=== PATIENT | female | born 1950 | race Caucasian/White ===

== ENCOUNTER 2024-09-07 20:14 | Observation (INO) | payer MEDICARE, SELFPAY ==
[2024-09-07 20:16] VITALS: BP 163/103; PULSE 72; RESP 19; TEMP 36.4; O2SAT 97; BMI 29.9
--- NOTE | 2024-09-07 20:24 | CT_ITS ---
PROCEDURE: BRAIN/HEAD WITHOUT CONTRAST 09/07/2024 REASON FOR EXAM: DIZZINESS TECHNIQUE: Head CT without intravenous contrast. Coronal and Sagittal reconstruction series were provided. One or more dose reduction techniques were used (e.g., Automated exposure control, adjustment of the mA and/or kV according to patient size, use of iterative reconstruction technique. COMPARISON: None FINDINGS: Negative for acute intracranial hemorrhage, midline shift or mass effect. No definite CT evidence of acute territorial cortical infarction. No hydrocephalus. Chronic lacunar infarcts in the right basal ganglia. Mild chronic small-vessel ischemic changes. Calvarium is intact. Paranasal sinuses and mastoid air cells are clear. CT/Brain/Head without Contrast IMPRESSION: 1. No acute intracranial abnormality. 2. Chronic ischemic changes as above. Reading Location: [facility]
--- NOTE | 2024-09-07 20:25 | EX.ED.DYSGE1 ---
HPI History of Present Illness Chief Complaint: Dizziness Narrative Narrative: 74-year-old female past medical history of COPD presents with lightheadedness and dizziness that she has had all day today. She states yesterday everything was fine. Her boyfriend states that her symptoms may have started this morning around 3 AM. They were not as severe, but she has been working in the yard all day. States she feels lightheaded, and it is worse with standing. She feels like she is off balance when she stands and that everything is far away. She denies any vertiginous type symptoms with the room spinning at rest. No recent diarrhea. Earlier she was nauseated and vomited once, but feels improved. No other exacerbating or alleviating factors. No dysuria or hematuria. No recent fevers or chills. No cough or shortness of breath even with her history of COPD. [facility] Medical History COPD (chronic obstructive pulmonary disease) Allergy/AdvReac Type Severity Reaction Status Date / Time No Known Allergies Allergy Verified 09/07/24 20:15 Social History Smoking Status: Current every day smoker tobacco type: cigarettes ROS ROS ED ROS Narrative Review of systems positive for lightheadedness and dizziness worse with standing. No fevers or chills. She was nauseated earlier and vomited once without any blood in her emesis. No recent diarrhea. No chest pain, no shortness of breath. EXAM Physical Exam Narrative Exam Narrative: Afebrile. Vital signs noted. Nontoxic-appearing. Cardiovascular examination reveals a regular rate and rhythm. Lungs are clear to auscultation bilaterally with diminished sounds at the bilateral bases. Moving a good amount of air. Abdomen is soft and nontender without guarding or rebound. No epigastric tenderness. Neurological examination is nonfocal, nonlateralizing. PERRL, EOMI. Normal [id number]. No pedal edema noted. Const Vital Signs: 09/07/24 20:16 09/07/24 20:27 09/07/24 21:15 Temperature 97.6 F L Temperature Source Oral Pulse Rate 72 84 Pulse Rate [Lying] 75 Respiratory Rate 19 H 21 H Blood Pressure 163/103 H 179/89 H Blood Pressure [Lying] 181/91 H Blood Pressure [Sitting (for 1 minute prior to obtaining)] 173/85 H Blood Pressure Mean 123 119 Blood Pressure Mean [Lying] 121 Blood Pressure Mean [Sitting (for 1 minute prior to obtaining)] 114 Pulse Ox 97 98 Oxygen Delivery Method Room Air Room Air 09/07/24 22:00 Temperature Temperature Source Pulse Rate 75 Pulse Rate [Lying] Respiratory Rate 17 Blood Pressure 179/84 H Blood Pressure [Lying] Blood Pressure [Sitting (for 1 minute prior to obtaining)] Blood Pressure Mean 115 Blood Pressure Mean [Lying] Blood Pressure Mean [Sitting (for 1 minute prior to obtaining)] Pulse Ox 96 Oxygen Delivery Method Room Air MDM MDM MDM Narrative Medical decision making narrative: The differential diagnosis includes but not limited to benign positional vertigo versus orthostatic near syncope versus posterior circulation problem/cerebellar stroke. Her exam is not consistent with cerebellar stroke. She may have intravascular volume depletion or other electrolyte imbalance/dehydration as she states she has been doing yard work and in the heat all day today. As her symptoms began earlier this morning, at 3 AM, approximately 17 hours ago, I do not feel stroke team is indicated as she has no focal deficit. Additionally, she is not a TNK candidate because she is outside the window. I reviewed her laboratory work and she has normal white count of 9.5 with hemoglobin normal at 12.9, hematocrit 40.4, platelet count 354. Her electrolyte panel is grossly unremarkable except for CO2 low at 18.8 with normal BUN of 10 and creatinine 0.70. Sodium normal at 141 and potassium 3.9. LFTs are grossly unremarkable. Chest x-ray shows atelectasis in the right base on my independent interpretation. I reviewed the radiology report which confirms my independent interpretation. CT of the brain radiology report reviewed and there are chronic changes but no acute intracranial abnormality. Upon repeat examination, she states she feels the same. She was unable to stand for orthostatics. While she was given the meclizine orally, with concern for posterior circulation problem/cerebellar stroke, CTA will be obtained of the head and neck. I reviewed the radiology report of the CTA of the head and neck and there is no evidence of a large vessel occlusion. She does have 40% stenosis of the left carotid. As she is unable to stand she will be unable to perform her ADLs at home I feel that she will require observation. Patient will be discussed with the hospitalist. Discussed with Dr. Flores. Patient assigned observation in the PCU. History & Record Review Discussion w/independent historian: Patient and Significant other Lab Data Attestation: I reviewed the patient's lab results. Labs: Laboratory Results - last 24 hr 09/07/24 20:20 WBC 9.5 RBC 6.18 H Hgb 12.9 Hct 40.4 MCV 65.4 L MCH 20.9 L MCHC 31.9 L RDW Std Deviation 38.6 RDW Coeff of Luis 18.4 H Plt Count 354 MPV 10.0 Immature Gran % (Auto) 0.300 Neut % (Auto) 60.5 Lymph % (Auto) 32.7 [place]irt % (Auto) 5.4 Eos % (Auto) 0.5 Baso % (Auto) 0.6 Absolute Neuts (auto) 5.7 Absolute Lymphs (auto) 3.10 Nucleated RBC % 0.3 Sodium 141 Potassium 3.9 Chloride 107 Carbon Dioxide 18.8 L Anion Gap 15 BUN 10 Creatinine 0.70 Estim Creat Clear Calc 53.61 Est GFR (MDRD) Non-Af 91 BUN/Creatinine Ratio 14.6 Glucose 116 H Calcium 9.9 Total Bilirubin 0.45 AST 18 ALT 12 Alkaline Phosphatase 89 Total Protein 8.0 Albumin 4.4 Globulin 3.7 Albumin/Globulin Ratio 1.2 Radiography Chest X-Ray - ED: 1 View, Read by ED Physician, Read by Radiologist and No Acute Disease Diagnostic Testing: Clinical Impression(s) from Imaging Studies Brain CT 09/07/24 20:24 IMPRESSION: 1. No acute intracranial abnormality. 2. Chronic ischemic changes as above. Reading Location: [facility] Chest X-Ray 09/07/24 20:39 IMPRESSION: 1. Minimal right basilar opacities which may relate to atelectasis or infiltrate. 2. Left humeral neck enchondroma. Reading Location: [facility] Head/Neck CTA 09/07/24 21:27 IMPRESSION: No large vessel occlusion. No right carotid stenosis. Mild (40%) left carotid stenosis. Patent vertebral arteries bilaterally. 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 Reading Location: [id number] Management Discussion w/another healthcare provider: Hospitalist Discharge Plan Dx/Rx/DC Orders Clinical Impression: Dizziness, Lightheadedness, Inability to walk, COPD (chronic obstructive pulmonary disease) Disposition Disposition: Acute Care Hospital [facility]
[2024-09-07 20:27] VITALS: BP 173/85; BP 181/91; PULSE 75
[2024-09-07] MEDS: 0.9% Normal Saline (1000mL) 1,000 ML 1000 ML IV (20:37)
--- NOTE | 2024-09-07 20:39 | RAD_ITS ---
PROCEDURE: CHEST 1 VIEW (PORTABLE) 09/07/2024 REASON FOR EXAM: COPD TECHNIQUE: Frontal view of the chest. COMPARISON: None FINDINGS: Cardiomediastinal silhouette is within normal limits. Minimal right basilar airspace opacities. Left lung is clear. No sizable pleural effusion or pneumothorax. Enchondroma in the left femoral neck. RAD/Chest 1 View (Portable) IMPRESSION: 1. Minimal right basilar opacities which may relate to atelectasis or infiltrat e. 2. Left humeral neck enchondroma. Reading Location: [facility]
[2024-09-07 20:40] LABS: Absolute Neutrophil Count 5.7 X10^3/uL (2.0-7.7); Basophil# 0.06 X10^3/uL; Basophil% 0.6 % (0-1); Eosinophil# 0.05 X10^3/uL; Eosinophils% 0.5 % (0-5); Hematocrit 40.4 % (37-47); Hemoglobin 12.9 g/dL (12.0-15.0); Lymphocyte % 32.7 % (19-41); Mean Corp Hgb Conc 31.9 g/dL (32-36); Mean Corpuscular Hgb 20.9 pg (27.0-32.0); Mean Corpuscular Volume 65.4 fL (81-99); Monocyte# 0.51 X10^3/uL; Monocyte% 5.4 % (0-10); NRBC Flagged by Analyzer 0.3 % (0-5); Neutrophil # 5.73 X10^3/uL (2.7-7.7); Neutrophil % 60.5 % (47-70); Platelet Count 354 K/mm3 (150-450); RBC Distribution Width CV 18.4 % (11.6-14.6); RBC Distribution Width SD 38.6 fl (35.1-43.9); Red Blood Count 6.18 M/mm3 (4.2-5.4); White Blood Count 9.5 K/mm3 (4.4-11.0)
[2024-09-07 21:15] VITALS: BP 179/89; PULSE 84; RESP 21; O2SAT 98
[2024-09-07 21:16] LABS: ALB/GLOB Ratio 1.2 RATIO (0.9-2.4); AST(SGOT) 18 U/L (<=31); Alanine Aminotransfer ALT/SGPT 12 U/L (<=34); Albumin, Serum 4.4 g/dL (3.4-4.8); Alkaline Phosphatase 89 U/L (35-104); Anion Gap 15 (5-15); BUN 10 mg/dL (4-19); BUN/Creat Ratio 14.6 RATIO (10-20); Calcium,Total 9.9 mg/dL (7.6-11.0); Carbon Dioxide 18.8 mmol/L (21.0-32.0); Chloride 107 mmol/L (98-108); EST Glomerular Filtration Rate 91 (>60); Estimated Creatinine Clearance 53.61 ml/min (50-250); Globulin 3.7 g/dL (2.2-4.2); Glucose 116 mg/dL (70-99); Potassium 3.9 mmol/L (3.3-5.1); Sodium Level 141 mmol/L (133-145); Total Bilirubin 0.45 mg/dL (0.00-1.30)
--- NOTE | 2024-09-07 21:27 | CT_ITS ---
PROCEDURE: CTA HEAD AND NECK W/ CONTRAST 09/07/2024 REASON FOR EXAM: DIZZINESS TECHNIQUE: CTA imaging of the head and neck from the aortic arch to the skull vertex with out constrast and with intravenous contrast. Coronal and Sagittal reconstruction series were provided. 3D post processing with reformations, Maximum intensity projection (MIPs) Volume rendering and Shaded surface rendering was provided. One or more dose reduction techniques were used (e.g., Automated exposure control, adjustment of the mA and/or kV according to patient size, use of iterative reconstruction technique). FINDINGS: Aortic Arch: Normal size and branching pattern. No significant atherosclerotic plaque. Direct origin of the left vertebral artery from the aortic arch between the origin left common carotid artery and left subclavian artery. Brachiocephalic and Subclavians: Unremarkable RIGHT Carotid: Right CCA: Unremarkable. Right ICA: Mild calcified and soft plaque. Maximum stenosis (NASCET): 0 % Right ECA: Unremarkable. LEFT Carotid: Left CCA: Mild calcified and soft plaque. Left ICA: Mild calcified and soft plaque. Maximum stenosis (NASCET): 40 % Left ECA: Unremarkable. Vertebrals: RIGHT Vertebral: Unremarkable. LEFT Vertebral: Hypoplastic Anatomy: [place] anatomy is normal. Aneurysm or avm: No intracranial aneurysms or large vascular malformations are identified. Anterior cerebral arteries: Unremarkable: Middle cerebral arteries: Unremarkable. Basilar artery: Unremarkable. Posterior cerebral arteries: Unremarkable. Persistent origin bilaterally. Other major branches of the posterior circulation: Unremarkable. Major venous structures: Unremarkable. Other findings: Neck: No lymphadenopathy. Lungs: Lung apices are clear. Bones: Bones are unremarkable. CT/CTA Head AND Neck W/ Contrast IMPRESSION: No large vessel occlusion. No right carotid stenosis. Mild (40%) left carotid stenosis. Patent vertebral arteries bilaterally. 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 Reading Location: [id number]
[2024-09-07] MEDS: Meclizine HCl 25 MG Tablet PO (21:38)
[2024-09-07 22:00] VITALS: BP 179/84; PULSE 75; RESP 17; O2SAT 96
--- NOTE | 2024-09-07 22:21 | PCM.HP.STD ---
[facility] - General General Date of Admission: 09/07/24 Date of Service: 09/07/24 Chief Complaint: Lightheadedness, Dizziness and Nausea with Vomiting. HPI Narrative MARU MARIANO, is a 74 F with a past medical history of obesity; BMI of 30 sensation and chronic tobacco abuse; with subsequent COPD on Trelegy Ellipta daily and as needed albuterol who presents to [facility] complaining of lightheadedness, dizziness and nausea with vomiting. Ms. Mariano reports her symptoms began abruptly earlier today at ~3 AM. She states her dizziness was initially mild but then she spent all day working in the yard which seem to make her symptoms worse. Now she feels severely lightheaded which is made worse by standing. She also admits to feeling like she is off-balance and that everything seems far away. She denies any vertiginous type symptoms with room spinning at rest, known history of BPPV or similar previous episodes. She then developed nausea with 1 episode of bilious emesis. She denies other exacerbating or alleviating factors. She denies associated fever, chills, abdominal pain, diarrhea, constipation, dysuria, hematuria, chest pain, headache or rash. 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 Her CXR revealed minimal Right basilar opacities which may relate to atelectasis or infiltrate with incidentally noted Left humeral neck enchondroma. Clinically she was noted to have an elevated blood pressure of 181/91 mmHg noted shortly after admission consistent with suspected Hypertensive Urgency complicated by incidentally noted laboratory evidence of microcytosis with MCV of 65.4 fL present on admission but with a stable hemoglobin of 12.9 g/dL present on admission with no other significant findings. She was then admitted to the PCU under observation status for ongoing care for stay that is expected to be less than 2 midnights. [facility] Medical History COPD (chronic obstructive pulmonary disease) Home Medications ?Medication ?Instructions ?Recorded ?Last Taken ?Type albuterol sulfate inhalation Q6H PRN PRN shortness 09/07/24 Unknown History of breath or wheezing fluticasone fur. 100 mcg-umeclid 1 inh inhalation DAILY 09/07/24 Unknown History 62.5 mcg-vilant 25 mcg inhalat.powder (Trelegy Ellipta) Allergy/AdvReac Type Severity Reaction Status Date / Time No Known Allergies Allergy Verified 09/07/24 20:15 Social History Smoking Status: Current every day smoker tobacco type: cigarettes ROS ROS Narrative Review of Systems: Constitutional: Patient admits to lightheadedness and dizziness made worse with standing. She denies fever or chills. Eyes: Patient states things seem far away but she denies other changes in vision or discharge from eyes. ENT: Patient denies runny nose, sore throat or ear pain. Resp: Patient denies shortness of breath or cough. CV: Patient denies chest pain, palpitations, heart racing or lower extremity edema. GI: Patient admits to nausea and vomiting with bilious emesis but she denies abdominal pain, diarrhea or constipation. : Patient denies dysuria, hematuria or urinary frequency. MSK: Patient denies arthralgias or myalgias. Skin: Patient denies rash, abscess, wounds or jaundice. Psych: Patient denies symptoms of uncontrolled depression or anxiety. Neuro: Patient admits to dizziness and lightheadedness but she denies vertiginous symptoms, headache, paresthesias or focal neurologic deficits. Allergy: Patient denies lip swelling, tongue swelling or urticaria. Hematology: Patient denies easy bleeding or easy bruisability. Endocrinology: Patient denies polyuria, polydipsia, polyphagia or heat/cold intolerance. 14 point ROS otherwise negative except for positives noted above in HPI. Vital Signs Vital Signs Vital Signs: 09/07/24 20:16 09/07/24 20:27 09/07/24 21:15 Temperature 97.6 F L Temperature Source Oral Pulse Rate 72 84 Pulse Rate [Lying] 75 Respiratory Rate 19 H 21 H Blood Pressure 163/103 H 179/89 H Blood Pressure [Lying] 181/91 H Blood Pressure [Sitting (for 1 minute prior to obtaining)] 173/85 H Blood Pressure Mean 123 119 Blood Pressure Mean [Lying] 121 Blood Pressure Mean [Sitting (for 1 minute prior to obtaining)] 114 Pulse Ox 97 98 Oxygen Delivery Method Room Air Room Air 09/07/24 22:00 Temperature Temperature Source Pulse Rate 75 Pulse Rate [Lying] Respiratory Rate 17 Blood Pressure 179/84 H Blood Pressure [Lying] Blood Pressure [Sitting (for 1 minute prior to obtaining)] Blood Pressure Mean 115 Blood Pressure Mean [Lying] Blood Pressure Mean [Sitting (for 1 minute prior to obtaining)] Pulse Ox 96 Oxygen Delivery Method Room Air Weight Weight: 148 lb 5.938 oz Body Mass Index (BMI) 29.9 Physical Exam Const alert and oriented x3 Constitutional Narrative: Mild distress noted. General Appearance: cooperative HEENT normocephalic, head/scalp atraumatic, hearing grossly normal bilaterally and moist oral mucous membranes Eyes PERRL, EOMs intact bilaterally and conjunctivae normal Neck no lymphadenopathy, supple and no JVD Resp normal respiratory effort, no retractions, no use of accessory muscles and clear to auscultation bilaterally Cardio regular rate and regular rhythm GI normal to inspection, nondistended, normoactive bowel sounds, soft to palpation, non-tender and non-distended GI Narrative: Obese. Extremity normal to inspection, full ROM and no clubbing, cyanosis or edema Skin Skin Narrative: Patient has no evidence of rash, abscess, wounds or jaundice. Neuro oriented x3, CN's II-XII intact bilaterally, moves all extremities and no focal motor deficits Sensorium / Orientation: awake, alert, oriented to person, oriented to place and oriented to time Coordination / Balance: [id number] test normal and [id number] test normal Speech: speech normal Motor Exam: strength 5/5 throughout Psych affect normal Results Medical Records Data Attestation: I reviewed the patient's medical records Lab / Micro Data Attestation: I reviewed the patient's lab results. 09/07/24 20:20 09/07/24 20:20 Labs: Laboratory Results - last 24 hr 09/07/24 20:20: WBC 9.5, RBC 6.18 H, Hgb 12.9, Hct 40.4, MCV 65.4 L, MCH 20.9 L, MCHC 31.9 L, RDW Std Deviation 38.6, RDW Coeff of Luis 18.4 H, Plt Count 354, MPV 10.0, Immature Gran % (Auto) 0.300, Neut % (Auto) 60.5, Lymph % (Auto) 32.7, [place] % (Auto) 5.4, Eos % (Auto) 0.5, Baso % (Auto) 0.6, Absolute Neuts (auto) 5.7, Absolute Lymphs (auto) 3.10, Nucleated RBC % 0.3, Sodium 141, Potassium 3.9, Chloride 107, Carbon Dioxide 18.8 L, Anion Gap 15, BUN 10, Creatinine 0.70, Estim Creat Clear Calc 53.61, Est GFR (MDRD) Non-Af 91, BUN/Creatinine Ratio 14.6, Glucose 116 H, Calcium 9.9, Total Bilirubin 0.45, AST 18, ALT 12, Alkaline Phosphatase 89, Total Protein 8.0, Albumin 4.4, Globulin 3.7, Albumin/Globulin Ratio 1.2 Imaging Radiology Impression Brain CT 09/07/24 20:24 IMPRESSION: 1. No acute intracranial abnormality. 2. Chronic ischemic changes as above. Reading Location: [facility] Chest X-Ray 09/07/24 20:39 IMPRESSION: 1. Minimal right basilar opacities which may relate to atelectasis or infiltrate. 2. Left humeral neck enchondroma. Reading Location: [facility] Head/Neck CTA 09/07/24 21:27 IMPRESSION: No large vessel occlusion. No right carotid stenosis. Mild (40%) left carotid stenosis. Patent vertebral arteries bilaterally. 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 Reading Location: [id number] Assessment & Plan Assessment/Plan (1) Lightheadedness: (2) Dizziness: (3) Inability to walk: (4) Nausea and vomiting: QUALIFIERS: Vomiting type: unspecified Qualified Code(s): R11.2 - Nausea with vomiting, unspecified (5) Hypertensive urgency: (6) Continuous tobacco abuse: (7) COPD (chronic obstructive pulmonary disease): QUALIFIERS: COPD type: unspecified COPD Qualified Code(s): J44.9 - Chronic obstructive pulmonary disease, unspecified (8) Obesity (BMI 30.0-34.9): (9) RBC microcytosis: PLAN: Plan 1. 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 Check MRI of brain to evaluate for CVA. Check echocardiogram to evaluate LVEF. Give baby aspirin plus statin. Place scopolamine patch to extinguish dizziness and GI upset. Give meclizine as needed for dizziness. Give ondansetron IV as needed nausea and vomiting. Give promethazine IM as needed for breakthrough nausea and vomiting. Check TSH, B12, folate, hemoglobin A1c, lipid profile, ADITI and UDS to evaluate for other potential contributing factors to her presentation. Finally, we will consult [facility] to see this patient for further recommendations with appreciated in advance. 2. Hypertensive Urgency; evidenced by elevated blood pressure of 181/91 mmHg noted shortly after admission complicating #1 - We we will allow for 'permissive hypertension' until CVA definitively ruled out on MRI. 3. Chronic tobacco abuse; with subsequent COPD compounding #1 & #2 - Tobacco Cessation will be strongly encouraged with nicotine patch offered to control cravings. Patient has no evidence of flare of COPD at this time. Give albuterol nebulizers as needed. 4. Obesity; BMI of 30 this admission adding to the burden of disease outlined from #1 - #3 - Weight loss will be recommended. Check TSH. This complicates her case and may hamper recovery. 5. Laboratory evidence of microcytosis with MCV of 65.4 fL present on admission but with a stable hemoglobin of 12.9 g/dL present on admission - Check iron studies and ferritin. Hemoccult stools. 6. DVT/GI prophylaxis - Enoxaparin 40 mg subcu daily. Pantoprazole 40 mg IV daily until patient can tolerate p.o. intake. Total time: Approximately (but not less than) 70 minutes. Charges/Coding Visit Charges OBSV E&M: 78228 Observ/hosp same date L2
[2024-09-07 22:36] VITALS: BP 179/84; PULSE 80; RESP 17; TEMP 36.6; O2SAT 97
[2024-09-07 22:39] LABS: Color, Urine Yellow (Yellow); Glucose, Dipstick Normal (Normal); Ketone-Dipstick Negative (Negative); Leukocyte Esterase-Dipstick 500 /ul (Negative); Mucous, Urine 0 SEEN /hpf (<or=2+); Nitrite-Dipstick Negative (Negative); Occult Blood-Urine 10 /ul (Negative); Protein-Dipstick 15 mg/dl (Negative); Red Blood Cells-Urine 0 SEEN /hpf (0-5); Specific Gravity, Urine 1.005 (1.002-1.030); Urine Bilirubin Dipstick Negative (Negative); Urine Clarity Sl. Cloudy (Clear); Urine Urobilinogen Normal (Normal)
[2024-09-07 22:52] LABS: Bacteria 1+ /hpf (None Seen); Squamous Epithelial Cells - UA 0-5 SEEN /hpf (5-10); White Blood Cells 10-25 SEEN /hpf (0-5)
--- NOTE | 2024-09-07 22:53 | MRI_ITS ---
EXAM: BRAIN WITHOUT CONTRAST CLINICAL HISTORY: PLEASE EVALUATE FOR CVA. ? VERTEBROBASILAR SYNDRO COMPARISON: Head CTA September 07, 2024. TECHNIQUE: Multiplanar, multisequence MR images of the brain were obtained without gadolinium contrast material. FINDINGS: No intracranial hemorrhage, mass, mass effect, midline shift or pathologic extra- axial fluid collection. No hydrocephalus. There is moderate generalized atrophy. There is focal restricted diffusion in the left mid periventricular region measuring 1.1 by 0.6 cm image 16/26, and in the left posterior insular deep white matter measuring 0.5 cm and 0.4 cm, image 14/26, with corresponding increased T2 and FLAIR signal, and subtle low T1 signal changes, consistent with recent infarct, early subacute. There is a 0.8 x 0.3 cm old lacunar infarct posterior to the head of the caudate on the right. No gradient signal blooming artifacts are identified. No cerebellar tonsillar ectopia. No sellar/suprasellar signal abnormalities. The ocular globes and intraorbital soft tissues are symmetrically unremarkable. Mucosal thickening is visible in the right maxillary sinus and a portion of the right and left ethmoid air cells. The mastoid air cells appear clear. MRI/Brain without Contrast IMPRESSION: There is moderate generalized atrophy. There is focal restricted diffusion in the left mid periventricular region marshall uring 1.1 by 0.6 cm image 16/26, and in the left posterior insular deep white matter measuring 0.5 cm and 0.4 cm, image 14/26, w ith corresponding increased T2 and FLAIR signal, and subtle low T1 signal changes, consistent with recent infarct, early subacut e. There is a 0.8 x 0.3 cm old lacunar infarct posterior to the head of the caudat e on the right. Mucosal thickening is visible in the right maxillary sinus and a portion of the right and left ethmoid air cells. Reading Location: [facility]
--- NOTE | 2024-09-07 22:53 | ECHOD_ITS ---
Reason For Study Reason For Study: TIA/STROKE Procedure This was a 2D Doppler, Color Flow transthoracic echocardiogram. Exam performed portable in patient room. Left Ventricle Normal LV size. Mild concentric left ventricular hypertrophy. The LV systolic function is normal. EF is 65 %. Stage 1 diastolic dysfunction. Right Ventricle Normal size and thickness. Atria The left and right atria are normal. Mitral Valve Trivial mitral valve insufficiency. Tricuspid Valve Trivial tricuspid valve insufficiency. Normal pulmonary artery pressure. Aortic Valve Trisinus/trileaflet aortic valve. 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 Consider further evaluation with STEVENSON if clinically indicated. There is no aortic stenosis. No aortic valve insufficiency. Pulmonic Valve The pulmonic valve is not well visualized. Trivial pulmonic valve insufficiency. Great Vessels Normal sized aortic root. Pericardium/Pleural No pericardial effusion. MMode/2D Measurements & Calculations LVIDd: 4.2 cm IVSd: 1.2 cm Ao root diam: 2.6 cm LVIDs: 2.7 cm LVPWd: 1.2 cm RVDd: 3.1 cm FS: 34.8 % LAV(MOD-bp): 29.3 ml LVAd ap4: 22.8 cm2 SV(MOD-sp4): 39.0 ml LAV(MOD-bp) Indexed: 18.1 ml/m2 LVLd ap4: 6.9 cm SI(MOD-sp4): 24.1 ml/m2 LAV(MOD-sp2): 32.6 ml EDV(MOD-sp4): 61.9 ml LAV(MOD-sp4): 26.7 ml EDV(sp4-el): 63.7 ml LVAs ap4: 12.4 cm2 LVLs ap4: 5.9 cm ESV(MOD-sp4): 22.8 ml ESV(sp4-el): 22.2 ml EF(MOD-sp4): 63.1 % EF(sp4-el): 65.1 % SV(sp4-el): 41.4 ml LA A4 area: 12.7 cm2 LA dimension(2D): 3.4 cm RA A4 area: 10.4 cm2 TAPSE: 2.5 cm Time Measurements MV dec time: 0.21 sec Doppler Measurements & Calculations MV E max mehdi: 89.1 cm/sec Lat Peak E' Mehdi: 10.0 cm/sec Med Peak E' Mehdi: 9.1 cm/sec MV A max mehdi: 101.5 cm/sec E/E' lat: 8.9 E/E' med: 9.8 MV E/A: 0.88 Ao V2 max: 165.7 cm/sec LV V1 max: 110.5 cm/sec PA V2 max: 104.0 cm/sec Ao max P.0 mmHg LV V1 max P.9 mmHg TR max mehdi: 269.4 cm/sec TR max P.0 mmHg ECHO/Echo Complete Interpretation Summary Mild concentric left ventricular hypertrophy. The LV systolic function is normal. EF is 65 %. Stage 1 diastolic dysfunction. Possible aortic valve Lambl's excrescence versus atherosclerotic frond of the a ortic root. Consider further evaluation with STEVENSON if clinically indicated. Ordering Physician: Valentín Sutton Performed By: Chelsey Delarosa RDCS
--- NOTE | 2024-09-07 22:56 | CDU_ITS ---
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 Velocities/BP Lt. Velocities/BP Prox CCA 73/16.3 cm/sec. Prox CCA 94.9/16.3 cm/sec. Mid CCA 88.1/16.3 cm/sec. Mid CCA 82.6/15.1 cm/sec. Dist CCA 73/17.3 cm/sec. Dist CCA 87.6/18.8 cm/sec. Prox ICA 61.8/10.2 cm/sec. Prox ICA 90/17 cm/sec. Mid ICA 75.3/16.3 cm/sec. Mid ICA 76.8/18.9 cm/sec. Dist ICA 93.7/20 cm/sec. Dist ICA 89.8/15.9 cm/sec. Rt. ICA/CCA = 1.06. Lt. ICA/CCA = 1.09. Prox ECA 196/22.6 cm/sec. Prox ECA 126.6/17 cm/sec. Rt. Vert. 102.3/15.1 cm/sec. Lt. Vert. 48.5/6 cm/sec. Right Extracranial There is intimal thickening but no significant atherosclerotic plaque noted in the right common carotid artery. There is intimal thickening but no significant atherosclerotic plaque noted in the right internal carotid artery. There is heterogeneous, irregular atherosclerotic plaque noted in the right external carotid artery. Antegrade flow is noted in the right vertebral artery. Left Extracranial There is homogeneous, smooth atherosclerotic plaque noted in the left common carotid artery. There is heterogeneous, irregular atherosclerotic plaque noted in the left internal carotid artery. There is heterogeneous, irregular atherosclerotic plaque noted in the left external carotid artery. Antegrade flow is noted in the left vertebral artery. Procedure Carotid Duplex 27631. This is a Carotid Duplex examination using B-mode, color flow and specral Doppler. Exam performed in department. VL/Carotid Duplex Ultrasound Interpretation Summary No significant atherosclerotic plaque or stenosis noted in the right internal c arotid artery. Mild (<50%) stenosis left extracranial internal carotid. Flow within the vertebral arteries is antegrade bilaterally. Ordering Physician: Valentín Sutton Performed By: Jane Shelton RVT
[2024-09-07 23:15] VITALS: BP 150/134; PULSE 80; RESP 18; TEMP 36.4; O2SAT 97; BMI 29.7
[2024-09-07] MEDS: Pantoprazole Sodium 40 MG in 0.9% Normal Saline (100mL MB+) 100 ML 330 MG IV (23:34)
[2024-09-07] MEDS: 0.9% Normal Saline (1000mL) 1,000 ML 50 ML IV (23:34)
[2024-09-07] MEDS: Aspirin 81 MG TAB.CHEW 162 MG PO (23:37)
[2024-09-07] MEDS: Scopolamine 1mg/72hr Patch 1 PATCH TD (23:38)
[2024-09-07] MEDS: Atorvastatin Calcium 20 MG Tablet PO (23:38)
[2024-09-08] VITALS (9 sets, daily range): BP systolic 146–177; BP diastolic 52–83; PULSE 63–85; RESP 16–20; TEMP 36.4–36.9; O2SAT 94–97; BMI 29.7
[2024-09-08 00:03] LABS: Alcohol, Blood (Medical)-Serum < 10.1 mg/dL (<=10.0)
[2024-09-08 00:08] LABS: Amphetamine Urine NEGATIVE (<1000 ng/mL); Barbiturate Urine NEGATIVE (< 200 ng/mL); Benzodiazepine Urine NEGATIVE (< 200 ng/mL); Buprenorphine Urine NEGATIVE (< 200 ng/mL); Cocaine Urine NEGATIVE (< 300 ng/mL); Fentanyl, Urine NEGATIVE; Methadone Urine NEGATIVE (< 300 ng/mL); Opiates Urine NEGATIVE (< 300 ng/mL); Oxycodone, Urine NEGATIVE (< 100 ng/mL); PCP Urine NEGATIVE (< 25 ng/mL); THC Urine PRESUMPTIVE POSITIVE (< 50 ng/mL)
[2024-09-08 00:37] LABS: Ferritin 373 ng/mL (22-378); Vitamin B12 271 pg/mL (180-914)
[2024-09-08 00:51] LABS: Iron 73 ug/dL (50-170); Iron Binding Capacity,Total 292 ug/dL (250-450); Iron Binding Capacity,Unsat 219 ug/dL (228-428)
[2024-09-08 01:11] LABS: Hemoglobin A1c 5.3 % (<=5.6)
[2024-09-08] MEDS: Enoxaparin 40 MG/0.4 ML Syringe SC (05:25)
[2024-09-08 06:18] LABS: Cholesterol 186 mg/dL (<=200); High Density Lipoprotein 30 mg/dL; Low Density Lipoprotein Calc. 128 mg/dL; Triglycerides 142 mg/dL; Very Low Density Lipoprotein 28 mg/dL (5-40); cholesterol:hdl ratio screen 6.22
[2024-09-08] MEDS: Ipratropium/Albuterol Sulfate 3 ML AMPUL.NEB INHALATION ×3 (06:50→19:10)
[2024-09-08] MEDS: Budesonide Respules 0.5 MG/2 ML AMPUL.NEB. INHALATION ×2 (06:50→19:11)
--- NOTE | 2024-09-08 08:54 | PCM.PN.HOSP ---
Reason for Visit Reason for Visit: Diagnoses Obesity, class 1 (09/07/24) Hypertensive urgency (09/07/24) Chronic obstructive pulmonary disease, unspecified (09/07/24) Nausea with vomiting, unspecified (09/07/24) Difficulty in walking, not elsewhere classified (09/07/24) Dizziness and giddiness (09/07/24) Other abnormality of red blood cells (09/07/24) Tobacco use (09/07/24) Objective Data Objective Data Vital Signs: Vital Signs Temp Pulse Resp BP Pulse Ox O2 Del Method 98.2 F 65 16 177/75 H 95 Room Air 09/08/24 05:25 09/08/24 06:50 09/08/24 06:50 09/08/24 05:25 09/08/24 06:50 09/08/24 07:50 Oxygen Delivery Method Room Air Weight: 147 lb 0.773 oz Body Mass Index (BMI) 29.7 Intake & Output: Intake and Output for Last 24 Hours 09/06/24 09/07/24 09/08/24 23:59 23:59 23:59 Intake Total 1110 / 1110 413.33 / 413.33 Balance 1110 / 1110 413.33 / 413.33 Lab / Micro Data 09/07/24 20:20 09/07/24 20:20 Labs: Laboratory Results - last 24 hr 09/07/24 20:20: WBC 9.5, RBC 6.18 H, Hgb 12.9, Hct 40.4, MCV 65.4 L, MCH 20.9 L, MCHC 31.9 L, RDW Std Deviation 38.6, RDW Coeff of Luis 18.4 H, Plt Count 354, MPV 10.0, Immature Gran % (Auto) 0.300, Neut % (Auto) 60.5, Lymph % (Auto) 32.7, [place] % (Auto) 5.4, Eos % (Auto) 0.5, Baso % (Auto) 0.6, Absolute Neuts (auto) 5.7, Absolute Lymphs (auto) 3.10, Nucleated RBC % 0.3, Sodium 141, Potassium 3.9, Chloride 107, Carbon Dioxide 18.8 L, Anion Gap 15, BUN 10, Creatinine 0.70, Estim Creat Clear Calc 53.61, Est GFR (MDRD) Non-Af 91, BUN/Creatinine Ratio 14.6, Glucose 116 H, Hemoglobin A1c 5.3, Calcium 9.9, Iron 73, TIBC 292, Iron Saturation 25.0, Unsaturated IBC 219 L, Ferritin 373, Total Bilirubin 0.45, AST 18, ALT 12, Alkaline Phosphatase 89, Total Protein 8.0, Albumin 4.4, Globulin 3.7, Albumin/Globulin Ratio 1.2, Vitamin B12 271, TSH 1.260, Ethyl Alcohol < 10.1 09/07/24 22:29: Urine Color Yellow, Urine Clarity Sl. Cloudy, Urine pH 7.0, Ur Specific Alba 1.005, Urine Protein 15 H, Urine Glucose (UA) Normal, Urine Ketones Negative, Urine Occult Blood 10 H, Urine Nitrite Negative, Urine Bilirubin Negative, Urine Urobilinogen Normal, Ur Leukocyte Esterase 500 H, Urine RBC 0 SEEN, Urine WBC 10-25 SEEN, Ur Squamous Epith Cells 0-5 SEEN, Urine Bacteria 1+, Urine Mucus 0 SEEN, Urine Opiates Screen NEGATIVE, U Buprenorphine Qual NEGATIVE, Ur Oxycodone Screen NEGATIVE, Urine Methadone Screen NEGATIVE, Urine Fentanyl Screen NEGATIVE, Ur Barbiturates Screen NEGATIVE, Ur Phencyclidine Scrn NEGATIVE, Ur Amphetamines Screen NEGATIVE, U Benzodiazepines Scrn NEGATIVE, Urine Cocaine Screen NEGATIVE, U Cannabinoids Screen PRESUMPTIVE POSITIVE 09/08/24 05:11: Triglycerides 142, Cholesterol 186, LDL Cholesterol, Calc 128, VLDL Cholesterol 28, HDL Cholesterol 30 L, Cholesterol/HDL Ratio 6.22 Radiography Diagnostic Testing: Radiology Impression Brain CT 09/07/24 20:24 IMPRESSION: 1. No acute intracranial abnormality. 2. Chronic ischemic changes as above. Reading Location: [facility] Chest X-Ray 09/07/24 20:39 IMPRESSION: 1. Minimal right basilar opacities which may relate to atelectasis or infiltrate. 2. Left humeral neck enchondroma. Reading Location: [facility] Head/Neck CTA 09/07/24 21:27 IMPRESSION: No large vessel occlusion. No right carotid stenosis. Mild (40%) left carotid stenosis. Patent vertebral arteries bilaterally. 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 Reading Location: [facility] Physical Exam Narrative Seen and examined Patient is feeling dizzy and lightheaded. She was feeling vertigo in the morning. No gait ataxia Physical exam General: Alert, Oriented x3, Cooperative HEENT: Atraumatic, PERRLA, EOMI, Normocephalic Oral: No Gingival or Mucosal Lesions/ Ulcerations Neck: Supple, No JVD, Negative Carotid Bruits Chest wall/Lungs: Air entry diminished in bilateral lung bases. No crepitation/rhonchi Cardiovascular: Regular rate, Regular Rhythm, Normal S1, Normal S2, No M/G/R Abdomen: Bowel Sounds Present, Soft, Non Tender, Non-Distended : No dysuria. No renal angle tenderness. No suprapubic tenderness. Extremities: No edema, Capillary Refill Less than 3 Seconds Skin: No rashes, No breakdown Musculoskeletal: No Tenderness to Palpation of Joints or Extremities Neurological: Cranial nerves II-XII grossly intact, DTR 2+/4. NIH stroke scale 0. Psych/Mental Status: Flat affect Assessment & Plan Assessment/Plan (1) Lightheadedness: (2) Dizziness: (3) Inability to walk: (4) Nausea and vomiting: QUALIFIERS: Vomiting type: unspecified Qualified Code(s): R11.2 - Nausea with vomiting, unspecified (5) Hypertensive urgency: (6) Continuous tobacco abuse: (7) COPD (chronic obstructive pulmonary disease): QUALIFIERS: COPD type: unspecified COPD Qualified Code(s): J44.9 - Chronic obstructive pulmonary disease, unspecified (8) Obesity (BMI 30.0-34.9): (9) RBC microcytosis: PLAN: Plan 74-year-old female was admitted with lightheadedness and dizziness, inability to walk, nausea vomiting and hypertensive urgency. No recent fever or chill, no cough or shortness of breath or URI symptoms. 1. Acute dizziness/vertigo probably due to recent/early subacute infarct of left mid periventricular region and left posterior insular deep white matter: Patient is being admitted in PCU. MRI shows 1.1 x 0.6 cm left mid periventricular region infarct and 0.5 x 0.4 cm left posterior insular deep white matter infarct. There is also old infarct 0.8 x 0.3 cm in posterior of head of caudate on right side. CTA head and neck shows mild 40% left Roto-Rest TTE reported possible aortic valve Lambl's excrescence versus atherosclerotic frond of the aortic root. This was discussed with the neurologist and center customer service associate. Gore Stitcher stated less likely Lambl's excrescence which is filiform strand and he recommended outpatient STEVENSON. LDL 128, TG 142, TSH 1.26. A1c 5.3% Plan: Plavix 300 mg x 1 and 75 mg to continue for 21 days. Aspirin 81 mg to continue. High intensity statin. Permissive hypertension to goal of SBP less than 220 mmHg for 24 hours then we can resume normotension. LDL goal less than 70. Follow-up neurology in 4 to 6 weeks 2. Hypertensive Urgency: Neurologist recommended gradual normotension. Most recent 146/60. 3. Chronic tobacco abuse; with subsequent COPD - Tobacco Cessation recommended. No evidence of acute COPD exacerbation. Nicotine patch offered. 4. Obesity; BMI of 30 KG per square meter 5. LDVT/GI prophylaxis - Enoxaparin 40 mg subcu daily. Pantoprazole 40 mg IV daily until patient can tolerate p.o. intake. Clinical Impression(s) from Imaging Studies Brain CT 09/07/24 20:24 IMPRESSION: 1. No acute intracranial abnormality. 2. Chronic ischemic changes as above. Chest X-Ray 09/07/24 20:39 IMPRESSION: 1. Minimal right basilar opacities which may relate to atelectasis or infiltrate. 2. Left humeral neck enchondroma. Head/Neck CTA 09/07/24 21:27 IMPRESSION: No large vessel occlusion. No right carotid stenosis. Mild (40%) left carotid stenosis. Brain MRI 09/07/24 22:53 IMPRESSION: There is moderate generalized atrophy. There is focal restricted diffusion in the left mid periventricular region measuring 1.1 by 0.6 cm image /, and in the left posterior insular deep white matter measuring 0.5 cm and 0.4 cm, image /, with corresponding increased T2 and FLAIR signal, and subtle low T1 signal changes, consistent with recent infarct, early subacute. There is a 0.8 x 0.3 cm old lacunar infarct posterior to the head of the caudate on the right. Mucosal thickening is visible in the right maxillary sinus and a portion of the right and left ethmoid air cells. Echocardiogram 09/07/24 22:53 Interpretation Summary Mild concentric left ventricular hypertrophy. The LV systolic function is normal. EF is 65 %. Stage 1 diastolic dysfunction. 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 Consider further evaluation with STEVENSON if clinically indicated. Laboratory Results 09/07/24 20:20: WBC 9.5, RBC 6.18 H, Hgb 12.9, Hct 40.4, MCV 65.4 L, MCH 20.9 L, MCHC 31.9 L, RDW Std Deviation 38.6, RDW Coeff of Luis 18.4 H, Plt Count 354, MPV 10.0, Immature Gran % (Auto) 0.300, Neut % (Auto) 60.5, Lymph % (Auto) 32.7, [place] % (Auto) 5.4, Eos % (Auto) 0.5, Baso % (Auto) 0.6, Absolute Neuts (auto) 5.7, Absolute Lymphs (auto) 3.10, Nucleated RBC % 0.3, Sodium 141, Potassium 3.9, Chloride 107, Carbon Dioxide 18.8 L, Anion Gap 15, BUN 10, Creatinine 0.70, Estim Creat Clear Calc 53.61, Est GFR (MDRD) Non-Af 91, BUN/Creatinine Ratio 14.6, Glucose 116 H, Hemoglobin A1c 5.3, Calcium 9.9, Iron 73, TIBC 292, Iron Saturation 25.0, Unsaturated IBC 219 L, Ferritin 373, Total Bilirubin 0.45, AST 18, ALT 12, Alkaline Phosphatase 89, Total Protein 8.0, Albumin 4.4, Globulin 3.7, Albumin/Globulin Ratio 1.2, Vitamin B12 271, TSH 1.260, Ethyl Alcohol < 10.1 09/07/24 22:29: Urine Color Yellow, Urine Clarity Sl. Cloudy, Urine pH 7.0, Ur Specific Alba 1.005, Urine Protein 15 H, Urine Glucose (UA) Normal, Urine Ketones Negative, Urine Occult Blood 10 H, Urine Nitrite Negative, Urine Bilirubin Negative, Urine Urobilinogen Normal, Ur Leukocyte Esterase 500 H, Urine RBC 0 SEEN, Urine WBC 10-25 SEEN, Ur Squamous Epith Cells 0-5 SEEN, Urine Bacteria 1+, Urine Mucus 0 SEEN, Urine Opiates Screen NEGATIVE, U Buprenorphine Qual NEGATIVE, Ur Oxycodone Screen NEGATIVE, Urine Methadone Screen NEGATIVE, Urine Fentanyl Screen NEGATIVE, Ur Barbiturates Screen NEGATIVE, Ur Phencyclidine Scrn NEGATIVE, Ur Amphetamines Screen NEGATIVE, U Benzodiazepines Scrn NEGATIVE, Urine Cocaine Screen NEGATIVE, U Cannabinoids Screen PRESUMPTIVE POSITIVE 09/08/24 05:11: Triglycerides 142, Cholesterol 186, LDL Cholesterol, Calc 128, VLDL Cholesterol 28, HDL Cholesterol 30 L, Cholesterol/HDL Ratio 6.22 Charges/Coding Addendum Addendum: Total time of the visit including total time spent in counseling or coordination of care, (more than 50% of the total time, spent in obtaining medical information from nurses and other ancillary care providers ,explaining to the patient about labs, imaging, diagnosis and management of active complex medical conditions), discussion with center customer service associate and neurology, review of labs and imaging and explanation to the patient is 35 minutes. Visit Charges Inpatient E&M: 41309 Subs Hosp L3 NIHSS NIHSS Nursing Documentation NIHSS Nursing Documentation: NIHSS: Ischemic Stroke/TIA Start: 09/07/24 23:15 Text: For PCU Patients: NIH and Neuro Check every 4 Status: Active hours, PRN and with change in RN caregiver. Freq: [id number] Protocol: Activity Type Activity Date Activity User E-sign Co-sign Detail Recorded Client Recorded Date Recorded By Document 09/08/24 05:25 MB [id number] 09/08/24 05:25 MB 09/08/24 05:25 NIH Stroke Scale [NIHSS] A score of 0 is normal or asymptomatic . Total possible score is 42. Inpatient: RN or Physician to activate a stroke alert for onset of new stroke symptoms or with NIHSS increase >/= 3 points. Following change in neurological status, NIHSS will be performed per physician order or more frequently PRN. -1a. Level of Consciousness 0 - Alert; keenly responsive -1b. LOC Questions 0 - Answers BOTH questions correctly -1c. LOC Commands 0 - Performs BOTH tasks correctly -2. Best Gaze 0 - Normal -3. Visual 0 - No visual loss -4. Facial Palsy 0 - Normal symmetrical movements -5a. Left Arm 0 - No drift; arm holds 90 ( or 45) degrees for full 10 seconds -5b. Right Arm 0 - No drift; arm holds 90 ( or 45) degrees for full 10 seconds -6a. Left Leg 0 - No drift; leg holds 30- degree position for full 5 seconds -6b. Right Leg 0 - No drift; leg holds 30- degree position for full 5 seconds -7. Limb Ataxia 0 - Absent -8. Sensory 0 - Normal; no sensory loss -9. Best Language 0 - No aphasia; normal -10. Dysarthria 0 - Normal -11. Extinction and Inattention 0 - No abnormality -Total 0 Query Text:A score of 0 is normal or asymptomatic. Total possible score is 42 . ED: Notify Physician for NIHSS increase by > / = 3 points. Inpatient: RN or Physician to activate a stroke alert for NIHSS increase of > / = 3 points. Coma Scale [Assess] -Eye Opening Spontaneous -Motor Obeys Commands -Verbal Oriented [Total] -Coma Scale Total 15
[2024-09-08] MEDS: Aspirin 81 MG TAB.CHEW PO (09:49)
--- NOTE | 2024-09-08 10:10 | CASEMGMT ---
RN?CM?MOBILE SERVICE RV TECHNICIAN?CM?to room to meet with patient for initial transition planning/care coordination?assessment.?RN?CM?introduced self and role at [facility].? Pt voices understanding and consents to?assessment?at this time.? Pt resting in bed in no distress at this time, but does c/o dizziness and room spinning even w/slight turn of her head. Pt is A/O at this time and answers all questions appropriately.?? Care providers, pharmacy, and demographics verified/updated at this time. PCP: No PCP. Pt had a PCP in [place], but just moved to [place] around May, 2024. Pt provided w/local PCP directory. Offered to assist w/finding PCP. She states her BF's niece sees a local PCP and she wants to check into that provider 1st. She does not know name of PCP, but states will f/u w/this on her own. Specialists: Dr Trevino-pulmonlogist in [place]. Preferred [facility]acy: [facility] Insurance: [employer] Prescription Benefit:?Yes Living Will/HPOA:?Pt does not currently have LW/HCPOA and declines info at this time.? Pt made aware that she can contact SW as an out-pt and make appt in the future if she decides she would like to talk with someone about this or would like to utilize [facility] social work for advanced directive completion.? LNOK: Pt has 2 adult daughters and 2 adult sons. Sig other, Ethan, is only contact listed. Pt states does not want her children listed as contacts at this time. She states Ethan would know how to contact them, if needed. Living Arrangements: Lives w/sig other, Ethan, in 2-story home w/basement, no steps to enter. FFSU. Indep w/ADL's and IADL's. Transportation:?Pt states she can drive, but does not usually. Ethan usually does the driving. DME: has the following DME: Pt states she has oxygen that she wears PRN @ 3 L/M. She states this was set-up after discharge from another hospital in [place] awhile ago. She does not remember the name of DME co that supplies the O2 and states does not recall ever getting a bill for the O2. She states they provided her w/a concentrator and portable O2 tanks, however she left all of it up in [place] where she was living except for one portable o2 tank. She states she still has access to get it in [place], as they are still in the process of having all of their items moved to [place]. GUS ULLOA inquired if Ethan would know name of DME co or if he could get the info and offered to call him at this time. Pt states he is not currently home, stating he is on the way up to [place] for an appt. GUS ULLOA asked pt if she could try to get this info from him when she talks to him later today and if able to do so, to ask for CM or provide info to her nurse. She voices understanding. Pt denies having any other DME @ home & denies needs at this time. She states she has not been OOB yet and does not know how she will do, but she does not anticipate will need any DME @ dc. HHC/SNF: No hx of either. Pt wishes to return home and states has no concerns with going home at this time, but states d/t not being OOB yet & still having dizziness, she is not sure how she will do. She feels once her dizziness/spinning resolves, she does not anticipate will have any dc needs, but she is not sure. CM?to follow for any further discharge planning/needs.? Pt voices no further concerns/needs at this time.? Advised pt to ask for?CM?if any further questions/concerns/needs arise.? Voices understanding. PLAN:??TBD, pending any needs once symptoms resolve. Erich CERVANTESN?RN?CM
--- NOTE | 2024-09-08 10:10 | CASEMGMT ---
RN?CM?TEXTILE MACHINE OPERATOR?CM?to room to meet with patient for initial transition planning/care coordination?assessment.?RN?CM?introduced self and role at [facility].? Pt voices understanding and consents to?assessment?at this time.? Pt resting in bed in no distress at this time, but does c/o dizziness and room spinning even w/slight turn of her head. Pt is A/O at this time and answers all questions appropriately.?? Care providers, pharmacy, and demographics verified/updated at this time. PCP: No PCP. Pt had a PCP in [place], but just moved to [place] around May, 2024. Pt provided w/local PCP directory. Offered to assist w/finding PCP. She states her BF's niece sees a local PCP and she wants to check into that provider 1st. She does not know name of PCP, but states will f/u w/this on her own. Specialists: Dr Trevino-pulmonlogist in [place]. Preferred Pharmacy: [facility] Insurance: [employer] Prescription Benefit:?Yes Living Will/HPOA:?Pt does not currently have LW/HCPOA and declines info at this time.? Pt made aware that she can contact SW as an out-pt and make appt in the future if she decides she would like to talk with someone about this or would like to utilize [facility] social work for advanced directive completion.? LNOK: Pt has 2 adult daughters and 2 adult sons. Sig other, Ethan, is only contact listed. Pt states does not want her children listed as contacts at this time. She states Ethan would know how to contact them, if needed. Living Arrangements: Lives w/sig other, Ethan, in 2-story home w/basement, no steps to enter. FFSU. Indep w/ADL's and IADL's. Transportation:?Pt states she can drive, but does not usually. Ethan usually does the driving. DME: has the following DME: Pt states she has oxygen that she wears PRN @ 3 L/M. She states this was set-up after discharge from another hospital in [place] awhile ago. She does not remember the name of DME co that supplies the O2 and states does not recall ever getting a bill for the O2. She states they provided her w/a concentrator and portable O2 tanks, however she left all of it up in [place] where she was living except for one portable o2 tank. She states she still has access to get it in [place], as they are still in the process of having all of their items moved to [place]. GUS ULLOA inquired if Ethan would know name of DME co or if he could get the info and offered to call him at this time. Pt states he is not currently home, stating he is on the way up to [place] for an appt. GUS ULLOA asked pt if she could try to get this info from him when she talks to him later today and if able to do so, to ask for CM or provide info to her nurse. She voices understanding. Pt denies having any other DME @ home. ? HHC/SNF: Pt wishes to return home and states has no concerns with going home at time of discharge.? Pt states does not smoke or drink ETOH. ?CM?to follow for home oxygen needs and any further discharge planning/needs.? Pt voices no further concerns/needs at this time.? Advised pt to ask for?CM?if any further questions/concerns/needs arise.? Voices understanding. PLAN:?? Erich BSN?RN?CM
--- NOTE | 2024-09-08 12:29 | CON.PCM.NE_ITS ---
Assessment and Plan: Stroke Assessment/Plan MARU MARIANO is a 74 F with PMH of Obesity, COPD, tobacco use, not on any AC/AP who presents for acute onset light headedness, dizziness, and nausea/vomiting, and slurred speech. Neurological examination shows NIHSS of 2 for mild R nasolabial splaying which improves with activation and mild dysarthria (patient reports she is not at her baseline speech and does feel it is more slurred than usual). Neuroimaging shows acute to subacute L periverntricular infarct. CTA with mild L ICA atherosclerosis. LDL 128. A1C 5.3. TTE with EF 65%, but concern for Lambl Excrescences vs atherosclerotic plaque on aortic root. Recommendations: ? Recommend the following tests for stroke evaluation: MRI brain, vessel imaging, LDL, A1C, TTE complete ? Recommend discussion with cardiology regarding TTE findings and need for STEVENSON. Lambl Excrescences has been known to be risk factor in embolic stroke and thus should be evaluated. We can optimize the patient medically, but confirmation and potential discussion about monitory for surgical intervention should be discussed with cardiology ? Anti-platelet medication: Given she has a low NIHSS stroke and presents within 72 hours of symptoms, would recommend DAPT for 21 days followed by ASA monotherapy. Recommend continuation of Aspirin 81mg daily + load of Plavix 300 mg today, followed by ASA 81 mg + Plavix 75 mg daily x 21 days, followed by ASA monotherapy. ? Occupational/Physical therapy consult ? DVT prophylaxis with SCDs and heparin SQ. ? Permissive hypertension to goal SBP < 220 mm Hg x 24 hours, followed by gradual normotension. She is out of this 24 hour window and thus would recommend gradual normotension at this time. ? Stroke education ? Vascular risk factor modification: ? Hyperlipidemia: LDL Goal < 70 mg/dL - start high intensity statin equivalent to Atorvastatin 80 mg qhs ? Smoking Cessation: counseling provided Follow up in Neurology clinic in 4-6 weeks. HPI Consult Data Date of Consult: 09/08/24 HPI Narrative HPI Narrative: This is a 74 yo F with PMH of Obesity, COPD, tobacco use, not on any AC/AP who presents for acute onset light headedness, dizziness, and nausea/vomiting. The patient reports working on the yard Wednesday and feeling fine when she went to bed at around 9:30-10:00 pm on Wednesday 09/06. She woke up on 09/07 at around 0300 to go the bathroom and noted instability, feeling like her depth perception was off, light headedness, dizziness, nausea/vomiting, and slurring of her speech. CTH without acuity. 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 MRI with acute stroke in deep acute to subacute periverntricular infarct. LDL 128. A1C 5.3 The patient is a current every day smoker of one pack/per day. TTE with EF 65%, but concern for Lambl Excrescences vs atherosclerotic plaque on aortic root. Today she states she still feels symptomatic dizziness when she moves around too much, but at this time feels okay. She noted slurring of her speech since yesterday as well but no one told her it was. She feel she feels her speech is not at baseline. She has mild nasolabial splaying of R face which improves with activation. NIHSS 2 (mild dysarthria and mild R facial). She denies headache, vision changes, numbness, tingling, or weakness. She reports increased work of breathing since coming into the hospital. [facility] Medical History COPD (chronic obstructive pulmonary disease) Home Medications ?Medication ?Instructions ?Recorded ?Last Taken ?Type albuterol sulfate inhalation Q6H PRN PRN short ness 09/07/24 Unknown History of breath or wheezing fluticasone fur. 100 mcg-umeclid 1 inh inhalation HILARY Y 09/07/24 Unknown History 62.5 mcg-vilant 25 mcg inhalat.powder (Trelegy Ellipta) Allergy/AdvReac Type Severity Reaction Status Date / Time No Known Allergies Allergy Verified 09/07/24 20:15 Social History Smoking Status: Current every day smoker tobacco type: cigarettes Vital Signs Vital Signs Vital Signs: 09/07/24 20:16 09/07/24 20:27 09/07/24 21:15 Temperature 97.6 F L Temperature Source Oral Pulse Rate 72 84 Pulse Rate [Lying] 75 Pulse Strength Respiratory Rate 19 H 21 H Respiratory Effort Respiratory Depth Respiratory Pattern Blood Pressure 163/103 H 179/89 H Blood Pressure [Lying] 181/91 H Blood Pressure [Sitting (for 1 minute prior to obtaining)] 173/85 H Blood Pressure Mean 123 119 Blood Pressure Mean [Lying] 121 Blood Pressure Mean [Sitting (for 1 minute prior to obtaining)] 114 Blood Pressure Source Blood Pressure Position Blood Pressure Location Pulse Ox 97 98 Oxygen Delivery Method Room Air Room Air 09/07/24 22:00 09/07/24 22:36 09/07/24 23:15 Temperature 97.8 F 97.5 F L Temperature Source Temporal Pulse Rate 75 80 80 Pulse Rate [Lying] Pulse Strength Respiratory Rate 17 17 18 Respiratory Effort Respiratory Depth Respiratory Pattern Blood Pressure 179/84 H 179/84 H 150/134 H Blood Pressure [Lying] Blood Pressure [Sitting (for 1 minute prior to obtaining)] Blood Pressure Mean 115 115 139 Blood Pressure Mean [Lying] Blood Pressure Mean [Sitting (for 1 minute prior to obtaining)] Blood Pressure Source Monitor Blood Pressure Position Semi-Fowlers Blood Pressure Location Left Arm Pulse Ox 96 97 97 Oxygen Delivery Method Room Air Room Air 09/07/24 23:45 09/08/24 01:28 09/08/24 05:18 Temperature 97.5 F L Temperature Source Temporal Pulse Rate 85 Pulse Rate [Lying] Pulse Strength Respiratory Rate 18 Respiratory Effort Normal Non-Labored Normal Non-Labored Respiratory Depth Normal Normal Respiratory Pattern Normal Normal Blood Pressure 175/83 H Blood Pressure [Lying] Blood Pressure [Sitting (for 1 minute prior to obtaining)] Blood Pressure Mean 113 Blood Pressure Mean [Lying] Blood Pressure Mean [Sitting (for 1 minute prior to obtaining)] Blood Pressure Source Monitor Blood Pressure Position Semi-Fowlers Blood Pressure Location Left Arm Pulse Ox 97 Oxygen Delivery Method Room Air Room Air 09/08/24 05:25 09/08/24 06:50 09/08/24 06:50 Temperature 98.2 F Temperature Source Temporal Pulse Rate 68 65 Pulse Rate [Lying] Pulse Strength Respiratory Rate 18 16 Respiratory Effort Respiratory Depth Respiratory Pattern Normal Blood Pressure 177/75 H Blood Pressure [Lying] Blood Pressure [Sitting (for 1 minute prior to obtaining)] Blood Pressure Mean 109 Blood Pressure Mean [Lying] Blood Pressure Mean [Sitting (for 1 minute prior to obtaining)] Blood Pressure Source Monitor Blood Pressure Position Semi-Fowlers Blood Pressure Location Left Arm Pulse Ox 95 95 Oxygen Delivery Method Room Air Room Air 09/08/24 07:50 09/08/24 08:41 09/08/24 09:25 Temperature 97.8 F Temperature Source Oral Pulse Rate 67 Pulse Rate [Lying] Pulse Strength Normal (2+) Respiratory Rate 20 H Respiratory Effort Normal Non-Labored Respiratory Depth Normal Respiratory Pattern Normal Blood Pressure 166/62 H Blood Pressure [Lying] Blood Pressure [Sitting (for 1 minute prior to obtaining)] Blood Pressure Mean 96 Blood Pressure Mean [Lying] Blood Pressure Mean [Sitting (for 1 minute prior to obtaining)] Blood Pressure Source Monitor Blood Pressure Position Semi-Fowlers Blood Pressure Location Right Arm Pulse Ox 97 Oxygen Delivery Method Room Air Room Air Weight Weight: 66.7 kg Body Mass Index (BMI) 29.7 EEG Results Procedure Details EEG Procedure Details: MARU MARIANO is a 74 year old F with a past medical history of , who presents for evaluation of Electroencephalogram on DATE at TIME Lab / Micro Data 09/07/24 20:20 09/07/24 20:20 Labs: Laboratory Results - last 24 hr 09/07/24 20:20: WBC 9.5, RBC 6.18 H, Hgb 12.9, Hct 40.4, MCV 65.4 L, MCH 20.9 L, MCHC 31.9 L, RDW Std Deviation 38.6, RDW Coeff of Luis 18.4 H, Plt Count 354, MPV 10.0, Immature Gran % (Auto) 0.300, Neut % (Auto) 60.5, Lymph % (Auto) 32.7, Dupage % (Auto) 5.4, Eos % (Auto) 0.5, Baso % (Auto) 0.6, Absolute Neuts (auto) 5.7, Absolute Lymphs (auto) 3.10, Nucleated RBC % 0.3, Sodium 141, Potassium 3.9, Chloride 107, Carbon Dioxide 18.8 L, Anion Gap 15, BUN 10, Creatinine 0.70, Estim Creat Clear Calc 53.61, Est GFR (MDRD) Non-Af 91, BUN/Creatinine Ratio 14.6, Glucose 116 H, Hemoglobin A1c 5.3, Calcium 9.9, Iron 73, TIBC 292, Iron Saturation 25.0, Unsaturated IBC 219 L, Ferritin 373, Total Bilirubin 0.45, AST 18, ALT 12, Alkaline Phosphatase 89, Total Protein 8.0, Albumin 4.4, Globulin 3.7, Albumin/Globulin Ratio 1.2, Vitamin B12 271, TSH 1.260, Ethyl Alcohol < 10.1 09/07/24 22:29: Urine Color Yellow, Urine Clarity Sl. Cloudy, Urine pH 7.0, Ur Specific [place] 1.005, Urine Protein 15 H, Urine Glucose (UA) Normal, Urine Ketones Negative, Urine Occult Blood 10 H, Urine Nitrite Negative, Urine Bilirubin Negative, Urine Urobilinogen Normal, Ur Leukocyte Esterase 500 H, Urine RBC 0 SEEN, Urine WBC 10-25 SEEN, Ur Squamous Epith Cells 0-5 SEEN, Urine Bacteria 1+, Urine Mucus 0 SEEN, Urine Opiates Screen NEGATIVE, U Buprenorphine Qual NEGATIVE, Ur Oxycodone Screen NEGATIVE, Urine Methadone Screen NEGATIVE, Urine Fentanyl Screen NEGATIVE, Ur Barbiturates Screen NEGATIVE, Ur Phencyclidine Scrn NEGATIVE, Ur Amphetamines Screen NEGATIVE, U Benzodiazepines Scrn NEGATIVE, Urine Cocaine Screen NEGATIVE, U Cannabinoids Screen PRESUMPTIVE POSITIVE 09/08/24 05:11: Triglycerides 142, Cholesterol 186, LDL Cholesterol, Calc 128, VLDL Cholesterol 28, HDL Cholesterol 30 L, Cholesterol/HDL Ratio 6.22 Imaging Radiology Impression Brain CT 09/07/24 20:24 IMPRESSION: 1. No acute intracranial abnormality. 2. Chronic ischemic changes as above. Reading Location: [facility] Chest X-Ray 09/07/24 20:39 IMPRESSION: 1. Minimal right basilar opacities which may relate to atelectasis or infiltrate. 2. Left humeral neck enchondroma. Reading Location: [facility] Head/Neck CTA 09/07/24 21:27 IMPRESSION: No large vessel occlusion. No right carotid stenosis. Mild (40%) left carotid stenosis. Patent vertebral arteries bilaterally. 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 Reading Location: [id number] Brain MRI 09/07/24 22:53 IMPRESSION: There is moderate generalized atrophy. There is focal restricted diffusion in the left mid periventricular region measuring 1.1 by 0.6 cm image , and in the left posterior insular deep white matter measuring 0.5 cm and 0.4 cm, image 14/26, with corresponding increased T2 and FLAIR signal, and subtle low T1 signal changes, consistent with recent infarct, early subacute. There is a 0.8 x 0.3 cm old lacunar infarct posterior to the head of the caudate on the right. Mucosal thickening is visible in the right maxillary sinus and a portion of the right and left ethmoid air cells. Reading Location: [facility] Echocardiogram 09/07/24 22:53 Interpretation Summary Mild concentric left ventricular hypertrophy. The LV systolic function is normal. EF is 65 %. Stage 1 diastolic dysfunction. 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 Consider further evaluation with STEVENSON if clinically indicated. Ordering Physician: Valentín Sutton Performed By: Chelsey Delarosa RDCS Active Medications Active Medications Active Medications: Current Medications Generic Name Dose Route Start Last Admin Trade Name Freq PRN Reason Stop Dose Admin Acetaminophen 650 mg 09/07/24 23:15 Acetaminophen 325 Mg Tablet PO Q6H PRN PRN Pain 1-10 Or Fever>99.6 Albuterol/Ipratropium 3 ml 09/08/24 00:00 09/08/24 06:50 Ipratropium/Albuterol Sulfate 3 Ml Ampul.Neb INHALATION 3 ml Q6HWA.RT RADHA Administration Aspirin 81 mg 09/08/24 08:00 09/08/24 09:49 Aspirin 81 Mg Tab.Chew PO 81 mg BREAKFAST RADHA Administration Atorvastatin Calcium 20 mg 09/07/24 22:54 09/07/24 23:38 Atorvastatin Calcium 20 Mg Tablet PO 20 mg QHS RADHA Administration Budesonide 0.5 mg 09/08/24 06:00 09/08/24 06:50 Budesonide Respules 0.5 Mg/2 Ml Ampul.Neb. INHALATION 0.5 mg Q12H.RT RADHA Administration Enoxaparin Sodium 40 mg 09/08/24 06:00 09/08/24 05:25 Enoxaparin 40 Mg/0.4 Ml Syringe SC 40 mg DAILY@0600 RADHA Administration Pantoprazole Sodium 40 mg/ 110 mls @ 330 mls/hr 09/07/24 22:54 09/07/24 23:54 Sodium Chloride IV Infused 2200 RADHA Infusion Sodium Chloride 1,000 mls @ 50 mls/hr 09/07/24 22:55 09/08/24 08:15 IV 09/08/24 18:54 50 mls/hr .Q20H RADHA Infusion Sodium Chloride 100 mls @ 15 mls/hr 09/07/24 23:49 IV .Q6H40M PRN Saline Flush Sodium Chloride 100 mls @ 15 mls/hr 09/07/24 23:49 IV .Q6H40M PRN Additional IVPB Infusion Meclizine HCl 12.5 mg 09/07/24 22:54 Meclizine 12.5 Mg Tablet PO TID PRN PRN DIZZINESS Nicotine 14 mg 09/07/24 22:54 09/08/24 09:49 Nicotine 14 Mg Patch TD Not Given DAILY RADHA Ondansetron HCl 4 mg 09/07/24 23:15 Ondansetron 4 Mg/2 Ml Vial IV Q6H PRN PRN NAUSEA/VOMITING Scopolamine HBr 1 patch 09/07/24 23:00 09/07/24 23:38 Scopolamine 1mg/72hr Patch TD 1 patch Q3D@2200 RADHA Administration Sodium Chloride 10 - 40 ml 09/07/24 23:49 0.9% Saline Lock 10 Ml Syringe IV UD PRN SALINE FLUSH NIHSS NIHSS Nursing Documentation NIHSS Nursing Documentation: NIHSS: Ischemic Stroke/TIA Start: 09/07/24 23:15 Text: For PCU Patients: NIH and Neuro Check every 4 Status: Active hours, PRN and with change in RN caregiver. Freq: [id number] Protocol: Activity Type Activity Date Activity User E-sign Co-sign Detail Recorded Client Recorded Date Recorded By Document 09/08/24 09:25 ARTHUR [id number] 09/08/24 09:48 ARTHUR 09/08/24 09:25 NIH Stroke Scale [NIHSS] A score of 0 is normal or asymptomatic . Total possible score is 42. Inpatient: RN or Physician to activate a stroke alert for onset of new stroke symptoms or with NIHSS increase >/= 3 points. Following change in neurological status, NIHSS will be performed per physician order or more frequently PRN. -1a. Level of Consciousness 0 - Alert; keenly responsive -1b. LOC Questions 0 - Answers BOTH questions correctly -1c. LOC Commands 0 - Performs BOTH tasks correctly -2. Best Gaze 0 - Normal -3. Visual 0 - No visual loss -4. Facial Palsy 0 - Normal symmetrical movements -5a. Left Arm 0 - No drift; arm holds 90 ( or 45) degrees for full 10 seconds -5b. Right Arm 0 - No drift; arm holds 90 ( or 45) degrees for full 10 seconds -6a. Left Leg 0 - No drift; leg holds 30- degree position for full 5 seconds -6b. Right Leg 0 - No drift; leg holds 30- degree position for full 5 seconds -7. Limb Ataxia 0 - Absent -8. Sensory 0 - Normal; no sensory loss -9. Best Language 0 - No aphasia; normal -10. Dysarthria 0 - Normal -11. Extinction and Inattention 0 - No abnormality -Total 0 Query Text:A score of 0 is normal or asymptomatic. Total possible score is 42 . ED: Notify Physician for NIHSS increase by > / = 3 points. Inpatient: RN or Physician to activate a stroke alert for NIHSS increase of > / = 3 points. Coma Scale [Assess] -Eye Opening Spontaneous -Motor Obeys Commands -Verbal Oriented [Total] -Coma Scale Total 15 NIHSS 1a. Level of Consciousness: 0 - Alert; keenly responsive 1b. LOC Questions: 0 - Answers BOTH questions correctly 1c. LOC Commands: 0 - Performs BOTH tasks correctly 2. Best Gaze: 0 - Normal 3. Visual: 0 - No visual loss 4. Facial Palsy: 1 - Minor paralysis (flattened nasolabial fold, asymmetry on smiling) 5a. Left Arm: 0 - No drift; arm holds 90 (or 45) degrees for full 10 seconds 5b. Right Arm: 0 - No drift; arm holds 90 (or 45) degrees for full 10 seconds 6a. Left Le - No drift; leg holds 30-degree position for full 5 seconds 6b. Right Le - No drift; leg holds 30-degree position for full 5 seconds 7. Limb Ataxia: 0 - Absent 8. Sensory: 0 - Normal; no sensory loss 9. Best Language: 0 - No aphasia; normal 10. Dysarthria: 1 = [id number] dysarthria; 11. Extinction and Inattention: 0 - No abnormality Total: 2
--- NOTE | 2024-09-08 14:23 | CASEMGMT ---
SW completed a PHQ 9 as patient had a Stroke. Patient scored a 1 which indicates minimal depression. Patient denied counseling resources. Tessa MARQUEZ
[2024-09-08] MEDS: Clopidogrel Bisulfate 300 MG Tablet PO (15:03)
--- NOTE | 2024-09-08 15:58 | CASEMGMT ---
Met with patient to complete BAILEY form. BAILEY form explained to patient who voiced understanding and signed form. Original form placed in pt?s chart and copy provided to patient. Marlene Ceja, Discharge Planning Asst
[2024-09-08] MEDS: 0.9% Saline Lock 10 ML Syringe IV (19:03)
[2024-09-08] MEDS: Pantoprazole Sodium 40 MG in 0.9% Normal Saline (100mL MB+) 100 ML 330 MG IV (21:04)
[2024-09-08] MEDS: Atorvastatin Calcium 40 MG Tablet PO (21:05)
[2024-09-09 03:20] VITALS: BP 120/62; PULSE 83; RESP 18; TEMP 36.5; O2SAT 96
[2024-09-09] MEDS: Enoxaparin 40 MG/0.4 ML Syringe SC (06:12)
[2024-09-09 06:55] VITALS: PULSE 63; RESP 17; O2SAT 94
[2024-09-09] MEDS: Ipratropium/Albuterol Sulfate 3 ML AMPUL.NEB INHALATION ×2 (06:55→13:09)
[2024-09-09 09:20] VITALS: BP 147/77; PULSE 88; RESP 18; TEMP 36.6; O2SAT 96
[2024-09-09] MEDS: Aspirin 81 MG TAB.CHEW PO (09:24)
[2024-09-09] MEDS: Clopidogrel Bisulfate 75 MG Tablet PO (09:24)
[2024-09-09 09:55] VITALS: BMI 29.7
--- NOTE | 2024-09-09 10:54 | DCINST_ITS ---
Discharge Instructions Diet Discharge Diet: Low fat / Low cholesterol and 2000 mg Sodium Diet DC O2, CPAP, BIPAP needs Home O2 Discharge instructions: No Dressing / Incision Discharge Activity: Return to Normal Activity Weight Bearing Status: Weight bearing as tolerated Dressing / Incision Call your doctor if you observe: Fever of 101 or Higher, Coldness, Increased Pain, Numbness or Tingling, Change in Color, Inability to urinate, Inability to have a bowel movement, Shortness of breath, Dizziness, Fainting spells, Swelling in the ankles, Chest pain, Prolonged hiccupping, Increased palpitations (irregular heartbeat) and Calf discomfort Follow Up Care When: IN 2 WEEKS Test Results: Test results from this visit will be discussed in further detail at your follow- up appointment, if applicable. Discharge Plan Admission Admit Date/Time: 09/07/24 22:45 Primary Reason for Your Visit: Subacute left periventricular infarct. Attending Provider: Jeremy Spivey Primary Care Provider: Care Physician,No Primary Consulting Providers: Aaron Wang; Keenan Szymanski; Concha Jenkins; Isatu Justice; Yue Dover; Desean De La Cruz; Parisa Patterson; Roby Boggs; Anatoly Mix; Reed Guerra; Modesta Ramos; Chava Chase; Olivia Hair; Vaibhav Martinez; Angela Castillo; Topher Munoz; Penny Chavarria; Fadi Rose; Anju Michel; Tristen Bello; Valentín Sutton Instructions Additional Instructions / Restrictions: Follow-up with management retail intern Dr. Valero for outpatient STEVENSON Discharge Orders/Prescriptions Prescriptions: New clopidogrel 75 mg Tablet 75 mg PO DAILY 21 Days Qty: 21 0RF meclizine 12.5 mg Tablet 12.5 mg PO TID PRN PRN (Reason: Dizziness) 30 Days Qty: 30 0RF nicotine 21 mg/24 hr patch 24 hour 1 patch transdermal DAILY 28 Days Qty: 28 0RF atorvastatin 40 mg Tablet 40 mg PO QHS 30 Days Qty: 30 3RF aspirin 81 mg Tablet,Chewable 81 mg PO BREAKFAST 30 Days Qty: 30 3RF Continued Trelegy Ellipta 100-62.5-25 mcg blister with device 1 inh inhalation DAILY albuterol sulfate inhalation Q6H PRN PRN (Reason: shortness of breath or wheezing) Referrals / Follow Up: Care Physician,No Primary [Primary Care Provider] - Alireza Valero MD [Med Staff - Active Staff] - Within 1 Month (For outpatient STEVENSON for 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) Jasper Pimentel MD [Non-Staff -Ordering Privileges] - Within 1 Month (For ischemic stroke) Disposition Disposition (needs filled in before D/C Order can be placed): Home, Self Care
[2024-09-09 11:01] VITALS: BP 141/66; PULSE 73; RESP 18; TEMP 36.3; O2SAT 95
--- NOTE | 2024-09-09 11:03 | DS.PCM_ITS ---
Providers Date of Admission: 09/07/24 Date of Discharge: 09/09/24 Primary Care Physician: [facility] Consultations 09/07/24 23:15 Consult: Tele-Neurology Routine Consulting Provider: [facility] Reason for Consult: Acute Ischemic Stroke/TIA EMERGENT Consult: No MD Notified: Yes Date Notified: 09/07/24 Time Notified: 23:45 Method of Notification: Verbal Method of Consult:: Telemedicine Reason For Visit: LIGHTHEADEDNESS AND DIZZINESS INABILITY TO WALK Diagnosis Discharge Diagnosis (1) Lightheadedness: Status: Acute Code(s): R42 - Dizziness and giddiness (2) Dizziness: Status: Acute Code(s): R42 - Dizziness and giddiness (3) Inability to walk: Status: Acute Code(s): R26.2 - Difficulty in walking, not elsewhere classified (4) Nausea and vomiting: Status: Acute Code(s): R11.2 - Nausea with vomiting, unspecified Qualifiers: Vomiting type: unspecified Qualified Code(s): R11.2 - Nausea with vomiting, unspecified (5) Hypertensive urgency: Status: Acute Code(s): I16.0 - Hypertensive urgency (6) Continuous tobacco abuse: Status: Acute Code(s): Z72.0 - Tobacco use (7) COPD (chronic obstructive pulmonary disease): Status: Chronic Code(s): J44.9 - Chronic obstructive pulmonary disease, unspecified Qualifiers: COPD type: unspecified COPD Qualified Code(s): J44.9 - Chronic obstructive pulmonary disease, unspecified (8) Obesity (BMI 30.0-34.9): Status: Acute Code(s): E66.811 - Obesity, class 1 (9) RBC microcytosis: Status: Acute Code(s): R71.8 - Other abnormality of red blood cells Plan 74-year-old female was admitted with lightheadedness and dizziness, inability to walk, nausea vomiting and hypertensive urgency. No recent fever or chill, no cough or shortness of breath or URI symptoms. 1. Acute dizziness/vertigo probably due to recent/early subacute infarct of left mid periventricular region and left posterior insular deep white matter: Patient is being admitted in PCU. MRI shows 1.1 x 0.6 cm left mid periventricular region infarct and 0.5 x 0.4 cm left posterior insular deep white matter infarct. There is also old infarct 0.8 x 0.3 cm in posterior of head of caudate on right side. CTA head and neck shows mild 40% left Roto-Rest TTE reported possible aortic valve Lambl's excrescence versus atherosclerotic frond of the aortic root. This was discussed with the neurologist and body press operator. [employer] Operator stated less likely Lambl's excrescence which is filiform strand and he recommended outpatient ST[facility]SON. LDL 128, TG 142, TSH 1.26. A1c 5.3% Plan: Plavix 300 mg x 1 and 75 mg to continue for 21 days. Aspirin 81 mg to continue. High intensity statin. Permissive hypertension to goal of SBP less than 220 mmHg for 24 hours then we can resume normotension. LDL goal less than 70. Follow-up neurology in 4 to 6 weeks 09/08: Dizziness has resolved. Discussed with nursing staff to walk around the nursing staff whether she gets dizzy when walking. Prescription given for baby aspirin, Plavix, meclizine as needed for dizziness, nicotine and atorvastatin. Follow-up with the neurologist as an discharge instruction. Follow-up with body press operator Dr. Valero for outpatient ST[facility]SON 2. Hypertensive Urgency: Neurologist recommended gradual normotension. Most recent 146/60. 09/08: Blood pressure is controlled. 09/09: Prescription given for lisinopril. 3. Chronic tobacco abuse; with subsequent COPD - Tobacco Cessation recommended. No evidence of acute COPD exacerbation. Nicotine patch offered. 4. Obesity; BMI of 30 KG per square meter 5. DVT/GI prophylaxis - Enoxaparin 40 mg subcu daily. Pantoprazole 40 mg IV daily until patient can tolerate p.o. intake. Discharge medication reconciliation done. Discharge follow-up instructions completed. Discharge process discussed with the patient and all questions were answered to patient's satisfaction. Follow with PCP in 1 to 2 weeks Total time spent, exact 35 minutes on discharge meds reconciliation, examination, coordination of care with nurses and ancillary staff, review of imaging and blood test and discussion with the patient on follow-up instructions. Clinical Impression(s) from Imaging Studies Brain CT 09/07/24 20:24 IMPRESSION: 1. No acute intracranial abnormality. 2. Chronic ischemic changes as above. Chest X-Ray 09/07/24 20:39 IMPRESSION: 1. Minimal right basilar opacities which may relate to atelectasis or infiltrate. 2. Left humeral neck enchondroma. Head/Neck CTA 09/07/24 21:27 IMPRESSION: No large vessel occlusion. No right carotid stenosis. Mild (40%) left carotid stenosis. Brain MRI 09/07/24 22:53 IMPRESSION: There is moderate generalized atrophy. There is focal restricted diffusion in the left mid periventricular region measuring 1.1 by 0.6 cm image 16/26, and in the left posterior insular deep white matter measuring 0.5 cm and 0.4 cm, image 14/26, with corresponding increased T2 and FLAIR signal, and subtle low T1 signal changes, consistent with recent infarct, early subacute. There is a 0.8 x 0.3 cm old lacunar infarct posterior to the head of the caudate on the right. Mucosal thickening is visible in the right maxillary sinus and a portion of the right and left ethmoid air cells. Echocardiogram 09/07/24 22:53 Interpretation Summary Mild concentric left ventricular hypertrophy. The LV systolic function is normal. EF is 65 %. Stage 1 diastolic dysfunction. 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 Consider further evaluation with [facility] if clinically indicated. Laboratory Results 09/07/24 20:20: WBC 9.5, RBC 6.18 H, Hgb 12.9, Hct 40.4, MCV 65.4 L, MCH 20.9 L, MCHC 31.9 L, RDW Std Deviation 38.6, RDW Coeff of Luis 18.4 H, Plt Count 354, MPV 10.0, Immature Gran % (Auto) 0.300, Neut % (Auto) 60.5, Lymph % (Auto) 32.7, [place] % (Auto) 5.4, Eos % (Auto) 0.5, Baso % (Auto) 0.6, Absolute Neuts (auto) 5.7, Absolute Lymphs (auto) 3.10, Nucleated RBC % 0.3, Sodium 141, Potassium 3.9, Chloride 107, Carbon Dioxide 18.8 L, Anion Gap 15, BUN 10, Creatinine 0.70, Estim Creat Clear Calc 53.61, Est GFR (MDRD) Non-Af 91, BUN/Creatinine Ratio 14.6, Glucose 116 H, Hemoglobin A1c 5.3, Calcium 9.9, Iron 73, TIBC 292, Iron Saturation 25.0, Unsaturated IBC 219 L, Ferritin 373, Total Bilirubin 0.45, AST 18, ALT 12, Alkaline Phosphatase 89, Total Protein 8.0, Albumin 4.4, Globulin 3.7, Albumin/Globulin Ratio 1.2, Vitamin B12 271, TSH 1.260, Ethyl Alcohol < 10.1 09/07/24 22:29: Urine Color Yellow, Urine Clarity Sl. Cloudy, Urine pH 7.0, Ur Specific [place] 1.005, Urine Protein 15 H, Urine Glucose (UA) Normal, Urine Ketones Negative, Urine Occult Blood 10 H, Urine Nitrite Negative, Urine Bilirubin Negative, Urine Urobilinogen Normal, Ur Leukocyte Esterase 500 H, Urine RBC 0 SEEN, Urine WBC 10-25 SEEN, Ur Squamous Epith Cells 0-5 SEEN, Urine Bacteria 1+, Urine Mucus 0 SEEN, Urine Opiates Screen NEGATIVE, U Buprenorphine Qual NEGATIVE, Ur Oxycodone Screen NEGATIVE, Urine Methadone Screen NEGATIVE, Urine Fentanyl Screen NEGATIVE, Ur Barbiturates Screen NEGATIVE, Ur Phencyclidine Scrn NEGATIVE, Ur Amphetamines Screen NEGATIVE, U Benzodiazepines Scrn NEGATIVE, Urine Cocaine Screen NEGATIVE, U Cannabinoids Screen PRESUMPTIVE POSITIVE 09/08/24 05:11: Triglycerides 142, Cholesterol 186, LDL Cholesterol, Calc 128, VLDL Cholesterol 28, HDL Cholesterol 30 L, Cholesterol/HDL Ratio 6.22 Medications at Discharge Home Medications albuterol sulfate inhalation Q6H PRN PRN shortness of breath or wheezing 09/07/24 fluticasone fur. 100 mcg-umeclid 62.5 mcg-vilant 25 mcg inhalat.powder (Trelegy Ellipta) 1 inh inhalation DAILY 09/07/24 aspirin 81 mg chewable tablet 81 mg PO BREAKFAST 30 days #30 tabs 09/09/24 atorvastatin 40 mg tablet 40 mg PO QHS 30 days #30 tabs 09/09/24 clopidogrel 75 mg tablet 75 mg PO DAILY 3 weeks #21 tabs 09/09/24 lisinopril 10 mg tablet 10 mg PO DAILY 1 month #30 tabs 09/09/24 meclizine 12.5 mg tablet 12.5 mg PO TID PRN PRN Dizziness 1 month #30 tabs 09/09/24 nicotine 21 mg/24 hr daily transdermal patch 1 patch transdermal DAILY 4 weeks #28 ea 09/09/24 Physical Exam Narrative Seen and examined Dizziness has resolved. No vertigo. No gait ataxia Physical exam General: Alert, Oriented x3, Cooperative HEENT: Atraumatic, PERRLA, EOMI, Normocephalic Oral: No Gingival or Mucosal Lesions/ Ulcerations Neck: Supple, No JVD, Negative Carotid Bruits Chest wall/Lungs: Air entry diminished in bilateral lung bases. No crepitation/rhonchi Cardiovascular: Regular rate, Regular Rhythm, Normal S1, Normal S2, No M/G/R Abdomen: Bowel Sounds Present, Soft, Non Tender, Non-Distended : No dysuria. No renal angle tenderness. No suprapubic tenderness. Extremities: No edema, Capillary Refill Less than 3 Seconds Skin: No rashes, No breakdown Musculoskeletal: No Tenderness to Palpation of Joints or Extremities Neurological: Cranial nerves II-XII grossly intact, DTR 2+/4. NIH stroke scale 0. Psych/Mental Status: Flat affect Weight / BMI Weight Weight: 147 lb 0.773 oz Body Mass Index (BMI) 29.7 ABG / Lab / Microbiology Data 09/07/24 20:20 09/07/24 20:20 Radiography Diagnostic Testing: Radiology Impression Echocardiogram 09/07/24 22:53 Interpretation Summary Mild concentric left ventricular hypertrophy. The LV systolic function is normal. EF is 65 %. Stage 1 diastolic dysfunction. 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 Consider further evaluation with [facility] if clinically indicated. Ordering Physician: Valentín Sutton Performed By: Chelsey Delarosa RDCS D/C Instructions Discharge Diet: Low fat / Low cholesterol and 2000 mg Sodium Diet Weight Bearing Status: Weight bearing as tolerated Call your doctor if you observe: Fever of 101 or Higher, Coldness, Increased Pain, Numbness or Tingling, Change in Color, Inability to urinate, Inability to have a bowel movement, Shortness of breath, Dizziness, Fainting spells, Swelling in the ankles, Chest pain, Prolonged hiccupping, Increased palpitations (irregular heartbeat) and Calf discomfort DC O2, CPAP, BIPAP Needs Home O2 Discharge instructions: No When: IN 2 WEEKS Meaningful Use Info Meaningful Use Meaningful Use Diagnoses (Choose all that apply): Ischemic CVA CVA Therapy Assessed for PT,OT and/or ST?: Yes Ischemic Stroke Antithrombotic order at d/c?: Yes Dx of Atrial fib/flutter?: No Statin Dosing Therapy Reference: STATIN DOSE THERAPY REFERENCE: * Patients > 75 years receive moderate or high dose statin therapy. * Patients 75 years or YOUNGER should receive HIGH intensity statin dose unless contraindicated. You will be required to document reason for non-treatment if statin daily dose does not meet guidelines. HIGH DOSE STATIN THERAPY DAILY Atorvastatin > than or = to 40 mg Rosuvastatin > than or = to 20 mg Amlodipine + Atorvastatin > than or = to 2.5/40 mg Ezetimibe + Simvastatin 10/80 mg Simvastatin 80mg Statins at discharge?: Yes If patient is 75 or younger, pt will be discharged on HIGH intensity statin.: Y es Primary Dx Acute Ischemic CVA?: Yes Discharge Plan Admission Admit Date/Time: 09/07/24 22:45 Primary Reason for Your Visit: Subacute left periventricular infarct. Attending Provider: Jeremy Spivey Primary Care Provider: Care Physician,No Primary Consulting Providers: Aaron Wang; Keenan Szymanski; Concha Jenkins; Isatu Justice; Yue Dover; Desean De La Cruz; Parisa Patterson; Roby Boggs; Anatoly Mix; Reed Guerra; Modesta Ramos; Chava Chase; Olivia Hair; Vaibhav Martinez; Angela Castillo; Topher Munoz; Penny Chavarria; Fadi Rose; Anju Michel; Tristen Bello; Valentín Sutton Instructions Additional Instructions / Restrictions: Follow-up with body press operator Dr. Valero for outpatient [facility] Advised to follow-up with neurologist within a month, options are Dr. Pimentel, Dr. Antonio Mac Discharge Orders/Prescriptions Prescriptions: New clopidogrel 75 mg Tablet 75 mg PO DAILY 21 Days Qty: 21 0RF meclizine 12.5 mg Tablet 12.5 mg PO TID PRN PRN (Reason: Dizziness) 30 Days Qty: 30 0RF nicotine 21 mg/24 hr patch 24 hour 1 patch transdermal DAILY 28 Days Qty: 28 0RF atorvastatin 40 mg Tablet 40 mg PO QHS 30 Days Qty: 30 3RF aspirin 81 mg Tablet,Chewable 81 mg PO BREAKFAST 30 Days Qty: 30 3RF lisinopril 10 mg tablet 10 mg PO DAILY 30 Days Qty: 30 2RF Continued Trelegy Ellipta 100-62.5-25 mcg blister with device 1 inh inhalation DAILY albuterol sulfate inhalation Q6H PRN PRN (Reason: shortness of breath or wheezing) Referrals / Follow Up: Alireza Valero MD [Med Staff - Active Staff] - Within 1 Month (For outpatient [facility] for 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) Jasper Pimentel MD [Non-Staff -Ordering Privileges] - Within 1 Month (For ischemic stroke) Care Physician,No Primary [Primary Care Provider] - Disposition Disposition (needs filled in before D/C Order can be placed): Home, Self Care Charges/Coding Visit Charges Inpatient E&M: 87523 Disch Hosp >30min
[2024-09-09 13:09] VITALS: PULSE 85; RESP 17
[2024-09-09 13:16] VITALS: BP 141/66; PULSE 73; RESP 18; TEMP 36.3; O2SAT 95
== END 2024-09-09 11:01 | disposition home or self-care (01) ==
LOC: ED 21:42 → PCU 22:41
PROVIDERS: Admitting Provider Internal Medicine; Emergency Provider Emergency Medicine; Visit Provider Internal Medicine
DX: I16.0 Hypertensive urgency (principal); J44.9 Chronic obstructive pulmonary disease, unspecified; R42 Dizziness and giddiness; R11.2 Nausea with vomiting, unspecified; J98.11 Atelectasis; Z68.30 Body mass index [BMI] 30.0-30.9, adult; E66.811 Obesity, class 1; R47.81 Slurred speech; Z79.51 Long term (current) use of inhaled steroids; R26.2 Difficulty in walking, not elsewhere classified; I49.8 Other specified cardiac arrhythmias; F17.210 Nicotine dependence, cigarettes, uncomplicated; I65.22 Occlusion and stenosis of left carotid artery; R47.1 Dysarthria and anarthria; R71.8 Other abnormality of red blood cells
CPT/HCPCS: 36415; 70450; 70496; 70498; 70551; 71045; 80053; 80061; 80307; 81001; 82077; 82607; 82728; 83036; 83540; 83550; 84443; 85025; 92526; 92610; 93005; 93306; 93880; 94640; 94762; 96361; 96365; 96366; 96372; 97162; 97166; 97802; 99221; 99285; 99406; Q9967; A4216; G0378

== ENCOUNTER → 2025-05-09 | Outpatient (CLI) | payer MEDICARE, SELFPAY ==
--- OUTSIDE RECORDS SUMMARY | 2025-05-09 10:27 | XMS RPT_ITS | CCD ---
Author Organization [facility] Care Team Providers Care Juice Weigher Name Role Phone Unavailable Primary Care Provider Unavailabl e D'ShakiraGwen chester DO Primary Care Provider [phone] Pilar Acuna MD Primary Care Provider VINCENT RYDER Referring Unavailable PILAR ACUNA Primary Care Unavailable Pilar Acuna MD Primary Care Provider Jayesh Breen MD Emergency Provider [phone] Care Physician, No Primary Primary Care Provider Unavailable Dr. Valentín Sutton DO Admit Provider Unavail able Dr. Valentín Sutton DO Other Provider Unavail able Aaron Wang MD Other Provider Unavailable Dr. Keenan Szymanski MD Other Provider Concha Jenkins MD Other Provider Unavailable Dr. Isatu Justice DO Other Provider [phone] Dr. Yue Dover MD Other Provider [phone] Desean De La Cruz MD Other Provider Dr. Parisa Patterson MD Other Provider Dr. Roby Boggs MD Other Provider Dr. Anatoly Mix MD Other Provider Charlie SMITH, Dr. Mcbride Other Provider Modesta Ramos MD Other Provider Dr. Chava Chase MD Other Provider Reginaldo SMITH, Dr. Baker Other Provider Juan SMITH, Dr. Esposito Other Provider Dr. Angela Castillo MD Other Provider Alexander SMITH, Dr. Obando Other Provider Deon SMITH, Dr. Francis Other Provider Milton SMITH, Dr. Aponte Other Provider Anand SMITH, Dr. Rene Other Provider Unavailable Ace SMITH, Tristen Other Provider Unavailable Patric SMITH, Dr. Luna Attending Provider Patric SMITH, Dr. Luna Other Provider Anjum SMITH, Dr. Lay Attending Provider Bertin SMITH, Dr. Jesse Cordoba Attending Provider Sutton DO, Dr. Laura Referring Provider Unav ailable Care Physician, No Primary Referring Provider Un available Leigha Schneider Attending Provider Rk Woods MD Primary Care Provider Owen CLIENT BUSINESS MANAGER.RETAIL SERVICES PROFESSIONAL, Radha M Unavailable Aaron Wagn Consulting Unavailable Care Physician, No Primary Primary Care Unava ilable Jeremy Spivey Attending Unavailable Valentín Sutton Admitting Unavailable Adeli, Amir Consulting Unavailable Hinduja, Concha Consulting Unavailable Vinh, Isatu Consulting Unavailable Zha, Yue Consulting Unavailable Dorothy, Desean Consulting Unavailable Leonardo, Parisa Consulting Unavailable Bittar, Roby Consulting Unavailable Anatoly Mix Consulting Unavailable Reed Guerra Consulting Unavailable Modesta Ramos Consulting Unavailable Chava Chase Consulting Unavailable Olivia Hair Consulting Unavailable Vaibhav Martinez Consulting Unavailable Angela Castillo Consulting UnavailTopher Osei Consulting Unavailable Penny Chavarria Consulting Unavailable Fadi Rose Consulting Unavailable Anju Michel Consulting Unavailable Tristen Bello Consulting Unavailable Valentín Sutton Consulting Unavailable Jeremy Spivey Consulting Unavailable Care Physician, No Primary Primary Care Unava ilable Alireza Valero Attending Unavailable Leigha Candelario Referring Unavailable Care Physician, No Primary Referring Unava ilable Care Physician, No Primary Primary Care Unava ilable Anjum, Alireza Attending Unavailable Care Physician, No Primary Referring Unava ilable Care Physician, No Primary Primary Care Unava ilable Leigha Candelario Attending Unavailable Care Physician, No Primary Primary Care Unava ilable Anjum, Alireza Attending Unavailable Valentín Sutton Attending Unavailable Care Physician, No Primary Primary Care Unava ilable Anjum, Alireza Referring Unavailable Anjum, Alireza Attending Unavailable Leigha Candelario Attending Unavailable Care Physician, No Primary Primary Care Unava ilable Leigha Candelario Referring Unavailable Care Physician, No Primary Primary Care Unava ilable Anjum, Alireza Referring Unavailable Anjum, Alireza Attending Unavailable Care Physician, No Primary Primary Care Unava ilable Valentín Sutton Admitting Unavailable Jeremy Spivey Attending Unavailable Aaron Wang Consulting Unavailable Keenan Szymanski Consulting Unavailable Concha Jenkins Consulting Unavailable Isatu Justice Consulting Unavailable Yue Dover Consulting Unavailable Desean De La Cruz Consulting Unavailable Parisa Patterson Consulting Unavailable Roby Boggs Consulting Unavailable Anatoly Mix Consulting Unavailable Reed Guerra Consulting Unavailable Modesta Ramos Consulting Unavailable Chava Chase Consulting Unavailable Olivia Hair Consulting Unavailable Vaibhav Martinez Consulting Unavailable Angela Castillo Consulting UnavailTopher Osei Consulting Unavailable Penny Chavarria Consulting Unavailable Fadi Rose Consulting Unavailable Anju Michel Consulting Unavailable Tristen Bello Consulting Unavailable Valentní Sutton Consulting Unavailable RK WOODS Primary Care Unavailable JAYLA MCKENNA Referring Unavailable JAYLA MCKENNA Attending Unavailable RK WOODS Primary Care Unavailable JAYLA MCKENNA Referring Unavailable RK WOODS Primary Care Unavailable RADHA ROSENBAUM Attending Unavailable SELF Referring Unavailable RK WOODS Primary Care Unavailable RADHA ROSENBAUM Referring Unavailable RK WODOS Primary Care Unavailable JAYLA MCKENNA Referring Unavailable Medications Current Medications Medication Drug Class(es) Dates Sig (Normalized) Sig (Original) Albuterol (20 sources) beta2-Adrenergic Agonist Start: 09-07-2024 albuterol sulfate Active INHALATION EVERY 6 HOURS NEEDED as needed for shortness of breath or wheezing September 07, 2024 12:00am Start: 11-12-2022 End: 11-12-2022 albuterol (PROVENTIL HFA) 10 8 (90 Base) MCG/ACT HFA inhaler Start: 11-12-2022 End: 11-12-2022 albuterol (PROVENTIL HFA) 10 8 (90 Base) MCG/ACT HFA inhaler Start: 11-03-2022 take 2 puff(s) by mo uth every four hours as needed for wheezing albuterol (PROVENTIL HFA) INHALATION HFA inhaler (VENTOLIN,PROAIR,PROVENTIL) 90mcg Indications: Chronic obstructive pulmonary disease, unspecified COPD type (HCC) Inhale 2 Puffs by mouth every 4 hours as needed for Wheezing or Shortness of Breath. 1 Each 2 11/03/2022 Active Start: 07-12-2019 End: 11-13-2022 take 2 puff(s) by inhalation every four hours as needed albuterol HFA (VENTOLIN HFA) 90 mcg/actuation inhaler Inhale 2 Puffs as instructed every 4 hours as needed. 1 Each 4 11/13/2022 Active Comment on above: Inhale 2 Puffs as in structed every 4 hours as needed. aspirin 81 mg chewable tablet (5 sources) Platelet Aggregation Inhibitor, Nonsteroidal Anti-inflammatory Drug Start: take 1 tablet by mouth at breakfast Aspirin 81 mg Tablet,Chewable Active 81 mg PO WITH BREAKFAST September 09, 2024 12:00am Aspirin 81 mg ta b Take 81 mg by mouth. Active atorvastatin 40 mg oral tablet (8 sources) HMG-CoA Reductase Inhibitor Start: 12-13-2024 End: 01-03-2025 take 1 tablet by mouth once daily at bedtime atorvastatin (LIPITOR) 40 mg tablet Take 1 tablet by mouth daily at bedtime. Per [facility] 90 tablet 01/03/2025 Active Start: 09-09-2024 End: 10-16-2024 take 1 tablet by mouth at bedtime Atorvastatin 40 mg tablet Active 40 mg PO AT BEDTIME October 16, 2024 9:41am clopidogrel 75 mg oral tablet (7 sources) P2Y12 Platelet Inhibitor Start: 10-19-2024 End: 01-03-2025 take 1 tablet by mouth once clopidogrel (PLAVIX) 75 mg tablet Take 1 tablet by mouth once daily. Per [facility] 90 tablet 01/03/2025 Active Start: 09-09-2024 End: 10-16-2024 take 1 tablet by mouth once daily Clopidogrel 75 mg tablet Active 75 mg PO daily October 17, 2024 12:00am Lynwsxjhrww-Kldysqmdo-Fipzcg er (4 sources) Anticholinergic, Corticosteroid, beta2-Adrenergic Agonist Start: 09-07-2024 Mwepcsriznn-Wzhyyobqo-Wfrvqq er (Trelegy Ellipta) 100-62.5-25 mcg blister with device Active 1 NMA INHALATION DAILY September 07, 2024 12:00am Start: 11-22-2018 End: 11-13-2022 sutuinblpyl-xqlhvqlzr-hewmjm er (TRELEGY ELLIPTA) 100-62.5-25 mcg dsdv Inhale 1 Inhalation as instructed once daily. 1 Inhaler 3 11/22/2018 11/13/2022 Discontinued Comment on above: Inhale 1 Inhalation as instructed once daily. fluticasone-umeclidi n-vilanter (TRELEGY ELLIPTA) 200-62.5-25 mcg inhalation powder (7 sources) Start: 11-14-19 take 1 puff(s) by inhalation once daily fluticasone-umeclid in-vilanter (TRELEGY ELLIPTA) 200-62.5-25 mcg inhalation powder Inhale 1 Puff as instructed once daily. 1 Each 4 11/13/2022 Active Comment on above: Inhale 1 Puff as ins tructed once daily. 12 hr guaiFENesin 600 mg extended release oral tablet (2 sources) Start: 11-14-19 End: 12-14-19 take 1 tablet by mouth twice daily guaiFENesin (MUCINEX) 600 mg 12 hr tablet Take 1 tablet by mouth twice daily. 60 tablet 4 11/13/2022 12/13/2022 Active Comment on above: Take 1 tablet by tiff th twice daily. levoFLOXacin 750 mg oral tablet (2 sources) Quinolone Antimicrobial Start: 11-14-19 End: 11-21-19 take 1 tablet by mouth once daily levoFLOXacin (LEVAQUIN) 750 mg tablet Take 1 tablet by mouth once daily for 7 days. 7 tablet 0 11/13/2022 11/20/2022 Active Comment on above: Take 1 tablet by tiff th once daily for 7 days. lisinopril 20 mg oral tablet (6 sources) Angiotensin Converting Enzyme Inhibitor Start: 10-18-19 End: 01-04-20 take 1 tablet by mouth once lisinopril (ZESTRIL) 20 mg tablet Take 1 tablet by mouth once daily. Per [facility] 90 tablet 01/03/2025 Active Start: 09-09-2024 take 1 tablet by tiff th once daily Lisinopril 10 mg tablet Active 10 mg PO DAILY September 09, 2024 12:00am meclizine hydrochloride 12.5 mg oral tablet (7 sources) Antiemetic Start: 12-20-2024 take 1 tablet by mouth three times daily for dizziness meclizine (ANTIVERT) 12.5 mg tab TAKE 1 TABLET BY MOUTH THREE TIMES A DAY IF NEEDED FOR DIZZINESS FOR 1 MONTH 12/20/2024 Active Start: 09-09-2024 End: 10-16-2024 take 1 tablet by mouth three times daily as needed for dizziness Meclizine 12.5 mg tablet Active 12.5 mg PO 3 TIMES DAILY NEEDED as needed for Dizziness October 16, 2024 9:42am methylPREDNISolone (1 source) Corticosteroid Start: 01-11-2023 End: 01-16-2023 methylPREDNISolone (MEDROL, NOBLE,) 4 mg Dose-Pack TAKE DIRECTED 21 tablet 0 01/11/2023 01/16/2023 Active Comment on above: TAKE DIRECTED Completed/Discontinued Medications Medication Drug Class(es) Dates Sig (Normalized) Sig (Original) albuterol 0.833 mg/ml / ipratropium bromide 0.167 mg/ml inhalation solution (12 sources) Anticholinergic, beta2-Adrenergic Agonist Start: 02-10-2018 End: 01-03-2025 take 3 mL by inhalation every four hours as needed ipratropium-albute rol (DUONEB) 0.5 mg-3 mg(2.5 mg base)/3 mL nebu Indications: COPD with exacerbation (HCC) Inhale 3 mL as instructed every 4 hours as needed. 360 Each 4 11/13/2022 01/03/2025 Discontinued (Course of therapy completed) Comment on above: Inhale 3 mL as instr ucted every 4 hours while awake. Inhale 3 mL as instr ucted every 4 hours as needed. benzonatate 100 mg oral capsule (6 sources) Non-narcotic Antitussive Start: 11-13-2022 End: 01-03-2025 take 2 capsules by mouth every eight hours as needed benzonatate (TESSALON PERLES) 100 mg capsule Take 2 capsules by mouth three times daily as needed. 90 capsule 11/13/2022 01/03/2025 Discontinued (Course of therapy completed) Comment on above: Take 2 capsules by m outh three times daily as needed. diclofenac sodium 0.01 mg/mg topical gel (6 sources) Nonsteroidal Anti-inflammatory Drug Start: 04-05-2020 End: 01-03-2025 apply 2 g topically three times daily diclofenac sodium (VOLTAREN) 1 % topical gel Apply 2 g to affected area three times daily. 100 g 5 04/05/2020 01/03/2025 Discontinued (Course of therapy completed) Comment on above: Apply 2 g to affecte d area three times daily. emollient fluocinonide 0.5 mg/ml topical cream (6 sources) Corticosteroid Start: 08-24-2016 End: 01-03-2025 FLUOCINONIDE-E 0.05 % cream Apply 1 application to affected area as needed. 08/24/2016 01/03/2025 Discontinued (Course of therapy completed) Comment on above: Apply 1 application to affected area as needed. 24 hr nicotine 0.875 mg/hr transdermal system (3 sources) Cholinergic Nicotinic Agonist Start: 09-09-2024 End: 10-16-2024 apply 1 dose transdermal route every twenty-four hours Nicotine 21 mg/24 hr patch 24 hour Discontinued 1 NMA TD DAILY September 09, 2024 12:00am October 16, 2024 8:55am OXYGEN, HOME THERAPY, (6 sources) End: 01-03-2025 OXYGEN, HOME THERAPY, Inhale as instructed daily at bedtime. 01/03/2025 Discontinued (Course of therapy completed) OXYGEN, HOME THE RAPY, Inhale as instructed daily at bedtime. Active OXYGEN, HOME THE RAPY, Inhale as instructed daily at bedtime. 0 Active Comment on above: Inhale as instructed daily at bedtime. predniSONE 20 mg oral tablet (6 sources) Start: 11-13-2022 End: 01-03-2025 predniSONE (DELTASONE) 20 mg tablet Take 3 tabs times 4 days, 2 tabs times 4 days, 1 tab times 4 days, 1/2 tab times 4 days 26 tablet 11/13/2022 01/03/2025 Discontinued (Course of therapy completed) Comment on above: Take 3 tabs times 4 days, 2 tabs times 4 days, 1 tab times 4 days, 1/2 tab times 4 days Problems Active Problems Problem Classification Problem Date Documented Date Episodic/Chronic Acute bronchitis (1 source) Acute bronchitis; Translations: [Acute bronchitis, unspecified] Episodic Acute cerebrovascular disease (9 sources) Ischemic stroke; Translations: [Cerebral infarction, unspecified] Onset: 10-17-2024 10-16-2024 Chronic Acute cerebrovascular disease (3 sources) Acute cerebrovascular disease Chronic obstructive pulmonary disease and bronchiectasis (20 sources) Chronic obstructive lung disease; Translations: [Chronic obstructive pulmonary disease, unspecified] Onset: 09-09-2024 Chronic Chronic obstructive pulmonary disease and bronchiectasis (2 sources) Chronic obstructive pulmonary disease and bronchiectasis Conditions associated with dizziness or vertigo (16 sources) Dizziness; Translations: [Dizziness and giddiness] Onset: 09-09-2024 09-07-2024 Episodic Disorders of lipid metabolism (3 sources) Dyslipidemia; Translations: [Hyperlipidemia, unspecified] Onset: 11-22-2024 10-17-2024 Chronic Essential hypertension (8 sources) Hypertensive disorder; Translations: [Essential (primary) hypertension] Onset: 11-22-2024 10-16-2024 Chronic Heart valve disorders (4 sources) Aortic valve vegetations; 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] Onset: 11-22-2024 10-17-2024 Chronic Hypertension with complications and secondary hypertension (7 sources) Hypertensive urgency ; Translations: [Hypertensive urgency] Onset: 09-09-2024 09-07-2024 Chronic Immunizations and screening for infectious disease (4 sources) Viral screening status; Translations: [Encounter for screening for other viral diseases] 10-17-2022 Episodic Late effects of cerebrovascular disease (4 sources) Vertigo as late effect of stroke; Translations: [Other sequelae of cerebral infarction] Onset: 01-03-2025 01-03-2025 Chronic Other circulatory disease (2 sources) History of cerebrovascular accident; Translations: [Personal history of transient ischemic attack (TIA), and cerebral infarction without residual deficits] 10-17-2024 Episodic Other circulatory disease (1 source) Personal history of transient ischemic attack (TIA), and cerebral infarction without residual deficits; Translations: [Personal history of transient ischemic attack (TIA), and cerebral infarction without residual deficits] Onset: 11-22-2024 Episodic Other hematologic conditions (7 sources) Microcytosis; Translations: [Other abnormality of red blood cells] 09-07-2024 Episodic Other lower respiratory disease (2 sources) Dyspnea; Translations: [Shortness of breath] Episodic Other lower respiratory disease (1 source) Shortness of breath; Translations: [SOB (shortness of breath)] Onset: 11-13-2022 Episodic Other lower respiratory disease (2 sources) Dyspnea on exertion; Translations: [Other forms of dyspnea] 10-17-2024 Episodic Other lower respiratory disease (2 sources) Other forms of dyspnea; Translations: [Other forms of dyspnea] Onset: 11-21-2024 Episodic Other nervous system disorders (6 sources) Unable to walk; Translations: [Difficulty in walking, not elsewhere classified] 09-07-2024 Chronic Other nervous system disorders (1 source) Difficulty in walking, not elsewhere classified; Translations: [Difficulty in walking, not elsewhere classified] Onset: 09-09-2024 Chronic Other nervous system disorders (1 source) Other chronic pain; Translations: [Chronic left shoulder pain] Onset: 01-03-2025 Chronic Other non-traumatic joint disorders (4 sources) Chronic pain of left upper limb; Translations: [Pain in left shoulder] Onset: 01-03-2025 01-03-2025 Episodic Other non-traumatic joint disorders (1 source) Pain in left shoulder; Translations: [Chronic left shoulder pain] Onset: 01-03-2025 Episodic Other nutritional; endocrine; and metabolic disorders (6 sources) Obese class I; Translations: [Class 1 obesity] 09-07-2024 Chronic Other nutritional; endocrine; and metabolic disorders (2 sources) Obesity caused by energy imbalance; Translations: [Class 1 obesity due to excess calories without serious comorbidity with body mass index (BMI) of 30.0 to 30.9 in adult] Onset: 01-03-2025 01-03-2025 Chronic Other nutritional; endocrine; and metabolic disorders (1 source) Overweight in adulthood with body mass index of 25 or more but less than 30; Translations: [Body mass index (BMI) 29.0-29.9, adult] 10-19-2022 Episodic Other screening for suspected conditions (not mental disorders or infectious disease) (16 sources) Patient encounter status; Translations: [Encounter for screening mammogram for malignant neoplasm of breast] Onset: 01-03-2025 10-17-2022 Episodic Residual codes; unclassified (6 sources) Tobacco user; Translations: [Tobacco use] 09-07-2024 Episodic Residual codes; unclassified (2 sources) Menopause present; Translations: [Asymptomatic menopausal state] 01-03-2025 Episodic Residual codes; unclassified (1 source) Asymptomatic menopausal state; Translations: [Asymptomatic menopause] Onset: 01-03-2025 Episodic Screening and history of mental health and substance abuse codes (6 sources) Personal history of nicotine dependence; Translations: [History of nicotine dependence] Onset: 11-22-2024 10-17-2024 Episodic Substance-related disorders (4 sources) Tobacco dependence in remission; Translations: [Nicotine dependence, unspecified, in remission] Onset: 01-03-2025 01-03-2025 Chronic Unclassified (3 sources) For outpatient [facility] for 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 Unclassified (2 sources) Chronic pain of left upper limb 01-03-2025 Unclassified (1 source) Patient encounter status 01-03-2025 Unclassified (1 source) Obesity, class 1; Translations: [Obesity, class 1] Onset: 09-09-2024 Past or Other Problems Problem Classification Problem Date Documented Da te Episodic/Chronic Fracture of upper limb (7 sources) Fracture of radial head; Translations: [Displaced fracture of head of unspecified radius, initial encounter for closed fracture] Onset: 06-14-2012 Resolved: 01-03-2025 06-14-2012 Episodic Nausea and vomiting (7 sources) Nausea and vomiting; Translations: [Nausea with vomiting, unspecified] Onset: 09-09-2024 09-07-2024 Episodic Other hematologic conditions (2 sources) Other abnormality of red blood cells; Translations: [Other abnormality of red blood cells] Onset: 09-09-2024 Episodic Other nervous system disorders (7 sources) Lesion of ulnar nerve, left upper limb; Translations: [Lesion of ulnar nerve] Onset: 08-29-2012 Resolved: 01-03-2025 08-29-2012 Chronic Residual codes; unclassified (1 source) Tobacco use; Translations: [Tobacco use] Onset: 09-09-2024 Episodic Sprains and strains (7 sources) Injury of wrist; Translations: [Unspecified sprain of unspecified wrist, initial encounter] Onset: 06-14-2012 Resolved: 01-03-2025 06-14-2012 Episodic Results Test Name Value Interpretation Reference Range Facility [facility] MARU [facility]EL ([id number]) 1950 F Date Time Provider Department 03/22/25 JAYLA MCKENNA During your visit today, we recorded the following information about you: Jayla Mckenna MD 03/22/2025 4:59 PM Signed Left voicemail message with results. She has desaturations at night. Spent 23 minutes with saturation less than 88%, lowest 77% (03/19/25) Asked her to notify me if prescribing oxygen at night is okay. Allergies As of Date: 03/22/2025 (No Known Allergies) Date Reviewed: 03/15/2025 Reviewed by: Jayla Mckenna MD - Fully Assessed Reason for Visit: Results [95] Cmt: Overnight oximetry Primary Visit Diagnosis:Emphysema of lung (HCC) [J43.9] Order(s):OXYGEN FOR HOME USE [[id number]] Order #: [id number] Prescriptions as of 03/22/2025 - Aspirin 81 mg tab Take 81 mg by mouth. - atorvastatin (LIPITOR) 40 mg tablet Take 1 tablet by mouth daily at bedtime. Per [facility] - lisinopril (ZESTRIL) 20 mg tablet Take 1 tablet by mouth once daily. Per [facility] - clopidogrel (PLAVIX) 75 mg tablet Take 1 tablet by mouth once daily. Per [facility] - albuterol HFA (VENTOLIN HFA) 90 mcg/actuation inhaler Inhale 2 Puffs as instructed every 4 hours as needed. - fluticasone-umeclidi n-vilanter (TRELEGY ELLIPTA) 200-62.5-25 mcg inhalation powder Inhale 1 Puff as instructed once daily. 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 Respiratory Vader Note Patient name: Maru Noel PCP: Rk Woods MD Referring Physician: Radha Rosenbaum CNP Recording using ambient AI software for draft documentation of the visit was discussed with the patient/authorized wholesale representative; all questions welcomed and answered. Patient/authorized wholesale representative agreed to proceed Consultation requested by Radha Rosenbaum for an opinion regarding COPD. My final recommendations will be communicated back to the requesting physician by way of shared Medical record or letter to requesting physician via US mail. CC: COPD HPI: Maru Noel 74 year old female recent former 90 + pack year smoker with PMH significant for moderate COPD, obesity, HTN, stroke previously followed by Dr. Ryder in [place]. Maru reports exertional dyspnea with activities such as climbing stairs or walking uphill. She experiences occasional wheezing and nocturnal cough with sputum production, which sometimes occurs at bedtime and other times awakens her from sleep. She does not report weather-related dyspnea or sensitivity to strong odors or perfumes. She has been on Trelegy for several years. She uses albuterol only as needed on bad days. She has a significant smoking history and quit abruptly on 09/07, the day she was hospitalized for a stroke. She reports a family history of lung disease in her mother and sister. 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 DATA: PFT: Spirometry shows mild obstruction mainly of small airways and decreased diffusing capacity PFT 10/2022: Adequacy of Test and Effort: Good patient effort and cooperation. The results of this test meet ATS standards. Spirometry: SPIROMETRY: FEV1/FVC ratio is normal and the FEV1 and FVC are both within normal limits. FLOW-VOLUME LOOPS: The flow volume loop appears normal. RESPONSE TO BRONCHODILATOR THERAPY: There is no significant improvement in FEV1 or FVC with bronchodilator therapy. Lung Volumes (Nitrogen Washout): Note: Nitrogen washout method was used and can underestimate LV in the setting of an obstructive impairment. All lung volumes are within normal limits except: SVC is decreased Diffusion Capacity (DLCO): DLCO (uncorrected for hemoglobin) is mildly (by z-score) reduced to 66% predicted. Changes in Pulmonary Function Tests: No prior studies available for comparison. Impression: Overall, pulmonary function tests are consistent with essentially normal findings. The diffusion capacity is mildly reduced. Consider anemia, pulmonary vascular disease, early ILD or emphysema. Yoav Ernandez MD Division of Pulmonary AND Critical Care Medicine [facility] I reviewed this study data with Dr. Ernandez and I agree with the interpretation note. Emmanuel Henderson MD Pulmonary, Critical Care, and Sleep Medicine PAST MEDICAL HISTORY Diagnosis Date Bronchitis Chronic obstructive pulmonary disease (COPD) ([facility]) Cubital tunnel syndrome on left 08/29/2012 Hypertension Radial head fracture 06/14/2012 Stroke ([facility]) ALLERGIES No Known Allergies Aspirin 81 mg tab Take 81 mg by mouth. atorvastatin (LIPITOR) 40 mg tablet Take 1 tablet by mouth daily at bedtime. Per [facility] lisinopril (ZESTRIL) 20 mg tablet Take 1 tablet by mouth once daily. Per [facility] clopidogrel (PLAVIX) 75 mg tablet Take 1 tablet by mouth once daily. Per [facility] albuterol HFA (VENTOLIN HFA) 90 mcg/actuation inhaler Inhale 2 Puffs as instructed every 4 hours as needed. fluticasone-umeclidi n-vilanter (TRELEGY ELLIPTA) 200-62.5-25 mcg inhalation powder Inhale 1 Puff as instructed once daily. 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 CARDIOVASCULAR: No chest pain, palpitations, orthopnea. Rare edema PULM: See HPI GI: No dysphagia/odynophagi a, problematic reflux NEURO: No balance problems, peripheral weakness/paresthesia (more content not included)... 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 No contraindications or sensitivities were noted. Meds taken: No inhaled respiratory medications taken before testing. 4 puffs Albuterol (360 mcg) delivered by MDI via holding chamber. HR pre = 73/min, HR post = 73/min. Current ATS/ERS acceptability and repeatability standards for DLCO met with 2 acceptable maneuvers. Current ATS/ERS acceptability and repeatability standards for spirometry met. Start of test and EOFE criteria met. IMPRESSION: Spirometry reveals a reduced FEV1/FVC with normal FEV1 and FVC values. This could reflect a normal presentation or could indicate mild obstruction. Clinical correlation recommended. The increase in FEF 25-75 post-bronchodilator reflects an improvement in the small airway obstruction. The diffusing capacity (uncorrected for hemoglobin) is reduced. Electronically Signed On 03-15-2025 14:04:23 EDT by Jayla Mckenna MD ID: [id number] Name: MARU NOEL Race: White Ht: 59.06 in Wt: 159.00 lbs Age: 75 Gender: Female : 1950 Dx: COPD_ Smoking Hx: Non-smoker Doctor: JAYLA MCKENNA Test Date: 03/15/2025 Site: Tech: Kellie Fernando PRE-BRONCH POST-BRONCH Keisha LLN Pred ULN %Pred ZScore Keisha %Pred %Chg ZScore SPIROMETRY FVC 2.09 1.51 2.16 2.83 96 -0.17 2.11 97 0 -0.13 FEV1 1.37 1.17 1.70 2.19 80 -1.05 1.48 87 6 -0.68 FEV1/FVC 0.65 0.66 0.80 0.90 82 -1.73 0.70 88 7 -1.17 FEFMax 5.04 3.13 4.59 6.05 109 0.51 5.42 118 7 0.94 FEF50 1.02 0.99 2.60 4.21 39 -1.62 1.37 52 34 -1.25 FIF50 2.31 2.82 21 FEF50/FIF50 0.44 90-100 0.49 10 FIVC 1.96 1.88 -4 TCU56-76 0.62 0.69 1.55 2.80 40 -1.80 0.90 58 44 -1.15 ExpiredTime 9.77 9.09 -6 TimeToFEFMax 0.06 0.06 -1 MARINA 0.04 0.04 10 VolExtrap% 2 2 9 LUNG DIFFUSION DLCOunc 9.25 12.26 16.41 21.55 56 -3.13 DLCOStdPB 9.01 12.26 16.41 21.55 54 -3.26 VA 2.93 3.01 3.79 4.64 77 -1.83 Kco 3.08 3.29 4.33 5.52 70 -2.02 Comments: Medications and Allergies were reviewed for possible drug interactions per policy. No contraindications or sensitivities were noted. Meds taken: No inhaled respiratory medications taken before testing. 4 puffs Albuterol (360 mcg) delivered by MDI via holding chamber. HR pre = 73/min, HR post = 73/min. Current ATS/ERS acceptability and repeatability standards for DLCO met with 2 acceptable maneuvers. Current ATS/ERS acceptability and repeatability standards for spirometry met. Start of test and EOFE criteria met. 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 No contraindications or sensitivities were noted. Meds taken: No inhaled respiratory medications taken before testing. 4 puffs Albuterol (360 mcg) delivered by MDI via holding chamber. HR pre = 73/min, HR post = 73/min. Current ATS/ERS acceptability and repeatability standards for DLCO met with 2 acceptable maneuvers. Current ATS/ERS acceptability and repeatability standards for spirometry met. Start of test and EOFE criteria met. IMPRESSION: Spirometry reveals a reduced FEV1/FVC with normal FEV1 and FVC values. This could reflect a normal presentation or could indicate mild obstruction. Clinical correlation recommended. The increase in FEF 25-75 post-bronchodilator reflects an improvement in the small airway obstruction. The diffusing capacity (uncorrected for hemoglobin) is reduced. Electronically Signed On 03-15-2025 14:04:23 EDT by Jayla Mckenna MD ID: [id number] Name: MARU NOEL Race: White Ht: 59.06 in Wt: 159.00 lbs Age: 75 Gender: Female : 1950 Dx: COPD_ Smoking Hx: Non-smoker Doctor: JAYLA MCKENNA Test Date: 03/15/2025 Site: Tech: Kellie Fernando PRE-BRONCH POST-BRONCH Keisha LLN Pred ULN %Pred ZScore Keisha %Pred %Chg ZScore SPIROMETRY FVC 2.09 1.51 2.16 2.83 96 -0.17 2.11 97 0 -0.13 FEV1 1.37 1.17 1.70 2.19 80 -1.05 1.48 87 6 -0.68 FEV1/FVC 0.65 0.66 0.80 0.90 82 -1.73 0.70 88 7 -1.17 FEFMax 5.04 3.13 4.59 6.05 109 0.51 5.42 118 7 0.94 FEF50 1.02 0.99 2.60 4.21 39 -1.62 1.37 52 34 -1.25 FIF50 2.31 2.82 21 FEF50/FIF50 0.44 90-100 0.49 10 FIVC 1.96 1.88 -4 BMY00-15 0.62 0.69 1.55 2.80 40 -1.80 0.90 58 44 -1.15 ExpiredTime 9.77 9.09 -6 TimeToFEFMax 0.06 0.06 -1 MARINA 0.04 0.04 10 VolExtrap% 2 2 9 LUNG DIFFUSION DLCOunc 9.25 12.26 16.41 21.55 56 -3.13 DLCOStdPB 9.01 12.26 16.41 21.55 54 -3.26 VA 2.93 3.01 3.79 4.64 77 -1.83 Kco 3.08 3.29 4.33 5.52 70 -2.02 Comments: Medications and Allergies were reviewed for possible drug interactions per policy. No contraindications or sensitivities were noted. Meds taken: No inhaled respiratory medications taken before testing. 4 puffs Albuterol (360 mcg) delivered by MDI via holding chamber. HR pre = 73/min, HR post = 73/min. Current ATS/ERS acceptability and repeatability standards for DLCO met with 2 acceptable maneuvers. Current ATS/ERS acceptability and repeatability standards for spirometry met. Start of test and EOFE criteria met. FVC_PRE (L) : 2.09 L FVC_POST (L) : 2.11 L FVC_PRED (L) : 2.16 L FVC_LLN (L) : 1.51 L FVC_ULN (L) : 2.83 L FEV1_PRE (L) : 1.37 L FEV1_POST (L) : 1.48 L FEV1_PRED (L) : 1.70 L FEV1_LLN (L) : 1.17 L FEV1_ULN (L) : 2.19 L FEV1/FVC_PRE (%) : 65 % FEV1/FVC_POST (%) : 70 % FEV1/FVC_PRED (%) : 80 % FEV1/FVC_LLN (%) : 66 % LTW74_ENS (L/S) : 3.00 L/S XEO72_GSNR (L/S) : 3.85 L/S GNN65_ZDC (L/S) : 0.21 L/S MBE04_TEHB (L/S) : 0.27 L/S ETG99_VBUU (L/S) : 0.34 L/S OEJ85_EIC (L/S) : 0.12 L/S MTH33_ZGH (L/S) : 0.95 L/S TXV29-00%_PRE (L/S) : 0.62 L/S TRL97-14%_POST (L/S) : 0.90 L/S DLV81-02%_PRED (L/S) : 1.55 L/S BHJ80-25%_LLN (L/S) : 0.69 L/S PEF_PRE (L/S) : 5.04 L/S PEF_POST (L/S) : 5.42 L/S PEFMAX_LLN (L/S) : 3.13 L/S PEFMAX_ULN (L/S) : 6.05 L/S SVC_PRED (L) : 2.16 L/S SVC_LLN (L) : 1.51 L/S SVC_ULN (L/S) : 2.83 L/S IC_PRED (L) : 1.44 L/S ERV_PREDICTED (L) : 0.72 L/S DLCO (ML/MIN/MMHG) : 9.25 ml/min/mmHg DLCO_PRED (ML/MIN/MMHG) : 16.41 ml/min/mmHg DLCO_LLN(ML/MIN/MMHG ) : 12.26 ml/min/mmHg DLCO_ULN (ML/MIN/MMHG) : 21.55 ml/min/mmHg FET_PRE (S) : 9.77 S FET_POST (S) : 9.09 S VA (L) : 2.93 L VA_PRD (L) : 3.79 L DLCO/VA (ML/MIN/MMHG/L) : 0.03 ml/min/mmHg/L DLCO_VA_PRED (L) : 0.04 ml/min/mmHg/L DLCOCOR (ML/MIN/MMHG) : 9.01 ml/min/mmHg DLCOCOR_PRED (ML/MIN/MMHG) : 16.41 ml/min/mmHg DLCO/VACOR (ML/MIN/MMHG/L) : 0.03 ml/min/mmHg/L [facility] CNOVon 01-03-2025 CNOV Office Visit (INTMWS) MARU NOEL ([id number]) 1950 F Date Time Provider Department 01/03/25 10:00 AM RADHA ROSENBAUM INTMWS During your visit today, we recorded the following information about you: Pulse Respiration Blood pressure Weight 62/minute 12/minute 122/80 69.8 kg Height 1.495 m Radha Rosenbaum, CLIENT BUSINESS MANAGER.RETAIL SERVICES PROFESSIONAL 01/03/2025 10:43 AM Addendum - Use your Trelegy inhaler one puff every day to help control your COPD symptoms. - Continue using your albuterol inhaler as needed for sudden breathing issues. - Schedule a mammogram and a bone density scan; call the front end java developer to pick appointment dates that work for you. - Complete and mail the stool test kit for colon cancer screening when it arrives. - Get an X-ray of your right shoulder to check for arthritis or other issues; you can schedule this through radiology. - For shoulder pain in the meantime, take Tylenol as needed, and use ice, heat, or topical relief (like Biofreeze) for discomfort. - Consider completing a healthcare living will to document your treatment wishes; no executive talent acquisition consultant is required. BONE MINERAL DENSITY PATIENT INSTRUCTIONS = Bone mineral density testing measures the amount of calcium in certain parts of your bones. This information determines how strong your bones are. The test is used to detect osteoporosis, a disease in which the bone's mineral content and density are low, increasing a person's risk of fractures. The lumbar spine (lower back) and the hip are the skeletal sites usually examined. For the test, remember that: 1. You cannot take this test if you are . 2. Eat a normal diet on the day of the test. 3. Take your medications as you normally would. 4. DO NOT take calcium supplements (such as Tums) for 24 hours before the test. 5. On the day of the test, leave valuables (jewelry or credit cards) at home. 6. The test should be performed prior to oral, rectal or IV contrast studies, or at least 7 days after any of these studies. For the test, you may be asked to wear a hospital gown. You will lie on your back, on a padded table, in a comfortable position. Generally, you can resume your usual activities immediately. Radha Rosenbaum, NONA.RETAIL SERVICES PROFESSIONAL 01/03/2025 11:09 AM Signed CC: Patient presents with: [facility] Care HPI Recording using [employer] software for draft documentation of the visit was discussed with the patient/authorized wholesale representative; all questions welcomed and answered. Patient/authorized wholesale representative agreed to proceed Maru Noel is a 74-year-old female with a history of COPD, CVA, and HTN, presenting for an initial visit to [facility], with additional complaints of dizziness and right shoulder pain. CVA: - Occurred in August, admitted to [facility] - Taking Plavix, atorvastatin and ASA 81 mg - Denies medication side effects - Denies unusual bleeding - Outpatient follow-ups with cardiology and neurology at [facility] Dizziness: - Onset following CVA in August. - Takes Meclizine daily before bed due to dizziness when lying down. COPD: - Managed with Trelegy inhaler, used PRN instead of daily. - Uses albuterol inhaler PRN. - Quit smoking in August. - No vaping or e-cigarette use. HTN: - Managed with Lisinopril, denies side effects. - Does not check BP at home Right Shoulder Pain: - Pain in the right shoulder/upper arm, ongoing for about a year. - Described as sharp pain, not constant; no associated numbness or tingling. - Pain sometimes locks the arm in place for a few minutes. - Aggravated by certain movements and lying on the arm during sleep. - No known trauma or injury preceding the pain. - Pain is not worsening - Denies use of OTC analgesics but does treat with BioFreeze which is temporarily effective Review of Systems Constitutional: Negative for chills, diaphoresis, fatigue, fever and unexpected weight change. Respiratory: Positive for cough and wheezing. Negative for shortness of breath. Cardiovascular: Negative for chest pain, palpitations and leg swelling. Neurological: Negative for syncope, weakness, numbness and headaches. PAST MEDICAL HISTORY Diagnosis Date Bronchitis Chronic obstructive pulmonary disease (COPD) (HCC) Cubital tunnel syndrome on left 08/29/2012 Hypertension Radial head fracture 06/14/2012 Stroke ([facility]) PAST SURGICAL HISTORY Procedure Laterality Date >=3 ALLERGIES Patient has no known allergies. MEDICATIONS meclizine (ANTIVERT) 12.5 mg tab TAKE 1 TABLET BY MOUTH THREE TIMES A DAY IF NEEDED FOR DIZZINESS FOR 1 MONTH Aspirin 81 mg tab Take 81 mg by mouth. atorvastatin (LIPITOR) 40 mg tablet Take 1 tablet by mouth daily at bedtime. Per [facility] lisinopril (ZESTRIL) 20 mg tablet Take 1 tablet by mouth once daily. Per [facility] c (more content not included)... Normal [facility] HEMOGLOBIN A1C (EXTERNAL)on 01-03-2025 HbA1c (Bld) [Mass fraction] 5.3 % 0 - 5.7 % [place] LIPID PANEL (EXTERNAL)on Cholesterol [Mass/Vol] 186 mg/dL [facility] HDC-L 30 mg/dL - 41 mg/dL [place] LDL Chol, calculated 128 [facility] Triglyceride [Mass/Vol] 142 mg/dL - 149 mg/dL [place] No Panel Informationon 01-03 [place] XR SHLDR >/=3V AP/YAHIR AP/OTH R LTon 01-03-2025 XR SHLDR >/=3V AP/YAHIR AP/OTHR LT * * *Final Report* * * DATE OF EXAM: Jan 03 2025 11:30AM WOX [id number] - XR SHLDR >/=3V AP/YAHIR AP/OTHR LT / PROCEDURE REASON: multiple diagnoses * * * * Physician Interpretation * * * * XR SHLDR >/=3V AP/YAHIR AP/OTHR LT Ordering Physician: RADHA OLDER LEFT SHOULDER RADIOGRAPHS Clinical Statement: Pain Comparison: None FINDINGS: There is no acute fracture or dislocation. Mild degenerative changes are present within the acromioclavicular joint with a tiny subacromial spur. The glenohumeral joint is normally approximated. There is an ill-defined lesion at the level of the surgical neck of the proximal humerus with chondroid matrix, most likely reflecting an enchondroma. Soft tissues are unremarkable. IMPRESSION: Mild acromioclavicular arthropathy. 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 Telecom Manager: PSCB Transcribe Date/Time: Jan 06 2025 6:27P Dictated by : JAYLA BERRY MD This examination was interpreted and the report reviewed and electronically signed by: JAYLA BERRY MD on Jan 06 2025 6:28PM EST [id number] Normal [facility] Cardiology Visit Reporton Cardiology Visit Report [facility] [address] [place] [address] OFFICE VISIT Date of Service: 10/17/24 MR#: [id number] Acct: [id number] Name: MARU NOEL Rep #: [id number] : 1950 Provider: Dr. Alireza Valero MD Age/Sex: 74/F [place] [facility] Status: Signed HPI HPI History of Present Illness Details: This lady was admitted to the hospital in August with acute onset of dizziness/vertigo. During workup, she was diagnosed with subacute CVA. An echocardiogram was done. 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 Patient was started on antiplatelet agents. She is here for follow-up visit. Per patient, her lightheadedness and dizziness has vastly improved. She still occasionally gets lightheaded for a few seconds particularly at night when going to bed. Denies any syncope or presyncope. Patient denies any chest pains either at rest or with exertion. She has COPD and does get short of breath with moderate exertion. No orthopnea or PND. No ankle edema. Denies any palpitations. Intake Vital Signs 09/08/24 12:17 10/16/24 08:46 10/17/24 07:37 Height 4 ft 11 in 4 ft 11 in 4 ft 11 in Weight: 149 lb BMI 30.1 BP 139/66 H Blood Pressure Location Lt brachial Position Sitting Respiration 18 Pulse 67 Pulse Source NIBP Intake Visit Reasons: S/P ([facility] 09/09) Green Chain Off Bearer Required: No Accompanied by: boyfriend Is patient in pain?: No Allergies No Known Allergies Allergy (Verified 10/17/24 13:14) Medications ???Medication ???Instructions ???Recorded ???Confirmed ???Type albuterol sulfate inhalation Q6H PRN PRN shortness 0 09/07/24 10/17/24 History of breath or wheezing fluticasone fur. 100 mcg-umeclid 1 inh inhalation DAILY 09/07/24 History 62.5 mcg-vilant 25 mcg inhalat.powder (Trelegy Ellipta) aspirin 81 mg chewable tablet 81 mg PO BREAKFAST 30 days #30 tab s 09/09/24 10/17/24 Rx lisinopril 10 mg tablet 10 mg PO DAILY 1 month #30 tabs 10/17/24 Rx atorvastatin 40 mg tablet 40 mg PO QHS 30 days #30 tabs 07/1110/17/24 Rx meclizine 12.5 mg tablet 12.5 mg PO TID PRN PRN Dizziness 1 10/16/24 10/17/24 Rx month #30 tabs clopidogrel 75 mg tablet 75 mg PO QDAY 10/17/24 10/17/24 Hi story Ejection fraction %: 65 Have you fallen in the past year?: No PFSH Medical History COPD (chronic obstructive pulmonary disease) Dizziness and giddiness Family History Mother , 77 COPD (chronic obstructive pulmonary disease) Father , 77 CAD (coronary artery disease) Social History household members: significant other and friend(s) current occupational status: retired pets and animals: Yes pets and animals: cat(s) and dog(s) Smoking Status: Former smoker alcohol intake: never caffeine: Yes Type: coffee do you feel safe at home: Yes ROS Const Const: Negative for fatigue, weakness, headache(s) or weight gain ENT ENT: Positive for dizziness; Negative for headache(s), Nosebleed/epistaxis or balance problems Cardio Chest Pain: No Palpitations: No Edema: None Muscle aches with walking: None Resp Respiratory: Positive for SOB with activity (COPD, unchanged); Negative for SOB at rest or SOB orthopnea SOB lying down GI GI: Negative nausea, vomiting or heartburn Musc Musc: Negative for muscle aches/ myalgia, muscle weakness, joint pain or balance problems Neuro Neuro: Positive for dizziness and near syncope; Negative for lightheadedness, syncope, headache(s) or weakness Endo Endo: Negative for fatigue Cardiology Exam Const Appearance: comfortable and no acute distress Nutritional Appearance: well nourished Neck Neck: no JVD Carotids: Negative bruit Chest Auscultation: Bilateral: Clear to Auscultation Cardio Rate: regular rate Rhythm: regular rhythm Heart sounds: S1 normal and S2 normal Neuro General: patient alert, patient awake and patient oriented x3 Extremities Lower Extremity Edema: None: Bilateral Supplemental Info Supplemental Information Echocardiogram 09/08/2024: Interpretation Summary Mild concentric left ventricular hypertrophy. The LV systolic function is normal. EF is 65 %. Stage 1 diastolic dysfunction. 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 Consider further evaluation with [facility] if clinically indicated. CTA Head AND Neck w/Contrast 09/07/2024: FINDINGS: Aortic Arch: Normal size and branching pattern. No significant atherosclerotic plaque. Direct origin of the left vertebral artery from the aortic arch between the origin l (more content not included)... Normal [facility] Neurology Visit Reporton Neurology Visit Report [facility] [address], [address] [place] [address] OFFICE VISIT Date of Service: 10/16/24 MR#: [id number] Acct: [id number] Name: MARU NOEL Rep #: [id number] : 1950 Provider: MARCELL cox Age/Sex: 74/F [place] [facility] [place] Status: Signed HPI HPI Chief Complaint: Establish care Details: Ms. Noel is a 74-year-old female presents by herself to neurology today 10/16/24 to establish care following hospitalization for an ischemic stroke, likely cardioembolic, on 09/07/2024. Pertinent past medical history includes COPD and nicotine dependence (cessation August 2024). She is newly diagnosed with hypertension. She is not diabetic. There is no known personal neurological history. She stated that her sister had from an intracranial aneurysm rupture. She has a grandson with epilepsy. She has a daughter with chronic migraines. Hospital course: On 09/07/2024, the patient presented to [facility] emergency department with disequilibrium and mild dysarthria. She had complaints of sudden onset of lightheadedness, dizziness, and nausea with vomiting. She was hypertensive; blood pressure was 181/91 on presentation. She was admitted and found to have an acute to subacute stroke on her MRI brain (09/07/2024). There was an early subacute infarct measuring 1.1 x 0.6 cm in the left mid periventricular region and 0.5 x 0.4 cm left posterior insular deep white matter infarct. There is also old infarct 0.8 x 0.3 cm in posterior of head of caudate on right side. These images were reviewed by myself and Dr. Michel and I agree with the radiologist interpretation. A CT brain (09/07/2024) was negative for acute findings. Chronic lacunar infarcts are seen in the right basal ganglia. There is mild chronic small vessel ischemic changes. A CTA of the head/neck (09/07/2024) was conducted with no evidence of LVO. There was mild stenosis (40%) of the left carotid, no stenosis on the right. The vertebral arteries were patent bilaterally; left noted to be hypoplastic. This was also verified on carotid ultrasound. Her EKG was normal sinus rhythm. 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 Laboratory studies were evaluated. Her was LDL 128, hemoglobin A1c 5.3%, TSH 1.26. Her urine tox screen was positive for cannabinoids. She had an incidental finding of microcytosis with a normal hemoglobin. Her MCV was 65.4. Her iron was normal at 73. 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 She was loaded with Plavix 300 mg inpatient followed by DAPT x 21 days and now remains on aspirin 81 mg monotherapy. She is to follow-up with cardiology regarding potential treatment of her aortic valve to reduce the risk of future strokes. She has an appointment with [facility] tomorrow 10/17/2024. Additionally, she was discharged on atorvastatin 40 mg nightly, meclizine as needed for dizziness, and lisinopril 10 mg. Since hospital admission, the patient has quit smoking cigarettes but occasionally smokes marijuana. She does have excessive caffeine intake. Her blood pressure today is elevated at 160/75, HR 81. On exam, no focal neurological deficits were appreciated. She describes positional vertigo when she lays down at night. She has occasional blurring of her vision and her B/L lens appears slightly cloudy on assessment. She will need to follow-up with her tire buster for assessment of possible cataracts. ROS: General: No fatigue. No recent weight loss/gain. No recent illness. No fevers. No recent falls. Neuro: No headaches. Positional dizziness. No numbness/tingling. No weakness. No tremors. Psych: She has difficulties with sleep and has some daytime fatigue, there is a concern for sleep apnea. No agitation. No depressive symptoms. No memory difficulties. Cardio: No palpitations. No chest pain or discomfort. No edema. Respiratory: Prior tobacco dependence with cessation approximately 1 month ago. Occasional marijuana smoker. No shortness of breath. No audible wheezing. She has a history of COPD. Musculoskeletal: No use of assistive devices. No neck pain. Mild back pain. HEENT: No hearing loss. Intermittent cloudy vision per HPI. No diplopia. No dysphagia. GI: No hematochezia. No NVD. No constipation. No abdominal pain or discomfort. : No hematuria. No frequency or urgency. No incontinence. No dysuria. Skin: No ecchymosis. No wounds, rashes, or lesions. PHY (more content not included)... Normal [facility] Discharge Instructionon 08-16 Discharge Instruction [facility] Medical Records Department [address] [place] [address] Instructions for Home/Discharge Instructions 09/09/24 1054 MR#: [id number] Acct: [id number] Name: MARU NOLE Rep #: [id number] : 1950 74 From: Jeremy Spivey MD PCP: Care Physician,No Primary Status:ADM RHETT Discharge Instructions Diet Discharge Diet: Low fat / Low cholesterol and 2000 mg Sodium Diet DC O2, CPAP, BIPAP needs Home O2 Discharge instructions: No Dressing / Incision Discharge Activity: Return to Normal Activity Weight Bearing Status: Weight bearing as tolerated Dressing / Incision Call your doctor if you observe: Fever of 101 or Higher, Coldness, Increased Pain, Numbness or Tingling, Change in Color, Inability to urinate, Inability to have a bowel movement, Shortness of breath, Dizziness, Fainting spells, Swelling in the ankles, Chest pain, Prolonged hiccupping, Increased palpitations (irregular heartbeat) and Calf discomfort Follow Up Care When: IN 2 WEEKS Test Results: Test results from this visit will be discussed in further detail at your follow-up appointment, if applicable. Discharge Plan Admission Admit Date/Time: 09/07/24 22:45 Primary Reason for Your Visit: Subacute left periventricular infarct. Attending Provider: Jeremy Spivey Primary Care Provider: Care Physician,No Primary Consulting Providers: Aaron Wang; Keenan Szymanski; Concha Jenkins; Isatu Justice; Yue Dover; Desean De La Cruz; Parisa Patterson; Roby Boggs; Anatoly Mix; Reed Guerra; Modesta Ramos; Chava Chase; Olivia Hair; Vaibhav Martinez; Angela Castillo; Topher Munoz; Penny Chavarria; Fadi Rose; Anju Michel; Tristen Bello; Valentín Sutton Instructions Additional Instructions / Restrictions: Follow-up with telegraph lineman Dr. Valero for outpatient STEVENSON Discharge Orders/Prescriptions Prescriptions: New clopidogrel 75 mg Tablet 75 mg PO DAILY 21 Days Qty: 21 0RF meclizine 12.5 mg Tablet 12.5 mg PO TID PRN PRN (Reason: Dizziness) 30 Days Qty: 30 0RF nicotine 21 mg/24 hr patch 24 hour 1 patch transdermal DAILY 28 Days Qty: 28 0RF atorvastatin 40 mg Tablet 40 mg PO QHS 30 Days Qty: 30 3RF aspirin 81 mg Tablet,Chewable 81 mg PO BREAKFAST 30 Days Qty: 30 3RF Continued Trelegy Ellipta 100-62.5-25 mcg blister with device 1 inh inhalation DAILY albuterol sulfate inhalation Q6H PRN PRN (Reason: shortness of breath or wheezing) Referrals / Follow Up: Care Physician,No Primary [Primary Care Provider] - Alrieza Valero MD [Med Staff - Active Staff] - Within 1 Month (For outpatient STEVENSON for 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) Jasper Pimentel MD [Non-Staff -Ordering Privileges] - Within 1 Month (For ischemic stroke) Disposition Disposition (needs filled in before D/C Order can be placed): Home, Self Care 09/09/24 1102 Jeremy Spivey MD CC: Isatu Justice; Olivia Hair; Topher Munoz; Yue Dover MD; Concha Jenkins MD; Aaron Wang MD; Dr. Keenan Szymanski MD; Dr. Valentín Sutton DO; Dr. Desean De La Cruz MD; Dr. Parisa Patterson MD; Dr. Anatoly Mix MD; Dr. Roby Boggs MD; Dr. Reed Guerra MD; Dr. Chava Chase DO; Dr. Angela Castillo MD; Dr. Vaibhav Martinez MD; Dr. Penny Chavarria MD; Dr. Fadi Rose MD; Dr. Anju Michel MD; Modesta Ramos DO; No Primary Care Physician; Tristen Bello MD Signed Normal [facility] Alcohol, Blood (Medical)-Ser umon 09-08-2024 SERUM ETOH < 10.1 Normal <=10.0 [facility] Comment on above: Result Comment: This test is for medical purposes only. The legal definition of intoxication varies according to local law. Performed By: #### L 501.9100, L503.6550, L503.0106, L503.6030, L501.9520, L505.5000 ####[facility] [id number] [place], [address] Calculated very low density lipoprotein (VLDL) cholesterol measurementOrdered By: Valentín Phelan on 09-08-2024 Calculated very low density lipoprotein (VLDL) cholesterol measurement 28 mg/dL 5-40 [facility] VLDL Cholesterol 28 mg/dL 5-40 [facility] Echocardiogram study reportO rdered By: Alireza Valero on 09-08-2024 Study report [facility] Cardiovascular Services [address] [place] [address] Echo Complete 09/08/24 1027 MR#: [id number] Acct: [id number] Name: MARU NOEL Rep #:[id number] : 1950 74 From: Alireza Valero MD Attending Dr: Dr. Jeremy Spivey MD Status: ADM RHETT Ordering Dr: Valentín Sutton DO Date: 09/07/24 Location: [facility] Sex: F C Admitted: 09/07/24 Reason For Study Reason For Study: TIA/STROKE Procedure This was a 2D Doppler, Color Flow transthoracic echocardiogram. Exam performed portable in patient room. Left Ventricle Normal LV size. Mild concentric left ventricular hypertrophy. The LV systolic function is normal. EF is 65 %. Stage 1 diastolic dysfunction. Right Ventricle Normal size and thickness. Atria The left and right atria are normal. Mitral Valve Trivial mitral valve insufficiency. Tricuspid Valve Trivial tricuspid valve insufficiency. Normal pulmonary artery pressure. Aortic Valve Trisinus/trileaflet aortic valve. 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 Consider further evaluation with STEVENSON if clinically indicated. There is no aortic stenosis. No aortic valve insufficiency. Pulmonic Valve The pulmonic valve is not well visualized. Trivial pulmonic valve insufficiency. Great Vessels Normal sized aortic root. Pericardium/Pleural No pericardial effusion. MMode/2D Measurements & Calculations LVIDd: 4.2 cm IVSd: 1.2 cm Ao root diam: 2.6 cm LVIDs: 2.7 cm LVPWd: 1.2 cm RVDd: 3.1 cm FS: 34.8 % LAV(MOD-bp): 29.3 ml LVAd ap4: 22.8 cm2 SV(MOD-sp4): 39.0 ml LAV(MOD-bp) Indexed: 18.1 ml/m2 LVLd ap4: 6.9 cm SI(MOD-sp4): 24.1 ml/m2 LAV(MOD-sp2): 32.6 ml EDV(MOD-sp4): 61.9 ml LAV(MOD-sp4): 26.7 ml EDV(sp4-el): 63.7 ml LVAs ap4: 12.4 cm2 LVLs ap4: 5.9 cm ESV(MOD-sp4): 22.8 ml ESV(sp4-el): 22.2 ml EF(MOD-sp4): 63.1 % EF(sp4-el): 65.1 % SV(sp4-el): 41.4 ml LA A4 area: 12.7 cm2 LA dimension(2D): 3.4 cm RA A4 area: 10.4 cm2 TAPSE: 2.5 cm Time Measurements MV dec time: 0.21 sec Doppler Measurements & Calculations MV E max milly: 89.1 cm/sec Lat Peak E' Milly: 10.0 cm/sec Med Peak E' Milly: 9.1 cm/sec MV A max milly: 101.5 cm/sec E/E' lat: 8.9 E/E' med: 9.8 MV E/A: 0.88 Ao V2 max: 165.7 cm/sec LV V1 max: 110.5 cm/sec PA V2 max: 104.0 cm/sec Ao max P.0 mmHg LV V1 max P.9 mmHg TR max milly: 269.4 cm/sec TR max P.0 mmHg ECHO/Echo Complete Interpretation Summary Mild concentric left ventricular hypertrophy. The LV systolic function is normal. EF is 65 %. Stage 1 diastolic dysfunction. 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 Consider further evaluation with STEVENSON if clinically indicated. Ordering Physician: Valentín Sutton Performed By: Chelsey Delarosa RDCS 09/08/24 1121 Date _ Alireza Valero MD CC: Dr. Valentín Sutton DO; Dr. Jeremy Spivey MD; No Primary Care Physician~ Date Dictated: 09/08/24 1027 Date Transcribed: 09/08/24 1121 Telecom Manager: Signed [facility] Work Phone: Ferritinon 09-08-2024 Ferritin [Mass/Vol] 373 ng/mL Normal 22-378 [facility] Comment on above: Performed By: #### L 501.9100, L503.6550, L503.0106, L503.6030, L501.9520, L505.5000 ####[facility] [id number] [place], [place], [id number] Hemoglobin A1con 09-08-2024 HbA1c (Bld) [Mass fraction] 5.3 % Normal <=5.6 [facility] Comment on above: Result Comment: Norm al < 5.7 % Prediabetic 5.7 - 6.4 % Diabetic >or= 6.5 % Please note range changes. Performed By: #### L 501.9985 ####[facility] [id number] [place], [place], [id number] Iron+Iron Binding Capacityon 09-08-2024 Iron [Mass/Vol] 73 ug/dL Normal 50-170 [facility] Comment on above: Performed By: #### L 501.9100, L503.6550, L503.0106, L503.6030, L501.9520, L505.5000 ####[facility] [id number] [place], [address] IRON SATURATION 25.0 Normal 13-59 [facility] Comment on above: Performed By: #### L 501.9100, L503.6550, L503.0106, L503.6030, L501.9520, L505.5000 ####[facility] [id number] [place], [address] TIBC 292 ug/dL Normal 250-450 [facility] Comment on above: Performed By: #### L 501.9100, L503.6550, L503.0106, L503.6030, L501.9520, L505.5000 ####[facility] [id number] [place], [address] UIBC 219 ug/dL Low 228-428 [facility] Comment on above: Performed By: #### L 501.9100, L503.6550, L503.0106, L503.6030, L501.9520, L505.5000 ####[facility] [id number] [place], [address] LDL calc ser/plasOrdered By: Valentín Phelan on 09-08-2024 Cholesterol in LDL [Mass/Vol] 128 mg/dL [facility] Comment on above: Gbrrjeuylu=269-537 m g/dL & Higher Qnsa=450 mg/dL or greater LDL Cholesterol, Calculated 128 mg/dL [facility] Comment on above: Hrjprdqipu=891-031 m g/dL & Higher Hjtb=519 mg/dL or greater Lipid Profileon 09-08-2024 CHOL:HDL 6.22 Normal [facility] Comment on above: Performed By: #### L 500.4100 #### [facility] Laboratory [address] [place], [address] Cholesterol [Mass/Vol] 186 mg/dL Normal <=200 [facility] Comment on above: Result Comment: Chol esterol level, Desirable <200 mg/dL Borderline high cholesterol 200-239 mg/dL High cholesterol >=240 mg/dL Recommendations of the NCEP Adult Treatment Panel for the following risk-cutoff thresholds for the [place] population. Performed By: #### L 500.4100 #### [facility] Laboratory [address] [facility] [address] Cholesterol in HDL [Mass/Vol] 30 mg/dL Low [facility] Comment on above: Result Comment: Silvina onal Cholesterol Education Program (NCEP) guidelines: <40 mg/dL: Low HDL-cholesterol (major risk factor for CHD) >= 60 mg/dL: High HDL-cholesterol (negative risk factor for CHD) HDL-cholesterol is affected by a number of factors, e.g. smoking, exercise, hormones, sex and age. Performed By: #### L 500.4100 #### [facility] Laboratory [address] [facility] [address] Cholesterol in LDL [Mass/Vol] 128 mg/dL Normal [facility] Comment on above: Result Comment: Bord faqnak=798-190 mg/dL Higher Prcz=167 mg/dL or greater Performed By: #### L 500.4100 #### [facility] Laboratory [address] [facility] [address] Cholesterol in VLDL [Mass/Vol] 28 mg/dL Normal 5-40 [facility] Comment on above: Performed By: #### L 500.4100 #### [facility] Laboratory [address] [facility] [address] Triglyceride [Mass/Vol] 142 mg/dL Normal [facility] Comment on above: Result Comment: The drugs N-Acetylcysteine and Metamizole may falsely depress this assay. Normal range: <150 mg/dL Borderline High: 150-199 mg/dL High: 200-499 mg/dL Very High: >500 mg/dL Performed By: #### L 500.4100 #### [facility] Laboratory [address] [place], [address] MR/CON.PCM.NEon 09-08-2024 MR/CON.PCM.NE [facility] Medical Records Department [address] [place] [address] Consultation - Neurology 09/08/24 1229 MR#: [id number] Acct: [id number] Name: MARU NOEL Rep #: [id number] : 1950 74 From: Parisa Patterson MD PCP: Care Physician,No Primary Status:ADM RHETT Location: [place] [address] Assessment and Plan: Stroke Assessment/Plan MARU NOEL is a 74 F with PMH of Obesity, COPD, tobacco use, not on any AC/AP who presents for acute onset light headedness, dizziness, and nausea/vomiting, and slurred speech. Neurological examination shows NIHSS of 2 for mild R nasolabial splaying which improves with activation and mild dysarthria (patient reports she is not at her baseline speech and does feel it is more slurred than usual). Neuroimaging shows acute to subacute L periverntricular infarct. CTA with mild L ICA atherosclerosis. LDL 128. A1C 5.3. TTE with EF 65%, but concern for Lambl Excrescences vs atherosclerotic plaque on aortic root. Recommendations: ??? Recommend the following tests for stroke evaluation: MRI brain, vessel imaging, LDL, A1C, TTE complete ??? Recommend discussion with cardiology regarding TTE findings and need for STEVENSON. Lambl Excrescences has been known to be risk factor in embolic stroke and thus should be evaluated. We can optimize the patient medically, but confirmation and potential discussion about monitory for surgical intervention should be discussed with cardiology ??? Anti-platelet medication: Given she has a low NIHSS stroke and presents within 72 hours of symptoms, would recommend DAPT for 21 days followed by ASA monotherapy. Recommend continuation of Aspirin 81mg daily + load of Plavix 300 mg today, followed by ASA 81 mg + Plavix 75 mg daily x 21 days, followed by ASA monotherapy. ??? Occupational/Physica l therapy consult ??? DVT prophylaxis with SCDs and heparin SQ. ??? Permissive hypertension to goal SBP < 220 mm Hg x 24 hours, followed by gradual normotension. She is out of this 24 hour window and thus would recommend gradual normotension at this time. ??? Stroke education ??? Vascular risk factor modification: ??? Hyperlipidemia: LDL Goal < 70 mg/dL - start high intensity statin equivalent to Atorvastatin 80 mg qhs ??? Smoking Cessation: counseling provided Follow up in Neurology clinic in 4-6 weeks. HPI Consult Data Date of Consult: 09/08/24 HPI Narrative HPI Narrative: This is a 74 yo F with PMH of Obesity, COPD, tobacco use, not on any AC/AP who presents for acute onset light headedness, dizziness, and nausea/vomiting. The patient reports working on the yard Wednesday and feeling fine when she went to bed at around 9:30-10:00 pm on Wednesday 09/06. She woke up on 09/07 at around 0300 to go the bathroom and noted instability, feeling like her depth perception was off, light headedness, dizziness, nausea/vomiting, and slurring of her speech. CTH without acuity. 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 MRI with acute stroke in deep acute to subacute periverntricular infarct. LDL 128. A1C 5.3 The patient is a current every day smoker of one pack/per day. TTE with EF 65%, but concern for Lambl Excrescences vs atherosclerotic plaque on aortic root. Today she states she still feels symptomatic dizziness when she moves around too much, but at this time feels okay. She noted slurring of her speech since yesterday as well but no one told her it was. She feel she feels her speech is not at baseline. She has mild nasolabial splaying of R face which improves with activation. NIHSS 2 (mild dysarthria and mild R facial). She denies headache, vision changes, numbness, tingling, or weakness. She reports increased work of breathing since coming into the hospital. [facility] Medical History COPD (chronic obstructive pulmonary disease) Home Medications ???Medication ???Instructions ???Recorded ???Last Taken ???Type albuterol sulfate inhalation Q6H PRN PRN shortness 0 09/07/24 Unknown History of breath or wheezing fluticasone fur. 100 mcg-umeclid 1 inh inhalation DAILY 09/07/24 Un known History 62.5 mcg-vilant 25 mcg inhalat.powder (Trelegy Ellipta) Allergy/AdvReac Type Severity Reaction Status Date / Time No Known Allergies Allergy Verified 09/07/24 20:15 Social History Smoking Status: Current every day smoker tobacco type: cigarettes Vital Signs Vital Signs Vital Signs: 09/07/24 20:16 09/07/24 20:27 09/07/24 21:15 Temperature 97.6 F L Temperature Source Oral Pulse Rate 72 84 Pulse Rate [Lying] 75 Pulse Strength Respiratory Rate 19 H 21 H Respiratory Effort Respiratory Depth Respiratory Pattern Blood Pressure 1 (more content not included)... Normal [facility] Magnetic resonance imaging r eportOrdered By: Jean Daly on 09-08-2024 Study report [facility] Imaging Services [address], [place] [address] Brain without Contrast MR#: [id number] Acct: [id number] Name: MARU NOEL Rep #: [id number] : 1950 F 74 From: Jose Alejandro Daly MD PCP: Care Physician,No Primary Status: ADM RHETT Study:Brain without Contrast Date of Exam: 09/07/24 Exam# [id number] Ordering Dr: Valentín Dean DO EXAM: BRAIN WITHOUT CONTRAST CLINICAL HISTORY: PLEASE EVALUATE FOR CVA. ? VERTEBROBASILAR SYNDRO COMPARISON: Head CTA September 07, 2024. TECHNIQUE: Multiplanar, multisequence MR images of the brain were obtained without gadolinium contrast material. FINDINGS: No intracranial hemorrhage, mass, mass effect, midline shift or pathologic extra- axial fluid collection. No hydrocephalus. There is moderate generalized atrophy. There is focal restricted diffusion in the left mid periventricular region measuring 1.1 by 0.6 cm image 16/, and in the left posterior insular deep white matter measuring 0.5 cm and 0.4 cm, image 14/, with corresponding increased T2 and FLAIR signal, and subtle low T1 signal changes, consistent with recent infarct, early subacute. There is a 0.8 x 0.3 cm old lacunar infarct posterior to the head of the caudateon the right. No gradient signal blooming artifacts are identified. No cerebellar tonsillar ectopia. No sellar/suprasellar signal abnormalities. The ocular globes and intraorbital soft tissues are symmetrically unremarkable. Mucosal thickening is visible in the right maxillary sinus and a portion of the right and left ethmoid air cells. The mastoid air cells appear clear. MRI/Brain without Contrast IMPRESSION: There is moderate generalized atrophy. There is focal restricted diffusion in the left mid periventricular region measuring 1.1 by 0.6 cm image 16/26, and in the left posterior insular deep white matter measuring 0.5 cm and 0.4 cm, image 14/26, with corresponding increased T2 and FLAIR signal, and subtle low T1 signal changes, consistent with recent infarct, early subacute. There is a 0.8 x 0.3 cm old lacunar infarct posterior to the head of the caudateon the right. Mucosal thickening is visible in the right maxillary sinus and a portion of the right and left ethmoid air cells. Reading Location: [facility] CC: Dr. Valentín Sutton, DO; No Primary Care Physician ~ Telecom Manager: Signed [facility] Screening total cholesterol/ high density lipoprotein (HDL) cholesterol ratioOrdered By: Valentín Phelan on 09-08-2024 Cholesterol.total/Choles terol in HDL [Mass ratio] 6.22 {ratio} [facility] Serum or plasma cholesterol in HDL measurement (mass/volume)Ordered By: Valentín Phelan on 09-08-2024 Cholesterol in HDL [Mass/Vol] 30 mg/dL Low >40 [facility] Comment on above: National Cholesterol Education Program (NCEP) guidelines:<40 mg/dL: Low HDL-cholesterol (major risk factor for CHD)>= 60 mg/dL: High HDL-cholesterol (negative risk factor for CHD)HDL-cholesterol is affected by a number of factors, e.g. smoking, exercise, hormones, sex and age. Serum or plasma cholesterol measurement (mass/volume)Ordered By: Valentín Phelan on 09-08-2024 Cholesterol [Mass/Vol] 186 mg/dL <201 [facility] Comment on above: Cholesterol level, D esirable <200 mg/dLBorderline high cholesterol 200-239 mg/dLHigh cholesterol >=240 mg/dLRecommendations of the NCEP Adult Treatment Panel for the following risk-cutoff thresholds for the [place] population. Thyroid Stim Hormone (TSH)on 09-08-2024 TSH 1.260 uIU/mL Normal 0.300-4.200 [facility] Comment on above: Performed By: #### L 501.9100, L503.6550, L503.0106, L503.6030, L501.9520, L505.5000 ####[facility] [id number] [facility] [id number] Triglycerides measurementOrd ered By: Valentín Phelan on 09-08-2024 Triglyceride [Mass/Vol] 142 mg/dL <199 [facility] Comment on above: The drugs N-Acetylcy steine and Metamizole may falsely depress this assay. Normal range: <150 mg/dLBorderline High: 150-199 mg/dLHigh: 200-499 mg/dLVery High: >500 mg/dL Urine Drug Screen (VISTA)on 09-08-2024 AMPHETAMINES Negative Normal <1000 ng/mL [facility] Comment on above: Performed By: #### L 501.9100, L503.6550, L503.0106, L503.6030, L501.9520, L505.5000 ####[facility] [id number] [facility] [id number] BARBITIURATES Negative Normal < 200 ng/mL [facility] Comment on above: Performed By: #### L 501.9100, L503.6550, L503.0106, L503.6030, L501.9520, L505.5000 ####[facility] [id number] [facility] [address] BENZODIAZIPINE Negative Normal < 200 ng/mL [facility] Comment on above: Performed By: #### L 501.9100, L503.6550, L503.0106, L503.6030, L501.9520, L505.5000 ####[facility] [address] [place], [address] BUP Ur Drug Scr Negative Normal < 200 ng/mL [facility] Comment on above: Performed By: #### L 501.9100, L503.6550, L503.0106, L503.6030, L501.9520, L505.5000 ####[facility] [address] [place], [address] COCAINE Negative Normal < 300 ng/mL [facility] Comment on above: Performed By: #### L 501.9100, L503.6550, L503.0106, L503.6030, L501.9520, L505.5000 ####[facility] [address] [place], [address] Fentanyl Negative Normal [facility] Comment on above: Performed By: #### L 501.9100, L503.6550, L503.0106, L503.6030, L501.9520, L505.5000 ####[facility] [address] [place], [address] METHADONE Negative Normal < 300 ng/mL [facility] Comment on above: Performed By: #### L 501.9100, L503.6550, L503.0106, L503.6030, L501.9520, L505.5000 ####[facility] [address] [place], [address] OPIATES Negative Normal < 300 ng/mL [facility] Comment on above: Performed By: #### L 501.9100, L503.6550, L503.0106, L503.6030, L501.9520, L505.5000 ####[facility] [address] [place], [address] OXYCODONE Negative Normal < 100 ng/mL [facility] Comment on above: Performed By: #### L 501.9100, L503.6550, L503.0106, L503.6030, L501.9520, L505.5000 ####[facility] [address] [place], [address] PCP Negative Normal < 25 ng/mL [facility] Comment on above: Performed By: #### L 501.9100, L503.6550, L503.0106, L503.6030, L501.9520, L505.5000 ####[facility] [address] [place], [address] THC Positive Normal < 50 ng/mL [facility] Comment on above: Result Comment: If c onfirmation testing is needed, a separate order will be required to send out testing to the reference laboratory. Performed By: #### L 501.9100, L503.6550, L503.0106, L503.6030, L501.9520, L505.5000 ####[facility] [address] [place], [address] Vitamin B12on 09-08-2024 Cobalamin (Vitamin B12) [Mass/Vol] 271 pg/mL Normal 180-914 [facility] Comment on above: Performed By: #### L 501.9100, L503.6550, L503.0106, L503.6030, L501.9520, L505.5000 ####[facility] [address] [place], [address] Absolute lymphocyte countOrd ered By: Jayesh Breen on 09-07-2024 Lymphocytes Auto (Unsp spec) [#/Vol] 3.10 10*3/uL 0.83-4.51 [facility] Absolute neutrophil countOrd ered By: Jayesh Breen on 09-07-2024 Neutrophils (Bld) [#/Vol] 5.7 10*3/uL 2.0-7.7 [facility] Amphetamine detection with 1 000 ng/mL as cutoffOrdered By: Valentín Phelan on 09-07-2024 Amphetamines Screen method >1000 ng/mL Ql (U) Negative < 200 ng/mL [facility] Amphetamines Screen method > 1000 ng/mL Ql (U)Ordered By: Valentín Phelan on 09-07-2024 Amphetamines Ql (U) Negative <1000 ng/mL [facility] Urine Barbiturates Screen Negative < 200 ng/mL [facility] Anion gap in Serum or Plasma Ordered By: Jayesh Breen on 09-07-2024 Anion gap [Moles/Vol] 15 mmol/L 5-15 [facility] Automated lymphocyte count a s percentage of total leukocytesOrdered By: Jayesh Breen on 09-07-2024 Lymphocytes/100 WBC Auto (Unsp spec) 32.7 % - [facility] BUN/creatinine ratioOrdered By: Jayesh Breen on 09-07-2024 Urea nitrogen/Creatinine [Mass ratio] 14.6 mg/mg 10- [facility] Basophil percentageOrdered B y: Jayesh Breen on 09-07-2024 Basophils/100 WBC (Bld) 0.6 % 0-1 [facility] Bilirubin Test strip Ql (U)O rdered By: Jayesh Breen on 09-07-2024 Bilirubin Ql (U) Negative Negative [facility] Bilirubin, totalOrdered By: Jayesh Breen on 09-07-2024 Bilirubin [Mass/Vol] 0.45 mg/dL 0.00-1.30 [facility] Brain without Contraston Brain without Contrast [facility] Imaging Services [address], [place] [address] Brain without Contrast MR#: [id number] Acct: [id number] Name: MARU NOEL Viraj Rep #: [id number] : 1950 F 74 From: Jean Daly MD PCP: Care Physician,No Primary Status: ADM RHETT Study: Brain without Contrast Date of Exam: 09/07/24 Exam# [id number] Ordering Dr: Valentín Sutton DO EXAM: BRAIN WITHOUT CONTRAST CLINICAL HISTORY: PLEASE EVALUATE FOR CVA. ? VERTEBROBASILAR SYNDRO COMPARISON: Head CTA September 07, 2024. TECHNIQUE: Multiplanar, multisequence MR images of the brain were obtained without gadolinium contrast material. FINDINGS: No intracranial hemorrhage, mass, mass effect, midline shift or pathologic extra- axial fluid collection. No hydrocephalus. There is moderate generalized atrophy. There is focal restricted diffusion in the left mid periventricular region measuring 1.1 by 0.6 cm image 16/26, and in the left posterior insular deep white matter measuring 0.5 cm and 0.4 cm, image 14/26, with corresponding increased T2 and FLAIR signal, and subtle low T1 signal changes, consistent with recent infarct, early subacute. There is a 0.8 x 0.3 cm old lacunar infarct posterior to the head of the caudate on the right. No gradient signal blooming artifacts are identified. No cerebellar tonsillar ectopia. No sellar/suprasellar signal abnormalities. The ocular globes and intraorbital soft tissues are symmetrically unremarkable. Mucosal thickening is visible in the right maxillary sinus and a portion of the right and left ethmoid air cells. The mastoid air cells appear clear. MRI/Brain without Contrast IMPRESSION: There is moderate generalized atrophy. There is focal restricted diffusion in the left mid periventricular region measuring 1.1 by 0.6 cm image 16/26, and in the left posterior insular deep white matter measuring 0.5 cm and 0.4 cm, image 14/26, with corresponding increased T2 and FLAIR signal, and subtle low T1 signal changes, consistent with recent infarct, early subacute. There is a 0.8 x 0.3 cm old lacunar infarct posterior to the head of the caudate on the right. Mucosal thickening is visible in the right maxillary sinus and a portion of the right and left ethmoid air cells. Reading Location: [facility] CC: Dr. Valentín Sutton DO; No Primary Care Physician Telecom Manager: Signed Normal [facility] Brain/Head without Contrasto n 09-07-2024 Brain/Head without Contrast [facility] Imaging Services [address] [place], [place] [address] Brain/Head without Contrast MR#: [id number] Acct: [id number] Name: GARCÍAMARU Rep #: [id number] : 1950 F 74 From: Ivan Del Valle PCP: Status: PRE ER Study: Brain/Head without Contrast Date of Exam: 08/16 09/08 Exam# [id number] Ordering Dr: Jayesh Breen MD PROCEDURE: BRAIN/HEAD WITHOUT CONTRAST 09/07/2024 REASON FOR EXAM: DIZZINESS TECHNIQUE: Head CT without intravenous contrast. Coronal and Sagittal reconstruction series were provided. One or more dose reduction techniques were used (e.g., Automated exposure control, adjustment of the mA and/or kV according to patient size, use of iterative reconstruction technique. COMPARISON: None FINDINGS: Negative for acute intracranial hemorrhage, midline shift or mass effect. No definite CT evidence of acute territorial cortical infarction. No hydrocephalus. Chronic lacunar infarcts in the right basal ganglia. Mild chronic small-vessel ischemic changes. Calvarium is intact. Paranasal sinuses and mastoid air cells are clear. CT/Brain/Head without Contrast IMPRESSION: 1. No acute intracranial abnormality. 2. Chronic ischemic changes as above. Reading [facility] CC: Dr. Jayesh Breen MD Telecom Manager: Signed Normal [facility] CBC W/Diff, Automatedon 08-16 Absolute Lymph 3.10 X10 3/uL Normal 0.83-4.51 [facility] Comment on above: Performed By: #### L 500.4050, L100.0100 #### [facility] Laboratory [address] [facility] [address] Absolute Neut 5.7 X10 3/uL Normal 2.0-7.7 [facility] Comment on above: Performed By: #### L 500.4050, L100.0100 #### [facility] Laboratory [address] [facility] [address] Basophils/100 WBC (Bld) 0.6 % Normal 0-1 [facility] Comment on above: Performed By: #### L 500.4050, L100.0100 #### [facility] Laboratory [address] [place], [address] Eosinophils/100 WBC (Bld) 0.5 % Normal 0-5 [facility] Comment on above: Performed By: #### L 500.4050, L100.0100 #### [facility] Laboratory [address] [place], [address] Erythrocyte distribution width (RBC) [Ratio] 18.4 % High 11.6-14.6 [facility] Comment on above: Performed By: #### L 500.4050, L100.0100 #### [facility] Laboratory [address] [place], [address] Hematocrit (Bld) [Volume fraction] 40.4 % Normal 37-47 [facility] Comment on above: Performed By: #### L 500.4050, L100.0100 #### [facility] Laboratory [address] [place], [address] Hemoglobin (Bld) [Mass/Vol] 12.9 g/dL Normal 12.0-15.0 [facility] Comment on above: Performed By: #### L 500.4050, L100.0100 #### [facility] Laboratory [address] [place], [address] IG% 0.300 Normal 0.0-0.9 [facility] Comment on above: Result Comment: IG% - Immature Granulocytes (promyelocytes, myelocytes and metamyelocytes) > 1% indicates that a LEFT SHIFT is Present. Performed By: #### L 500.4050, L100.0100 #### [facility] Laboratory [address] [place], [address] Lymphocytes/100 WBC (Bld) 32.7 % Normal 19-41 [facility] Comment on above: Performed By: #### L 500.4050, L100.0100 #### [facility] Laboratory [address] [place], [address] MCH (RBC) [Entitic mass] 20.9 pg Low 27.0-32.0 [facility] Comment on above: Performed By: #### L 500.4050, L100.0100 #### [facility] Laboratory [address] [place], [address] MCHC (RBC) [Mass/Vol] 31.9 g/dL Low 32-36 [facility] Comment on above: Performed By: #### L 500.4050, L100.0100 #### [facility] Laboratory [address] [place], [address] MCV (RBC) [Entitic vol] 65.4 fL Low 81-[address] [facility] Comment on above: Performed By: #### L 500.4050, L100.0100 #### [facility] Laboratory [address] [place], [address] Monocytes/100 WBC (Bld) 5.4 % Normal 0-[address] [facility] Comment on above: Performed By: #### L 500.4050, L100.0100 #### [facility] Laboratory [address] [place], [address] Neutrophils/100 WBC (Bld) 60.5 % Normal 47-70 [facility] Comment on above: Performed By: #### L 500.4050, L100.0100 #### [facility] Laboratory [address] [place], [address] Nucleated RBC (Bld) [#/Vol] 0.3 10*3/uL Normal 0-5 [facility] Comment on above: Performed By: #### L 500.4050, L100.0100 #### [facility] Laboratory [address] [place], [address] Platelet mean volume (Bld) [Entitic vol] 10.0 fL Normal 6.2-12.0 [facility] Comment on above: Performed By: #### L 500.4050, L100.0100 #### [facility] Laboratory [address] [place], [address] Platelets (Bld) [#/Vol] 354 10*3/uL Normal 150-450 [facility] Comment on above: Performed By: #### L 500.4050, L100.0100 #### [facility] Laboratory [address] [place], [address] RBC (Bld) [#/Vol] 6.18 10*6/uL High 4.2-5.4 [facility] Comment on above: Performed By: #### L 500.4050, L100.0100 #### [facility] Laboratory [address] [place], [address] RDW SD 38.6 fl Normal 35.1-43.9 [facility] Comment on above: Performed By: #### L 500.4050, L100.0100 #### [facility] Laboratory [address] [place], [address] WBC (Bld) [#/Vol] 9.5 10*3/uL Normal 4.4-11.0 [facility] Comment on above: Performed By: #### L 500.4050, L100.0100 #### [facility] Laboratory [address] [place], [address] CTA Head AND Neck W/ Contras ton 09-07-2024 CTA Head AND Neck W/ Contrast [facility] Imaging Services [address] [place] [address] CTA Head AND Neck W/ Contrast MR#: [id number] Acct: [id number] Name: MARU NOEL Rep #: [id number] : 1950 F 74 From: Ethan Cole MD PCP: Care Physician,No Primary Status: [facility] ER Study: CTA Head AND Neck W/ Contrast Date of Exam: Exam# [id number] Ordering Dr: Jayesh Breen MD PROCEDURE: CTA HEAD AND NECK W/ CONTRAST 09/07/2024 REASON FOR EXAM: DIZZINESS TECHNIQUE: CTA imaging of the head and neck from the aortic arch to the skull vertex with out constrast and with intravenous contrast. Coronal and Sagittal reconstruction series were provided. 3D post processing with reformations, Maximum intensity projection (MIPs) Volume rendering and Shaded surface rendering was provided. One or more dose reduction techniques were used (e.g., Automated exposure control, adjustment of the mA and/or kV according to patient size, use of iterative reconstruction technique). FINDINGS: Aortic Arch: Normal size and branching pattern. No significant atherosclerotic plaque. Direct origin of the left vertebral artery from the aortic arch between the origin left common carotid artery and left subclavian artery. Brachiocephalic and Subclavians: Unremarkable RIGHT Carotid: Right CCA: Unremarkable. Right ICA: Mild calcified and soft plaque. Maximum stenosis (NASCET): 0 % Right ECA: Unremarkable. LEFT Carotid: Left CCA: Mild calcified and soft plaque. Left ICA: Mild calcified and soft plaque. Maximum stenosis (NASCET): 40 % Left ECA: Unremarkable. Vertebrals: RIGHT Vertebral: Unremarkable. LEFT Vertebral: Hypoplastic Anatomy: Belden of Muse anatomy is normal. Aneurysm or avm: No intracranial aneurysms or large vascular malformations are identified. Anterior cerebral arteries: Unremarkable: Middle cerebral arteries: Unremarkable. Basilar artery: Unremarkable. Posterior cerebral arteries: Unremarkable. Persistent origin bilaterally. Other major branches of the posterior circulation: Unremarkable. Major venous structures: Unremarkable. Other findings: Neck: No lymphadenopathy. Lungs: Lung apices are clear. Bones: Bones are unremarkable. CT/CTA Head AND Neck W/ Contrast IMPRESSION: No large vessel occlusion. No right carotid stenosis. Mild (40%) left carotid stenosis. Patent vertebral arteries bilaterally. 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 Reading Location: [id number] CC: Dr. Jayesh Breen MD; No Primary Care Physician Telecom Manager: Signed Normal [facility] Calculated total iron bindin g capacityOrdered By: Valentín Phelan on 09-07-2024 Total Iron Binding Capacity 292 ug/dL 250-450 [facility] Carbon dioxide, total [Moles /volume] in Central venous bloodOrdered By: Jayesh Breen on 09-07-2024 CO2 [Moles/Vol] 18.8 mmol/L Low 21.0-32.0 [facility] Carotid Duplex Ultrasoundon 09-07-2024 Carotid Duplex Ultrasound [facility] Cardi[facility] [address] [place] [address] Carotid Duplex Ultrasound 09/08/24 1045 MR#: [id number] Acct: [id number] Name: MARU NOEL Rep #: [id number] : 1950 74 From: Jesse Denton MD Attending Dr: Dr. Jeremy Spivey MD Status: DIS RHETT Ordering Dr: Valentín Sutton DO Date: 09/07/24 Location: [facility] Sex: F C Admitted: 09/07/24 Reason For Study Reason For Study: Dizziness, hypoplastic left vertebral artery on CT Rt. Velocities/BP Lt. Velocities/BP Prox CCA 73/16.3 cm/sec. Prox CCA 94.9/16.3 cm/sec. Mid CCA 88.1/16.3 cm/sec. Mid CCA 82.6/15.1 cm/sec. Dist CCA 73/17.3 cm/sec. Dist CCA 87.6/18.8 cm/sec. Prox ICA 61.8/10.2 cm/sec. Prox ICA 90/17 cm/sec. Mid ICA 75.3/16.3 cm/sec. Mid ICA 76.8/18.9 cm/sec. Dist ICA 93.7/20 cm/sec. Dist ICA 89.8/15.9 cm/sec. Rt. ICA/CCA = 1.06. Lt. ICA/CCA = 1.09. Prox ECA 196/22.6 cm/sec. Prox ECA 126.6/17 cm/sec. Rt. Vert. 102.3/15.1 cm/sec. Lt. Vert. 48.5/6 cm/sec. Right Extracranial There is intimal thickening but no significant atherosclerotic plaque noted in the right common carotid artery. There is intimal thickening but no significant atherosclerotic plaque noted in the right internal carotid artery. There is heterogeneous, irregular atherosclerotic plaque noted in the right external carotid artery. Antegrade flow is noted in the right vertebral artery. Left Extracranial There is homogeneous, smooth atherosclerotic plaque noted in the left common carotid artery. There is heterogeneous, irregular atherosclerotic plaque noted in the left internal carotid artery. There is heterogeneous, irregular atherosclerotic plaque noted in the left external carotid artery. Antegrade flow is noted in the left vertebral artery. Procedure Carotid Duplex [id number]. This is a Carotid Duplex examination using B-mode, color flow and specral Doppler. Exam performed in department. VL/Carotid Duplex Ultrasound Interpretation Summary No significant atherosclerotic plaque or stenosis noted in the right internal carotid artery. Mild (<50%) stenosis left extracranial internal carotid. Flow within the vertebral arteries is antegrade bilaterally. Ordering Physician: Valentín Sutton Performed By: Jane Shelton RVT 09/10/242137 Date Jesse Denton MD CC: Dr. Valentín Sutton DO; Dr. Jeremy Spivey MD; No Primary Care Physician Date Dictated: 09/08/24 1045 Date Transcribed: 09/10/242137 Telecom Manager: Signed Normal [facility] Chest 1 View (Portable)on Chest 1 View (Portable) [facility] Imaging Services [address] [place] [address] Chest 1 View (Portable) MR#: [id number] Acct: [id number] Name: MARU NOEL Rep #: [id number] : 1950 F 74 From: Ivan Del Valle PCP: Status: PRE ER Study: Chest 1 View (Portable) Date of Exam: 09/07/24 Exam# [id number] Ordering Dr: Jayesh Breen MD PROCEDURE: CHEST 1 VIEW (PORTABLE) 09/07/2024 REASON FOR EXAM: COPD TECHNIQUE: Frontal view of the chest. COMPARISON: None FINDINGS: Cardiomediastinal silhouette is within normal limits. Minimal right basilar airspace opacities. Left lung is clear. No sizable pleural effusion or pneumothorax. Enchondroma in the left femoral neck. RAD/Chest 1 View (Portable) IMPRESSION: 1. Minimal right basilar opacities which may relate to atelectasis or infiltrate. 2. Left humeral neck enchondroma. Reading Location: [facility] CC: Dr. Jayesh Breen MD Telecom Manager: Signed Normal [facility] Chloride assayOrdered By: Kirk Breen on 09-07-2024 Chloride [Moles/Vol] 107 mmol/L 98-108 [facility] Comprehensive Metabolic Prof ilon 09-07-2024 Albumin [Mass/Vol] 4.4 g/dL Normal 3.4-4.8 [facility] Comment on above: Performed By: #### L 500.4050, L100.0100 #### [facility] Laboratory [address] [place], [address] Albumin/Globulin [Mass ratio] 1.2 {ratio} Normal 0.9-2.4 [facility] Comment on above: Performed By: #### L 500.4050, L100.0100 #### [facility] Laboratory [address] [place], [address] ALK PHOS 89 U/L Normal 35-104 [facility] Comment on above: Performed By: #### L 500.4050, L100.0100 #### [facility] Laboratory [address] [place], [address] ALT [Catalytic activity/Vol] 12 U/L Normal <=34 [facility] Comment on above: Performed By: #### L 500.4050, L100.0100 #### [facility] Laboratory [address] [place], [address] AST [Catalytic activity/Vol] 18 U/L Normal <=31 [facility] Comment on above: Result Comment: Hemo lysis present, Results??could be affected. ?? Performed By: #### L 500.4050, L100.0100 #### [facility] Laboratory [address] [place], [address] Bilirubin [Mass/Vol] 0.45 mg/dL Normal 0.00-1.30 [facility] Comment on above: Performed By: #### L 500.4050, L100.0100 #### [facility] Laboratory [address] [place], [address] BUN/CRE 14.6 RATIO Normal 10-20 [facility] Comment on above: Performed By: #### L 500.4050, L100.0100 #### [facility] Laboratory [address] [place], [address] Calcium [Mass/Vol] 9.9 mg/dL Normal 7.6-11.0 [facility] Comment on above: Performed By: #### L 500.4050, L100.0100 #### [facility] Laboratory [address] [place], [address] Chloride [Moles/Vol] 107 mmol/L Normal 98-108 [facility] Comment on above: Performed By: #### L 500.4050, L100.0100 #### [facility] Laboratory [address] [place], [address] CO2 [Moles/Vol] 18.8 mmol/L Low 21.0-32.0 [facility] Comment on above: Performed By: #### L 500.4050, L100.0100 #### [facility] Laboratory [address] [place], [address] Creatinine [Mass/Vol] 0.70 mg/dL Normal 0.70-1.20 [facility] Comment on above: Performed By: #### L 500.4050, L100.0100 #### [facility] Laboratory [address] [place], [address] ECRCL 53.61 ml/min Normal 50-250 [facility] Comment on above: Performed By: #### L 500.4050, L100.0100 #### [facility] Laboratory [address] [place], [address] GAP 15 Normal 5-15 [facility] Comment on above: Performed By: #### L 500.4050, L100.0100 #### [facility] Laboratory [address] [place], [address] GFR/1.73 sq M.predicted among non-blacks MDRD (S/P/Bld) [Vol rate/Area] 91 mL/min/{1.73_m2} Normal >60 [facility] Comment on above: Result Comment: mL/m in/1.73m2 CKD-EPI Creatinine Equation (2020) Performed By: #### L 500.4050, L100.0100 #### [facility] Laboratory [address] [place], [address] Globulin (S) [Mass/Vol] 3.7 g/dL Normal 2.2-4.[address] [facility] Comment on above: Performed By: #### L 500.4050, L100.0100 #### [facility] Laboratory [address] [place], [address] Glucose [Mass/Vol] 116 mg/dL High 70-99 [facility] Comment on above: Performed By: #### L 500.4050, L100.0100 #### [facility] Laboratory [address] [place], [address] Potassium [Moles/Vol] 3.9 mmol/L Normal 3.3-5.1 [facility] Comment on above: Result Comment: Hemo lysis present, Results??could be affected. ?? Performed By: #### L 500.4050, L100.0100 #### [facility] Laboratory [address] [place], [address] Sodium [Moles/Vol] 141 mmol/L Normal 133-145 [facility] Comment on above: Performed By: #### L 500.4050, L100.0100 #### [facility] Laboratory [address] [place], [address] T PROT 8.0 g/dL Normal 5.9-8.4 [facility] Comment on above: Performed By: #### L 500.4050, L100.0100 #### [facility] Laboratory [address] [place], [address] Urea nitrogen [Mass/Vol] 10 mg/dL Normal 4-19 [facility] Comment on above: Performed By: #### L 500.4050, L100.0100 #### [facility] Laboratory [address] [place], [address] Echo Completeon 09-07-2024 Echo Complete [facility] [address] [place] [address] Echo Complete 09/08/24 1027 MR#: [id number] Acct: [id number] Name: MARU NOEL Rep #: [id number] : 1950 74 From: Alireza Valero MD Attending Dr: Dr. Jeremy Spivey MD Status: ADM RHETT Ordering Dr: Valentín Sutton DO Date: 09/07/24 Location: U Sex: F C Admitted: 09/07/24 Reason For Study Reason For Study: TIA/STROKE Procedure This was a 2D Doppler, Color Flow transthoracic echocardiogram. Exam performed portable in patient room. Left Ventricle Normal LV size. Mild concentric left ventricular hypertrophy. The LV systolic function is normal. EF is 65 %. Stage 1 diastolic dysfunction. Right Ventricle Normal size and thickness. Atria The left and right atria are normal. Mitral Valve Trivial mitral valve insufficiency. Tricuspid Valve Trivial tricuspid valve insufficiency. Normal pulmonary artery pressure. Aortic Valve Trisinus/trileaflet aortic valve. 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 Consider further evaluation with STEVENSON if clinically indicated. There is no aortic stenosis. No aortic valve insufficiency. Pulmonic Valve The pulmonic valve is not well visualized. Trivial pulmonic valve insufficiency. Great Vessels Normal sized aortic root. Pericardium/Pleural No pericardial effusion. MMode/2D Measurements Calculations LVIDd: 4.2 cm IVSd: 1.2 cm Ao root diam: 2.6 cm LVIDs: 2.7 cm LVPWd: 1.2 cm RVDd: 3.1 cm FS: 34.8 % LAV(MOD-bp): 29.3 ml LVAd ap4: 22.8 cm2 SV(MOD-sp4): 39.0 ml LAV(MOD-bp) Indexed: 18.1 ml/m2 LVLd ap4: 6.9 cm SI(MOD-sp4): 24.1 ml/m2 LAV(MOD-sp2): 32.6 ml EDV(MOD-sp4): 61.9 ml LAV(MOD-sp4): 26.7 ml EDV(sp4-el): 63.7 ml LVAs ap4: 12.4 cm2 LVLs ap4: 5.9 cm ESV(MOD-sp4): 22.8 ml ESV(sp4-el): 22.2 ml EF(MOD-sp4): 63.1 % EF(sp4-el): 65.1 % SV(sp4-el): 41.4 ml LA A4 area: 12.7 cm2 LA dimension(2D): 3.4 cm RA A4 area: 10.4 cm2 TAPSE: 2.5 cm Time Measurements MV dec time: 0.21 sec Doppler Measurements Calculations MV E max milly: 89.1 cm/sec Lat Peak E' Milly: 10.0 cm/sec Med Peak E' Milly: 9.1 cm/sec MV A max milly: 101.5 cm/sec E/E' lat: 8.9 E/E' med: 9.8 MV E/A: 0.88 Ao V2 max: 165.7 cm/sec LV V1 max: 110.5 cm/sec PA V2 max: 104.0 cm/sec Ao max P.0 mmHg LV V1 max P.9 mmHg TR max milly: 269.4 cm/sec TR max P.0 mmHg ECHO/Echo Complete Interpretation Summary Mild concentric left ventricular hypertrophy. The LV systolic function is normal. EF is 65 %. Stage 1 diastolic dysfunction. 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 Consider further evaluation with STEVENSON if clinically indicated. Ordering Physician: Valentín Sutton Performed By: Chelsey Delarosa RDCS 09/08/24 1121 Date Alireza Valero MD CC: Dr. Valentín Sutton DO; Dr. Jeremy Spivey MD; No Primary Care Physician Date Dictated: 09/08/24 1027 Date Transcribed: 09/08/24 112 Telecom Manager: Signed Normal [facility] Emergency Department Summary on 09-07-2024 Emergency Department Summary [facility] Medical Records Department [address] [place] [id number] Emergency Department Summary 09/07/24 MR#: [id number] Acct: [id number] Name: MARU NOEL Rep #: [id number] : 1950 74 From: Jayesh Breen MD PCP: Care Physician,No Primary Status:[facility] ER Location: ED ADDENDUM by Dr. Jayesh Breen MD on 09/07/24 at 2228 EKG obtained interpreted by myself independently as normal sinus rhythm with sinus arrhythmia at 68 bpm without other ectopy or acute ST changes. No STEMI. 09/07/242227 Cosigner Signature (if applicable): cc: No Primary Care Physician * Signed HPI History of Present Illness Chief Complaint: Dizziness Narrative Narrative: 74-year-old female past medical history of COPD presents with lightheadedness and dizziness that she has had all day today. She states yesterday everything was fine. Her boyfriend states that her symptoms may have started this morning around 3 AM. They were not as severe, but she has been working in the yard all day. States she feels lightheaded, and it is worse with standing. She feels like she is off balance when she stands and that everything is far away. She denies any vertiginous type symptoms with the room spinning at rest. No recent diarrhea. Earlier she was nauseated and vomited once, but feels improved. No other exacerbating or alleviating factors. No dysuria or hematuria. No recent fevers or chills. No cough or shortness of breath even with her history of COPD. [facility] Medical History COPD (chronic obstructive pulmonary disease) Allergy/AdvReac Type Severity Reaction Status Date / Time No Known Allergies Allergy Verified 09/07/24 20:15 Social History Smoking Status: Current every day smoker tobacco type: cigarettes ROS ROS ED ROS Narrative Review of systems positive for lightheadedness and dizziness worse with standing. No fevers or chills. She was nauseated earlier and vomited once without any blood in her emesis. No recent diarrhea. No chest pain, no shortness of breath. EXAM Physical Exam Narrative Exam Narrative: Afebrile. Vital signs noted. Nontoxic-appearing. Cardiovascular examination reveals a regular rate and rhythm. Lungs are clear to auscultation bilaterally with diminished sounds at the bilateral bases. Moving a good amount of air. Abdomen is soft and nontender without guarding or rebound. No epigastric tenderness. Neurological examination is nonfocal, nonlateralizing. PERRL, EOMI. Normal [id number]. No pedal edema noted. Const Vital Signs: 09/07/24 20:16 09/07/24 20:27 09/07/24 21:15 Temperature 97.6 F L Temperature Source Oral Pulse Rate 72 84 Pulse Rate [Lying] 75 Respiratory Rate 19 H 21 H Blood Pressure 163/103 H 179/89 H Blood Pressure [Lying] 181/91 H Blood Pressure [Sitting (for 1 minute prior to obtaining)] 173/85 H Blood Pressure Mean 123 119 Blood Pressure Mean [Lying] 121 Blood Pressure Mean [Sitting (for 1 minute prior to obtaining)] 114 Pulse Ox 97 98 Oxygen Delivery Method Room Air Room Air 09/07/24 22:00 Temperature Temperature Source Pulse Rate 75 Pulse Rate [Lying] Respiratory Rate 17 Blood Pressure 179/84 H Blood Pressure [Lying] Blood Pressure [Sitting (for 1 minute prior to obtaining)] Blood Pressure Mean 115 Blood Pressure Mean [Lying] Blood Pressure Mean [Sitting (for 1 minute prior to obtaining)] Pulse Ox 96 Oxygen Delivery Method Room Air MDM MDM MDM Narrative Medical decision making narrative: The differential diagnosis includes but not limited to benign positional vertigo versus orthostatic near syncope versus posterior circulation problem/cerebellar stroke. Her exam is not consistent with cerebellar stroke. She may have intravascular volume depletion or other electrolyte imbalance/dehydratio n as she states she has been doing yard work and in the heat all day today. As her symptoms began earlier this morning, at 3 AM, approximately 17 hours ago, I do not feel stroke team is indicated as she has no focal deficit. Additionally, she is not a TNK candidate because she is outside the window. I reviewed her laboratory work and she has normal white count of 9.5 with hemoglobin normal at 12.9, hematocrit 40.4, platelet count 354. Her electrolyte panel is grossly unremarkable except for CO2 low at 18.8 with normal BUN of 10 and creatinine 0.70. Sodium normal at 141 and potassium 3.9. LFTs are grossly unremarkable. Chest x-ray shows atelectasis in the right base on my independent interpretation. I reviewed the radiology report which confirms my independent interpretation. CT of the brain radiology report reviewed and there are chronic c (more content not included)... Normal [facility] Eosinophil percentageOrdered By: Jayesh Breen on 09-07-2024 Eosinophils/100 WBC (Bld) 0.5 % 0-5 [facility] Epithelial cells.squamous LM Ql (Urine sed)Ordered By: Jayesh Breen on 09-07-2024 Epithelial cells.squamous LM.HPF (Urine sed) [#/Area] 0 /[HPF] 5-10 [facility] Erythrocyte distribution wid th (RBC) [Ratio]Ordered By: Jayesh Breen on 09-07-2024 Erythrocyte distribution width (RBC) [Entitic vol] 38.6 fL 35.1-43.9 [facility] Erythrocyte distribution wid th ratioOrdered By: Jayesh Breen on 09-07-2024 Erythrocyte distribution width (RBC) [Ratio] 18.4 % High 11.6-14.6 [facility] Erythrocyte distribution wid th standard deviationOrdered By: Jayesh Breen on 09-07-2024 Erythrocyte distribution width (RBC) [Ratio] 38.6 fl 35.1-43.9 [facility] Estimation of creatinine anitha aranceOrdered By: Jayesh Breen on 09-07-2024 Estimated Creatinine Clearance Calc 53.61 ml/min 50-250 [facility] Ethanol [Mass/Vol]Ordered By : Valentín Phelan on 09-07-2024 Ethyl Alcohol Level < 10.1 mg/dL <10.1 [facility] Comment on above: This test is for med ical purposes only. The legal definition of intoxication varies according to local law. GFR/1.73 sq M.predicted sathish g non-blacks MDRD (S/P/Bld) [Vol rate/Area]Ordered By: Jayesh Breen on 09-07-2024 Estimated GFR (MDRD) Non-Af Amer 91 >60 [facility] Comment on above: mL/min/1.73m2 CKD-EP I Creatinine Equation (2020) Glomerular filtration rate ( GFR) estimation/1.73 sq m using serum, plasma, or whole bOrdered By: Jayesh Breen on 09-07-2024 GFR/1.73 sq M.predicted among non-blacks MDRD (S/P/Bld) [Vol rate/Area] 91 mL/min/{1.73_m2} >60 [facility] Comment on above: mL/min/1.73m2 CKD-EP I Creatinine Equation (2020) Glucose Ql (U)Ordered By: Kirk Breen on 09-07-2024 Urine Glucose (UA) Normal mg/dl Normal [facility] H AND P Exam - Hospitaliston 09-07-2024 H&P Exam - Hospitalist [facility] Medical Records Department [address] [place] [address] H P Exam - Hospitalist 09/07/241 MR#: [id number] Acct: [id number] Name: MARU NOEL Rep #: [id number] : 1950 74 From: Valentín Sutton DO PCP: Care Physician,No Primary Status:ADM RHETT Location: [place] [address] HPI - General General Date of Admission: 09/07/24 Date of Service: 09/07/24 Chief Complaint: Lightheadedness, Dizziness and Nausea with Vomiting. HPI Narrative MARU NOEL, is a 74 F with a past medical history of obesity; BMI of 30 sensation and chronic tobacco abuse; with subsequent COPD on Trelegy Ellipta daily and as needed albuterol who presents to [facility] ER complaining of lightheadedness, dizziness and nausea with vomiting. Ms. Noel reports her symptoms began abruptly earlier today at 3 AM. She states her dizziness was initially mild but then she spent all day working in the yard which seem to make her symptoms worse. Now she feels severely lightheaded which is made worse by standing. She also admits to feeling like she is off-balance and that everything seems far away. She denies any vertiginous type symptoms with room spinning at rest, known history of BPPV or similar previous episodes. She then developed nausea with 1 episode of bilious emesis. She denies other exacerbating or alleviating factors. She denies associated fever, chills, abdominal pain, diarrhea, constipation, dysuria, hematuria, chest pain, headache or rash. 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 Her CXR revealed minimal Right basilar opacities which may relate to atelectasis or infiltrate with incidentally noted Left humeral neck enchondroma. Clinically she was noted to have an elevated blood pressure of 181/91 mmHg noted shortly after admission consistent with suspected Hypertensive Urgency complicated by incidentally noted laboratory evidence of microcytosis with MCV of 65.4 fL present on admission but with a stable hemoglobin of 12.9 g/dL present on admission with no other significant findings. She was then admitted to the PCU under observation status for ongoing care for stay that is expected to be less than 2 midnights. [facility] Medical History COPD (chronic obstructive pulmonary disease) Home Medications ???Medication ???Instructions ???Recorded ???Last Taken ???Type albuterol sulfate inhalation Q6H PRN PRN shortness 0 09/07/24 Unknown History of breath or wheezing fluticasone fur. 100 mcg-umeclid 1 inh inhalation DAILY 09/07/24 Un known History 62.5 mcg-vilant 25 mcg inhalat.powder (Trelegy Ellipta) Allergy/AdvReac Type Severity Reaction Status Date / Time No Known Allergies Allergy Verified 09/07/24 20:15 Social History Smoking Status: Current every day smoker tobacco type: cigarettes ROS ROS Narrative Review of Systems: Constitutional: Patient admits to lightheadedness and dizziness made worse with standing. She denies fever or chills. Eyes: Patient states things seem far away but she denies other changes in vision or discharge from eyes. ENT: Patient denies runny nose, sore throat or ear pain. Resp: Patient denies shortness of breath or cough. CV: Patient denies chest pain, palpitations, heart racing or lower extremity edema. GI: Patient admits to nausea and vomiting with bilious emesis but she denies abdominal pain, diarrhea or constipation. : Patient denies dysuria, hematuria or urinary frequency. MSK: Patient denies arthralgias or myalgias. Skin: Patient denies rash, abscess, wounds or jaundice. Psych: Patient denies symptoms of uncontrolled depression or anxiety. Neuro: Patient admits to dizziness and lightheadedness but she denies vertiginous symptoms, headache, paresthesias or focal neurologic deficits. Allergy: Patient denies lip swelling, tongue swelling or urticaria. Hematology: Patient denies easy bleeding or easy bruisability. Endocrinology: Patient denies polyuria, polydipsia, polyphagia or heat/cold intolerance. 14 point ROS otherwise negative except for positives noted above in HPI. Vital Signs Vital Signs Vital Signs: 09/07/24 20:16 04/24/25 20:27 09/07/24 21:15 Temperature 97.6 F L Temperature Source Oral Pulse Rate 72 84 Pulse Rate [Lying] 75 Respiratory Rate 19 H 21 H Blood Pressure 163/103 H 179/89 H Blood Pressure [Lying] 181/91 H Blood Pressure (more content not included)... Normal [facility] Hematocrit Auto (Bld) [Volum e fraction]Ordered By: Jayesh Breen on 09-07-2024 Hematocrit (Bld) [Volume fraction] 40.4 % 37-47 [facility] Hemoglobin A1c percentageOrd ered By: Valentín Phelan on 09-07-2024 HbA1c (Bld) [Mass fraction] 5.3 % <5.7 [facility] Comment on above: Normal < 5.7 % Predi abetic 5.7 - 6.4 % Diabetic >or= 6.5 % Please note range changes. Hemoglobin measurementOrdere d By: Jayesh Breen on 09-07-2024 Hemoglobin (Bld) [Mass/Vol] 12.9 g/dL 12.0-15.0 [facility] Immature granulocytes/100 WB C Auto (Bld)Ordered By: Jayesh Breen on 09-07-2024 Immature granulocytes/100 WBC (Bld) 0.300 % 0.0-0.9 [facility] Comment on above: IG% - Immature Granu locytes (promyelocytes, myelocytes and metamyelocytes) > 1% indicates that a LEFT SHIFT is Present. Iron (Unsp spec) [Mass/Mass] Ordered By: Valentín Phelan on 09-07-2024 Iron [Mass/Vol] 73 ug/dL 50-170 [facility] Iron measurement (mass/mass) Ordered By: Valentín Phelan on 09-07-2024 Iron (Unsp spec) [Mass/Mass] 73 ug/dL 50-170 [facility] Iron saturation [Mass fracti on]Ordered By: Valentín Phelan on 09-07-2024 Iron Saturation 25.0 % 13-59 [facility] Ketones Test strip Ql (U)Ord ered By: Jayesh Breen on 09-07-2024 Ketones Ql (U) Negative Negative [facility] Laboratory - Chemistry and C hemistry - challengeOrdered By: Jayesh Breen on 09-07-2024 AST [Catalytic activity/Vol] 18 U/L <32 [facility] Comment on above: Hemolysis present, R esults could be affected. Lymphocytes Auto (Unsp spec) [#/Vol]Ordered By: Jayesh Breen on 09-07-2024 Lymphocytes (Bld) [#/Vol] 3.10 10*3/uL 0.83-4.51 [facility] Lymphocytes/100 WBC Auto (Un sp spec)Ordered By: Jayesh Breen on 09-07-2024 Lymphocytes/100 WBC (Bld) 32.7 % 19-41 [facility] MCV (mean corpuscular volume ) determinationOrdered By: Jayesh Breen on 09-07-2024 MCV (RBC) [Entitic vol] 65.4 fL Low 81-99 [facility] Mean corpuscular hemoglobin (MCH) determinationOrdered By: Jayesh Breen on 09-07-2024 MCH (RBC) [Entitic mass] 20.9 pg Low 27.0-32.0 [facility] Mean corpuscular hemoglobin concentration (MCHC) determinationOrdered By: Jayesh Breen on 09-07-2024 MCHC (RBC) [Mass/Vol] 31.9 g/dL Low 32-36 [facility] Mean platelet volume determi nationOrdered By: Jayesh Breen on 09-07-2024 Platelet mean volume (Bld) [Entitic vol] 10.0 fL 6.2-12.0 [facility] Methadone, urineOrdered By: Valentín Phelan on 09-07-2024 Urine Methadone Screen Negative < 300 ng/mL [facility] Microscopic analysis of urin e for red blood cells (RBC)Ordered By: Jayesh Breen on 09-07-2024 Microscopic analysis of urine for red blood cells (RBC) 0 SEEN /hpf 0-5 [facility] Urine RBC 0 SEEN /hpf 0-5 [facility] Monocyte percentageOrdered B y: Jayesh Breen on 09-07-2024 Monocytes/100 WBC (Bld) 5.4 % 0-10 [facility] Mucus LM Ql (Urine sed)Order ed By: Jayesh Breen on 09-07-2024 Mucus Ql (Urine sed) 0 SEEN /hpf [facility] Neutrophil percentageOrdered By: Jayesh Breen on 09-07-2024 Neutrophils/100 WBC (Bld) 60.5 % 47-70 [facility] Nitrite Test strip Ql (U)Ord ered By: Jayesh Breen on 09-07-2024 Nitrite Ql (U) Negative Negative [facility] No Panel InformationOrdered By: Valentín Phelan on 09-07-2024 Urine Buprenorphine Qualitative Negative < 200 ng/mL [facility] Urine Oxycodone Screen Negative < 100 ng/mL [facility] Unsaturated Iron Binding Capacity 219 ug/dL Low 228-428 [facility] Nucleated red blood cell per centageOrdered By: Jayesh Breen on 09-07-2024 Nucleated RBC/100 WBC (Bld) [Ratio] 0.3 % 0-5 [facility] Platelet countOrdered By: Kirk Breen on 09-07-2024 Platelets (Bld) [#/Vol] 354 10*3/uL 150-450 [facility] Potassium (Unsp spec) [Mass/ Vol]Ordered By: Jayesh Breen on 09-07-2024 Potassium [Moles/Vol] 3.9 mmol/L 3.3-5.1 [facility] Comment on above: Hemolysis present, R esults could be affected. Potassium measurement (mass/ volume)Ordered By: Jayesh Breen on 09-07-2024 Potassium (Unsp spec) [Mass/Vol] 3.9 mmol/L 3.3-5.1 [facility] Comment on above: Hemolysis present, R esults could be affected. Protein Test strip Ql (U)Ord ered By: Jayesh Breen on 09-07-2024 Protein Ql (U) 15 mg/dl High Negative [facility] Quantitative urine opiates m easurementOrdered By: Valentín Phelan on 09-07-2024 Opiates Ql (U) Negative < 300 ng/mL [facility] RBC Auto (Bld) [#/Vol]Ordere d By: Jayesh Breen on 09-07-2024 RBC (Bld) [#/Vol] 6.18 10*6/uL High 4.2-5.4 [facility] Screening urine fentanyl kadeem surementOrdered By: Valentín Phelan on 09-07-2024 fentaNYL Screen Ql (U) Negative [facility] Serum creatinine measurement (mass/volume)Ordered By: Jayesh Breen on 09-07-2024 Creatinine [Mass/Vol] 0.70 mg/dL 0.70-1.20 [facility] Serum globulin measurementOr dered By: Jayesh Breen on 09-07-2024 Globulin (S) [Mass/Vol] 3.7 g/dL 2.2-4.2 [facility] Serum glucose measurement (m ass/volume)Ordered By: Jayesh Breen on 09-07-2024 Glucose [Mass/Vol] 116 mg/dL High 70-99 [facility] Serum or plasma alanine huggins otransferase (ALT) measurementOrdered By: Jayesh Breen on 09-07-2024 ALT [Catalytic activity/Vol] 12 U/L <35 [facility] Serum or plasma albumin keisha urement (mass/volume)Ordered By: Jayesh Breen on 09-07-2024 Albumin [Mass/Vol] 4.4 g/dL 3.4-4.8 [facility] Serum or plasma albumin/glob ulin mass ratioOrdered By: Jayesh Breen on 09-07-2024 Albumin/Globulin [Mass ratio] 1.2 {ratio} 0.9-2.4 [facility] Serum or plasma alkaline sheldon sphatase measurementOrdered By: Jayesh Breen on 09-07-2024 ALP [Catalytic activity/Vol] 89 U/L 35-104 [facility] Serum or plasma calcium keisha urement (mass/volume)Ordered By: Jayesh Breen on 09-07-2024 Calcium [Mass/Vol] 9.9 mg/dL 7.6-11.0 [facility] Serum or plasma ethanol keisha urement (mass/volume)Ordered By: Valentín Phelan on 09-07-2024 Ethanol [Mass/Vol] mg/dL <10.1 [facility] Comment on above: This test is for med ical purposes only. The legal definition of intoxication varies according to local law. Serum or plasma ferritin kadeem surement (mass/volume)Ordered By: Valentín Phelan on 09-07-2024 Ferritin [Mass/Vol] 373 ng/mL 22-378 [facility] Serum or plasma iron saturat ion measurement (mass fraction)Ordered By: Valentín Phelan on 09-07-2024 Iron saturation [Mass fraction] 25.0 % 13-59 [facility] Serum or plasma urea nitroge n measurement (mass/volume)Ordered By: Jayesh Breen on 09-07-2024 Urea nitrogen [Mass/Vol] 10 mg/dL 4-19 [facility] Sodium levelOrdered By: Jayesh Breen on 09-07-2024 Sodium [Moles/Vol] 141 mmol/L 133-145 [facility] Squamous epithelial cells de tection in urine sediment by light microscopyOrdered By: Jayesh Breen on 09-07-2024 Epithelial cells.squamous LM Ql (Urine sed) 0-5 SEEN /hpf 5- [facility] TSH DL <= 0.005 mIU/L QnOrde red By: Valentín Phelan on 09-07-2024 Thyroid Stimulating Hormone (TSH) 1.260 uIU/mL 0.300-4.200 [facility] TSH Qn 1.260 uIU/mL 0.300-4.200 [facility] Total proteinOrdered By: Eli Breen on 09-07-2024 Protein [Mass/Vol] 8.0 g/dL 5.9-8.4 [facility] Urinalysis, Completeon 09-07 BACTERIA 1+ /hpf Normal None Seen [facility] Comment on above: Order Comment: NICK CTOR TO SPECIFY Performed By: #### L 400.0001 ####[facility] [id number] [place], [place], [id number] EPI,SQUAMOUS 0-5 SEEN Normal 5- [facility] [employer] Comment on above: Order Comment: NICK CTOR TO SPECIFY Performed By: #### L 400.0001 ####[facility] [id number] Pepee[address] [place], [place], [id number] WBC 10-25 SEEN Normal 0-5 [facility] Comment on above: Order Comment: NICK CTOR TO SPECIFY Performed By: #### L 400.0001 ####[facility] [id number] [place], [place], [id number] Mucus Ql (Urine sed) 0 SEEN Normal [facility] Comment on above: Order Comment: NICK CTOR TO SPECIFY Performed By: #### L 400.0001 ####[facility] [id number] [place], [place], [id number] RBC 0 SEEN Normal 0-5 [facility] Comment on above: Order Comment: NICK CTOR TO SPECIFY Performed By: #### L 400.0001 ####[facility] [id number] [place], [place], [id number] Urine benzodiazepine levelOr dered By: Valentín Phelan on 09-07-2024 Benzodiazepines Ql (U) Negative < 200 ng/mL [facility] Urine blood detectionOrdered By: Jayesh Breen on 09-07-2024 Urine Occult Blood 10 /ul High Negative [facility] Urine clarityOrdered By: Eli Breen on 09-07-2024 Clarity (U) Sl. Cloudy Clear [facility] Urine cocaine levelOrdered B y: Valentín Phelan on 09-07-2024 Cocaine Ql (U) Negative < 300 ng/mL [facility] Urine color determinationOrd ered By: Jayesh Breen on 09-07-2024 Color (U) Yellow Yellow [facility] Urine tewlm-8-[id number] abinol (THC) measurementOrdered By: Valentín Phelan on 09-07-2024 Cannabinoids Screen Ql (U) Positive < 50 ng/mL [facility] Comment on above: If confirmation test ing is needed, a separate order will be required to send out testing to the reference laboratory. Urine glucose detectionOrder ed By: Jayesh Breen on 09-07-2024 Glucose Ql (U) Normal mg/dl Normal [facility] Urine leukocyte esterase det ection by dipstickOrdered By: Jayesh Breen on 09-07-2024 Leukocyte esterase Test strip Ql (U) 500 /ul High Negative [facility] Urine pHOrdered By: Jayesh sheth on 09-07-2024 pH (U) 7.0 [pH] 5.0 - 8.0 [facility] Urine phencyclidine (PCP) de tectionOrdered By: Valentín Phelan on 09-07-2024 Phencyclidine Ql (U) Negative < 25 ng/mL [facility] Urine sediment bacteria coun t by microscopy (number/high power field)Ordered By: Jayesh Breen on 09-07-2024 Bacteria LM.HPF (Urine sed) [#/Area] 1 /[HPF] None Seen [facility] Urine specific gravity measu rementOrdered By: Jayesh Breen on 09-07-2024 Specific gravity (U) [Rel density] 1.005 1.002-1.030 [facility] Urine urobilinogen measureme ntOrdered By: Jayesh Breen on 09-07-2024 Urobilinogen Ql (U) Normal mg/dl Normal [facility] Urobilinogen Ql (U)Ordered B y: Jayesh Breen on 09-07-2024 Urine Urobilinogen Normal mg/dl Normal [facility] Vitamin B12 ser/plasOrdered By: Valentín Phelan on 09-07-2024 Cobalamin (Vitamin B12) [Mass/Vol] 271 pg/mL 180-914 [facility] White blood cell (WBC) count Ordered By: Jayesh Breen on 09-07-2024 WBC (Bld) [#/Vol] 9.5 10*3/uL 4.4-11.0 [facility] White blood cell countOrdere d By: Jayesh Breen on 09-07-2024 Urine WBC 10-25 SEEN /hpf 0-5 [facility] White blood cell count 10-25 SEEN /hpf 0-5 [facility] fentaNYL Screen Ql (U)Ordere d By: Valentín Phelan on 09-07-2024 Urine Fentanyl Screen Negative [facility] Progress Noteson 08-01-2024 Sheet Cutting Operator Authentication Interface Message Text Encounter Opened in error. Please disregard. Marilee Lemon MD Normal [facility] [employer] [facility] MG Breast - left DiagnosticO rdered By: Nadya Egan on 12-01-2022 BI-RADS Category 3: Probably Benign Finding(s) [employer] Work Phone: Breast Density The breast is almost entirely fat. [employer] Work Phone: Estimated lifetime Breast Cancer risk Average (less than 15%, as per the Tyrer-Cuzick/ASHOK model) [facility] Work Phone: [facility] Work Phone: MG Breast - left Diagnostico n 12-01-2022 EXAM: LEFT DIAGNOSTIC MAMMOGRAM CLINICAL HISTORY: Patient is 72 years old and is seen for diagnostic evaluation of follow up from a previous breast imaging study and calcifications in the left breast. The patient has no personal history of cancer. The patient has no family history of breast cancer. COMPARISON: The present examination has been compared to a prior imaging study performed at [facility] on 11/05/2022. TECHNIQUE: The following mammographic views were obtained: left CC spot magnification, 90 degree lateral and 90 degree lateral spot magnification. MAMMOGRAM FINDINGS: The breast is almost entirely fat. Additional evaluation was performed for the calcifications in the left breast, upper outer quadrant seen on 11/05/2022. On the present examination, there are grouped coarse calcifications in the upper outer quadrant of the left breast at posterior depth. IMPRESSION: Calcifications in the left breast are probably benign. Diagnostic mammogram (MGOTZD2) of the left breast including spot magnification views are recommended in 6 months. BI-RADS Category 3: Probably Benign Finding(s) The [facility] Coordinator and Navigator will place a reflexive Epic order, contact and schedule the appropriate appointments. RISK ASSESSMENT: Estimated lifetime breast cancer risk: Average (less than 15%, as per the Tyrer-Cuzick/ASHOK model) NCI Lifetime Risk Score: 4.0% RADIOLOGY Nadya Egan MD - 12/01/2022 EXAM: LEFT DIAGNOSTIC MAMMOGRAM CLINICAL HISTORY: Patient is 72 years old and is seen for diagnostic evaluation of follow up from a previous breast imaging study and calcifications in the left breast. The patient has no personal history of cancer. The patient has no family history of breast cancer. COMPARISON: The present examination has been compared to a prior imaging study performed at [facility] on 11/05/2022. TECHNIQUE: The following mammographic views were obtained: left CC spot magnification, 90 degree lateral and 90 degree lateral spot magnification. MAMMOGRAM FINDINGS: The breast is almost entirely fat. Additional evaluation was performed for the calcifications in the left breast, upper outer quadrant seen on 11/05/2022. On the present examination, there are grouped coarse calcifications in the upper outer quadrant of the left breast at posterior depth. IMPRESSION: Calcifications in the left breast are probably benign. Diagnostic mammogram (MGOTZD2) of the left breast including spot magnification views are recommended in 6 months. BI-RADS Category 3: Probably Benign Finding(s) The Breast Center Coordinator and Navigator will place a reflexive Epic order, contact and schedule the appropriate appointments. RISK ASSESSMENT: Estimated lifetime breast cancer risk: Average (less than 15%, as per the Tyrer-Cuzick/ASHOK model) NCI Lifetime Risk Score: 4.0% [facility] Radiology Study observation (narrative) [facility] No Panel Informationon 11-13 [place] XR CHEST 2V FRONTAL/LATon XR CHEST 2V FRONTAL/LAT * * *Final Repor t* * * DATE OF EXAM: Nov 13 2022 1:15PM [id number] [id number] - XR CHEST 2V FRONTAL/LAT / PROCEDURE REASON: SOB (shortness of breath) * * * * Physician Interpretation * * * * EXAMINATION: CHEST RADIOGRAPH (2 VIEW FRONTAL and LATERAL) CLINICAL HISTORY: SOB (shortness of breath) MQ: [id number]_6 EXAM DATE/TIME: 11/13/2022 1:15 PM COMPARISON: Chest radiograph dated 12/16/2013 RESULT: Lines, tubes, and devices: None. Lungs and pleura: Mild increased interstitial markings bilaterally. No focal lung consolidation. No significant pleural effusion or pneumothorax. Cardiomediastinal silhouette: Stable cardiomediastinal silhouette. Mild atherosclerotic calcifications of the aortic arch. Bones and soft tissues: Mild endplate degenerative changes of the visualized spine. IMPRESSION: No acute radiographic abnormality. Telecom Manager: PSCB Transcribe Date/Time: Nov 13 2022 1:32P Dictated by : MARYLIN ERAZO MD This examination was interpreted and the report reviewed and electronically signed by: MARYLIN ERAZO MD on Nov 13 2022 1:33PM EST [id number] [facility] HIV 1 and 2 Ab and HIV 1 p24 Ag panel IAon 11-03-2022 HIV 1+2 Ab+HIV1 p24 Ag IA Ql Non-Reactive Non-Reactive [facility] Comment on above: No laboratory eviden ce for HIV Infection. Negative result does not rule out acute HIV infection. If acute HIV infection is suspected, recommend ordering an HIV-1 RNA quanitification test. Interpretation and review of laboratory results Normal [facility] HIV Information: [place] Rev. code 3701.243(E): This information has been disclosed to you from confidential records protected from disclosure by state law. You shall make no further disclosure of this information without the specific, written, and informed release of the individual to whom it pertains, or as otherwise permitted by state law. A general authorization for the release of medical or other information is not sufficient for the purpose of the release of HIV test results or diagnoses. [facility] BIOPSY SOFT TISSUE NECK / TH ORAXon 07-28-2019 BIOPSY SOFT TISSUE NECK / THORAX Patient Name: MARU ONEL STUDY: BIOPSY SOFT TISSUE NECK / THORAX; 07/28/2019 1:42 pm INDICATION: Reason Eval: FNA of anterior neck mass seen on ultrasound and CT. To send for usual testing and to include cystology and PCR for EBV and HPV, Neck mass. COMPARISON: CT neck 07/07/2019 ACCESSION NUMBER(S): [id number] ORDERING CLINICIAN: EUGENIO DESOUZA TECHNIQUE: INTERVENTIONALIST(S) : Curtis Montoya MD The history and physical exam pertinent to the procedure were reviewed and no updates were made. CONSENT: The patient/patient's POA/next of kin was informed of the nature of the proposed procedure. The purposes, alternatives, risks, and benefits were explained and discussed. All questions were answered and consent was obtained. SEDATION: Lidocaine was administered for local anesthesia. No IV sedation was given TIME OUT: A time out was performed immediately prior to procedure start with the interventional team, correctly identifying the patient name, date of , MRN, procedure, anatomy (including marking of site and side), patient position, procedure consent form, relevant laboratory and imaging test results, antibiotic administration, safety precautions, and procedure-specific equipment needs. COMPLICATIONS: No immediate adverse events identified. FINDINGS: Preliminary sonographic evaluation demonstrated hypoechoic nodular density intimately associated with the dermis corresponding to CT findings. This was targeted for sampling. The skin was anesthetized using 1% lidocaine. Then, a 6 cm 17 gauge coaxial cannula was advanced into the lesion under live sonographic guidance. The stylet was removed and a 18 gauge coaxial core needle was advanced through the cannula. Approximately 5 samples were obtained. These were noted to be fragmented, white tissue. Then, via the 17 gauge cannula, fine-needle aspiration was performed. Samples were sent in CytoLyt, formalin, and fracture sample in saline for requested testing. Patient tolerated procedure well. Post procedural ultrasound images demonstrated no complication. Site was covered with sterile bandage. IMPRESSION: Uneventful ultrasound-guided core needle biopsy and aspiration of right neck superficial nodule. I was present for and/or performed the critical portions of the procedure and immediately available throughout the entire procedure. I personally reviewed the image(s)/study and resident interpretation. I agree with the findings as stated. Performed and dictated at [facility]. Electronically signed by: ROXANA MONTOYA MD [facility] Cytologyon 07-28-2019 [facility] Patient Name MARU NOEL Date of Procedure: 07/28/2019 Date Reported: 07/31/2019 Date Received: 07/28/2019 Date of / Sex 1950 (Age: 69) / F Race: WHITE Submitting Physician: EUGENIO DESOUZA MD Attending Physician: ROXANA MONTOYA MD Other External # FINAL CYTOLOGICAL INTERPRETATION A. FINE NEEDLE ASPIRATION-RIGHT NECK MASS, CYTOLOGY AND CELL BLOCK : NO MALIGNANT CELLS IDENTIFIED. THE SPECIMEN CONSISTS ENTIRELY OF ANUCLEATED SQUAMOUS CELLS/KERATIN MATERIAL. SEE [id number]. This case was signed out at: [place] [address] Electronically Signed Out By RYLEE RAHMAN MD By the signature on this report, the individual or group listed as making the Final Interpretation/Diagn osis certifies that they have reviewed this case. Slide(s) initially screened by a Press Loader at [place] [address] Clinical History Right neck mass Source of Specimen A: FINE NEEDLE ASPIRATION-RIGHT NECK MASS Specimen Submitted as: A: FINE NEEDLE ASPIRATION-RIGHT NECK MASS pap non-rn gynecology ThinPrep slide, CELL BLOCK, H AND E, Initial Gross Description A. FINE NEEDLE ASPIRATION-RIGHT NECK MASS: 30cc HAZY LIGHT PINK CYTOLYT WITH PARTICLES. RYLEE RAHMAN MD Normal [facility] Comment on above: Performed By: #### P AC #### [facility] [address] [address] [facility] [address] [facility] 07-28-2019 [facility] Name MARU NOEL Pathologist: RYLEE RAHMAN MD Date of Procedure: 07/28/2019 Date Received: 07/28/2019 Date Reported 07/31/2019 Submitting Physician: ROXANA MONTOYA MD Location: Copy To/Referring/Attendi ng: EUGENIO DESOUZA MD Other External # FINAL DIAGNOSIS A. RIGHT NECK MASS, ULTRASOUND-GUIDED NEEDLE CORE BIOPSY: ? KERATIN AND BENIGN SQUAMOUS EPITHELIUM, CONSISTENT WITH EPIDERMAL INCLUSION CYST. B. RIGHT NECK MASS, ULTRASOUND-GUIDED NEEDLE CORE BIOPSY: ? KERATIN AND BENIGN SQUAMOUS EPITHELIUM, CONSISTENT WITH EPIDERMAL INCLUSION CYST. Electronically Signed Out By RYLEE RAHMAN MD/EMILYK By the signature on this report, the individual or group listed as making the Final Interpretation/Diagn osis certifies that they have reviewed this case. Microscopic Description: The specimen is examined microscopically and the diagnosis is stated above. Clinical History: Anterior neck mass Ultrasound guided anterior neck mass biopsy Specimens Submitted As: A: RIGHT NECK MASS CORES B: RIGHT NECK MASS CORES Gross Description: A: Received in formalin, labeled with the patient's name and hospital number and right neck cores, are multiple cylindrical fragments of white soft tissue varying in size from less than 0.1-0.6 cm in length by less than 0.1 cm in diameter. The specimen is filtered and submitted in toto in 2 cassettes. RLM B: Received fresh for possible flow cytometry, labeled with the patient's name and hospital number and right neck cores, flow cytometry, is a single cylindrical fragment of white soft tissue measuring 0.8 cm in length by less than 0.1 cm in diameter. A touch prep was performed and interpreted by Dr. Vyas. The specimen is submitted in toto in one cassette for routine histology. RLM rlm/07/28/2019 Normal [facility] Comment on above: Performed By: #### P AH #### [facility] [address] [address] [facility] [address] NECK WITH CONTRASTon 0 07-07-[address] NECK WITH CONTRAST Patient Name: MARU NOEL STUDY: CT NECK WITH CONTRAST; 07/07/2019 10:24 am INDICATION: Neck mass, on ultrasound was 1.6cm 06/09/2019 creat=0.78 gfr>60. COMPARISON: Ultrasound neck dated 06/15/2019 ACCESSION NUMBER(S): [id number] ORDERING CLINICIAN: EUGENIO DESOUZA TECHNIQUE: Axial CT images of the neck were obtained. The patient received 94 mL Isovue 370 intravenous contrast agent. The images were reformatted in angled axial, coronal and sagittal planes. FINDINGS: A skin marker was placed over the right neck over the palpable concern. Underlying the skin marker, there is a 1.6 x 1.7 x 1.9 cm (AP x transverse x craniocaudal) predominantly solid mass with small regions of hypoattenuation located within the right superficial neck centered within the subcutaneous fat and skin. There is no edema or stranding within the adjacent subcutaneous fat. The mass is in close proximity to the right submandibular gland but does not abut it. The mass abuts a small portion of the platysma. Oral Cavity, Pharynx and Larynx: Patient is edentulous. There is no abnormal mass or enhancement. Retropharyngeal and Prevertebral Soft Tissues: Unremarkable. Lymph nodes: There are no suspicious lymph nodes in the neck by size or morphologic criteria. Neck vessels: Bilateral neck vessels are normal in course and caliber and appear patent. Atherosclerotic calcifications of the bilateral carotid arteries are noted without evidence of luminal narrowing they are Thyroid gland: Non-specific 1.1 cm heterogeneous nodule within left lobe of the thyroid gland. Parotid and submandibular glands: Bilateral parotid and submandibular glands are unremarkable in appearance. Paranasal Sinuses and Mastoids: There is moderate mucosal thickening and linear septations, likely representing mucus, within the right maxillary sinus. There is mild mucosal thickening within the right sphenoid sinus and a small mucosal retention cyst versus fluid within the left sphenoid sinus. Otherwise the visualized paranasal sinuses and mastoid air cells are essentially clear. Visualized orbital structures are unremarkable. There is centrilobular emphysema in the visualized bilateral upper lungs.. There are mild osseous degenerative changes of the cervical spine.. IMPRESSION: 1. There is a 1.9 cm subcutaneous/cutaneo us mass within the right upper neck which is nonspecific in etiology and may reflect a complex sebaceous cyst. Other etiologies can not be excluded. 2. There is a 1.1 cm nodule within the left thyroid lobe which meets size criteria to undergo further evaluation with thyroid ultrasound as clinically indicated. 3. Otherwise unremarkable CT of the soft tissues of the neck. I personally reviewed the images/study and I agree with the findings as stated. This study was interpreted at [facility], [place], [place]. Electronically signed by: TORIN ROGERS MD Normal [facility] US NECK Carlos 06-15-2019 US NECK MASS Patient Name: MARU NOEL STUDY: US NECK MASS;; 06/15/2019 9:43 am INDICATION: Swelling anterior R side of neck. COMPARISON: None. ACCESSION NUMBER(S): [id number] ORDERING CLINICIAN: EUGENIO DESOUZA TECHNIQUE: Sonographic evaluation of the right neck was performed with attention to area of palpable concern. Grayscale and color imaging reviewed. FINDINGS: Underlying area of palpable concern in the anterior right neck, there is a heterogeneous primarily hypoechoic mass measuring up to 1.6 cm just beneath the skin surface. There does appear to be some through transmission. There is heterogeneous internal echogenicity. No definite internal vascularity is demonstrated. IMPRESSION: Heterogeneous primarily hypoechoic mass just beneath the skin surface underlying area of palpable concern in the right neck as described. This could represent a complex or infected cyst although other etiologies can not be excluded. Suggest correlation with biopsy/aspiration and/or cross-sectional imaging for further assessment. Electronically signed by: FREDY STOKES, Normal [facility] CBC AND DIFFERENTIALon 06-09 % AUTOMATED IMMATURE GRAN 0.4 % Normal 0.0 - 0.9 [facility] Comment on above: Result Comment: Perc ent differential counts (%) should be interpreted in the context of the absolute cell counts (cells/L). Performed By: #### C BCDF #### [facility] [address] [place] [address] Basophils (Bld) [#/Vol] 0.06 10*3/uL Normal 0.00 - 0.1 0 [facility] Comment on above: Performed By: #### C BCDF #### [facility] [address] [place] [address] Basophils/100 WBC (Bld) 1.1 % Normal 0.0 - 2.0 U [facility] Comment on above: Performed By: #### C BCDF #### [facility] [address] [place] [address] Eosinophils (Bld) [#/Vol] 0.03 10*3/uL Normal 0.00 - 0.70 [facility] Comment on above: Performed By: #### C BCDF #### [facility] [address] [place] [address] Eosinophils/100 WBC (Bld) 0.5 % Normal 0.0 - 6.0 [facility] Comment on above: Performed By: #### C BCDF #### [facility] [address] [place] [address] Erythrocyte distribution width (RBC) [Ratio] 18.7 % High 11.5 - 14.5 [facility] Comment on above: Performed By: #### C BCDF #### [facility] [address] [place] [address] Hematocrit (Bld) [Volume fraction] 44.8 % Normal 36.0 - 46.0 [facility] Comment on above: Performed By: #### C BCDF #### [facility] [address] [place] [address] Hemoglobin (Bld) [Mass/Vol] 13.4 g/dL Normal 12.0 - 16.0 [facility] Comment on above: Performed By: #### C BCDF #### [facility] [address] [place] [address] Lymphocytes (Bld) [#/Vol] 1.46 10*3/uL Normal 1.20 - 4.80 [facility] Comment on above: Performed By: #### C BCDF #### [facility] [address] [place] [address] Lymphocytes/100 WBC (Bld) 26.4 % Normal 13.0 - 44.0 [facility] Comment on above: Performed By: #### C BCDF #### [facility] [address] [place] [address] MCHC (RBC) [Mass/Vol] 29.9 g/dL Low 32.0 - 36.0 [facility] Comment on above: Performed By: #### C BCDF #### [facility] [address] [place] [address] MCV (RBC) [Entitic vol] 72 fL Low 80 - 100 [facility] Comment on above: Performed By: #### C BCDF #### [facility] [address] [place] [address] Monocytes (Bld) [#/Vol] 0.84 10*3/uL Normal 0.10 - 1.0 0 [facility] Comment on above: Performed By: #### C BCDF #### [facility] [address] [place] [address] Monocytes/100 WBC (Bld) 15.2 % Normal 2.0 - 10.0 [facility] Comment on above: Performed By: #### C BCDF #### [facility] [address] [place] [address] Neutrophils (Bld) [#/Vol] 3.11 10*3/uL Normal 1.20 - 7.70 [facility] Comment on above: Performed By: #### C BCDF #### [facility] [address] [place] [address] Neutrophils/100 WBC (Bld) 56.4 % Normal 40.0 - 80.0 [facility] Comment on above: Performed By: #### C BCDF #### [facility] [address] [place] [address] Nucleated RBC/100 WBC (Bld) [Ratio] 0.2 /100 WBC Normal 0.0-0.0 [facility] Comment on above: Performed By: #### C BCDF #### [facility] [address] [place] [address] Platelets (Bld) [#/Vol] 297 10*3/uL Normal 150 - 450 [facility] Comment on above: Performed By: #### C BCDF #### [facility] [address] [place] [address] RBC (Bld) [#/Vol] 6.25 x10E12/L High 4.00 - 5.20 [facility] Comment on above: Performed By: #### C BCDF #### [facility] [address] [place] [address] WBC (Bld) [#/Vol] 5.5 10*3/uL Normal 4.4 - 11.3 [facility] Comment on above: Performed By: #### C BCDF #### [facility] [address] [place] [address] COMPREHENSIVE PANELon 2019 Albumin [Mass/Vol] 4.5 g/dL Normal 3.4 - 5.0 [facility] Comment on above: Performed By: #### C MP #### [facility] [address] [place] [address] ALP [Catalytic activity/Vol] 101 U/L Normal 33 - 136 [facility] Comment on above: Performed By: #### C MP #### [facility] [address] [place] [address] ALT [Catalytic activity/Vol] 34 U/L Normal 7 - 45 [facility] Comment on above: Result Comment: Ruma ents treated with Sulfasalazine may generate falsely decreased results for ALT. Performed By: #### C MP #### [facility] [address] [place] [address] Anion gap [Moles/Vol] 17 mmol/L Normal 10 - 20 [facility] Comment on above: Performed By: #### C MP #### [facility] [address] [place] [address] AST [Catalytic activity/Vol] 31 U/L Normal 9 - 39 [facility] Comment on above: Performed By: #### C MP #### [facility] [address] [place] [address] Bilirubin [Mass/Vol] 0.5 mg/dL Normal 0.0 - 1.2 [facility] Comment on above: Performed By: #### C MP #### [facility] [address] [place] [address] Calcium [Mass/Vol] 10.1 mg/dL Normal 8.6 - 10.6 [facility] Comment on above: Performed By: #### C MP #### [facility] [address] [place] [address] Chloride [Moles/Vol] 103 mmol/L Normal 98 - 107 [facility] Comment on above: Performed By: #### C MP #### [place] [address] [place] [address] Creatinine [Mass/Vol] 0.78 mg/dL Normal 0.50 - 1.05 [facility] Comment on above: Performed By: #### C MP #### [place] [address] [place] [address] GFR- AM. >60 Normal >60 [facility] Comment on above: Result Comment: CALC ULATIONS OF ESTIMATED GFR ARE PERFORMED USING THE MDRD STUDY EQUATION FOR THE IDMS-TRACEABLE CREATININE METHODS. CLIN CHEM 2007;53:766-72 Performed By: #### C MP #### [facility] [address] [place] [address] GFR-NON AM. >60 Normal >60 [facility] Comment on above: Performed By: #### C MP #### [facility] [address] [place] [address] Glucose [Mass/Vol] 97 mg/dL Normal 74 - 99 [facility] Comment on above: Performed By: #### C MP #### [facility] [address] [place] [address] HCO3 (Bld) [Moles/Vol] 24 mmol/L Normal 21 - 32 [facility] Comment on above: Performed By: #### C MP #### [facility] [address] [place] [address] Potassium [Moles/Vol] 4.6 mmol/L Normal 3.5 - 5.3 [facility] Comment on above: Performed By: #### C MP #### [facility] [address] [place] [address] Protein [Mass/Vol] 7.6 g/dL Normal 6.4 - 8.2 [facility] Comment on above: Performed By: #### C MP #### [facility] [address] [place] [address] Sodium [Moles/Vol] 139 mmol/L Normal 136 - 145 [facility] Comment on above: Performed By: #### C MP #### [facility] [address] [place] [address] Urea nitrogen [Mass/Vol] 11 mg/dL Normal 6 - 23 [facility] Comment on above: Performed By: #### C MP #### [facility] [address] [place] [address] HEMOGLOBIN A1Con 06-09-2019 HbA1c (Bld) [Mass fraction] 6.1 % Normal [facility] Comment on above: Result Comment: Diag nosis of Diabetes-Adults Non-Diabetic: < or = 5.6% Increased risk for developing diabetes: 5.7-6.4% Diagnostic of diabetes: > or = 6.5% . Monitoring of Diabetes Age (y) Therapeutic Goal (%) Adults: >18 <7.0 Pediatrics: 13-18 <7.5 7-12 <8.0 0- 6 7.5-8.5 [place] [employer]. Diabetes Care 33(S1), May 2009. Performed By: #### H BA1E #### [facility] [address] [place] [address] HbA1c (Bld) [Mass fraction] 128 MG/DL Normal [facility] Comment on above: Performed By: #### H BA1E #### [facility] [address] [place] [address] LIPID PANEL (CORONARY RISK 2 )on 06-09-2019 Cholesterol [Mass/Vol] 187 mg/dL Normal 0 - 199 [facility] Comment on above: Result Comment: . AGE DESIRABLE BORDERLINE HIGH HIGH 0-19 Y 0 - 169 170 - 199 >/= 200 20-24 Y 0 - 189 190 - 224 >/= 225 >24 Y 0 - 199 200 - 239 >/= 240 All ranges are based on fasting samples. Specific therapeutic targets will vary based on patient-specific cardiac risk. . Pediatric guidelines reference:Pediatrics 2011, 128(S5). Adult guidelines reference: NCEP ATPIII Guidelines, TATUM 2001, 258:2486-97 . Venipuncture immediately after or during the administration of Metamizole may lead to falsely low results. Testing should be performed immediately prior to Metamizole dosing. Performed By: #### L IPID #### [facility] [address] [place] [address] Cholesterol in HDL [Mass/Vol] 31.7 mg/dL Abnormal [facility] Comment on above: Result Comment: . AGE VERY LOW LOW NORMAL HIGH 0-19 Y < 35 < 40 40-45 ---- 20-24 Y ---- < 40 >45 ---- >24 Y ---- < 40 40-60 >60 . Performed By: #### L IPID #### [facility] [address] [place] [address] Cholesterol in LDL [Mass/Vol] 128 mg/dL High 0 - 99 [facility] Comment on above: Result Comment: . NEAR BORD AGE DESIRABLE OPTIMAL HIGH HIGH VERY HIGH 0-19 Y 0 - 109 --- 110-129 >/= 130 ---- 20-24 Y 0 - 119 --- 120-159 >/= 160 ---- >24 Y 0 - 99 100-129 130-159 160-189 >/=190 . Performed By: #### L IPID #### [facility] [address] [place] [address] Cholesterol in VLDL [Mass/Vol] 27 mg/dL Normal 0 - 40 [facility] Comment on above: Performed By: #### L IPID #### [facility] [address] [place] [address] Cholesterol.total/Choles terol in HDL [Mass ratio] 5.9 {ratio} Abnormal [facility] Comment on above: Result Comment: REF VALUES DESIRABLE < 3.4 HIGH RISK > 5.0 Performed By: #### L IPID #### [facility] [address] [place] [address] Triglyceride [Mass/Vol] 135 mg/dL Normal 0 - 149 [facility] Comment on above: Result Comment: . AGE DESIRABLE BORDERLINE HIGH HIGH VERY HIGH 0 D-90 D 19 - 174 ---- ---- ---- 91 D- 9 Y 0 - 74 75 - 99 >/= 100 ---- 10-19 Y 0 - 89 90 - 129 >/= 130 ---- 20-24 Y 0 - 114 115 - 149 >/= 150 ---- >24 Y 0 - 149 150 - 199 200- 499 >/= 500 . Venipuncture immediately after or during the administration of Metamizole may lead to falsely low results. Testing should be performed immediately prior to Metamizole dosing. Performed By: #### L IPID #### [facility] [address] [place] [id number] TSH WITH REFLEX TO FREE T4 I F ABNORMALon 06-09-2019 TSH Qn 1.03 m[IU]/L Normal 0.44 - 3.98 [facility] Comment on above: Result Comment: TSH testing is performed using different testing methodology at [facility] than at other [facility]. Direct result comparisons should only be made within the same method. . Patients receiving more than 5 mg/day of biotin may have interference in test results. A sample should be taken no sooner than eight hours after previous dose. Contact [phone] for additional information. Performed By: #### T HYDS #### [facility] [address] [place] [address] Vital Signs Date Time Vital Sign Value Performing Clinician Matthew glez 01-03-2025 10: Body height 149.5 cm Radha Rosenbaum APRN.ROLF Work Phone: [place] 01-03-2025 10: Body mass index (BMI) [Ratio] 31.23 kg/m2 Radha Rosenbaum APRN.CNP Work Phone: [place] 01-03-2025 10: Body weight 69.8 kg Radha Rosenbaum APRN.ROLF Work Phone: [place] 01-03-2025 10:14-0400 Diastolic blood pressure 80 mm[Hg] Radha Owen CLIENT BUSINESS MANAGER.RETAIL SERVICES PROFESSIONAL Work Phone: [place] 01-03-2025 10:14-0400 Heart rate 62 /min Radha Owen CLIENT BUSINESS MANAGER.RETAIL SERVICES PROFESSIONAL Work Phone: [place] 01-03-2025 10:14-0400 Respiratory rate 12 /min Radha DiegoOwen CLIENT BUSINESS MANAGER.RETAIL SERVICES PROFESSIONAL Work Phone: [place] 01-03-2025 10:14-0400 SaO2% (BldA) [Mass fraction] 94 % Radha Owen CLIENT BUSINESS MANAGER.RETAIL SERVICES PROFESSIONAL Work Phone: [place] 01-03-2025 10:14-0400 Systolic blood pressure 122 mm[Hg] Radha Owen CLIENT BUSINESS MANAGER.RETAIL SERVICES PROFESSIONAL Work Phone: [place] 10-17-2024 07:37-0400 Body mass index (BMI) [Ratio] 30.1 kg/m2 Jayesh Breen MD Work Phone: [facility] 10-17-2024 07:37-0400 Body weight 67.58 kg Jayesh Breen MD Work Phone: [facility] 10-17-2024 07:37-0400 Diastolic blood pressure 66 mm[Hg] Jayesh Breen MD Work Phone: [facility] 10-17-2024 07:37-0400 Heart rate 67 /min Jayesh Breen MD Work Phone: [facility] 10-17-2024 07:37-0400 Respiratory rate 18 /min Jayesh Breen MD Work Phone: [facility] 10-17-2024 07:37-0400 Systolic blood pressure 139 mm[Hg] Jayesh Breen MD Work Phone: [facility] 10-16-2024 08:46-0400 Body height 149.86 cm Jayesh Breen MD Work Phone: [facility] 10-16-2024 08:46-0400 Body mass index (BMI) [Ratio] 30.2 kg/m2 Jayesh Breen MD Work Phone: 1(748)195-486324 [place] [address] 10-16-2024 08:46-0400 Body temperature 97.8 [degF] Jayesh Breen MD Work Phone: 9(150)782-846824 [place] [address] 10-16-2024 08:46-0400 Body weight 68.03 kg Jayesh Breen MD Work Phone: 5(656)827-569336 [place] [address] 10-16-2024 08:46-0400 Diastolic blood pressure 75 mm[Hg] Jayesh Breen MD Work Phone: 8(411)418-391936 [place] [address] 10-16-2024 08:46-0400 Heart rate 81 /min Jayesh Breen MD Work Phone: 5(180)161-831736 [place] [address] 10-16-2024 08:46-0400 Respiratory rate 15 /min Jayesh Breen MD Work Phone: 8(394)393-525836 [place] [address] 10-16-2024 08:46-0400 SaO2% (BldA) [Mass fraction] 96 % Jayesh Breen MD Work Phone: 1(716)576-833836 [place] [address] 10-16-2024 08:46-0400 Systolic blood pressure 160 mm[Hg] Jayesh Breen MD Work Phone: 3(559)669-969736 [place] [address] 09-09-2024 13:16-0400 Body temperature 97.4 [degF] Jayesh Breen MD Work Phone: 9(171)579-606024 [place] [address] 09-09-2024 13:16-0400 Diastolic blood pressure 66 mm[Hg] Jayesh Breen MD Work Phone: 9(884)062-463724 [place] [address] 09-09-2024 13:16-0400 Heart rate 73 /min Jayesh Breen MD Work Phone: 4(994)616-076724 [place] [address] 09-09-2024 13:16-0400 Respiratory rate 18 /min Jayesh Breen MD Work Phone: 0(325)659-025524 [place] [address] 09-09-2024 13:16-0400 SaO2% (BldA) [Mass fraction] 95 % Jayesh Breen MD Work Phone: [facility] 09-09-2024 13:16-0400 Systolic blood pressure 141 mm[Hg] Jayesh Breen MD Work Phone: [facility] 09-09-2024 09:55-0400 Body mass index (BMI) [Ratio] 29.7 kg/m2 Jayesh Breen MD Work Phone: [facility] 09-08-2024 12:17-0400 Body height 149.86 cm Jayesh Breen MD Work Phone: [facility] 09-08-2024 12:17-0400 Body weight 66.7 kg Jayesh Breen MD Work Phone: [facility] 01-11-2023 13:10-0400 Body weight 63.05 kg Vincent Ryder MD Work Phone: [place] 01-11-2023 13:10-0400 Diastolic blood pressure 72 mm[Hg] Vincent Ryder MD Work Phone: [place] 01-11-2023 13:10-0400 Heart rate 88 /min Vincent Ryder MD Work Phone: [place] 01-11-2023 13:10-0400 SaO2% (BldA) [Mass fraction] 97 % Vincent Ryder MD Work Phone: [place] 01-11-2023 13:10-0400 Systolic blood pressure 138 mm[Hg] Vincent Ryder MD Work Phone: [place] 01-11-2023 12:50-0400 Body height 149.9 cm Cilia Antonio PROFESSIONAL POKER PLAYER Work Phone: [place] 01-11-2023 12:50-0400 Body weight 63.05 kg Cilia Antonio PROFESSIONAL POKER PLAYER Work Phone: [place] 11-13-2022 11:40-0400 Body weight 63.5 kg Vincent Ryder MD Work Phone: [place] 11-13-2022 11:40-0400 Diastolic blood pressure 76 mm[Hg] Vincent Ryder MD Work Phone: [place] 11-13-2022 11:40-0400 Heart rate 77 /min Vincent Ryder MD Work Phone: [place] 11-13-2022 11:40-0400 SaO2% (BldA) [Mass fraction] 93 % Vincent Ryder MD Work Phone: [place] 11-13-2022 11:40-0400 Systolic blood pressure 128 mm[Hg] Vincent Ryder MD Work Phone: [place] 11-03-2022 11:01-0400 Body height 149.9 cm Gwen D'Shakira DO Work Phone: [facility] 11-03-2022 11:01-0400 Body mass index (BMI) [Ratio] 28.64 kg/m2 Gwen D'Shakira DO Work Phone: [facility] 11-03-2022 11:01-0400 Body temperature 97.81 [degF] Gwen D'Shakira DO Work Phone: [facility] 11-03-2022 11:01-0400 Body weight 64.32 kg Gwen D'Shakira DO Work Phone: [facility] 11-03-2022 11:01-0400 Diastolic blood pressure 67 mm[Hg] Gwen D'Shakira DO Work Phone: [facility] 11-03-2022 11:01-0400 Heart rate 66 /min Gwen D'Shakira DO Work Phone: [facility] 11-03-2022 11:01-0400 Respiratory rate 20 /min Gwen D'Shakira DO Work Phone: [facility] 11-03-2022 11:01-0400 SaO2% (BldA) [Mass fraction] 97 % Gwen D'Shakira DO Work Phone: [employer] 11-03-2022 11:01-0400 Systolic blood pressure 136 mm[Hg] Gwen D'Shakira DO Work Phone: [employer] 10-17-2022 12:50-0400 Diastolic blood pressure 65 mm[Hg] Katharina Tai-Quique CLIENT BUSINESS MANAGER-RETAIL SERVICES PROFESSIONAL Work Phone: [employer] 10-17-2022 12:50-0400 Systolic blood pressure 136 mm[Hg] Katharina Tai-Quique CLIENT BUSINESS MANAGER-RETAIL SERVICES PROFESSIONAL Work Phone: [employer] 10-17-2022 12:47-0400 Heart rate 64 /min Katharina Tai-Quique CLIENT BUSINESS MANAGER-RETAIL SERVICES PROFESSIONAL Work Phone: [employer] 10-17-2022 12:25-0400 Body height 149.9 cm Katharina Tai-Quique CLIENT BUSINESS MANAGER-RETAIL SERVICES PROFESSIONAL Work Phone: [employer] 10-17-2022 12:25-0400 Body mass index (BMI) [Ratio] 29.89 kg/m2 Katharina Dowds-Quique CLIENT BUSINESS MANAGER-RETAIL SERVICES PROFESSIONAL Work Phone: [employer] 10-17-2022 12:25-0400 Body temperature 97.3 [degF] Katharina Tai-Quique CLIENT BUSINESS MANAGER-RETAIL SERVICES PROFESSIONAL Work Phone: [employer] 10-17-2022 12:25-0400 Body weight 67.13 kg Katharina Tai-Quique CLIENT BUSINESS MANAGER-RETAIL SERVICES PROFESSIONAL Work Phone: [employer] 10-17-2022 12:25-0400 Respiratory rate 18 /min Katharina Tai-Quique CLIENT BUSINESS MANAGER-RETAIL SERVICES PROFESSIONAL Work Phone: [employer] Encounters Encounter Date Encounter Type Care Provider Facility Start: 03-15-2025 End: 03-15-2025 ambulatory RK WOODS Facility:[facility] Start: 01-03-2025 ambulatory RK WOODS Faci lity:[facility] Start: 01-03-2025 End: 01-03-2025 Subsequent hospital visit by physician Xr [facility] Work Phone: Radiology Comment on above: Chronic left shoulde r pain [M25.512, G89.29] Start: 01-03-2025 End: 01-03-2025 Office outpatient new 45 minutes Radha Rosenbaum JAGDISH Work Phone: [facility] [place] Comment on above: Chronic left shoulde r pain (Primary Dx); Chronic obstructive pulmonary disease, unspecified COPD type (HCC); Primary hypertension; Cerebrovascular accident (CVA), unspecified mechanism (HCC); Vertigo as late effect of cerebrovascular accident (CVA); Tobacco abuse, in remission; Screening for depression; Encounter for screening examination for other mental health and behavioral disorders; Screening for colon cancer; Encounter for screening mammogram for breast cancer; Asymptomatic menopause Start: 01-03-2025 End: 01-03-2025 ambulatory RK WOODS Facility:[facility] Start: 11-28-2024 ambulatory No Primary Car e Physician Facility:[facility] Start: 11-16-2024 ambulatory No Primary Car e Physician Facility:[facility] Start: 10-23-2024 ambulatory Leigha Candelario Facility: [facility] Start: 10-17-2024 End: 10-17-[address] Alireza Valero MD -[facility] Work Phone: Start: 10-17-2024 End: 10-17-2024 ambulatory Jayesh Breen MD Work Phone: [facility] Work Phone: Start: 10-16-2024 End: 10-16-2024 Patient encounter procedure Leigha Candelario NP-C -[facility] Work Phone: Start: 10-16-2024 End: 10-16-2024 ambulatory Jayesh Breen MD Work Phone: [facility] Work Phone: Start: 09-09-2024 Non-patient / Non-visit Dr. Jeremy Spivey MD -[facility] Work Phone: Start: 09-08-2024 ambulatory No Primary Car e Physician [place] Start: 09-08-2024 Non-patient / Non-visit Dr. Alireza rousseau MD -[facility] Start: 09-08-2024 Non-patient / Non-visit Dr. Jeremy Spivey MD -[facility] Work Phone: Start: 09-07-2024 End: 09-09-2024 ambulatory No Primary Care Physician Facility:[facility] Start: 09-07-2024 End: 09-09-2024 Evaluation and management of inpatient Dr. Jeremy Spivey MD -[facility] Work Phone: Start: 09-07-2024 End: 09-09-2024 observation encounter Jayesh Breen MD Work Phone: [facility] Work Phone: Start: 02-29-2024 End: 03-03-2024 ambulatory Monique Varner CLIENT BUSINESS MANAGER.RETAIL SERVICES PROFESSIONAL Work Phone: [facility] Start: 10-14-2023 End: 10-14-2023 Telephone encounter Gwen D'Shakira DO Work Phone: [facility] Comment on above: Left Message To Call Back Start: 02-24-2023 Telephone encounter Gwen D'A more DO Work Phone: [facility] Comment on above: Medical Record Revnicole w Start: 01-11-2023 End: 01-11-2023 Office outpatient visit 40 minutes Vincent Ryder MD Work Phone: [facility] Comment on above: Chronic obstructive pulmonary disease, unspecified COPD type (HCC) (Primary Dx) Start: 01-11-2023 End: 01-11-2023 ambulatory Guille Alvarez PROFESSIONAL [employer]ER PLAYER Work Phone: [facility] Comment on above: Arrived Start: 01-11-2023 End: 01-11-2023 Patient encounter procedure Cilia Antonio PROFESSIONAL POKER PLAYER Work Phone: [facility] Start: 12-11-2022 Letter encounter Katharina Villa CLIENT BUSINESS MANAGER-RETAIL SERVICES PROFESSIONAL Work Phone: [facility] Start: 12-02-2022 Orders Only Taina brown RN Work Phone: [place] [id number] Start: 12-01-2022 Telephone encounter Katharina Guille Retana CLIENT BUSINESS MANAGER-RETAIL SERVICES PROFESSIONAL Work Phone: [facility] Start: 12-01-2022 End: 12-01-2022 Subsequent hospital visit by physician [facility] Op Mammo Diagnostic 1 Work Phone: [address] [facility] Comment on above: Abnormal finding on breast imaging Start: 11-24-2022 Orders Only Minal Singh RN [address] [facility] Start: 11-13-2022 ambulatory VINCENT RYDER [facility] ty:[facility] Start: 11-13-2022 Documentation procedure Cyn Presley MD Work Phone: [facility] Start: 11-13-2022 End: 11-13-2022 Subsequent hospital visit by physician [facility]r [facility] Radiology Comment on above: SOB (shortness of br eath) [R06.02] Start: 11-13-2022 End: 11-13-2022 Office outpatient visit 40 minutes Vincent Ryder MD Work Phone: [facility] Comment on above: SOB (shortness of br eath) (Primary Dx); COPD with exacerbation (HCC); Acute bronchitis, unspecified organism Start: 11-12-2022 Telephone encounter Cyn walker MD Work Phone: [facility] Comment on above: Forms Completion; [place] [employer] Start: 11-12-2022 End: 11-12-2022 Professional / ancillary services management Pulm Labs Pft 1 [facility] Start: 11-04-2022 Telephone encounter Gwen Carolina'Adalid carty DO Work Phone: [facility] Start: 11-03-2022 End: 11-03-2022 Office outpatient visit 15 minutes Gwen Montero DO Work Phone: [facility] Comment on above: Chronic obstructive pulmonary disease, unspecified COPD type (HCC) (Primary Dx); Need for vaccination; Colon cancer screening; Screening for HIV (human immunodeficiency virus) Start: 10-30-2022 Telephone encounter To Be Assigned M [facility] Physician Referral Service Comment on above: Medical Record Aleida gaspar Start: 10-17-2022 End: 10-19-2022 Patient encounter procedure Katharina Navarro CLIENT BUSINESS MANAGER-RETAIL SERVICES PROFESSIONAL Work Phone: [facility] Comment on above: Medicare annual well ness visit, initial (Primary Dx); Chronic obstructive pulmonary disease, unspecified COPD type (HCC); Need for hepatitis C screening test; Breast cancer screening by mammogram; Colon cancer screening; Preventative health care; Encounter for osteoporosis screening in asymptomatic postmenopausal patient; Immunization due; Routine medical exam; Body mass index (BMI) 29.0-29.9, adult Start: 10-17-2022 End: 10-19-2022 Patient encounter status Katharina Navarro CLIENT BUSINESS MANAGER-RETAIL SERVICES PROFESSIONAL Work Phone: [facility] Start: 06-30-2022 End: 06-30-2022 Patient encounter status Cyn Presley MD Work Phone: [facility] Start: 06-30-2022 End: 06-30-2022 Phys/qhp telephone evaluation 11-20 min Cyn Presley MD Work Phone: [facility] Comment on above: Preventative health care (Primary Dx); Chronic obstructive pulmonary disease, unspecified COPD type (HCC) Start: 06-29-2022 Telephone encounter To Be Assigned [facility] Physician Referral Service Comment on above: APPOINTMENT SCHEDULI NG Procedures Date Procedure Procedure Detail Performing Clinician Start: 01-03-2025 Adult depression screening assessment Radha Rosenbaum CLIENT BUSINESS MANAGER.RETAIL SERVICES PROFESSIONAL Work Phone: Start: 09-07-2024 MRI of brain without contrast Jayesh Breen MD Work Phone: Start: 09-07-2024 Methadone measuremen t, urine Jayesh Breen MD Work Phone: Start: 09-07-2024 Urnls dip stick/tabl et reagent auto microscopy Jayesh Breen MD Work Phone: Start: 09-07-2024 CT angiography of he ad and neck Jayesh Breen MD Work Phone: Start: 09-07-2024 Plain chest X-ray Jayesh Breen MD Work Phone: Start: 09-07-2024 CT of head without contrast Jayesh Breen MD Work Phone: Start: 09-07-2024 Estimated creatinine clearance Jayesh Breen MD Work Phone: Start: 09-07-2024 Total iron binding capacity measurement Jayesh Breen MD Work Phone: Start: 09-07-2024 Hemoglobin A1c/Hemoglobin.total in Blood [facility] Provider Start: 09-07-2024 Lipid panel [facility] Start: 09-07-2024 Lipid 1996 panel - S vasile or Plasma Radha Rosenbaum CLIENT BUSINESS MANAGER.RETAIL SERVICES PROFESSIONAL Work Phone: Start: 12-01-2022 Diagnostic mammograp hy computer-aided detcj uni Katharina Navarro CLIENT BUSINESS MANAGER-RETAIL SERVICES PROFESSIONAL Work Phone: Start: 11-13-2022 Radiologic exam ches t 2 views Vincent Ryder MD Work Phone: Start: 11-05-2022 Mammography Cilia Holo cker PROFESSIONAL POKER [employer]ER Work Phone: Start: 11-03-2022 Antibody hiv-1&hiv-2 single result Gwen D'Shakira DO Work Phone: Start: 11-03-2022 Lipid 1996 panel - S vasile or Plasma Monique Varner CLIENT BUSINESS MANAGER.RETAIL SERVICES PROFESSIONAL Work Phone: Start: 07-12-2019 Follow-up visit Plan of Treatment Date Care Activity Detail Author Start: 11-03-2032 Tetanus vaccination Tetanus (Td or Tdap) Booster [facility] Start: 11-03-2032 Urine microalbumin profile DTaP,Tdap,Td Vaccine (2 - Td or Tdap) [place] Start: 09-07-2029 Lipid panel Lipid Screening [place] Start: 11-04-2027 Cholesterol [Mass/volume] in Serum or Plasma Cholesterol [facility] Start: 11-04-2027 Lipid panel Lipid Screening [place] Start: 11-04-2027 LIPID SCREEN LIPID SCREEN [place] Start: 09-08-2027 Diabetes Screening Diabetes Screening [place] Start: 01-03-2026 Annual PCP Team Chronic Disease Visit Annual PCP Team Chronic Disease Visit [place] Start: 01-03-2026 Anxiety Screening Anxiety Screening [place] Start: 01-03-2026 Depression Screening Depression Screening [place] Start: 01-03-2026 RSV Vaccine (1 - Risk 60-74 years 1-dose series) RSV Vaccine (1 - Risk 60-74 years 1-dose series) [place] Comment on above: Postponed from 2011 (Declined at t his time) Start: 01-03-2026 Shingrix Vaccine (2 of 2) Shingrix Vaccine (2 of 2) [place] Comment on above: Postponed from 12/29/2022 (Declined at t his time) Start: 11-03-2025 DIABETES SCREEN DIABETES SCREEN [place] Start: 11-03-2025 Diabetes Screening Diabetes Screening [place] Start: 07-06-2025 End: 07-06-2025 Patient encounter procedure 07/06/2025 8:40 AM EST Office Visit Internal [facility] [address] [place] [address] Rk Woods MD [address] [place] [address] medicare wellness 6 months [facility] Comment on above: medicare wellness 6 months Start: 04-02-2025 End: 04-02-2025 Patient encounter procedure 04/02/2025 8:55 AM EST Appointment Radiology [address] [place] [id number] Dx: Asymptomatic menopause [Z78.0] Radiology Comment on above: Dx: Asymptomatic menopause [Z78.0] Start: 02-01-2025 End: 02-01-2025 Patient encounter procedure 02/01/2025 1:30 PM EDT Office Visit Pulmonary Medicine [address] [place] [address] Jayla Mckenna MD [address] [place] [address] COPD Pulmonary Medicine Comment on above: COPD Start: 02-01-2025 End: 02-01-2025 ambulatory 02/01/2025 12:30 PM EDT Procedure PULM LAB [facility] [address] [place] [address] Wstr, Pulm Lab [facility] [address] [place] [address] COPD PULM LAB [facility] Comment on above: COPD Start: 02-01-2025 End: 02-01-2025 Patient encounter procedure 02/01/2025 10:10 AM EDT Appointment Mammogram [address] [place] [address] SCREENING Mammogram Comment on above: SCREENING Start: 02-01-2025 End: 02-01-2025 ambulatory [facility] Physical Therapy Comment on above: Dx: Chronic left shoulder pain [M25.512, G89.29] COPD Start: 01-15-2025 Influenza vaccination Influenza Vaccine (#1) [facility] Start: 10-16-2024 Patient referral [facility] Work Phone: Start: 09-09-2024 Patient discharge [facility] Start: 09-08-2024 Inhalation therapy procedure [facility] Start: 09-07-2024 Application of intermittent pneumatic compression device [facility] Start: 09-07-2024 Following clinical pathway protocol [facility] Start: 09-07-2024 Cardiac monitoring [facility] Start: 09-07-2024 Catheterization of vein [facility] Start: 09-07-2024 Consultation [facility] Start: 09-07-2024 Elevation of head of bed [facility] Start: 09-07-2024 Exercises [facility] Start: 09-07-2024 Notification of physician [facility] Start: 09-07-2024 Patient referral to dietitian [facility] Start: 09-07-2024 Referral to occupational therapist [facility] Start: 09-07-2024 Referral to service [facility] Start: 09-07-2024 Speech therapy assessment [facility] Start: 09-07-2024 Telemedicine consultation with patient [facility] Start: 09-07-2024 Tobacco use cessation education [facility] Start: 09-07-2024 End: 09-07-2024 [facility] Start: 09-07-2024 Vital signs measurements [facility] Start: 09-07-2024 Admission procedure [facility] Start: 06-09-2024 Cholesterol [Mass/volume] in Serum or Plasma Cholesterol [facility] Start: 05-17-2024 Medicare Advantage Annual Wellness Visit Medicare Advantage Annual Wellness Visit [place] Start: 01-16-2024 Covid-19 Vaccine () Covid-19 Vaccine () [place] Start: 01-16-2024 Influenza vaccination [facility] Start: 12-02-2023 Screening for malignant neoplasm of breast [facility] Start: 11-11-2023 Screening for malignant neoplasm of breast Mammography [facility] Start: 11-06-2023 Mammography MAMMOGRAM [place] Start: 11-06-2023 Screening for malignant neoplasm of breast [facility] Start: 11-04-2023 Hemoglobin A1c measurement Hemoglobin A1C [facility] Start: 10-16-2023 Annual Wellness Visit (G0439) Annual Wellness Visit (G0439) [facility] Start: 06-07-2023 End: 06-07-2023 Patient encounter procedure 06/07/2023 1:00 PM EST Appointment [facility] [address] [facility] Mammography [address] [place] [address] [facility] Mammography Start: 05-21-2023 Shingles (RZV) Vaccine (1 of 2) Shingles (RZV) Vaccine (1 of 2) [facility] Comment on above: Postponed from 2001 (Immunization prescribed as medication) Start: 05-17-2023 Advance Directive Discussion Advance Directive Discussion [facility] Start: 02-14-2023 Influenza vaccination Influenza Vaccine (#1) [facility] Start: 02-08-2023 End: 02-08-2023 Patient encounter procedure 02/08/2023 3:20 PM EDT Office Visit [facility] [address] [place] [address] Gwen Montero DO [address] [facility] [place] [address] [facility] Start: 01-19-2023 Tetanus + diphtheria + acellular pertussis vaccine (product) Tdap Booster [facility] Comment on above: Postponed from 1969 (Immunization prescribed as medication) Start: 01-15-2023 COVID-19 Vaccine ( season) COVID-19 Vaccine ( season) [facility] Start: 01-15-2023 Influenza vaccination [place] Start: 12-29-2022 Shingles (RZV) Vaccine (2 of 2) Shingles (RZV) Vaccine (2 of 2) [facility] Start: 12-29-2022 Shingrix Vaccine (2 of 2) Shingrix Vaccine (2 of 2) [place] Start: 12-22-2022 End: 12-22-2022 Patient encounter procedure 12/22/2022 9:00 AM EDT Appointment [facility] Radiology Department [address] [place] [address] [facility] Radiology Department Start: 12-09-2022 End: 12-09-2022 Patient encounter procedure 12/09/2022 2:30 PM EDT Appointment [facility] Radiology Department [address] [place] [address] [facility] Radiology Department Start: 12-02-2022 End: 12-03-2023 DBT Breast - left diagnostic MG MAMMO DIAG LEFT ASHLEY Imaging Routine Category 3 mammography result with short follow-up interval suggested for probably benign finding Expected: 12/02/2022, Expires: 12/03/2023 [facility] Work Phone: Comment on above: Expected: 12/02/2022, Expires: 4 Start: 12-01-2022 End: 12-02-2023 DBT Breast - bilateral screening MG MAMMO SCREEN BILAT ASHLEY W/CAD Imaging Routine Breast cancer screening by mammogram Expected: 12/01/2022, Expires: 12/02/2023 [facility] Work Phone: Comment on above: Expected: 12/01/2022, Expires: 4 Start: 12-01-2022 End: 12-01-2022 Patient encounter procedure 12/01/2022 10:40 AM EDT Appointment [facility] [address] Mammography [address] [address] [facility] [facility] Mammography Start: 12-01-2022 End: 12-01-2022 Patient encounter procedure 12/01/2022 9:15 AM EDT Office Visit [employer] [employer] [address] [place] [address] [employer] Start: 11-27-2022 End: 11-27-2022 Patient encounter procedure 11/27/2022 2:30 PM EDT Appointment [facility] Radiology Department [address] [place] [address] [facility] Radiology Department Start: 11-24-2022 End: 11-25-2023 DBT Breast - left diagnostic MG MAMMO DIAG LEFT ASHLEY Imaging Routine Abnormal finding on breast imaging Expected: 11/24/2022, Expires: 11/25/2023 [facility] Work Phone: Comment on above: Expected: 11/24/2022, Expires: 4 Start: 11-12-2022 End: 11-12-2022 Professional / ancillary services management 11/12/2022 1:30 PM EDT Pulmonary Ancillary Visit [facility] Pulmonary Labs [address] [place] [address] [facility] Pulmonary Labs Start: 11-10-2022 End: 11-10-2022 Professional / ancillary services management 11/10/2022 3:45 PM EDT Pulmonary Ancillary Visit [facility] Pulmonary Testing [address] [facility] [address] [place] [address] [place] [address] [facility] Pulmonary Testing Start: 11-10-2022 End: 11-10-2022 Professional / ancillary services management [facility] Mammography Start: 11-05-2022 End: 11-05-2022 Professional / ancillary services management 11/05/2022 1:00 PM EDT Ancillary Procedure [facility] Mammography [address] [place] [address] [facility] Mammography Start: 11-03-2022 End: 11-03-2022 Patient encounter procedure 11/03/2022 11:00 AM EDT Office Visit [facility] Medicine [address] [place] [address] Cyn Presley MD [address] [place] [address] [facility] Medicine Start: 10-19-2022 End: 10-20-2023 DBT Breast - bilateral screening MG MAMMO SCREEN BILAT ASHLEY W/CAD Imaging Routine Breast cancer screening by mammogram Expected: 10/19/2022, Expires: 10/20/2023 [facility] Comment on above: Expected: 10/19/2022, Expires: 4 Start: 10-19-2022 End: 10-20-2023 DXA Skeletal system Views for bone density BD BONE DENSITY SURVEY Imaging Routine Encounter for osteoporosis screening in asymptomatic postmenopausal patient Expected: 10/19/2022, Expires: 10/20/2023 [facility] Comment on above: Expected: 10/19/2022, Expires: 4 Start: 10-17-2022 End: 10-17-2022 Patient encounter procedure 10/17/2022 Office Visit Gerontology Katharina Navarro, NONA-ROLF [address] [place] [address] [facility] Start: 07-28-2022 End: 07-28-2022 Patient encounter procedure 07/28/2022 Office Visit Family Practice Cyn Presley MD [address] [place] [address] [facility] Start: 06-30-2022 End: 06-30-2022 Telemedicine consultation with patient 06/30/2022 Telemedicine Family Practice Cyn Presley MD [address] [place] [address] [facility] Start: 05-17-2022 ADVANCE DIRECTIVE DISCUSSION ADVANCE DIRECTIVE DISCUSSION [facility] Start: 05-17-2022 DEPRESSION ASSESSMENT DEPRESSION ASSESSMENT [facility] Start: 02-14-2022 Influenza vaccination Influenza Vaccine (#1) [facility] Start: 05-22-2021 COVID-19 Vaccine (3 - Booster for Pfizer series) COVID-19 Vaccine (3 - Booster for Pfizer series) [facility] Start: 05-22-2021 COVID-19 VACCINE (3 - Pfizer series) COVID-19 VACCINE (3 - Pfizer series) [place] Start: 11-23-2019 Pneumococcal vaccination Pneumococcal Vaccine(s) (65+ yrs) (2 - PCV) [facility] Start: 11-23-2019 PNEUMOCOCCAL: 65+ (2 - PCV) PNEUMOCOCCAL: 65+ (2 - PCV) [facility] Start: 02-01-2016 BONE DENSITY BONE DENSITY [facility] Start: 02-01-2016 Screening for osteoporosis [facility] Start: 2011 Hepatitis B (HBV) Vaccine (optional start 60+ years) Hepatitis B (HBV) Vaccine (optional start 60+ years) [facility] Start: 2011 RSV Vaccine (1 - Risk 60-74 years 1-dose series) RSV Vaccine (1 - Risk 60-74 years 1-dose series) [facility] Start: 2011 RSV vaccine (optional 60+ years) RSV vaccine (optional 60+ years) [facility] Start: 2001 Influenza vaccination LUNG CANCER SCREENING [facility] Start: 2001 Measurement of occult blood in single stool specimen FIT [facility] Start: 2001 Screening for malignant neoplasm of colon CRC Screening [facility] Start: 2001 Shingles (RZV) Vaccine (1 of 2) Shingles (RZV) Vaccine (1 of 2) [facility] Start: 2001 SHINGRIX VACCINE (1 of 2) SHINGRIX VACCINE (1 of 2) [facility] Start: 02-01-1996 Cholesterol [Mass/volume] in Serum or Plasma Cholesterol [facility] Start: 02-01-1996 COLOGUARD (FIT-DNA) COLOGUARD (FIT-DNA) [facility] Start: 02-01-1996 Colonoscopy COLONOSCOPY [facility] Start: 02-01-1996 COLORECTAL CANCER SCREENING COLORECTAL CANCER SCREENING [facility] Start: 02-01-[address] COLONOGRAPHY [facility] Start: 02-01-1996 FECAL OCCULT BLOOD FECAL OCCULT BLOOD [facility] Start: 02-01-1996 Screening for malignant neoplasm of colon [facility] Start: 02-01-1996 SIGMOIDOSCOPY SIGMOIDOSCOPY [place] Start: 1991 Mammography MAMMOGRAM [facility] Start: 1991 Screening for malignant neoplasm of breast Mammography [facility] Start: 1981 Zoledronic acid therapy ALPHA-1 ANTITRYPSIN DEFICIENCY SCREENING [facility] Start: 1970 Hepatitis A (HAV) Vaccine (optional start 19+ years) Hepatitis A (HAV) Vaccine (optional start 19+ years) [facility] Start: 1970 Urine microalbumin profile DTAP,TDAP,TD (1 - Tdap) [facility] Start: 1969 ANNUAL PCP TEAM CHRONIC DISEASE VISIT ANNUAL PCP TEAM CHRONIC DISEASE VISIT [facility] Start: 1969 Anxiety Screening Anxiety Screening [facility] Start: 1969 Depression Screening Depression Screening [facility] Start: 1969 Hepatitis C screening [facility]atitis [facility] Start: 1969 HEPATITIS C SCREENING HEPATITIS C SCREENING [place] Start: 1969 SPIROMETRY SPIROMETRY [place] Start: 1969 Tetanus + diphtheria + acellular pertussis vaccine (product) Tdap Booster [facility] Start: 1951 Pulmonary Function Testing Pulmonary Function Testing [facility] Start: 1951 Screening for malignant neoplasm of colon Colonoscopy [facility] Basic metabolic 2000 panel - Serum or Plasma BASIC METABOLIC PANEL Lab Routine Preventative health care Ordered: 10/19/2022 [facility] Work Phone: Comment on above: Ordered: 10/19/2022 End: 02-02-2026 BD DXA TRABECULAR BONE SCORE (TBS) BD DXA TRABECULAR BONE SCORE (TBS) Radiology Routine Asymptomatic menopause 1 Occurrences starting 01/03/2025 until 02/02/2026 [facility] Comment on above: 1 Occurrences starting 01/03/2025 until 02/02/2026 Blood occult fecal h gb deter ia qual feces 1-3 FECAL IMMUNOCHEMICAL TEST (FIT) Lab Routine Colon cancer screening Ordered: 10/19/2022 [facility] Comment on above: Ordered: 10/19/2022 Blood occult fecal h gb deter ia qual feces 1-3 FECAL IMMUNOCHEMICAL TEST (FIT) Lab Routine Colon cancer screening Ordered: 11/03/2022 [facility] Work Phone: Comment on above: Ordered: 11/03/2022 Cardiac event recording [facility] COLOGUARD COLOGUARD Lab Ro utine Screening for colon cancer Ordered: 01/03/2025 [facility] Work Phone: Comment on above: Ordered: 01/03/2025 End: 02-02-2026 DBT Breast - bilateral screening SWAPNIL SCREENING W ASHLEY Radiology Routine Encounter for screening mammogram for breast cancer 1 Occurrences starting 01/03/2025 until 02/02/2026 [place] Comment on above: 1 Occurrences starting 01/03/2025 until 02/02/2026 Diabetes tracking panel HEMOGLOB IN A1C Lab Routine Preventative health care Ordered: 10/19/2022 [employer] Comment on above: Ordered: 10/19/2022 End: 02-02-2026 DXA Skeletal system.axial Views for bone density DXA-AXIAL SKELETON Radiology Routine Asymptomatic menopause 1 Occurrences starting 01/03/2025 until 02/02/2026 [place] Comment on above: 1 Occurrences starting 01/03/2025 until 02/02/2026 Hemoglobin.gastroint lashawn nal.lower [Presence] in Stool by Immunoassay IMMUNOCHEMICAL FECAL OCCULT BLOOD TEST Lab Routine Screening for colon cancer Ordered: 02/29/2024 [facility] Work Phone: Comment on above: Ordered: 02/29/2024 Hepatitis C virus Ab [Units/volume] in Serum by Immunoassay HEPATITIS C ANTIBODY Lab Routine Need for hepatitis C screening test Ordered: 10/19/2022 [employer] Comment on above: Ordered: 10/19/2022 Lipid 1996 panel - S vasile or Plasma FULL LIPID PROFILE Lab Routine Preventative health care Ordered: 10/19/2022 [employer] Comment on above: Ordered: 10/19/2022 End: 02-10-2024 LUNG DIFFUSION CAPACITY (DLCO) LUNG DIFFUSION CAPACITY (DLCO) PFT Routine Chronic obstructive pulmonary disease, unspecified COPD type (HCC) 1 Occurrences starting 01/11/2023 until 02/10/2024 [facility] Work Phone: Comment on above: 1 Occurrences starting 01/11/2023 until 02/10/2024 End: 02-10-2024 LUNG VOLUMES LUNG VOLUMES PFT Routine Chronic obstructive pulmonary disease, unspecified COPD type (HCC) 1 Occurrences starting 01/11/2023 until 02/10/2024 [facility] Work Phone: Comment on above: 1 Occurrences starting 01/11/2023 until 02/10/2024 Patient referral [facility] Work Phone: End: 10-18-2023 PFT PER PROTOCOL SERVICE REQUEST PFT PER PROTOCOL SERVICE REQUEST PFT Routine Chronic obstructive pulmonary disease, unspecified COPD type (HCC) 1 Occurrences starting 10/19/2022 until 10/18/2023 [employer] Comment on above: 1 Occurrences starting 10/19/2022 until 10/18/2023 PFT PER PROTOCOL SER VICE REQUEST PFT PER PROTOCOL SERVICE REQUEST PFT Routine Chronic obstructive pulmonary disease, unspecified COPD type (HCC) 11/12/2022 2:19 PM EDT [facility] Work Phone: PRE/POST SPIROMETRY PRE/POST SPI ROMETRY Procedures Routine Chronic obstructive pulmonary disease, unspecified COPD type (HCC) Ordered: 01/11/2023 [facility] Work Phone: Comment on above: Ordered: 01/11/2023 End: 02-02-2026 XR Shoulder - left 3 Views XR SHOULDER GENERAL 3V OR MORE AP/TRUE AP/OTHER LEFT Radiology Routine Chronic left shoulder pain 1 Occurrences starting 01/03/2025 until 02/02/2026 [facility] Comment on above: 1 Occurrences starting 01/03/2025 until 02/02/2026 XR Shoulder - left 3 Views XR SHOULDER GENERAL 3V OR MORE AP/TRUE AP/OTHER LEFT Radiology Routine Chronic left shoulder pain 01/03/2025 11:30 AM EDT [facility] [place] [facility] Immunizations Immunization Date Immunization Notes Care Provider Reyna maza 11-05-2022 pneumococcal conjuga te (PCV20) vaccine, 20 valent (PREVNAR 20) Radha Rosenbaum CLIENT BUSINESS MANAGER.RETAIL SERVICES PROFESSIONAL Work Phone: [facility] 11-03-2022 Pneumococcal conjuga te 20 valent (PCV20), polysaccharide [id number] conjugate, adjuvant, PF (DYX=[id number]) Gwen D'Shakira DO Work Phone: [facility] 11-03-2022 tetanus toxoid, reduced diphtheria toxoid, and acellular pertussis vaccine, adsorbed Gwen D'Shakira DO Work Phone: [facility] 11-03-2022 zoster vaccine recombinant Gwen D'Shakira DO Work Phone: [facility] 11-03-2022 pneumococcal 20-armin nt conjugate (PREVNAR 20) vaccine Gwen D'Shakira DO Work Phone: [facility] 11-03-2022 diphtheria, tetanus toxoids and acellular pertussis vaccine, unspecified formulation Gwen D'Shakira DO Work Phone: [facility] 11-03-2022 pneumococcal 20-armin nt conjugate (PREVNAR 20) chargeable vaccine Gwen D'Shakira DO Work Phone: [facility] 11-03-2022 Hemoglobin A1C Gwen D'Froilan e DO Work Phone: [facility] 10-19-2022 diphtheria, tetanus toxoids and acellular pertussis vaccine, unspecified formulation Katharina Navarro CLIENT BUSINESS MANAGER-RETAIL SERVICES PROFESSIONAL Work Phone: [facility] 10-19-2022 zoster vac recomb adjuvanted (Shingrix) 50 MCG/0.5ML SUSR injection Katharina Navarro CLIENT BUSINESS MANAGER-RETAIL SERVICES PROFESSIONAL Work Phone: [facility] 03-27-2021 Pfizer Monovalent (1 2+ yrs) SARS-COV-2 (COVID-19) vaccine, mRNA, spike protein, LNP, pres. free, 30 mcg/0.3mL dose (UTQ=[id number]) Katharina Navarro CLIENT BUSINESS MANAGER-[facility] Work Phone: [facility] 03-06-2021 Pfizer Monovalent (1 2+ yrs) SARS-COV-2 (COVID-19) vaccine, mRNA, spike protein, LNP, pres. free, 30 mcg/0.3mL dose (PHE=163) Katharina Navarro CLIENT BUSINESS MANAGER-[facility] Work Phone: [facility] 01-21-2020 influenza, injectabl e, quadrivalent, preservative free To Assigned [facility] 01-21-2020 influenza virus vaccine, unspecified formulation To Assigned [facility] 01-19-2020 AFLURIA QD 2019-,3 YR UP,,PF, 60 mcg (15 mcg x 4)/0.5 mL syrg Vincent Ryder MD Work Phone: [place] Comment on above: PHARMACY ADMINISTERE D 11-22-2018 pneumococcal polysaccharide vaccine, 23 valent To Assigned [facility] 02-10-2018 Influenza, injectabl e, Madin Tyndall Canine Kidney, quadrivalent with preservative To Assigned [facility] 07-02-2015 influenza, seasonal, injectable To Assigned [facility] 01-23-2014 influenza, injectabl e, quadrivalent, contains preservative Cyn Presley MD Work Phone: [facility] 01-23-2014 influenza, seasonal, injectable To Assigned [facility] 12-16-2013 pneumococcal polysaccharide vaccine, 23 valent To Assigned [facility] NEGATED: Highlighted row has not occurred!10-19-2022 Pfizer Bivalent (12+ YRS) SARS-COV-2 (COVID-19) vaccine, mRNA, spike protein, LNP, pres. free, 30 mcg/0.3mL dose, ritika-sucrose (VTX=016) Katharina Navarro CLIENT BUSINESS MANAGER-[facility] Work Phone: [facility] Comment on above: Deferred: Patient De cision NEGATED: Highlighted row has not occurred!10-19-2022 Pneumococcal conjugate 20 valent (PCV20), polysaccharide [id number] conjugate, adjuvant, PF (FBF=705) Katharina FELIZ Work Phone: [facility] Comment on above: Deferred: Patient De cision Payers Date Payer Category Payer Medicare (Managed Care) FATOUMATA LEMUS [id number] 2024 Private Health Insurance [id number] 2024 Self-pay 2021 Medicare [id number] 2017 Medicaid [facility] MEDICAID [id number] 2017-Present [phone] [address] [place] [address] Medicaid [id number] 2017 Medicaid [id number] Unknown [id number] Unknown [id number] Unknown [id number] Unknown [id number] Unknown [id number] Unknown [id number] Unknown [id number] Unknown [id number] Unknown [id number] Unknown [id number] Unknown [id number] Social History Date Type Detail Facility Start: 08-28-2014 End: 09-09-2024 Tobacco smoking status IAIS Smokes tobacco daily [facility] Start: 09-04-1977 History of tobacco use Cigarette Smo ker [facility] Start: 08-28-2014 End: 01-03-2025 Cigarettes smoked current (pack per day) - Reported 1.5 [facility] Start: 08-28-2014 End: 01-03-2025 Tobacco use and exposure Smokeless tobacco non-user [facility] Start: 1950 Sex Assigned At [facility] file [facility] Start: 06-20-2022 End: 06-30-2022 Exposure to SARS-CoV-2 (event) Unable to assess [facility] Start: 01-11-2023 End: 01-03-2025 Gender identity Not on file [facility] Start: 11-03-2022 Tobacco use and exposure User of smokeless tobacco [facility] Start: 11-13-2022 End: 01-03-2025 Alcohol intake Current drinker of alcohol (finding) [place] Start: 11-13-2022 Tobacco Comment Pt trying to q uit. Down to 4 cigarettes a day. [place] Start: 12-14-2013 Alcohol Comment Socially [facility] Start: 04-17-2012 National Score (1-10 0), lower number is lower risk 96 [place] Start: 01-11-2023 Tobacco Comment Pt trying to q uit. Down to 2-3 cigarettes a day. [place] Start: 09-09-2024 Cigarettes Cigarettes [facility] Start: 09-09-2024 Sex Female (finding) [facility] Start: 1950 Sex Assigned At Female [facility] Start: 10-16-2024 End: 01-03-2025 Tobacco smoking status NHIS Ex-smoker (finding) [facility] Start: 09-04-1977 History of tobacco use Current smoke r [place] How often to you hav e a drink containing alcohol? Never [place] Goals Date Patient Goal Desired Activity /State Functional Status Date Assessment Result Facility 01-03-2025 Total score [AUDIT-C] 0 01/04/20 10:21 AM EDT Jayla Camargo MA [place] 09-09-2024 Functional status Ambulates [facility] Work Phone: 12-18-2013 Are you deaf, or do you have serious difficulty hearing No 12/18/2013 1:55 PM EDT Chris Black, RN No [place] 12-18-2013 Are you blind, or do you have serious difficulty seeing, even when wearing glasses No 12/18/2013 1:55 PM EDT Chris Black, RN No [place] 12-18-2013 Do you have serious difficulty walking or climbing stairs No 12/18/2013 1:55 PM EDT Chris Black, RN No [place] 12-18-2013 Do you have difficul ty dressing or bathing No 12/18/2013 1:55 PM EDT Chris Black, RN No [place] 12-18-2013 Because of a physica l, mental, or emotional condition, do you have difficulty doing errands alone such as visiting a physician's office or shopping No 12/18/2013 1:55 PM EDT Chris Black, RN No [facility] Mental Status Date Assessment Result Facility 09-09-2024 Cognitive function Voice/Name [facility] Work Phone: 12-18-2013 Because of a physica l, mental, or emotional condition, do you have serious difficulty concentrating, remembering, or making decisions No 12/18/2013 1:55 PM EDT Chris Black RN No [place] Clinical Notes 06-29-2022 to 03-15-2025 She Ruiz, RT(R) - 01/03/2025 11:10 AM EDRadha Baum APRN.ROLF - 01/03/2025 10:44 AM EDTPatient Instructions Note Date & Type Note Facility 03-15-2025 Note HNO ID: [id number] Author: JAYLA MCKENNA MD Service: ? Author Type: Physician Type: Progress Notes Filed: 03/15/2025 14:02 Note Text: . Respiratory Vader Note Patient name: Maru Noel PCP: Rk Woods MD Referring Physician: Radha Rosenbaum CNP Recording using ambient AI software for draft documentation of the visit was discussed with the patient/authorized wholesale representative; all questions welcomed and answered. Patient/authorized wholesale representative agreed to proceed Consultation requested by Radha Rosenbaum for an opinion regarding COPD. My final recommendations will be communicated back to the requesting physician by way of shared Medical record or letter to requesting physician via US mail. CC: COPD HPI: Maru Noel 74 year old female recent former 90 + pack year smoker with PMH significant for moderate COPD, obesity, HTN, stroke previously followed by Dr. Ryder in [place]. Maru reports exertional dyspnea with activities such as climbing stairs or walking uphill. She experiences occasional wheezing and nocturnal cough with sputum production, which sometimes occurs at bedtime and other times awakens her from sleep. She does not report weather-related dyspnea or sensitivity to strong odors or perfumes. She has been on Trelegy for several years. She uses albuterol only as needed on bad days. She has a significant smoking history and quit abruptly on 09/07, the day she was hospitalized for a stroke. She reports a family history of lung disease in her mother and sister. 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 DATA: PFT: Spirometry shows mild obstruction mainly of small airways and decreased diffusing capacity PFT 10/2022: Adequacy of Test and Effort: Good patient effort and cooperation. The results of this test meet ATS standards. Spirometry: SPIROMETRY: FEV1/FVC ratio is normal and the FEV1 and FVC are both within normal limits. FLOW-VOLUME LOOPS: The flow volume loop appears normal. RESPONSE TO BRONCHODILATOR THERAPY: There is no significant improvement in FEV1 or FVC with bronchodilator therapy. Lung Volumes (Nitrogen Washout): Note: Nitrogen washout method was used and can underestimate LV in the setting of an obstructive impairment. All lung volumes are within normal limits except: SVC is decreased Diffusion Capacity (DLCO): DLCO (uncorrected for hemoglobin) is mildly (by z-score) reduced to 66% predicted. Changes in Pulmonary Function Tests: No prior studies available for comparison. Impression: Overall, pulmonary function tests are consistent with essentially normal findings. The diffusion capacity is mildly reduced. Consider anemia, pulmonary vascular disease, early ILD or emphysema. Yoav Ernandez MD Division of Pulmonary AND Critical Care Medicine [facility] I reviewed this study data with Dr. Ernandez and I agree with the interpretation note. Emmanuel Henderson MD Pulmonary, Critical Care, and Sleep Medicine PAST MEDICAL HISTORY Diagnosis Date Bronchitis Chronic obstructive pulmonary disease (COPD) (HCC) Cubital tunnel syndrome on left 08/29/2012 Hypertension Radial head fracture 06/14/2012 Stroke (HCC) ALLERGIES No Known Allergies Aspirin 81 mg tab Take 81 mg by mouth. atorvastatin (LIPITOR) 40 mg tablet Take 1 tablet by mouth daily at bedtime. Per [facility] lisinopril (ZESTRIL) 20 mg tablet Take 1 tablet by mouth once daily. Per [facility] clopidogrel (PLAVIX) 75 mg tablet Take 1 tablet by mouth once daily. Per [facility] albuterol HFA (VENTOLIN HFA) 90 mcg/actuation inhaler Inhale 2 Puffs as instructed every 4 hours as needed. iuvrbmullbn-qwgcryrda-nwomsfib (TRELEGY ELLIPTA) 200-62.5-25 mcg inhalation powder Inhale 1 Puff as instructed once daily. 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 CARDIOVASCULAR: No chest pain, palpitations, orthopnea. Rare edema PULM: See HPI GI: No dysphagia/odynophagia, problematic reflux NEURO: No balance problems, peripheral weakness/paresthesias or numbness of concern. MUSC-SKEL: No joint pain, swelling, or erythema. INTEGUMENTARY: No new skin changes PHYSICAL EXAMINATION: BP 120/60 Pulse 74 Resp 15 Ht 4' 11.055 (1.50m) Wt 159 lb (72.1kg) SpO2 94% BMI 32.05 kg/(m2). General Appearance: Female, NAD. Skin: Skin co (more content not included)... [facility] 01-03-2025 History of Presen t illness Narrative Radiology Service Progress Note PATIENT NAME: Maru Noel DATE OF SERVICE: January 03, 2025 TIME: 11:13 AM PATIENT IDENTITY VERIFICATION COMPLETED USING TWO (2) IDENTIFIERS: Name and Date of confirmed by patient verbally. FALL SCREENING: Has the patient had 2 falls in the last year or 1 fall with injury or currently using an Ambulatory Assistive Device (Walker, Cane, Wheelchair, Crutches, etc.)? No PATIENT GENDER DATA: Assigned female at . status: : No status: NO. PATIENT RELEVANT IMPLANT DATA REVIEWED: Yes PATIENT PRESENTS WITH AN IMPLANTABLE OR ATTACHED ELECTRIC DEICER INSPECTOR: No RADIOLOGY DEPARTMENT: General X-ray: Exam(s) Completed: Upper Extremity X-Ray(s): Shoulder, AP / TRUE AP / AXILLARY left PERIPHERAL IV DATA: Not applicable SIGNED BY: RT Freda(R) January 03, 2025 11:13 AM documented in this encounter [place] 01-03-2025 Note HNO ID: [id number] Author: SHE RUIZ RT(Jaimie) Service: ? Author Type: Stock Crane Operator Type: Progress Notes Filed: 01/03/2025 11:29 Note Text: Radiology Service Progress Note PATIENT NAME: Maru Noel DATE OF SERVICE: January 03, 2025 TIME: 11:13 AM PATIENT IDENTITY VERIFICATION COMPLETED USING TWO (2) IDENTIFIERS: Name and Date of confirmed by patient verbally. FALL SCREENING: Has the patient had 2 falls in the last year or 1 fall with injury or currently using an Ambulatory Assistive Device (Walker, Cane, Wheelchair, Crutches, etc.)? No PATIENT GENDER DATA: Assigned female at . status: : No status: NO. PATIENT RELEVANT IMPLANT DATA REVIEWED: Yes PATIENT PRESENTS WITH AN IMPLANTABLE OR ATTACHED ELECTRIC DEICER INSPECTOR: No RADIOLOGY DEPARTMENT: General X-ray: Exam(s) Completed: Upper Extremity X-Ray(s): Shoulder, AP / TRUE AP / AXILLARY left PERIPHERAL IV DATA: Not applicable SIGNED BY: RT Freda(R) January 03, 2025 11:13 AM [facility] 01-03-2025 Note HNO ID: [id number] Author: RADHA ROSENBAUM APRN.RETAIL SERVICES PROFESSIONAL Service: ? Author Type: Nurse Practitioner Type: Progress Notes Filed: 01/03/2025 11:09 Note Text: CC: Patient presents with: Establish Care HPI Recording using [employer] software for draft documentation of the visit was discussed with the patient/authorized wholesale representative; all questions welcomed and answered. Patient/authorized wholesale representative agreed to proceed Maru Noel is a 74-year-old female with a history of COPD, CVA, and HTN, presenting for an initial visit to establish care, with additional complaints of dizziness and right shoulder pain. CVA: - Occurred in August, admitted to [facility] - Taking Plavix, atorvastatin and ASA 81 mg - Denies medication side effects - Denies unusual bleeding - Outpatient follow-ups with cardiology and neurology at [facility] Dizziness: - Onset following CVA in August. - Takes Meclizine daily before bed due to dizziness when lying down. COPD: - Managed with Trelegy inhaler, used PRN instead of daily. - Uses albuterol inhaler PRN. - Quit smoking in August. - No vaping or e-cigarette use. HTN: - Managed with Lisinopril, denies side effects. - Does not check BP at home Right Shoulder Pain: - Pain in the right shoulder/upper arm, ongoing for about a year. - Described as sharp pain, not constant; no associated numbness or tingling. - Pain sometimes locks the arm in place for a few minutes. - Aggravated by certain movements and lying on the arm during sleep. - No known trauma or injury preceding the pain. - Pain is not worsening - Denies use of OTC analgesics but does treat with BioFreeze which is temporarily effective Review of Systems Constitutional: Negative for chills, diaphoresis, fatigue, fever and unexpected weight change. Respiratory: Positive for cough and wheezing. Negative for shortness of breath. Cardiovascular: Negative for chest pain, palpitations and leg swelling. Neurological: Negative for syncope, weakness, numbness and headaches. PAST MEDICAL HISTORY Diagnosis Date Bronchitis Chronic obstructive pulmonary disease (COPD) ([facility]) Cubital tunnel syndrome on left 08/29/2012 Hypertension Radial head fracture 06/14/2012 Stroke ([facility]) PAST SURGICAL HISTORY Procedure Laterality Date >=3 ALLERGIES Patient has no known allergies. MEDICATIONS meclizine (ANTIVERT) 12.5 mg tab TAKE 1 TABLET BY MOUTH THREE TIMES A DAY IF NEEDED FOR DIZZINESS FOR 1 MONTH Aspirin 81 mg tab Take 81 mg by mouth. atorvastatin (LIPITOR) 40 mg tablet Take 1 tablet by mouth daily at bedtime. Per [facility] lisinopril (ZESTRIL) 20 mg tablet Take 1 tablet by mouth once daily. [facility] clopidogrel (PLAVIX) 75 mg tablet Take 1 tablet by mouth once daily. [facility] albuterol HFA (VENTOLIN HFA) 90 mcg/actuation inhaler Inhale 2 Puffs as instructed every 4 hours as needed. sopqzpvmrpu-meavmtyfv-clonkrwk (TRELEGY ELLIPTA) 200-62.5-25 mcg inhalation powder Inhale 1 Puff as instructed once daily. FAMILY HISTORY Problem Relation Age of Onset COPD Mother Emphysema Mother Carotid Disease Father COPD Sister COPD Sister Bronchitis Sister Aneurysm Sister SOCIAL HISTORY[1] BP 122/80 Pulse 62 Resp 12 Ht 149.5 cm (4' 10.86) Wt 69.8 kg (153 lb 14.1 oz) SpO2 94% BMI 31.23 kg/m? Physical Exam Vitals reviewed. Constitutional: Appearance: Normal appearance. Cardiovascular: Rate and Rhythm: Normal rate. Heart sounds: Normal heart sounds. No murmur heard. Pulmonary: Effort: Pulmonary effort is normal. Breath sounds: Normal breath sounds. No wheezing, rhonchi or rales. Musculoskeletal: Left shoulder: No swelling, deformity, tenderness, bony tenderness or crepitus. Decreased range of motion (secondary to pain). Normal strength. Normal pulse. Comments: Left shoulder-Positive Hartley and Neer. Negative drop arm. Skin: General: Skin is warm and dry. Neurological: Mental Status: She is alert. Health maintenance reviewed with patient: Colorectal Cancer Screening Never done Bone Density Screening Never done Mammogram Screening due on 12/02/2023 Medicare Advantage Annual Wellness Visit Never done RSV Vaccine(1 - Risk 60-74 years 1-dose series) due on 01/03/2026 Shingrix Vaccine(2 of 2) due on 01/03/2026 Influenza Vaccine(1) due on 01/15/2025 Annual PCP Team Chronic Disease Visit due on 01/03/2026 Depression Screening due on 01/03/2026 Anxiety Screening due on 01/03/2026 Diabetes Screening due on 09/08/2027 Lipid Screening due on 09/07/2029 DTaP,Tdap,Td Vaccine(2 - Td or Tdap) due on 11/03/2032 Advance Directive Discussion Completed Hepatitis C Screening Completed Pneumococcal Vaccine: 50+ Completed DATA REVIEWED: Outside chart from [facility] admission reviewed. Assessment/Plan 1. Chronic left shoulder pain (M25.512) - Chronic, intermittent left shoulder pain with limited rang (more content not included)... [facility] 01-03-2025 History of Presen t illness Narrative CC: Patient presents with: Establish Care HPI Recording using [employer] software for draft documentation of the visit was discussed with the patient/authorized wholesale representative; all questions welcomed and answered. Patient/authorized wholesale representative agreed to proceed Maru Noel is a 74-year-old female with a history of COPD, CVA, and HTN, presenting for an initial visit to establish care, with additional complaints of dizziness and right shoulder pain. CVA: - Occurred in August, admitted to [facility] - Taking Plavix, atorvastatin and ASA 81 mg - Denies medication side effects - Denies unusual bleeding - Outpatient follow-ups with cardiology and neurology at [facility] Dizziness: - Onset following CVA in August. - Takes Meclizine daily before bed due to dizziness when lying down. COPD: - Managed with Trelegy inhaler, used PRN instead of daily. - Uses albuterol inhaler PRN. - Quit smoking in August. - No vaping or e-cigarette use. HTN: - Managed with Lisinopril, denies side effects. - Does not check BP at home Right Shoulder Pain: - Pain in the right shoulder/upper arm, ongoing for about a year. - Described as sharp pain, not constant; no associated numbness or tingling. - Pain sometimes locks the arm in place for a few minutes. - Aggravated by certain movements and lying on the arm during sleep. - No known trauma or injury preceding the pain. - Pain is not worsening - Denies use of OTC analgesics but does treat with BioFreeze which is temporarily effective Review of Systems Constitutional: Negative for chills, diaphoresis, fatigue, fever and unexpected weight change. Respiratory: Positive for cough and wheezing. Negative for shortness of breath. Cardiovascular: Negative for chest pain, palpitations and leg swelling. Neurological: Negative for syncope, weakness, numbness and headaches. PAST MEDICAL HISTORY Diagnosis Date Bronchitis Chronic obstructive pulmonary disease (COPD) ([facility]) Cubital tunnel syndrome on left 08/29/2012 Hypertension Radial head fracture 06/14/2012 Stroke ([facility]) PAST SURGICAL HISTORY Procedure Laterality Date >=3 ALLERGIES Patient has no known allergies. MEDICATIONS meclizine (ANTIVERT) 12.5 mg tab TAKE 1 TABLET BY MOUTH THREE TIMES A DAY IF NEEDED FOR DIZZINESS FOR 1 MONTH Aspirin 81 mg tab Take 81 mg by mouth. atorvastatin (LIPITOR) 40 mg tablet Take 1 tablet by mouth daily at bedtime. Per [facility] lisinopril (ZESTRIL) 20 mg tablet Take 1 tablet by mouth once daily. [facility] clopidogrel (PLAVIX) 75 mg tablet Take 1 tablet by mouth once daily. [facility] albuterol HFA (VENTOLIN HFA) 90 mcg/actuation inhaler Inhale 2 Puffs as instructed every 4 hours as needed. jzvmbglfgzx-sgubxfbrw-bwvcjhtw (TRELEGY ELLIPTA) 200-62.5-25 mcg inhalation powder Inhale 1 Puff as instructed once daily. FAMILY HISTORY Problem Relation Age of Onset COPD Mother Emphysema Mother Carotid Disease Father COPD Sister COPD Sister Bronchitis Sister Aneurysm Sister SOCIAL HISTORY[1] BP 122/80 Pulse 62 Resp 12 Ht 149.5 cm (4' 10.86) Wt 69.8 kg (153 lb 14.1 oz) SpO2 94% BMI 31.23 kg/m Physical Exam Vitals reviewed. Constitutional: Appearance: Normal appearance. Cardiovascular: Rate and Rhythm: Normal rate. Heart sounds: Normal heart sounds. No murmur heard. Pulmonary: Effort: Pulmonary effort is normal. Breath sounds: Normal breath sounds. No wheezing, rhonchi or rales. Musculoskeletal: Left shoulder: No swelling, deformity, tenderness, bony tenderness or crepitus. Decreased range of motion (secondary to pain). Normal strength. Normal pulse. Comments: Left shoulder-Positive Hartley and Neer. Negative drop arm. Skin: General: Skin is warm and dry. Neurological: Mental Status: She is alert. Health maintenance reviewed with patient: Colorectal Cancer Screening Never done Bone Density Screening Never done Mammogram Screening due on 12/02/2023 Medicare Advantage Annual Wellness Visit Never done RSV Vaccine(1 - Risk 60-74 years 1-dose series) due on 01/03/2026 Shingrix Vaccine(2 of 2) due on 01/03/2026 Influenza Vaccine(1) due on 01/15/2025 Annual PCP Team Chronic Disease Visit due on 01/03/2026 Depression Screening due on 01/03/2026 Anxiety Screening due on 01/03/2026 Diabetes Screening due on 09/08/2027 Lipid Screening due on 09/07/2029 DTaP,Tdap,Td Vaccine(2 - Td or Tdap) due on 11/03/2032 Advance Directive Discussion Completed Hepatitis C Screening Completed Pneumococcal Vaccine: 50+ Completed DATA REVIEWED: Outside chart from [facility] admission reviewed. Assessment/Plan 1. Chronic left shoulder pain (M25.512) - Chronic, intermittent left shoulder pain with limited range of motion and occasional locking sensation; no history of trauma or injury. - Differential includes arthritis, adhesive capsulitis (frozen shoulder), and rotator cuff pathology. - Ordered left shoulder X-ray. - Discussed treatment options including physical therapy and corticosteroid injection; recommended starting with physical therapy. - Advised use of Tylenol, Biofreeze, ice, or heat for pain management as needed; instructed to avoid NSAIDs due to Plavix use. 2. Chronic obstructive pulmonary disease, unspecified COPD type (HCC) (J44.9) - Using Trelegy inhaler PRN rather than daily as prescribed. - Educated on the importance of daily use of Trelegy as a maintenance inhaler to control symptoms and reduce the need for albuterol inhaler. - Continue albuterol inhaler PRN. - Referred to pulmonology for management 3. Primary hypertension (I10) - Blood pressure today 122/80 mmHg. - Continue lisinopril as prescribed. 4. Cerebrovascular accident (CVA), unspecified mechanism (HCC) (I63.9) 5. Vertigo as late effect of cerebrovascular accident (CVA) (I69.398) - History of CVA in August; currently taking atorvastatin and Plavix. - Experiencing vertigo when lying down, managed with daily meclizine at bedtime. - Neurology follow-up scheduled for February 19 at [facility]. 6. 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 - Reinforced importance of continued abstinence from tobacco products. 7. Screening for depression (Z13.31) 8. Encounter for screening examination for other mental health and behavioral disorders (Z13.39) - Depression and anxiety screenings both negative (score 0). 9. Screening for colon cancer (Z12.11) - Ordered stool test for colon cancer screening; kit to be delivered to patient. 10. Encounter for screening mammogram for breast cancer (Z12.31) - Overdue for mammogram; order placed and patient instructed to schedule at her convenience. 11. Asymptomatic menopause (Z78.0) - overdue for bone density screening for osteoporosis Prescription instructions reviewed with patient as applicable. Potential red flag symptoms discussed with the patient. Reviewed appropriate action plan to take if red flag symptoms occur. Patient agreeable to treatment plan. Radha Rosenbaum APRN.RETAIL SERVICES PROFESSIONAL [1] Social History Tobacco Use Smoking status: Former Average packs/day: 2.0 packs/day for 47.0 years (94.0 ttl pk-yrs) Types: Cigarettes Start date: 09/04/1977 Smokeless tobacco: Never Vaping Use Vaping status: Never Used Substance Use Topics Alcohol use: Yes Comment: Socially Drug use: Yes Types: Marijuana Comment: Once in a while documented in this encounter [place] 01-03-2025 Instructions Radha Rosenbaum, NONA.RETAIL SERVICES PROFESSIONAL - 01/03/2025 10:21 AM EDT - Use your Trelegy inhaler one puff every day to help control your COPD symptoms. - Continue using your albuterol inhaler as needed for sudden breathing issues. - Schedule a mammogram and a bone density scan; call the front end java developer to pick appointment dates that work for you. - Complete and mail the stool test kit for colon cancer screening when it arrives. - Get an X-ray of your right shoulder to check for arthritis or other issues; you can schedule this through radiology. - For shoulder pain in the meantime, take Tylenol as needed, and use ice, heat, or topical relief (like Biofreeze) for discomfort. - Consider completing a healthcare living will to document your treatment wishes; no executive talent acquisition consultant is required. BONE MINERAL DENSITY PATIENT INSTRUCTIONS Bone mineral density testing measures the amount of calcium in certain parts of your bones. This information determines how strong your bones are. The test is used to detect osteoporosis, a disease in which the bone's mineral content and density are low, increasing a person's risk of fractures. The lumbar spine (lower back) and the hip are the skeletal sites usually examined. For the test, remember that: 1. You cannot take this test if you are . 2. Eat a normal diet on the day of the test. 3. Take your medications as you normally would. 4. DO NOT take calcium supplements (such as Tums) for 24 hours before the test. 5. On the day of the test, leave valuables (jewelry or credit cards) at home. 6. The test should be performed prior to oral, rectal or IV contrast studies, or at least 7 days after any of these studies. For the test, you may be asked to wear a hospital gown. You will lie on your back, on a padded table, in a comfortable position. Generally, you can resume your usual activities immediately. documented in this encounter [place] 10-17-2024 Progress note [facility] 09-09-2024 Discharge summary Note Date/Time September 09, 2024 11:08am [facility] Medical Records Department [address] [place] [address] Discharge Summary 09/09/24 1103 MR#: [id number] Acct: [id number] Name: MARU NOEL Rep #:[id number] : [id number] From: Jeremy Carolina PCP: Care Physician,No Primary Status :ADM RHETT Location: [place] [address] Providers Date of Admission: 09/07/24 Date of Discharge: 09/09/24 Primary Care Physician: No Primary Care Phys Consultations 09/07/24 23:15 Consult: Tele-Neurology Routine Consulting Provider: [facility] Reason for Consult: Acute Ischemic Stroke/TIA EMERGENT Consult: No MD Notified: Yes Date Notified: 09/07/24 Time Notified: 23:45 Method of Notification: Verbal Method of Consult:: Telemedicine Reason For Visit: LIGHTHEADEDNESS AND DIZZINESS INABILITY TO WALK Diagnosis Discharge Diagnosis (1) Lightheadedness: Status: Acute Code(s): R42 - Dizziness and giddiness (2) Dizziness: Status: Acute Code(s): R42 - Dizziness and giddiness (3) Inability to walk: Status: Acute Code(s): R26.2 - Difficulty in walking, not elsewhere classified (4) Nausea and vomiting: Status: Acute Code(s): R11.2 - Nausea with vomiting, unspecified Qualifiers: Vomiting type: unspecified Qualified Code(s): R11.2 - Nausea with vomiting, unspecified (5) Hypertensive urgency: Status: Acute Code(s): I16.0 - Hypertensive urgency (6) Continuous tobacco abuse: Status: Acute Code(s): Z72.0 - Tobacco use (7) COPD (chronic obstructive pulmonary disease): Status: Chronic Code(s): J44.9 - Chronic obstructive pulmonary disease, unspecified Qualifiers: COPD type: unspecified COPD Qualified Code(s): J44.9 - Chronic obstructive pulmonary disease, unspecified (8) Obesity (BMI 30.0-34.9): Status: Acute Code(s): E66.811 - Obesity, class 1 (9) RBC microcytosis: Status: Acute Code(s): R71.8 - Other abnormality of red blood cells Plan 74-year-old female was admitted with lightheadedness and dizziness, inability towalk, nausea vomiting and hypertensive urgency. No recent fever or chill, no cough or shortness of breath or URI symptoms. 1. Acute dizziness/vertigo probably due to recent/early subacute infarct of left mid periventricular region and left posterior insular deep white matter: Patient is being admitted in PCU. MRI shows 1.1 x 0.6 cm left mid periventricular region infarct and 0.5 x 0.4 cm left posterior insular deep white matter infarct. There is also old infarct 0.8 x 0.3 cm in posterior of head of caudate on right side. CTA head and neck shows mild 40% left Roto-Rest TTE reported possible aortic valve Lambl's excrescence versus atherosclerotic frond of the aortic root. This was discussed with the neurologist and telegraph lineman. Director Of Campus Recreation stated less likely Lambl's excrescence which is filiform strand and he recommended outpatient STEVENSON. LDL 128, TG 142, TSH 1.26. A1c 5.3% Plan: Plavix 300 mg x 1 and 75 mg to continue for 21 days. Aspirin 81 mg to continue. High intensity statin. Permissive hypertension to goal of SBP less than 220 mmHg for 24 hours then we can resume normotension. LDL goal less than 70. Follow-up neurology in 4 to 6 weeks 09/08: Dizziness has resolved. Discussed with nursing staff to walk around the nursing staff whether she gets dizzy when walking. Prescription given for baby aspirin, Plavix, meclizine as needed for dizziness, nicotine and atorvastatin. Follow-up with the neurologist as an discharge instruction. Follow-up with telegraph lineman Dr. Valero for outpatient STEVENSON 2. Hypertensive Urgency: Neurologist recommended gradual normotension. Most recent 146/60. 09/08: Blood pressure is controlled. 09/09: Prescription given for lisinopril. 3. Chronic tobacco abuse; with subsequent COPD - Tobacco Cessation recommended. No evidence of acute COPD exacerbation. Nicotine patch offered. 4. Obesity; BMI of 30 KG per square meter 5. DVT/GI prophylaxis - Enoxaparin 40 mg subcu daily. Pantoprazole 40 mg IV daily until patient can tolerate p.o. intake. Discharge medication reconciliation done. Discharge follow-up instructions completed. Discharge process discussed with the patient and all questions wereanswered to patient's satisfaction. Follow with PCP in 1 to 2 weeks Total time spent, exact 35 minutes on discharge meds reconciliation, examination, coordination of care with nurses and ancillary staff, review of imaging and blood test and discussion with the patient on follow-up instructions. Clinical Impression(s) from Imaging Studies Brain CT 09/07/24 20:24 IMPRESSION: 1. No acute intracranial abnormality. 2. Chronic ischemic changes as above. Chest X-Ray 09/07/24 20:39 IMPRESSION: 1. Minimal right basilar opacities which may relate to atelectasis or infiltrate. 2. Left humeral neck enchondroma. Head/Neck CTA 09/07/24 21:27 IMPRESSION: No large vessel occlusion. No right carotid stenosis. Mild (40%) left carotid stenosis. Brain MRI 09/07/24 22:53 IMPRESSION: There is moderate generalized atrophy. There is focal restricted diffusion in the left mid periventricular region measuring 1.1 by 0.6 cm image 16/26, and in the left posterior insular deep white matter measuring 0.5 cm and 0.4 cm, image 14/26, with corresponding increased T2 and FLAIR signal, and subtle low T1 signal changes, consistent with recent infarct, early subacute. There is a 0.8 x 0.3 cm old lacunar infarct posterior to the head of the caudateon the right. Mucosal thickening is visible in the right maxillary sinus and a portion of the right and left ethmoid air cells. Echocardiogram 09/07/24 22:53 Interpretation Summary Mild concentric left ventricular hypertrophy. The LV systolic function is normal. EF is 65 %. Stage 1 diastolic dysfunction. 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 Consider further evaluation with STEVENSON if clinically indicated. Laboratory Results 09/07/24 20:20: WBC 9.5, RBC 6.18 H, Hgb 12.9, Hct 40.4, MCV 65.4 L, MCH 20.9 L,MCHC 31.9 L, RDW Std Deviation 38.6, RDW Coeff of Luis 18.4 H, Plt Count 354, MPV10.0, Immature Gran % (Auto) 0.300, Neut % (Auto) 60.5, Lymph % (Auto) 32.7, [place] % (Auto) 5.4, Eos % (Auto) 0.5, Baso % (Auto) 0.6, Absolute Neuts (auto) 5.7, Absolute Lymphs (auto) 3.10, Nucleated RBC % 0.3, Sodium 141, Potassium 3.9, Chloride 107, Carbon Dioxide 18.8 L, Anion Gap 15, BUN 10, Creatinine 0.70,Estim Creat Clear Calc 53.61, Est GFR (MDRD) Non-Af 91, BUN/Creatinine Ratio 14.6, Glucose 116 H, Hemoglobin A1c 5.3, Calcium 9.9, Iron 73, TIBC 292, Iron Saturation 25.0, Unsaturated IBC 219 L, Ferritin 373, Total Bilirubin 0.45, AST 18, ALT 12, Alkaline Phosphatase 89, Total Protein 8.0, Albumin 4.4, Globulin 3.7, Albumin/Globulin Ratio 1.2, Vitamin B12 271, TSH 1.260, Ethyl Alcohol < 10.1 09/07/24 22:29: Urine Color Yellow, Urine Clarity Sl. Cloudy, Urine pH 7.0, Ur Specific Isom 1.005, Urine Protein 15 H, Urine Glucose (UA) Normal, Urine Ketones Negative, Urine Occult Blood 10 H, Urine Nitrite Negative, Urine Bilirubin Negative, Urine Urobilinogen Normal, Ur Leukocyte Esterase 500 H, Urine RBC 0 SEEN, Urine WBC 10-25 SEEN, Ur Squamous Epith Cells 0-5 SEEN, Urine Bacteria 1+, Urine Mucus 0 SEEN, Urine Opiates Screen NEGATIVE, U Buprenorphine Qual NEGATIVE, Ur Oxycodone Screen NEGATIVE, Urine Methadone Screen NEGATIVE, Urine Fentanyl Screen NEGATIVE, Ur Barbiturates Screen NEGATIVE, Ur Phencyclidine Scrn NEGATIVE, Ur Amphetamines Screen NEGATIVE, U Benzodiazepines Scrn NEGATIVE, Urine Cocaine Screen NEGATIVE, U Cannabinoids Screen PRESUMPTIVE POSITIVE 09/08/24 05:11: Triglycerides 142, Cholesterol 186, LDL Cholesterol, Calc 128, VLDL Cholesterol 28, HDL Cholesterol 30 L, Cholesterol/HDL Ratio 6.22 Medications at Discharge Home Medications albuterol sulfate inhalation Q6H PRN PRN shortness of breath or wheezing 09/07/24 fluticasone fur. 100 mcg-umeclid 62.5 mcg-vilant 25 mcg inhalat.powder (Trelegy Ellipta) 1 inh inhalation DAILY 09/07/24 aspirin 81 mg chewable tablet 81 mg PO BREAKFAST 30 days #30 tabs 09/09/24 atorvastatin 40 mg tablet 40 mg PO QHS 30 days #30 tabs 09/09/24 clopidogrel 75 mg tablet 75 mg PO DAILY 3 weeks #21 tabs 09/09/24 lisinopril 10 mg tablet 10 mg PO DAILY 1 month #30 tabs 09/09/24 meclizine 12.5 mg tablet 12.5 mg PO TID PRN PRN Dizziness 1 month #30 tabs 09/09/24 nicotine 21 mg/24 hr daily transdermal patch 1 patch transdermal DAILY 4 weeks #28 ea 09/09/24 Physical Exam Narrative Seen and examined Dizziness has resolved. No vertigo. No gait ataxia Physical exam General: Alert, Oriented x3, Cooperative HEENT: Atraumatic, PERRLA, EOMI, Normocephalic Oral: No Gingival or Mucosal Lesions/ Ulcerations Neck: Supple, No JVD, Negative Carotid Bruits Chest wall/Lungs: Air entry diminished in bilateral lung bases. No crepitation/rhonchi Cardiovascular: Regular rate, Regular Rhythm, Normal S1, Normal S2, No M/G/R Abdomen: Bowel Sounds Present, Soft, Non Tender, Non-Distended : No dysuria. No renal angle tenderness. No suprapubic tenderness. Extremities: No edema, Capillary Refill Less than 3 Seconds Skin: No rashes, No breakdown Musculoskeletal: No Tenderness to Palpation of Joints or Extremities Neurological: Cranial nerves II-XII grossly intact, DTR 2+/4. NIH stroke scale0. Psych/Mental Status: Flat affect Weight / BMI Weight Weight: 147 lb 0.773 oz Body Mass Index (BMI) 29.7 ABG / Lab / Microbiology Data 09/07/24 20:20 09/07/24 20:20 Radiography Diagnostic Testing: Radiology Impression Echocardiogram 09/07/24 22:53 Interpretation Summary Mild concentric left ventricular hypertrophy. The LV systolic function is normal. EF is 65 %. Stage 1 diastolic dysfunction. 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 Consider further evaluation with STEVENSON if clinically indicated. __ Ordering Physician: Valentín Sutton Performed By: Chelsey Delarosa RDCS D/C Instructions Discharge Diet: Low fat / Low cholesterol and 2000 mg Sodium Diet Weight Bearing Status: Weight bearing as tolerated Call your doctor if you observe: Fever of 101 or Higher, Coldness, Increased Pain, Numbness or Tingling, Change in Color, Inability to urinate, Inability to have a bowel movement, Shortness of breath, Dizziness, Fainting spells, Swellingin the ankles, Chest pain, Prolonged hiccupping, Increased palpitations (irregular heartbeat) and Calf discomfort DC O2, CPAP, BIPAP Needs Home O2 Discharge instructions: No When: IN 2 WEEKS Meaningful Use Info Meaningful Use Meaningful Use Diagnoses (Choose all that apply): Ischemic CVA CVA Therapy Assessed for PT,OT and/or ST?: Yes Ischemic Stroke Antithrombotic order at d/c?: Yes Dx of Atrial fib/flutter?: No Statin Dosing Therapy Reference: STATIN DOSE THERAPY REFERENCE: * Patients > 75 years receive moderate or high dose statin therapy. * Patients 75 years or YOUNGER should receive HIGH intensity statin dose unless contraindicated. You will be required to document reason for non-treatment if statin daily dose does not meet guidelines. HIGH DOSE STATIN THERAPY DAILY Atorvastatin > than or = to 40 mg Rosuvastatin > than or = to 20 mg Amlodipine + Atorvastatin > than or = to 2.5/40 mg Ezetimibe + Simvastatin 10/80 mg Simvastatin 80mg Statins at discharge?: Yes If patient is 75 or younger, pt will be discharged on HIGH intensity statin.: Yes Primary Dx Acute Ischemic CVA?: Yes Discharge Plan Admission Admit Date/Time: 09/07/24 22:45 Primary Reason for Your Visit: Subacute left periventricular infarct. Attending Provider: Jeremy Spivey Primary Care Provider: Care Physician,No Primary Consulting Providers: Aaron Wang; Keenan Szymanski; Concha Jenkins; Isatu Justice; Yue Dover; Desean De La Cruz; Parisa Patterson; Roby Boggs; Anatoly Mix; Reed Guerra; Modesta Ramos; Chava Chase; Olivia Hair; Vaibhav Martinez; Angela Castillo; Topher Munoz; Penny Chavarria; Fadi Rose; Anju Michel; Tristen Bello;Valentín Sutton Instructions Additional Instructions / Restrictions: Follow-up with telegraph lineman Dr. Valero for outpatient STEVENSON Advised to follow-up with neurologist within a month, options are Dr. Pimentel, Dr. Antonio Mac Discharge Orders/Prescriptions Prescriptions: New clopidogrel 75 mg Tablet 75 mg PO DAILY 21 Days Qty: 21 0RF meclizine 12.5 mg Tablet 12.5 mg PO TID PRN PRN (Reason: Dizziness) 30 Days Qty: 30 0RF nicotine 21 mg/24 hr patch 24 hour 1 patch transdermal DAILY 28 Days Qty: 28 0RF atorvastatin 40 mg Tablet 40 mg PO QHS 30 Days Qty: 30 3RF aspirin 81 mg Tablet,Chewable 81 mg PO BREAKFAST 30 Days Qty: 30 3RF lisinopril 10 mg tablet 10 mg PO DAILY 30 Days Qty: 30 2RF Continued Trelegy Ellipta 100-62.5-25 mcg blister with device 1 inh inhalation DAILY albuterol sulfate inhalation Q6H PRN PRN (Reason: shortness of breath or wheezing) Referrals / Follow Up: Alireza Valero MD [Med Staff - Active Staff] - Within 1 Month (For outpatient TEEfor 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) Jasper Pimentel MD [Non-Staff -Ordering Privileges] - Within 1 Month (For ischemic stroke) Care Physician,No Primary [Primary Care Provider] - Disposition Disposition (needs filled in before D/C Order can be placed): Home, Self Care Charges/Coding Visit Charges Inpatient E&M: 03808 Disch Hosp >30min 09/09/24 1108 <Electronically signed by Jeremy Spivey MD> Cosigner Signature (if applicable): CC: Dr. Jeremy Spivey MD; No Primary Care Physician~ Signed [facility] Work Phone: 1(139) 375-731104-26-2025 Discharge summary Author Jeremy Spivey [facility] Note Date/Time September 09, 2024 11: 01am [facility] Medical Records Department [address] [place] [address] Instructions for Home/Discharge Instructions 09/09/24 1054 MR#: [id number] Acct: [id number] Name: MARU NOEL Rep #:[id number] : 1950 74 From: Jeremy Carolina PCP: Care Physician,No Primary Status :ADM RHETT Discharge Instructions Diet Discharge Diet: Low fat / Low cholesterol and 2000 mg Sodium Diet DC O2, CPAP, BIPAP needs Home O2 Discharge instructions: No Dressing / Incision Discharge Activity: Return to Normal Activity Weight Bearing Status: Weight bearing as tolerated Dressing / Incision Call your doctor if you observe: Fever of 101 or Higher, Coldness, Increased Pain, Numbness or Tingling, Change in Color, Inability to urinate, Inability to have a bowel movement, Shortness of breath, Dizziness, Fainting spells, Swellingin the ankles, Chest pain, Prolonged hiccupping, Increased palpitations (irregular heartbeat) and Calf discomfort Follow Up Care When: IN 2 WEEKS Test Results: Test results from this visit will be discussed in further detail at your follow- up appointment, if applicable. Discharge Plan Admission Admit Date/Time: 09/07/24 22:45 Primary Reason for Your Visit: Subacute left periventricular infarct. Attending Provider: Jeremy Spivey Primary Care Provider: Care Physician,No Primary Consulting Providers: Aaron Wang; Keenan Szymanski; Concha Jenkins; Isatu Justice; Yue Dover; Desean De La Cruz; Parisa Patterson; Roby Boggs; Anatoly Mix; Reed Guerra; Modesta Ramos; Chava Chase; Olivia Hair; Vaibhav Martinez; Angela Castillo; Topher Munoz; Penny Chavarria; Fadi Rose; Anju Michel; Tristen Bello;Valentín Sutton Instructions Additional Instructions / Restrictions: Follow-up with telegraph lineman Dr. Valero for outpatient ST[facility]SON Discharge Orders/Prescriptions Prescriptions: New clopidogrel 75 mg Tablet 75 mg PO DAILY 21 Days Qty: 21 0RF meclizine 12.5 mg Tablet 12.5 mg PO TID PRN PRN (Reason: Dizziness) 30 Days Qty: 30 0RF nicotine 21 mg/24 hr patch 24 hour 1 patch transdermal DAILY 28 Days Qty: 28 0RF atorvastatin 40 mg Tablet 40 mg PO QHS 30 Days Qty: 30 3RF aspirin 81 mg Tablet,Chewable 81 mg PO BREAKFAST 30 Days Qty: 30 3RF Continued Trelegy Ellipta 100-62.5-25 mcg blister with device 1 inh inhalation DAILY albuterol sulfate inhalation Q6H PRN PRN (Reason: shortness of breath or wheezing) Referrals / Follow Up: Care Physician,No Primary [Primary Care Provider] - Alireza Valero MD [Med Staff - Active Staff] - Within 1 Month (For outpatient TEEfor 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) Jasper Pimentel MD [Non-Staff -Ordering Privileges] - Within 1 Month (For ischemic stroke) Disposition Disposition (needs filled in before D/C Order can be placed): Home, Self Care 09/09/24 1102<Electronically signed by Jeremy Spivey MD>Jeremy Spivey MD CC: Isatu Justice; Olivia Hair; Topher Munoz; Yue Dover MD; Concha Jenkins MD; Aaron Wang MD; Dr. Keenan Szymanski MD; Dr. Valentín Sutton DO; Dr. Desean De La Cruz MD; Dr. Parisa Patterson MD; Dr. Anatoly Mix MD; Dr. Roby Boggs MD;Dr. Reed Guerra MD; Dr. Chava Chase DO; Dr. Angela Castillo MD; Dr.Mohamed Juan MD; Dr. Penny Chavarria MD; Dr. Fadi Rose MD; Dr. Anju Michel MD; Modesta Ramos DO; No Primary Care Physician; Tristen Bello MD ~ Signed [facility] Work Phone: 1(100) 802-814104-26-2025 Discharge summary [facility] Medical Records Department [address] [place] [address] Discharge Summary 09/09/24 1103 MR#: [id number] Acct: [id number] Name: MARU NOEL Rep #:[id number] : 1950 74 From: Jeremy Carolina PCP: Care Physician,No Primary Status :ADM RHETT Location: [place] [address] Providers Date of Admission: 09/07/24 Date of Discharge: 09/09/24 Primary Care Physician: No Primary Care Phys Consultations 09/07/24 23:15 Consult: Tele-Neurology Routine Consulting Provider: [facility] Reason for Consult: Acute Ischemic Stroke/TIA EMERGENT Consult: No MD Notified: Yes Date Notified: 09/07/24 Time Notified: 23:45 Method of Notification: Verbal Method of Consult:: Telemedicine Reason For Visit: LIGHTHEADEDNESS AND DIZZINESS INABILITY TO WALK Diagnosis Discharge Diagnosis (1) Lightheadedness: Status: Acute Code(s): R42 - Dizziness and giddiness (2) Dizziness: Status: Acute Code(s): R42 - Dizziness and giddiness (3) Inability to walk: Status: Acute Code(s): R26.2 - Difficulty in walking, not elsewhere classified (4) Nausea and vomiting: Status: Acute Code(s): R11.2 - Nausea with vomiting, unspecified Qualifiers: Vomiting type: unspecified Qualified Code(s): R11.2 - Nausea with vomiting, unspecified (5) Hypertensive urgency: Status: Acute Code(s): I16.0 - Hypertensive urgency (6) Continuous tobacco abuse: Status: Acute Code(s): Z72.0 - Tobacco use (7) COPD (chronic obstructive pulmonary disease): Status: Chronic Code(s): J44.9 - Chronic obstructive pulmonary disease, unspecified Qualifiers: COPD type: unspecified COPD Qualified Code(s): J44.9 - Chronic obstructive pulmonary disease, unspecified (8) Obesity (BMI 30.0-34.9): Status: Acute Code(s): E66.811 - Obesity, class 1 (9) RBC microcytosis: Status: Acute Code(s): R71.8 - Other abnormality of red blood cells Plan 74-year-old female was admitted with lightheadedness and dizziness, inability towalk, nausea vomiting and hypertensive urgency. No recent fever or chill, no cough or shortness of breath or URI symptoms. 1. Acute dizziness/vertigo probably due to recent/early subacute infarct of left mid periventricular region and left posterior insular deep white matter: Patient is being admitted in PCU. MRI shows 1.1 x 0.6 cm left mid periventricular region infarct and 0.5 x 0.4 cm left posterior insular deep white matter infarct. There is also old infarct 0.8 x 0.3 cm in posterior of head of caudate on right side. CTA head and neck shows mild 40% left Roto-Rest TTE reported possible aortic valve Lambl's excrescence versus atherosclerotic frond of the aortic root. This was discussed with the neurologist and telegraph lineman. Director Of Campus Recreation stated less likely Lambl's excrescence which is filiform strand and he recommended outpatient STEVENSON. LDL 128, TG 142, TSH 1.26. A1c 5.3% Plan: Plavix 300 mg x 1 and 75 mg to continue for 21 days. Aspirin 81 mg to continue. High intensity statin. Permissive hypertension to goal of SBP less than 220 mmHg for 24 hours then we can resume normotension. LDL goal less than 70. Follow-up neurology in 4 to 6 weeks 09/08: Dizziness has resolved. Discussed with nursing staff to walk around the nursing staff whethershe gets dizzy when walking. Prescription given for baby aspirin, Plavix, meclizine as needed for dizziness, nicotine and atorvastatin. Follow-up with the neurologist as an discharge instruction. Follow-up with telegraph lineman Dr. Valero for outpatient STEVENSON 2. Hypertensive Urgency: Neurologist recommended gradual normotension. Most recent 146/60. 09/08: Blood pressure is controlled. 09/09: Prescription given for lisinopril. 3. Chronic tobacco abuse; with subsequent COPD - Tobacco Cessation recommended. No evidence of acute COPD exacerbation. Nicotine patch offered. 4. Obesity; BMI of 30 KG per square meter 5. DVT/GI prophylaxis - Enoxaparin 40 mg subcu daily. Pantoprazole 40 mg IV daily until patient cantolerate p.o. intake. Discharge medication reconciliation done. Discharge follow-up instructions completed. Discharge process discussed with the patient and all questions wereanswered to patient's satisfaction. Follow with PCP in 1 to 2 weeks Total time spent, exact 35 minutes on discharge meds reconciliation, examination, coordination of care with nurses and ancillary staff, review of imaging and blood test and discussion with the patient on follow-up instructions. Clinical Impression(s) from Imaging Studies Brain CT 09/07/24 20:24 IMPRESSION: 1. No acute intracranial abnormality. 2. Chronic ischemic changes as above. Chest X-Ray 09/07/24 20:39 IMPRESSION: 1. Minimal right basilar opacities which may relate to atelectasis or infiltrate. 2. Left humeral neck enchondroma. Head/Neck CTA 09/07/24 21:27 IMPRESSION: No large vessel occlusion. No right carotid stenosis. Mild (40%) left carotid stenosis. Brain MRI 09/07/24 22:53 IMPRESSION: There is moderate generalized atrophy. There is focal restricted diffusion in the left mid periventricular region measuring 1.1 by 0.6 cm image 16/26, and in the left posterior insular deep white matter measuring 0.5 cm and 0.4 cm, image 14/26, with corresponding increased T2 and FLAIR signal, and subtle low T1 signal changes, consistent with recent infarct, early subacute. There is a 0.8 x 0.3 cm old lacunar infarct posterior to the head of the caudateon the right. Mucosal thickening is visible in the right maxillary sinus and a portion of the right and left ethmoid air cells. Echocardiogram 09/07/24 22:53 Interpretation Summary Mild concentric left ventricular hypertrophy. The LV systolic function is normal. EF is 65 %. Stage 1 diastolic dysfunction. 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 Considerfurther evaluation with STEVENSON if clinically indicated. Laboratory Results 09/07/24 20:20: WBC 9.5, RBC 6.18 H, Hgb 12.9, Hct 40.4, MCV 65.4 L, MCH 20.9 L,MCHC 31.9 L, RDW Std Deviation 38.6, RDW Coeff of Luis 18.4 H, Plt Count 354, MPV10.0, Immature Gran % (Auto) 0.300, Neut % (Auto) 60.5, Lymph % (Auto) 32.7, [place] % (Auto) 5.4, Eos % (Auto) 0.5, Baso % (Auto) 0.6, Absolute Neuts (auto) 5.7, Absolute Lymphs (auto) 3.10, Nucleated RBC % 0.3, Sodium 141, Potassium 3.9, Chloride 107, Carbon Dioxide 18.8 L, Anion Gap 15, BUN 10, Creatinine 0.70,Estim Creat Clear Calc 53.61, Est GFR (MDRD) Non-Af 91, BUN/Creatinine Ratio 14.6, Glucose 116 H, Hemoglobin A1c 5.3, Calcium 9.9, Iron 73, TIBC 292, Iron Saturation 25.0, Unsaturated IBC 219 L, Ferritin 373, Total Bilirubin 0.45, AST 18, ALT 12, Alkaline Phosphatase 89, Total Protein 8.0, Albumin 4.4, Globulin 3.7, Albumin/Globulin Ratio 1.2, Vitamin B12 271, TSH 1.260, Ethyl Alcohol < 10.1 09/07/24 22:29: Urine Color Yellow, Urine Clarity Sl. Cloudy, Urine pH 7.0, Ur Specific Isom 1.005, Urine Protein 15 H, Urine Glucose (UA) Normal, Urine Ketones Negative, Urine Occult Blood 10 H, Urine Nitrite Negative, Urine Bilirubin Negative, Urine Urobilinogen Normal, Ur Leukocyte Esterase 500 H, Urine RBC 0 SEEN, Urine WBC 10-25 SEEN, Ur Squamous Epith Cells 0-5 SEEN, Urine Bacteria 1+, Urine Mucus 0 SEEN, Urine Opiates Screen NEGATIVE, U Buprenorphine Qual NEGATIVE, Ur Oxycodone ScreenNEGATIVE, Urine Methadone Screen NEGATIVE, Urine Fentanyl Screen NEGATIVE, Ur Barbiturates Screen NEGATIVE, Ur Phencyclidine Scrn NEGATIVE, Ur Amphetamines Screen NEGATIVE, U Benzodiazepines Scrn NEGATIVE, Urine Cocaine Screen NEGATIVE, U Cannabinoids Screen PRESUMPTIVE POSITIVE 09/08/24 05:11: Triglycerides 142, Cholesterol 186, LDL Cholesterol, Calc 128, VLDL Cholesterol 28,HDL Cholesterol 30 L, Cholesterol/HDL Ratio 6.22 Medications at Discharge Home Medications albuterol sulfate inhalation Q6H PRN PRN shortness of breath or wheezing 09/07/24 fluticasone fur. 100 mcg-umeclid 62.5 mcg-vilant 25 mcg inhalat.powder (Trelegy Ellipta) 1 inh inhalation DAILY 09/07/24 aspirin 81 mg chewable tablet 81 mg PO BREAKFAST 30 days #30 tabs 09/09/24 atorvastatin 40 mg tablet 40 mg PO QHS 30 days #30 tabs 09/09/24 clopidogrel 75 mg tablet 75 mg PO DAILY 3 weeks #21 tabs 09/09/24 lisinopril 10 mg tablet 10 mg PO DAILY 1 month #30 tabs 09/09/24 meclizine 12.5 mg tablet 12.5 mg PO TID PRN PRN Dizziness 1 month #30 tabs 09/09/24 nicotine 21 mg/24 hr daily transdermal patch 1 patch transdermal DAILY 4 weeks #28 ea 09/09/24 Physical Exam Narrative Seen and examined Dizziness has resolved. No vertigo. No gait ataxia Physical exam General: Alert, Oriented x3, Cooperative HEENT: Atraumatic, PERRLA, EOMI, Normocephalic Oral: No Gingival or Mucosal Lesions/ Ulcerations Neck: Supple, No JVD, Negative Carotid Bruits Chest wall/Lungs: Air entry diminished in bilateral lung bases. No crepitation/rhonchi Cardiovascular: Regular rate, Regular Rhythm, Normal S1, Normal S2, No M/G/R Abdomen: Bowel Sounds Present, Soft, Non Tender, Non-Distended : No dysuria. No renal angle tenderness. No suprapubic tenderness. Extremities: No edema, Capillary Refill Less than 3 Seconds Skin: No rashes, No breakdown Musculoskeletal: No Tenderness to Palpation of Joints or Extremities Neurological: Cranial nerves II-XII grossly intact, DTR 2+/4. NIH stroke scale0. Psych/Mental Status: Flat affect Weight / BMI Weight Weight: 147 lb 0.773 oz Body Mass Index (BMI) 29.7 ABG / Lab / Microbiology Data 09/07/24 20:20 09/07/24 20:20 Radiography Diagnostic Testing: Radiology Impression Echocardiogram 09/07/24 22:53 Interpretation Summary Mild concentric left ventricular hypertrophy. The LV systolic function is normal. EF is 65 %. Stage 1 diastolic dysfunction. 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 Considerfurther evaluation with STEVENSON if clinically indicated. Ordering Physician: Valentín Sutton Performed By: Chelsey Delarosa RDCS D/C Instructions Discharge Diet: Low fat / Low cholesterol and 2000 mg Sodium Diet Weight Bearing Status: Weight bearing as tolerated Call your doctor if you observe: Fever of 101 or Higher, Coldness, Increased Pain, Numbness or Tingling, Change in Color, Inability to urinate, Inability to have a bowel movement, Shortness of breath, Dizziness, Fainting spells, Swellingin the ankles, Chest pain, Prolonged hiccupping, Increased palpitations (irregular heartbeat) and Calf discomfort DC O2, CPAP, BIPAP Needs Home O2 Discharge instructions: No When: IN 2 WEEKS Meaningful Use Info Meaningful Use Meaningful Use Diagnoses (Choose all that apply): Ischemic CVA CVA Therapy Assessed for PT,OT and/or ST?: Yes Ischemic Stroke Antithrombotic order at d/c?: Yes Dx of Atrial fib/flutter?: No Statin Dosing Therapy Reference: STATIN DOSE THERAPY REFERENCE: * Patients > 75 years receive moderate or high dose statin therapy. * Patients 75 years or YOUNGER should receive HIGH intensity statin dose unless contraindicated. You will be required to document reason for non-treatment if statin daily dose does not meet guidelines. HIGH DOSE STATIN THERAPY DAILY Atorvastatin > than or = to 40 mg Rosuvastatin > than or = to 20 mg Amlodipine + Atorvastatin > than or = to 2.5/40 mg Ezetimibe + Simvastatin 10/80 mg Simvastatin 80mg Statins at discharge?: Yes If patient is 75 or younger, pt will be discharged on HIGH intensity statin.: Yes Primary Dx Acute Ischemic CVA?: Yes Discharge Plan Admission Admit Date/Time: 09/07/24 22:45 Primary Reason for Your Visit: Subacute left periventricular infarct. Attending Provider: Jeremy Spivey Primary Care Provider: Care Physician,No Primary Consulting Providers: Aaron Wang; Keenan Szymanski; Concha Jenkins; Isatu Justice; Yue Dover; Desean De La Cruz; Parisa Patterson; Roby Boggs; Anatoly Mix; Reed Guerra; Modesta Ramos; Chava Chase; Olivia Hair; Vaibhav Martinez; Angela Castillo; Topher Munoz; Penny Chavarria; Fadi Rose; Anju Michel; Tristen Bello;Valentín Sutton Instructions Additional Instructions / Restrictions: Follow-up with telegraph lineman Dr. Valero for outpatient STEVENSON Advised to follow-up with neurologist within a month, options are Dr. Pimentel, Dr. Antonio Mac Discharge Orders/Prescriptions Prescriptions: New clopidogrel 75 mg Tablet 75 mg PO DAILY 21 Days Qty: 21 0RF meclizine 12.5 mg Tablet 12.5 mg PO TID PRN PRN (Reason: Dizziness) 30 Days Qty: 30 0RF nicotine 21 mg/24 hr patch 24 hour 1 patch transdermal DAILY 28 Days Qty: 28 0RF atorvastatin 40 mg Tablet 40 mg PO QHS 30 Days Qty: 30 3RF aspirin 81 mg Tablet,Chewable 81 mg PO BREAKFAST 30 Days Qty: 30 3RF lisinopril 10 mg tablet 10 mg PO DAILY 30 Days Qty: 30 2RF Continued Trelegy Ellipta 100-62.5-25 mcg blister with device 1 inh inhalation DAILY albuterol sulfate inhalation Q6H PRN PRN (Reason: shortness of breath or wheezing) Referrals / Follow Up: Alireza Valero MD [Med Staff - Active Staff] - Within 1 Month (For outpatient TEEfor 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) Jasper Pimentel MD [Non-Staff -Ordering Privileges] - Within 1 Month (For ischemic stroke) Care Physician,No Primary [Primary Care Provider] - Disposition Disposition (needs filled in before D/C Order can be placed): Home, Self Care Charges/Coding Visit Charges Inpatient E&M: 04065 Disch Hosp >30min 09/09/24 1108 Cosigner Signature (if applicable): CC: Dr. Jeremy Spivey MD; No Primary Care Physician~ Signed [facility]04-26-2025 [facility] Medical Records Department [address] [place] [id number] Discharge Summary 09/09/24 1103 MR#: [id number] Acct: [id number] Name: MARU NOEL Rep #: [id number] : 1950 74 From: Jeremy Spivey MD PCP: Care Physician,No Primary Status:ADM RHETT Location: [place] [address] Providers Date of Admission: 09/07/24 Date of Discharge: 09/09/24 Primary Care Physician: No Primary Care Phys Consultations 09/07/24 23:15 Consult: Tele-Neurology Routine Consulting Provider: [facility] Reason for Consult: Acute Ischemic Stroke/TIA EMERGENT Consult: No MD Notified: Yes Date Notified: 09/07/24 Time Notified: 23:45 Method of Notification: Verbal Method of Consult:: Telemedicine Reason For Visit: LIGHTHEADEDNESS AND DIZZINESS INABILITY TO WALK Diagnosis Discharge Diagnosis (1) Lightheadedness: Status: Acute Code(s): R42 - Dizziness and giddiness (2) Dizziness: Status: Acute Code(s): R42 - Dizziness and giddiness (3) Inability to walk: Status: Acute Code(s): R26.2 - Difficulty in walking, not elsewhere classified (4) Nausea and vomiting: Status: Acute Code(s): R11.2 - Nausea with vomiting, unspecified Qualifiers: Vomiting type: unspecified Qualified Code(s): R11.2 - Nausea with vomiting, unspecified (5) Hypertensive urgency: Status: Acute Code(s): I16.0 - Hypertensive urgency (6) Continuous tobacco abuse: Status: Acute Code(s): Z72.0 - Tobacco use (7) COPD (chronic obstructive pulmonary disease): Status: Chronic Code(s): J44.9 - Chronic obstructive pulmonary disease, unspecified Qualifiers: COPD type: unspecified COPD Qualified Code(s): J44.9 - Chronic obstructive pulmonary disease, unspecified (8) Obesity (BMI 30.0-34.9): Status: Acute Code(s): E66.811 - Obesity, class 1 (9) RBC microcytosis: Status: Acute Code(s): R71.8 - Other abnormality of red blood cells Plan 74-year-old female was admitted with lightheadedness and dizziness, inability to walk, nausea vomiting and hypertensive urgency. No recent fever or chill, no cough or shortness of breath or URI symptoms. 1. Acute dizziness/vertigo probably due to recent/early subacute infarct of left mid periventricular region and left posterior insular deep white matter: Patient is being admitted in PCU. MRI shows 1.1 x 0.6 cm left mid periventricular region infarct and 0.5 x 0.4 cm left posterior insular deep white matter infarct. There is also old infarct 0.8 x 0.3 cm in posterior of head of caudate on right side. CTA head and neck shows mild 40% left Roto-Rest TTE reported possible aortic valve Lambl's excrescence versus atherosclerotic frond of the aortic root. This was discussed with the neurologist and telegraph lineman. Director Of [employer] Re[employer] stated less likely Lambl's excrescence which is filiform strand and he recommended outpatient STEVENSON. LDL 128, TG 142, TSH 1.26. A1c 5.3% Plan: Plavix 300 mg x 1 and 75 mg to continue for 21 days. Aspirin 81 mg to continue. High intensity statin. Permissive hypertension to goal of SBP less than 220 mmHg for 24 hours then we can resume normotension. LDL goal less than 70. Follow-up neurology in 4 to 6 weeks 09/08: Dizziness has resolved. Discussed with nursing staff to walk around the nursing staff whether she gets dizzy when walking. Prescription given for baby aspirin, Plavix, meclizine as needed for dizziness, nicotine and atorvastatin. Follow-up with the neurologist as an discharge instruction. Follow-up with telegraph lineman Dr. Valero for outpatient STEVENSON 2. Hypertensive Urgency: Neurologist recommended gradual normotension. Most recent 146/60. 09/08: Blood pressure is controlled. 09/09: Prescription given for lisinopril. 3. Chronic tobacco abuse; with subsequent COPD - Tobacco Cessation recommended. No evidence of acute COPD exacerbation. Nicotine patch offered. 4. Obesity; BMI of 30 KG per square meter 5. DVT/GI prophylaxis - Enoxaparin 40 mg subcu daily. Pantoprazole 40 mg IV daily until patient can tolerate p.o. intake. Discharge medication reconciliation done. Discharge follow-up instructions completed. Discharge process discussed with the patient and all questions were answered to patient's satisfaction. Follow with PCP in 1 to 2 weeks Total time spent, exact 35 minutes on discharge meds reconciliation, examination, coordination of care with nurses and ancillary staff, review of imaging and blood test and discussion with the patient on follow-up instructions. Clinical Impression(s) from Imaging Studies Brain CT 09/07/24 20:24 IMPRESSION: 1. No acute intracranial abnormality. 2. Chronic ischemic changes as above. Chest X-Ray 09/07/24 20:39 IMPRESSION: 1. Minimal right basilar opacities which may relate to atelectasis or infiltrate. 2. Left humeral neck enchondroma. Head/Neck CTA 09/07/24 21:27 IMPRESSION: No large (more content not included)...[facility]04-26-2025 Discharge summary [facility] Medical Records Department [address] [place] [address] Instructions for Home/Discharge Instructions 09/09/24 1054 MR#: [id number] Acct: [id number] Name: MARU NOEL Rep #:[id number] : 1950 74 From: Jeremy Carolina PCP: Elizabeth Physician,No Primary Status :ADM RHETT Discharge Instructions Diet Discharge Diet: Low fat / Low cholesterol and 2000 mg Sodium Diet DC O2, CPAP, BIPAP needs Home O2 Discharge instructions: No Dressing / Incision Discharge Activity: Return to Normal Activity Weight Bearing Status: Weight bearing as tolerated Dressing / Incision Call your doctor if you observe: Fever of 101 or Higher, Coldness, Increased Pain, Numbness or Tingling, Change in Color, Inability to urinate, Inability to have a bowel movement, Shortness of breath, Dizziness, Fainting spells, Swellingin the ankles, Chest pain, Prolonged hiccupping, Increased palpitations (irregular heartbeat) and Calf discomfort Follow Up Care When: IN 2 WEEKS Test Results: Test results from this visit will be discussed in further detail at your follow- up appointment, if applicable. Discharge Plan Admission Admit Date/Time: 09/07/24 22:45 Primary Reason for Your Visit: Subacute left periventricular infarct. Attending Provider: Jeremy Spivey Primary Care Provider: Elizabeth Physician,No Primary Consulting Providers: Aaron Wang; Keenan Szymanski; Concha Jenkins; Isatu Justice; Yue Dover; Desean De La Cruz; Parisa Patterson; Roby Boggs; Anatoly Mix; Reed Guerra; Modesta Ramos; Chava Chase; Olivia Hair; Vaibhav Martinez; Angela Castillo; Topher Munoz; Penny Chavarria; Fadi Rose; Anju Michel; Tristen Bello;Valentín Sutton Instructions Additional Instructions / Restrictions: Follow-up with telegraph lineman Dr. Valero for outpatient STEVENSON Discharge Orders/Prescriptions Prescriptions: New clopidogrel 75 mg Tablet 75 mg PO DAILY 21 Days Qty: 21 0RF meclizine 12.5 mg Tablet 12.5 mg PO TID PRN PRN (Reason: Dizziness) 30 Days Qty: 30 0RF nicotine 21 mg/24 hr patch 24 hour 1 patch transdermal DAILY 28 Days Qty: 28 0RF atorvastatin 40 mg Tablet 40 mg PO QHS 30 Days Qty: 30 3RF aspirin 81 mg Tablet,Chewable 81 mg PO BREAKFAST 30 Days Qty: 30 3RF Continued Trelegy Ellipta 100-62.5-25 mcg blister with device 1 inh inhalation DAILY albuterol sulfate inhalation Q6H PRN PRN (Reason: shortness of breath or wheezing) Referrals / Follow Up: Care Physician,No Primary [Primary Care Provider] - Alireza Valero MD [Med Staff - Active Staff] - Within 1 Month (For outpatient TEEfor 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) Jasper Pimentel MD [Non-Staff -Ordering Privileges] - Within 1 Month (For ischemic stroke) Disposition Disposition (needs filled in before D/C Order can be placed): Home, Self Care 09/09/24 1102Psusu Spivey MD CC: Isatu Justice; Olivia Hair; Topher Munoz; Yue Dover MD; Concha Jenkins MD; Aaron Wang MD; Dr. Keenan Szymanski MD; Dr. Valentín Sutton DO; Dr. Desean De La Cruz MD; Dr. Parisa Patterson MD; Dr. Anatoly Mix MD; Dr. Roby Boggs MD;Dr. Reed Guerra MD; Dr. Chava Chase DO; Dr. Angela Castillo MD; Dr.Mohamed Juan MD; Dr. Penny Chavarria MD; Dr. Fadi Rose MD; Dr. Anju Michel MD; Modesta Ramos DO; No Primary Care Physician; Tristen Bello MD ~ Signed [facility]04-25-2025 Progress note Author Jeremy Spivey [facility] Note Date/Time September 08, 2024 2:1 3pm [facility] Medical Records Department [address] [place] [address] Progress Note - Hospitalist 09/08/24 0854 MR#: [id number] Acct: [id number] Name: MARU NOEL Rep #:[id number] : 1950 74 From: Jeremy [place] PCP: Care Physician,No Primary Status :ADM RHETT Location: [place] [address] Reason for Visit Reason for Visit: Diagnoses Obesity, class 1 (09/07/24) Hypertensive urgency (09/07/24) Chronic obstructive pulmonary disease, unspecified (09/07/24) Nausea with vomiting, unspecified (09/07/24) Difficulty in walking, not elsewhere classified (09/07/24) Dizziness and giddiness (09/07/24) Other abnormality of red blood cells (09/07/24) Tobacco use (09/07/24) Objective Data Objective Data Vital Signs: Vital Signs Temp Pulse Resp BP Pulse Ox O2 Del Method 98.2 F 65 16 177/75 H 95 Room Air 09/08/24 05:25 09/08/24 06:50 09/08/24 06:50 09/08/24 05:25 09/08/24 06:50 09/08/24 07:50 Oxygen Delivery Method Room Air Weight: 147 lb 0.773 oz Body Mass Index (BMI) 29.7 Intake & Output: Intake and Output for Last 24 Hours 09/06/24 09/07/24 09/08/24 23:59 23:59 23:59 Intake Total 1110 / 1110 413.33 / 413.33 Balance 1110 / 1110 413.33 / 413.33 Lab / Micro Data 09/07/24 20:20 09/07/24 20:20 Labs: Laboratory Results - last 24 hr 09/07/24 20:20: WBC 9.5, RBC 6.18 H, Hgb 12.9, Hct 40.4, MCV 65.4 L, MCH 20.9 L,MCHC 31.9 L, RDW Std Deviation 38.6, RDW Coeff of Luis 18.4 H, Plt Count 354, MPV10.0, Immature Gran % (Auto) 0.300, Neut % (Auto) 60.5, Lymph % (Auto) 32.7, [place] % (Auto) 5.4, Eos % (Auto) 0.5, Baso % (Auto) 0.6, Absolute Neuts (auto) 5.7, Absolute Lymphs (auto) 3.10, Nucleated RBC % 0.3, Sodium 141, Potassium 3.9, Chloride 107, Carbon Dioxide 18.8 L, Anion Gap 15, BUN 10, Creatinine 0.70,Estim Creat Clear Calc 53.61, Est GFR (MDRD) Non-Af 91, BUN/Creatinine Ratio 14.6, Glucose 116 H, Hemoglobin A1c 5.3, Calcium 9.9, Iron 73, TIBC 292, Iron Saturation 25.0, Unsaturated IBC 219 L, Ferritin 373, Total Bilirubin 0.45, AST 18, ALT 12, Alkaline Phosphatase 89, Total Protein 8.0, Albumin 4.4, Globulin 3.7, Albumin/Globulin Ratio 1.2, Vitamin B12 271, TSH 1.260, Ethyl Alcohol < 10.1 09/07/24 22:29: Urine Color Yellow, Urine Clarity Sl. Cloudy, Urine pH 7.0, Ur Specific Isom 1.005, Urine Protein 15 H, Urine Glucose (UA) Normal, Urine Ketones Negative, Urine Occult Blood 10 H, Urine Nitrite Negative, Urine Bilirubin Negative, Urine Urobilinogen Normal, Ur Leukocyte Esterase 500 H, Urine RBC 0 SEEN, Urine WBC 10-25 SEEN, Ur Squamous Epith Cells 0-5 SEEN, Urine Bacteria 1+, Urine Mucus 0 SEEN, Urine Opiates Screen NEGATIVE, U Buprenorphine Qual NEGATIVE, Ur Oxycodone Screen NEGATIVE, Urine Methadone Screen NEGATIVE, Urine Fentanyl Screen NEGATIVE, Ur Barbiturates Screen NEGATIVE, Ur Phencyclidine Scrn NEGATIVE, Ur Amphetamines Screen NEGATIVE, U Benzodiazepines Scrn NEGATIVE, Urine Cocaine Screen NEGATIVE, U Cannabinoids Screen PRESUMPTIVE POSITIVE 09/08/24 05:11: Triglycerides 142, Cholesterol 186, LDL Cholesterol, Calc 128, VLDL Cholesterol 28, HDL Cholesterol 30 L, Cholesterol/HDL Ratio 6.22 Radiography Diagnostic Testing: Radiology Impression Brain CT 09/07/24 20:24 IMPRESSION: 1. No acute intracranial abnormality. 2. Chronic ischemic changes as above. [facility] Chest X-Ray 09/07/24 20:39 IMPRESSION: 1. Minimal right basilar opacities which may relate to atelectasis or infiltrate. 2. Left humeral neck enchondroma. Reading Location: [facility] Head/Neck CTA 09/07/24 21:27 IMPRESSION: No large vessel occlusion. No right carotid stenosis. Mild (40%) left carotid stenosis. Patent vertebral arteries bilaterally. 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 Reading Location: [facility] Physical Exam Narrative Seen and examined Patient is feeling dizzy and lightheaded. She was feeling vertigo in the morning. No gait ataxia Physical exam General: Alert, Oriented x3, Cooperative HEENT: Atraumatic, PERRLA, EOMI, Normocephalic Oral: No Gingival or Mucosal Lesions/ Ulcerations Neck: Supple, No JVD, Negative Carotid Bruits Chest wall/Lungs: Air entry diminished in bilateral lung bases. No crepitation/rhonchi Cardiovascular: Regular rate, Regular Rhythm, Normal S1, Normal S2, No M/G/R Abdomen: Bowel Sounds Present, Soft, Non Tender, Non-Distended : No dysuria. No renal angle tenderness. No suprapubic tenderness. Extremities: No edema, Capillary Refill Less than 3 Seconds Skin: No rashes, No breakdown Musculoskeletal: No Tenderness to Palpation of Joints or Extremities Neurological: Cranial nerves II-XII grossly intact, DTR 2+/4. NIH stroke scale0. Psych/Mental Status: Flat affect Assessment & Plan Assessment/Plan (1) Lightheadedness: (2) Dizziness: (3) Inability to walk: (4) Nausea and vomiting: QUALIFIERS: Vomiting type: unspecified Qualified Code(s): R11.2 -Nausea with vomiting, unspecified (5) Hypertensive urgency: (6) Continuous tobacco abuse: (7) COPD (chronic obstructive pulmonary disease): QUALIFIERS: COPD type: unspecified COPD Qualified Code(s): J44.9 - Chronic obstructive pulmonary disease, unspecified (8) Obesity (BMI 30.0-34.9): (9) RBC microcytosis: PLAN: Plan 74-year-old female was admitted with lightheadedness and dizziness, inability towalk, nausea vomiting and hypertensive urgency. No recent fever or chill, no cough or shortness of breath or URI symptoms. 1. Acute dizziness/vertigo probably due to recent/early subacute infarct of left mid periventricular region and left posterior insular deep white matter: Patient is being admitted in PCU. MRI shows 1.1 x 0.6 cm left mid periventricular region infarct and 0.5 x 0.4 cm left posterior insular deep white matter infarct. There is also old infarct 0.8 x 0.3 cm in posterior of head of caudate on right side. CTA head and neck shows mild 40% left Roto-Rest TTE reported possible aortic valve Lambl's excrescence versus atherosclerotic frond of the aortic root. This was discussed with the neurologist and telegraph lineman. Director Of [employer] stated less likely Lambl's excrescence which is filiform strand and he recommended outpatient STEVENSON. LDL 128, TG 142, TSH 1.26. A1c 5.3% Plan: Plavix 300 mg x 1 and 75 mg to continue for 21 days. Aspirin 81 mg to continue. High intensity statin. Permissive hypertension to goal of SBP less than 220 mmHg for 24 hours then we can resume normotension. LDL goal less than 70. Follow-up neurology in 4 to 6 weeks 2. Hypertensive Urgency: Neurologist recommended gradual normotension. Most recent 146/60. 3. Chronic tobacco abuse; with subsequent COPD - Tobacco Cessation recommended. No evidence of acute COPD exacerbation. Nicotine patch offered. 4. Obesity; BMI of 30 KG per square meter 5. LDVT/GI prophylaxis - Enoxaparin 40 mg subcu daily. Pantoprazole 40 mg IV daily until patient can tolerate p.o. intake. Clinical Impression(s) from Imaging Studies Brain CT 09/07/24 20:24 IMPRESSION: 1. No acute intracranial abnormality. 2. Chronic ischemic changes as above. Chest X-Ray 09/07/24 20:39 IMPRESSION: 1. Minimal right basilar opacities which may relate to atelectasis or infiltrate. 2. Left humeral neck enchondroma. Head/Neck CTA 09/07/24 21:27 IMPRESSION: No large vessel occlusion. No right carotid stenosis. Mild (40%) left carotid stenosis. Brain MRI 09/07/24 22:53 IMPRESSION: There is moderate generalized atrophy. There is focal restricted diffusion in the left mid periventricular region measuring 1.1 by 0.6 cm image 16/26, and in the left posterior insular deep white matter measuring 0.5 cm and 0.4 cm, image 14/26, with corresponding increased T2 and FLAIR signal, and subtle low T1 signal changes, consistent with recent infarct, early subacute. There is a 0.8 x 0.3 cm old lacunar infarct posterior to the head of the caudateon the right. Mucosal thickening is visible in the right maxillary sinus and a portion of the right and left ethmoid air cells. Echocardiogram 09/07/24 22:53 Interpretation Summary Mild concentric left ventricular hypertrophy. The LV systolic function is normal. EF is 65 %. Stage 1 diastolic dysfunction. 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 Consider further evaluation with STEVENSON if clinically indicated. Laboratory Results 09/07/24 20:20: WBC 9.5, RBC 6.18 H, Hgb 12.9, Hct 40.4, MCV 65.4 L, MCH 20.9 L,MCHC 31.9 L, RDW Std Deviation 38.6, RDW Coeff of Luis 18.4 H, Plt Count 354, MPV10.0, Immature Gran % (Auto) 0.300, Neut % (Auto) 60.5, Lymph % (Auto) 32.7, [place] % (Auto) 5.4, Eos % (Auto) 0.5, Baso % (Auto) 0.6, Absolute Neuts (auto) 5.7, Absolute Lymphs (auto) 3.10, Nucleated RBC % 0.3, Sodium 141, Potassium 3.9, Chloride 107, Carbon Dioxide 18.8 L, Anion Gap 15, BUN 10, Creatinine 0.70,Estim Creat Clear Calc 53.61, Est GFR (MDRD) Non-Af 91, BUN/Creatinine Ratio 14.6, Glucose 116 H, Hemoglobin A1c 5.3, Calcium 9.9, Iron 73, TIBC 292, Iron Saturation 25.0, Unsaturated IBC 219 L, Ferritin 373, Total Bilirubin 0.45, AST 18, ALT 12, Alkaline Phosphatase 89, Total Protein 8.0, Albumin 4.4, Globulin 3.7, Albumin/Globulin Ratio 1.2, Vitamin B12 271, TSH 1.260, Ethyl Alcohol < 10.1 09/07/24 22:29: Urine Color Yellow, Urine Clarity Sl. Cloudy, Urine pH 7.0, Ur Specific Isom 1.005, Urine Protein 15 H, Urine Glucose (UA) Normal, Urine Ketones Negative, Urine Occult Blood 10 H, Urine Nitrite Negative, Urine Bilirubin Negative, Urine Urobilinogen Normal, Ur Leukocyte Esterase 500 H, Urine RBC 0 SEEN, Urine WBC 10-25 SEEN, Ur Squamous Epith Cells 0-5 SEEN, Urine Bacteria 1+, Urine Mucus 0 SEEN, Urine Opiates Screen NEGATIVE, U Buprenorphine Qual NEGATIVE, Ur Oxycodone Screen NEGATIVE, Urine Methadone Screen NEGATIVE, Urine Fentanyl Screen NEGATIVE, Ur Barbiturates Screen NEGATIVE, Ur Phencyclidine Scrn NEGATIVE, Ur Amphetamines Screen NEGATIVE, U Benzodiazepines Scrn NEGATIVE, Urine Cocaine Screen NEGATIVE, U Cannabinoids Screen PRESUMPTIVE POSITIVE 09/08/24 05:11: Triglycerides 142, Cholesterol 186, LDL Cholesterol, Calc 128, VLDL Cholesterol 28, HDL Cholesterol 30 L, Cholesterol/HDL Ratio 6.22 Charges/Coding Addendum Addendum: Total time of the visit including total time spent in counseling or coordinationof care, (more than 50% of the total time, spent in obtaining medical information from nurses and other ancillary care providers ,explaining to the patient about labs, imaging, diagnosis and management of active complex medical conditions), discussion with telegraph lineman and neurology, review of labs and imaging and explanation to the patient is 35 minutes. Visit Charges Inpatient E&M: 72065 Subs Hosp L3 NIHSS NIHSS Nursing Documentation NIHSS Nursing Documentation: NIHSS: Ischemic Stroke/TIA Start: 09/07/24 23:15 Text: For PCU Patients: NIH and Neuro Check every 4 Status: Active hours, PRN and with change in RN caregiver. Freq: [id number] Protocol: Activity Type Activity Date Activity User E-sign Co-sign Detail Recorded Client Recorded Date Recorded By Document 09/08/24 05:25 MB [id number] 09/08/24 05:25 MB 04/25/25 05:25 NIH Stroke Scale [NIHSS] A score of 0 is normal or asymptomatic . Total possible score is 42. Inpatient: RN or Physician to activate a stroke alert for onset of new stroke symptoms or with NIHSS increase >/= 3 points. Following change in neurological status, NIHSS will be performed per physician order or more frequently PRN. -1a. Level of Consciousness 0 - Alert; keenly responsive -1b. LOC Questions 0 - Answers BOTH questions correctly -1c. LOC Commands 0 - Performs BOTH tasks correctly -2. Best Gaze 0 - Normal -3. Visual 0 - No visual loss -4. Facial Palsy 0 - Normal symmetrical movements -5a. Left Arm 0 - No drift; arm holds 90 ( or 45) degrees for full 10 seconds -5b. Right Arm 0 - No drift; arm holds 90 ( or 45) degrees for full 10 seconds -6a. Left Leg 0 - No drift; leg holds 30- degree position for full 5 seconds -6b. Right Leg 0 - No drift; leg holds 30- degree position for full 5 seconds -7. Limb Ataxia 0 - Absent -8. Sensory 0 - Normal; no sensory loss -9. Best Language 0 - No aphasia; normal -10. Dysarthria 0 - Normal -11. Extinction and Inattention 0 - No abnormality -Total 0 Query Text:A score of 0 is normal or asymptomatic. Total possible score is 42 . ED: Notify Physician for NIHSS increase by > / = 3 points. Inpatient: RN or Physician to activate a stroke alert for NIHSS increase of > / = 3 points. Coma Scale [Assess] -Eye Opening Spontaneous -Motor Obeys Commands -Verbal Oriented [Total] -Coma Scale Total 15 09/08/24 1413 <Electronically signed by Jeremy Spivey MD> Cosigner Signature (if applicable): CC: ~ Signed [facility] Work Phone: [phone] Consult note Author Parisa Patterson [facility] Note Date/Time September 08, 2024 1:0 1pm [facility] Medical Records Department [address] [place] [address] Consultation - Neurology 09/08/24 1229 MR#: [id number] Acct: [id number] Name: MARU NOEL Rep #:[id number] : 1950 74 From: Parisa Patterson MD PCP: Care Physician,No Primary Status :ADM RHETT Location: [place] [address] Assessment and Plan: Stroke Assessment/Plan MARU NOEL is a 74 F with PMH of Obesity, COPD, tobacco use, not on any AC/AP who presents for acute onset light headedness, dizziness, and nausea/vomiting, and slurred speech. Neurological examination shows NIHSS of 2 for mild R nasolabial splaying which improves with activation and mild dysarthria (patient reports she is not at her baseline speech and does feel it is more slurred than usual). Neuroimaging showsacute to subacute L periverntricular infarct. CTA with mild L ICA atherosclerosis. LDL 128. A1C 5.3. TTE with EF 65%, but concern for Lambl Excrescences vs atherosclerotic plaque on aortic root. Recommendations: ? Recommend the following tests for stroke evaluation: MRI brain, vessel imaging, LDL, A1C, TTE complete ? Recommend discussion with cardiology regarding TTE findings and need for STEVENSON. Lambl Excrescences has been known to be risk factor in embolic stroke and thus should be evaluated. We can optimize the patient medically, but confirmation andpotential discussion about monitory for surgical intervention should be discussed with cardiology ? Anti-platelet medication: Given she has a low NIHSS stroke and presents [id number] hours of symptoms, would recommend DAPT for 21 days followed by ASA monotherapy. Recommend continuation of Aspirin 81mg daily + load of Plavix 300 mg today, followed by ASA 81 mg + Plavix 75 mg daily x 21 days, followed by ASA monotherapy. ? Occupational/Physical therapy consult ? DVT prophylaxis with SCDs and heparin SQ. ? Permissive hypertension to goal SBP < 220 mm Hg x 24 hours, followed by gradual normotension. She is out of this 24 hour window and thus would recommendgradual normotension at this time. ? Stroke education ? Vascular risk factor modification: ? Hyperlipidemia: LDL Goal < 70 mg/dL - start high intensity statin equivalent to Atorvastatin 80 mg qhs ? Smoking Cessation: counseling provided Follow up in Neurology clinic in 4-6 weeks. HPI Consult Data Date of Consult: 09/08/24 HPI Narrative HPI Narrative: This is a 74 yo F with PMH of Obesity, COPD, tobacco use, not on any AC/AP who presents for acute onset light headedness, dizziness, and nausea/vomiting. The patient reports working on the yard Wednesday and feeling fine when she wentto bed at around 9:30-10:00 pm on Wednesday 09/06. She woke up on 09/07 at around 0300 to go the bathroom and noted instability, feeling like her depth perceptionwas off, light headedness, dizziness, nausea/vomiting, and slurring of her speech. CTH without acuity. 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 MRI with acute stroke in deep acute to subacute periverntricular infarct. LDL 128. A1C 5.3 The patient is a current every day smoker of one pack/per day. TTE with EF 65%, but concern for Lambl Excrescences vs atherosclerotic plaque on aortic root. Today she states she still feels symptomatic dizziness when she moves around toomuch, but at this time feels okay. She noted slurring of her speech since yesterday as well but no one told her it was. She feel she feels her speech is not at baseline. She has mild nasolabial splaying of R face which improves with activation. NIHSS 2 (mild dysarthria and mild R facial). She denies headache, vision changes, numbness, tingling, or weakness. She reports increased work of breathing since coming into the hospital. [facility] Medical History COPD (chronic obstructive pulmonary disease) Home Medications ?Medication ?Instructions ?Recorded ?Last Taken ?Type albuterol sulfate inhalation Q6H PRN PRN short ness 09/07/24 Unknown History of breath or wheezing fluticasone fur. 100 mcg-umeclid 1 inh inhalation HILARY Y 09/07/24 Unknown History 62.5 mcg-vilant 25 mcg inhalat.powder (Trelegy Ellipta) Allergy/AdvReac Type Severity Reaction Status Date / Time No Known Allergies Allergy Verified 09/07/24 20:15 Social History Smoking Status: Current every day smoker tobacco type: cigarettes Vital Signs Vital Signs Vital Signs: 09/07/24 20:16 09/07/24 20:27 09/07/24 21:15 Temperature 97.6 F L Temperature Source Oral Pulse Rate 72 84 Pulse Rate [Lying] 75 Pulse Strength Respiratory Rate 19 H 21 H Respiratory Effort Respiratory Depth Respiratory Pattern Blood Pressure 163/103 H 179/89 H Blood Pressure [Lying] 181/91 H Blood Pressure [Sitting (for 1 minute prior to obtaining)] 173/85 H Blood Pressure Mean 123 119 Blood Pressure Mean [Lying] 121 Blood Pressure Mean [Sitting (for 1 minute prior to obtaining)] 114 Blood Pressure Source Blood Pressure Position Blood Pressure Location Pulse Ox 97 98 Oxygen Delivery Method Room Air Room Air 09/07/24 22:00 09/07/24 22:36 09/07/24 23:15 Temperature 97.8 F 97.5 F L Temperature Source Temporal Pulse Rate 75 80 80 Pulse Rate [Lying] Pulse Strength Respiratory Rate 17 17 18 Respiratory Effort Respiratory Depth Respiratory Pattern Blood Pressure 179/84 H 179/84 H 150/134 H Blood Pressure [Lying] Blood Pressure [Sitting (for 1 minute prior to obtaining)] Blood Pressure Mean 115 115 139 Blood Pressure Mean [Lying] Blood Pressure Mean [Sitting (for 1 minute prior to obtaining)] Blood Pressure Source Monitor Blood Pressure Position Semi-Fowlers Blood Pressure Location Left Arm Pulse Ox 96 97 97 Oxygen Delivery Method Room Air Room Air 09/07/24 23:45 09/08/24 01:28 09/08/24 05:18 Temperature 97.5 F L Temperature Source Temporal Pulse Rate 85 Pulse Rate [Lying] Pulse Strength Respiratory Rate 18 Respiratory Effort Normal Non-Labored Normal Non-Labored Respiratory Depth Normal Normal Respiratory Pattern Normal Normal Blood Pressure 175/83 H Blood Pressure [Lying] Blood Pressure [Sitting (for 1 minute prior to obtaining)] Blood Pressure Mean 113 Blood Pressure Mean [Lying] Blood Pressure Mean [Sitting (for 1 minute prior to obtaining)] Blood Pressure Source Monitor Blood Pressure Position Semi-Fowlers Blood Pressure Location Left Arm Pulse Ox 97 Oxygen Delivery Method Room Air Room Air 09/08/24 05:25 09/08/24 06:50 09/08/24 06:50 Temperature 98.2 F Temperature Source Temporal Pulse Rate 68 65 Pulse Rate [Lying] Pulse Strength Respiratory Rate 18 16 Respiratory Effort Respiratory Depth Respiratory Pattern Normal Blood Pressure 177/75 H Blood Pressure [Lying] Blood Pressure [Sitting (for 1 minute prior to obtaining)] Blood Pressure Mean 109 Blood Pressure Mean [Lying] Blood Pressure Mean [Sitting (for 1 minute prior to obtaining)] Blood Pressure Source Monitor Blood Pressure Position Semi-Fowlers Blood Pressure Location Left Arm Pulse Ox 95 95 Oxygen Delivery Method Room Air Room Air 09/08/24 07:50 09/08/24 08:41 09/08/24 09:25 Temperature 97.8 F Temperature Source Oral Pulse Rate 67 Pulse Rate [Lying] Pulse Strength Normal (2+) Respiratory Rate 20 H Respiratory Effort Normal Non-Labored Respiratory Depth Normal Respiratory Pattern Normal Blood Pressure 166/62 H Blood Pressure [Lying] Blood Pressure [Sitting (for 1 minute prior to obtaining)] Blood Pressure Mean 96 Blood Pressure Mean [Lying] Blood Pressure Mean [Sitting (for 1 minute prior to obtaining)] Blood Pressure Source Monitor Blood Pressure Position Semi-Fowlers Blood Pressure Location Right Arm Pulse Ox 97 Oxygen Delivery Method Room Air Room Air Weight Weight: 66.7 kg Body Mass Index (BMI) 29.7 EEG Results Procedure Details EEG Procedure Details: MARU NOEL is a 74 year old F with a past medical history of , who presents for evaluation of Electroencephalogram on DATE at TIME Lab / Micro Data 09/07/24 20:20 09/07/24 20:20 Labs: Laboratory Results - last 24 hr 09/07/24 20:20: WBC 9.5, RBC 6.18 H, Hgb 12.9, Hct 40.4, MCV 65.4 L, MCH 20.9 L,MCHC 31.9 L, RDW Std Deviation 38.6, RDW Coeff of Luis 18.4 H, Plt Count 354, MPV10.0, Immature Gran % (Auto) 0.300, Neut % (Auto) 60.5, Lymph % (Auto) 32.7, [place] % (Auto) 5.4, Eos % (Auto) 0.5, Baso % (Auto) 0.6, Absolute Neuts (auto) 5.7, Absolute Lymphs (auto) 3.10, Nucleated RBC % 0.3, Sodium 141, Potassium 3.9, Chloride 107, Carbon Dioxide 18.8 L, Anion Gap 15, BUN 10, Creatinine 0.70,Estim Creat Clear Calc 53.61, Est GFR (MDRD) Non-Af 91, BUN/Creatinine Ratio 14.6, Glucose 116 H, Hemoglobin A1c 5.3, Calcium 9.9, Iron 73, TIBC 292, Iron Saturation 25.0, Unsaturated IBC 219 L, Ferritin 373, Total Bilirubin 0.45, AST 18, ALT 12, Alkaline Phosphatase 89, Total Protein 8.0, Albumin 4.4, Globulin 3.7, Albumin/Globulin Ratio 1.2, Vitamin B12 271, TSH 1.260, Ethyl Alcohol < 10.1 09/07/24 22:29: Urine Color Yellow, Urine Clarity Sl. Cloudy, Urine pH 7.0, Ur Specific Isom 1.005, Urine Protein 15 H, Urine Glucose (UA) Normal, Urine Ketones Negative, Urine Occult Blood 10 H, Urine Nitrite Negative, Urine Bilirubin Negative, Urine Urobilinogen Normal, Ur Leukocyte Esterase 500 H, Urine RBC 0 SEEN, Urine WBC 10-25 SEEN, Ur Squamous Epith Cells 0-5 SEEN, Urine Bacteria 1+, Urine Mucus 0 SEEN, Urine Opiates Screen NEGATIVE, U Buprenorphine Qual NEGATIVE, Ur Oxycodone Screen NEGATIVE, Urine Methadone Screen NEGATIVE, Urine Fentanyl Screen NEGATIVE, Ur Barbiturates Screen NEGATIVE, Ur Phencyclidine Scrn NEGATIVE, Ur Amphetamines Screen NEGATIVE, U Benzodiazepines Scrn NEGATIVE, Urine Cocaine Screen NEGATIVE, U Cannabinoids Screen PRESUMPTIVE POSITIVE 09/08/24 05:11: Triglycerides 142, Cholesterol 186, LDL Cholesterol, Calc 128, VLDL Cholesterol 28, HDL Cholesterol 30 L, Cholesterol/HDL Ratio 6.22 Imaging Radiology Impression Brain CT 09/07/24 20:24 IMPRESSION: 1. No acute intracranial abnormality. 2. Chronic ischemic changes as above. Reading Location: [facility] Chest X-Ray 09/07/24 20:39 IMPRESSION: 1. Minimal right basilar opacities which may relate to atelectasis or infiltrate. 2. Left humeral neck enchondroma. [facility] Head/Neck CTA 09/07/24 21:27 IMPRESSION: No large vessel occlusion. No right carotid stenosis. Mild (40%) left carotid stenosis. Patent vertebral arteries bilaterally. 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 Reading Location: [id number] Brain MRI 09/07/24 22:53 IMPRESSION: There is moderate generalized atrophy. There is focal restricted diffusion in the left mid periventricular region measuring 1.1 by 0.6 cm image 16/, and in the left posterior insular deep white matter measuring 0.5 cm and 0.4 cm, image 14/, with corresponding increased T2 and FLAIR signal, and subtle low T1 signal changes, consistent with recent infarct, early subacute. There is a 0.8 x 0.3 cm old lacunar infarct posterior to the head of the caudateon the right. Mucosal thickening is visible in the right maxillary sinus and a portion of the right and left ethmoid air cells. Reading Location: [facility] Echocardiogram 09/07/24 22:53 Interpretation Summary Mild concentric left ventricular hypertrophy. The LV systolic function is normal. EF is 65 %. Stage 1 diastolic dysfunction. 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 Consider further evaluation with STEVENSON if clinically indicated. Ordering Physician: Valentín Sutton Performed By: Chelsey Delarosa RDCS Active Medications Active Medications Active Medications: Current Medications Generic Name Dose Route Start Last Admin Trade Name Freq PRN Reason Stop Dose Admin Acetaminophen 650 mg 09/07/24 23:15 Acetaminophen 325 Mg Tablet PO Q6H PRN PRN Pain 1-10 Or Fever>99.6 Albuterol/Ipratropium 3 ml 09/08/24 00:00 09/08/24 06:50 Ipratropium/Albuterol Sulfate 3 Ml Ampul.Neb INHALATION 3 ml Q6HWA.RT RADHA Administration Aspirin 81 mg 09/08/24 08:00 09/08/24 09:49 Aspirin 81 Mg Tab.Chew PO 81 mg BREAKFAST RADHA Administration Atorvastatin Calcium 20 mg 09/07/24 22:54 09/07/24 23:38 Atorvastatin Calcium 20 Mg Tablet PO 20 mg QHS RADHA Administration Budesonide 0.5 mg 09/08/24 06:00 09/08/24 06:50 Budesonide Respules 0.5 Mg/2 Ml Ampul.Neb. INHALATION 0.5 mg Q12H.RT RADHA Administration Enoxaparin Sodium 40 mg 09/08/24 06:00 09/08/24 05:25 Enoxaparin 40 Mg/0.4 Ml Syringe SC 40 mg DAILY@0600 RADHA Administration Pantoprazole Sodium 40 mg/ 110 mls @ 330 mls/hr 09/07/24 22:54 09/07/24 23:54 Sodium Chloride IV Infused 2200 RADHA Infusion Sodium Chloride 1,000 mls @ 50 mls/hr 09/07/24 22:55 09/08/24 08:15 IV 09/08/24 18:54 50 mls/hr .Q20H RADHA Infusion Sodium Chloride 100 mls @ 15 mls/hr 09/07/24 23:49 IV .Q6H40M PRN Saline Flush Sodium Chloride 100 mls @ 15 mls/hr 09/07/24 23:49 IV .Q6H40M PRN Additional IVPB Infusion Meclizine HCl 12.5 mg 09/07/24 22:54 Meclizine 12.5 Mg Tablet PO TID PRN PRN DIZZINESS Nicotine 14 mg 09/07/24 22:54 09/08/24 09:49 Nicotine 14 Mg Patch TD Not Given DAILY RADHA Ondansetron HCl 4 mg 09/07/24 23:15 Ondansetron 4 Mg/2 Ml Vial IV Q6H PRN PRN NAUSEA/VOMITING Scopolamine HBr 1 patch 09/07/24 23:00 09/07/24 23:38 Scopolamine 1mg/72hr Patch TD 1 patch Q3D@2200 RADHA Administration Sodium Chloride 10 - 40 ml 09/07/24 23:49 0.9% Saline Lock 10 Ml Syringe IV UD PRN SALINE FLUSH NIHSS NIHSS Nursing Documentation NIHSS Nursing Documentation: NIHSS: Ischemic Stroke/TIA Start: 09/07/24 23:15 Text: For PCU Patients: NIH and Neuro Check every 4 Status: Active hours, PRN and with change in RN caregiver. Freq: [id number] Protocol: Activity Type Activity Date Activity User E-sign Co-sign Detail Recorded Client Recorded Date Recorded By Document 09/08/24 09:25 ARTHUR [id number] 09/08/24 09:48 ARTHUR 09/08/24 09:25 NIH Stroke Scale [NIHSS] A score of 0 is normal or asymptomatic . Total possible score is 42. Inpatient: RN or Physician to activate a stroke alert for onset of new stroke symptoms or with NIHSS increase >/= 3 points. Following change in neurological status, NIHSS will be performed per physician order or more frequently PRN. -1a. Level of Consciousness 0 - Alert; keenly responsive -1b. LOC Questions 0 - Answers BOTH questions correctly -1c. LOC Commands 0 - Performs BOTH tasks correctly -2. Best Gaze 0 - Normal -3. Visual 0 - No visual loss -4. Facial Palsy 0 - Normal symmetrical movements -5a. Left Arm 0 - No drift; arm holds 90 ( or 45) degrees for full 10 seconds -5b. Right Arm 0 - No drift; arm holds 90 ( or 45) degrees for full 10 seconds -6a. Left Leg 0 - No drift; leg holds 30- degree position for full 5 seconds -6b. Right Leg 0 - No drift; leg holds 30- degree position for full 5 seconds -7. Limb Ataxia 0 - Absent -8. Sensory 0 - Normal; no sensory loss -9. Best Language 0 - No aphasia; normal -10. Dysarthria 0 - Normal -11. Extinction and Inattention 0 - No abnormality -Total 0 Query Text:A score of 0 is normal or asymptomatic. Total possible score is 42 . ED: Notify Physician for NIHSS increase by > / = 3 points. Inpatient: RN or Physician to activate a stroke alert for NIHSS increase of > / = 3 points. Coma Scale [Assess] -Eye Opening Spontaneous -Motor Obeys Commands -Verbal Oriented [Total] -Coma Scale Total 15 NIHSS 1a. Level of Consciousness: 0 - Alert; keenly responsive 1b. LOC Questions: 0 - Answers BOTH questions correctly 1c. LOC Commands: 0 - Performs BOTH tasks correctly 2. Best Gaze: 0 - Normal 3. Visual: 0 - No visual loss 4. Facial Palsy: 1 - Minor paralysis (flattened nasolabial fold, asymmetry on smiling) 5a. Left Arm: 0 - No drift; arm holds 90 (or 45) degrees for full 10 seconds 5b. Right Arm: 0 - No drift; arm holds 90 (or 45) degrees for full 10 seconds 6a. Left Le - No drift; leg holds 30-degree position for full 5 seconds 6b. Right Le - No drift; leg holds 30-degree position for full 5 seconds 7. Limb Ataxia: 0 - Absent 8. Sensory: 0 - Normal; no sensory loss 9. Best Language: 0 - No aphasia; normal 10. Dysarthria: 1 = Bkxt-ey-ormecaed dysarthria; 11. Extinction and Inattention: 0 - No abnormality Total: 2 09/08/24 1301 <Electronically signed by Parisa Patterson MD> Cosigner Signature (if applicable): CC: No Primary Care Physician~ Signed [facility] Work Phone: [phone] Progress note [facility] Medical Records Department [address] [place] [address] Progress Note - Hospitalist 09/08/24 0854 MR#: [id number] Acct: [id number] Name: MARU NOEL Rep #:[id number] : 1950 74 From: Jeremy Carolina PCP: Care Physician,No Primary Status :ADM RHETT Location: [place] [address] Reason for Visit Reason for Visit: Diagnoses Obesity, class 1 (09/07/24) Hypertensive urgency (09/07/24) Chronic obstructive pulmonary disease, unspecified (09/07/24) Nausea with vomiting, unspecified (09/07/24) Difficulty in walking, not elsewhere classified (09/07/24) Dizziness and giddiness (09/07/24) Other abnormality of red blood cells (09/07/24) Tobacco use (09/07/24) Objective Data Objective Data Vital Signs: Vital Signs Temp Pulse Resp BP Pulse Ox O2 Del Method 98.2 F 65 16 177/75 H 95 Room Air 09/08/24 05:25 09/08/24 06:50 09/08/24 06:50 09/08/24 05:25 09/08/24 06:50 09/08/24 07:50 Oxygen Delivery Method Room Air Weight: 147 lb 0.773 oz Body Mass Index (BMI) 29.7 Intake & Output: Intake and Output for Last 24 Hours 09/06/24 09/07/24 09/08/24 23:59 23:59 23:59 Intake Total 1110 / 1110 413.33 / 413.33 Balance 1110 / 1110 413.33 / 413.33 Lab / Micro Data 09/07/24 20:20 09/07/24 20:20 Labs: Laboratory Results - last 24 hr 09/07/24 20:20: WBC 9.5, RBC 6.18 H, Hgb 12.9, Hct 40.4, MCV 65.4 L, MCH 20.9 L,MCHC 31.9 L, RDW Std Deviation 38.6, RDW Coeff of Luis 18.4 H, Plt Count 354, MPV10.0, Immature Gran % (Auto) 0.300, Neut % (Auto) 60.5, Lymph % (Auto) 32.7, [place] % (Auto) 5.4, Eos % (Auto) 0.5, Baso % (Auto) 0.6, Absolute Neuts (auto) 5.7, Absolute Lymphs (auto) 3.10, Nucleated RBC % 0.3, Sodium 141, Potassium 3.9, Chloride 107, Carbon Dioxide 18.8 L, Anion Gap 15, BUN 10, Creatinine 0.70,Estim Creat Clear Calc 53.61, Est GFR (MDRD) Non-Af 91, BUN/Creatinine Ratio 14.6, Glucose 116 H, Hemoglobin A1c 5.3, Calcium 9.9, Iron 73, TIBC 292, Iron Saturation 25.0, Unsaturated IBC 219 L, Ferritin 373, Total Bilirubin 0.45, AST 18, ALT 12, Alkaline Phosphatase 89, Total Protein 8.0, Albumin 4.4, Globulin 3.7, Albumin/Globulin Ratio 1.2, Vitamin B12 271, TSH 1.260, Ethyl Alcohol < 10.1 09/07/24 22:29: Urine Color Yellow, Urine Clarity Sl. Cloudy, Urine pH 7.0, Ur Specific Isom 1.005, Urine Protein 15 H, Urine Glucose (UA) Normal, Urine Ketones Negative, Urine Occult Blood 10 H, Urine Nitrite Negative, Urine Bilirubin Negative, Urine Urobilinogen Normal, Ur Leukocyte Esterase 500 H, Urine RBC 0 SEEN, Urine WBC 10-25 SEEN, Ur Squamous Epith Cells 0-5 SEEN, Urine Bacteria 1+, Urine Mucus 0 SEEN, Urine Opiates Screen NEGATIVE, U Buprenorphine Qual NEGATIVE, Ur Oxycodone ScreenNEGATIVE, Urine Methadone Screen NEGATIVE, Urine Fentanyl Screen NEGATIVE, Ur Barbiturates Screen NEGATIVE, Ur Phencyclidine Scrn NEGATIVE, Ur Amphetamines Screen NEGATIVE, U Benzodiazepines Scrn NEGATIVE, Urine Cocaine Screen NEGATIVE, U Cannabinoids Screen PRESUMPTIVE POSITIVE 09/08/24 05:11: Triglycerides 142, Cholesterol 186, LDL Cholesterol, Calc 128, VLDL Cholesterol 28,HDL Cholesterol 30 L, Cholesterol/HDL Ratio 6.22 Radiography Diagnostic Testing: Radiology Impression Brain CT 09/07/24 20:24 IMPRESSION: 1. No acute intracranial abnormality. 2. Chronic ischemic changes as above. Reading Location: [facility] Chest X-Ray 09/07/24 20:39 IMPRESSION: 1. Minimal right basilar opacities which may relate to atelectasis or infiltrate. 2. Left humeral neck enchondroma. Reading Location: [facility] Head/Neck CTA 09/07/24 21:27 IMPRESSION: No large vessel occlusion. No right carotid stenosis. Mild (40%) left carotid stenosis. Patent vertebral arteries bilaterally. 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 Reading Location: [facility] Physical Exam Narrative Seen and examined Patient is feeling dizzy and lightheaded. She was feeling vertigo in the morning. No gait ataxia Physical exam General: Alert, Oriented x3, Cooperative HEENT: Atraumatic, PERRLA, EOMI, Normocephalic Oral: No Gingival or Mucosal Lesions/ Ulcerations Neck: Supple, No JVD, Negative Carotid Bruits Chest wall/Lungs: Air entry diminished in bilateral lung bases. No crepitation/rhonchi Cardiovascular: Regular rate, Regular Rhythm, Normal S1, Normal S2, No M/G/R Abdomen: Bowel Sounds Present, Soft, Non Tender, Non-Distended : No dysuria. No renal angle tenderness. No suprapubic tenderness. Extremities: No edema, Capillary Refill Less than 3 Seconds Skin: No rashes, No breakdown Musculoskeletal: No Tenderness to Palpation of Joints or Extremities Neurological: Cranial nerves II-XII grossly intact, DTR 2+/4. NIH stroke scale0. Psych/Mental Status: Flat affect Assessment & Plan Assessment/Plan (1) Lightheadedness: (2) Dizziness: (3) Inability to walk: (4) Nausea and vomiting: QUALIFIERS: Vomiting type: unspecified Qualified Code(s): R11.2 -Nausea with vomiting, unspecified (5) Hypertensive urgency: (6) Continuous tobacco abuse: (7) COPD (chronic obstructive pulmonary disease): QUALIFIERS: COPD type: unspecified COPD Qualified Code(s): J44.9 - Chronic obstructive pulmonary disease, unspecified (8) Obesity (BMI 30.0-34.9): (9) RBC microcytosis: PLAN: Plan 74-year-old female was admitted with lightheadedness and dizziness, inability towalk, nausea vomiting and hypertensive urgency. No recent fever or chill, no cough or shortness of breath or URI symptoms. 1. Acute dizziness/vertigo probably due to recent/early subacute infarct of left mid periventricular region and left posterior insular deep white matter: Patient is being admitted in PCU. MRI shows 1.1 x 0.6 cm left mid periventricular region infarct and 0.5 x 0.4 cm left posterior insular deep whit e matter infarct. There is also old infarct 0.8 x 0.3 cm in posterior of head of caudate on right side. CTA head and neck shows mild 40% left Roto-Rest TTE reported possible aortic valve Lambl's excrescence versus atherosclerotic frond of the aortic root. This was discussed with the neurologist and telegraph lineman. Director Of Campus [employer] stated less likely Lambl's excrescence which is filiform strand and he recommended outpatient STEVENSON. LDL 128, TG 142, TSH 1.26. A1c 5.3% Plan: Plavix 300 mg x 1 and 75 mg to continue for 21 days. Aspirin 81 mg to continue. High intensity statin. Permissive hypertension to goal of SBP less than 220 mmHg for 24 hours then we can resume normotension. LDL goal less than 70. Follow-up neurology in 4 to 6 weeks 2. Hypertensive Urgency: Neurologist recommended gradual normotension. Most recent 146/60. 3. Chronic tobacco abuse; with subsequent COPD - Tobacco Cessation recommended. No evidence of acute COPD exacerbation. Nicotine patch offered. 4. Obesity; BMI of 30 KG per square meter 5. LDVT/GI prophylaxis - Enoxaparin 40 mg subcu daily. Pantoprazole 40 mg IV daily until patient can tolerate p.o. intake. Clinical Impression(s) from Imaging Studies Brain CT 09/07/24 20:24 IMPRESSION: 1. No acute intracranial abnormality. 2. Chronic ischemic changes as above. Chest X-Ray 09/07/24 20:39 IMPRESSION: 1. Minimal right basilar opacities which may relate to atelectasis or infiltrate. 2. Left humeral neck enchondroma. Head/Neck CTA 09/07/24 21:27 IMPRESSION: No large vessel occlusion. No right carotid stenosis. Mild (40%) left carotid stenosis. Brain MRI 09/07/24 22:53 IMPRESSION: There is moderate generalized atrophy. There is focal restricted diffusion in the left mid periventricular region measuring 1.1 by 0.6 cm image 16/26, and in the left posterior insular deep white matter measuring 0.5 cm and 0.4 cm, image 14/26, with corresponding increased T2 and FLAIR signal, and subtle low T1 signal changes, consistent with recent infarct, early subacute. There is a 0.8 x 0.3 cm old lacunar infarct posterior to the head of the caudateon the right. Mucosal thickening is visible in the right maxillary sinus and a portion of the right and left ethmoid air cells. Echocardiogram 09/07/24 22:53 Interpretation Summary Mild concentric left ventricular hypertrophy. The LV systolic function is normal. EF is 65 %. Stage 1 diastolic dysfunction. 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 Considerfurther evaluation with STEVENSON if clinically indicated. Laboratory Results 09/07/24 20:20: WBC 9.5, RBC 6.18 H, Hgb 12.9, Hct 40.4, MCV 65.4 L, MCH 20.9 L,MCHC 31.9 L, RDW Std Deviation 38.6, RDW Coeff of Luis 18.4 H, Plt Count 354, MPV10.0, Immature Gran % (Auto) 0.300, Neut % (Auto) 60.5, Lymph % (Auto) 32.7, [place] % (Auto) 5.4, Eos % (Auto) 0.5, Baso % (Auto) 0.6, Absolute Neuts (auto) 5.7, Absolute Lymphs (auto) 3.10, Nucleated RBC % 0.3, Sodium 141, Potassium 3.9, Chloride 107, Carbon Dioxide 18.8 L, Anion Gap 15, BUN 10, Creatinine 0.70,Estim Creat Clear Calc 53.61, Est GFR (MDRD) Non-Af 91, BUN/Creatinine Ratio 14.6, Glucose 116 H, Hemoglobin A1c 5.3, Calcium 9.9, Iron 73, TIBC 292, Iron Saturation 25.0, Unsaturated IBC 219 L, Ferritin 373, Total Bilirubin 0.45, AST 18, ALT 12, Alkaline Phosphatase 89, Total Protein 8.0, Albumin 4.4, Globulin 3.7, Albumin/Globulin Ratio 1.2, Vitamin B12 271, TSH 1.260, Ethyl Alcohol < 10.1 09/07/24 22:29: Urine Color Yellow, Urine Clarity Sl. Cloudy, Urine pH 7.0, Ur Specific Isom 1.005, Urine Protein 15 H, Urine Glucose (UA) Normal, Urine Ketones Negative, Urine Occult Blood 10 H, Urine Nitrite Negative, Urine Bilirubin Negative, Urine Urobilinogen Normal, Ur Leukocyte Esterase 500 H, Urine RBC 0 SEEN, Urine WBC 10-25 SEEN, Ur Squamous Epith Cells 0-5 SEEN, Urine Bacteria 1+, Urine Mucus 0 SEEN, Urine Opiates Screen NEGATIVE, U Buprenorphine Qual NEGATIVE, Ur Oxycodone ScreenNEGATIVE, Urine Methadone Screen NEGATIVE, Urine Fentanyl Screen NEGATIVE, Ur Barbiturates Screen NEGATIVE, Ur Phencyclidine Scrn NEGATIVE, Ur Amphetamines Screen NEGATIVE, U Benzodiazepines Scrn NEGATIVE, Urine Cocaine Screen NEGATIVE, U Cannabinoids Screen PRESUMPTIVE POSITIVE 09/08/24 05:11: Triglycerides 142, Cholesterol 186, LDL Cholesterol, Calc 128, VLDL Cholesterol 28,HDL Cholesterol 30 L, Cholesterol/HDL Ratio 6.22 Charges/Coding Addendum Addendum: Total time of the visit including total time spent in counseling or coordinationof care, (more than50% of the total time, spent in obtaining medical information from nurses and other ancillary care providers ,explaining to the patient about labs, imaging, diagnosis and management of active complexmedical conditions), discussion with telegraph lineman and neurology, review of labs and imaging and explanation to the patient is 35 minutes. Visit Charges Inpatient E&M: 68435 Subs Hosp L3 NIHSS NIHSS Nursing Documentation NIHSS Nursing Documentation: NIHSS: Ischemic Stroke/TIA Start: 09/07/24 23:15 Text: For PCU Patients: NIH and Neuro Check every 4 Status: Active hours, PRN and with change in RN caregiver. Freq: [id number] Protocol: Activity Type Activity Date Activity User E-sign Co-sign Detail Recorded Client Recorded Date Recorded By Document 09/08/24 05:25 MB [id number] 09/08/24 05:25 MB 09/08/24 05:25 NIH Stroke Scale [NIHSS] A score of 0 is normal or asymptomatic . Total possible score is 42. Inpatient: RN or Physician to activate a stroke alert for onset of new stroke symptoms or with NIHSS increase >/= 3 points. Following change in neurological status, NIHSS will be performed per physician order or more frequently PRN. -1a. Level of Consciousness 0 - Alert; keenly responsive -1b. LOC Questions 0 - Answers BOTH questions correctly -1c. LOC Commands 0 - Performs BOTH tasks correctly -2. Best Gaze 0 - Normal -3. Visual 0 - No visual loss -4. Facial Palsy 0 - Normal symmetrical movements -5a. Left Arm 0 - No drift; arm holds 90 ( or 45) degrees for full 10 seconds -5b. Right Arm 0 - No drift; arm holds 90 ( or 45) degrees for full 10 seconds -6a. Left Leg 0 - No drift; leg holds 30- degree position for full 5 seconds -6b. Right Leg 0 - No drift; leg holds 30- degree position for full 5 seconds -7. Limb Ataxia 0 - Absent -8. Sensory 0 - Normal; no sensory loss -9. Best Language 0 - No aphasia; normal -10. Dysarthria 0 - Normal -11. Extinction and Inattention 0 - No abnormality -Total 0 Query Text:A score of 0 is normal or asymptomatic. Total possible score is 42 . ED: Notify Physician for NIHSS increase by > / = 3 points. Inpatient: RN or Physician to activate a stroke alert for NIHSS increase of > / = 3 points. Coma Scale [Assess] -Eye Opening Spontaneous -Motor Obeys Commands -Verbal Oriented [Total] -Coma Scale Total 15 09/08/24 1413 Cosigner Signature (if applicable): CC: ~ Signed [facility]04-25-2025 Consult note [facility] Medical Records Department [address] [place] [address] Consultation - Neurology 09/08/24 1229 MR#: [id number] Acct: [id number] Name: MARU NOEL Rep #:[id number] : 1950 74 From: Parisa Patterson MD PCP: Care Physician,No Primary Status :ADM RHETT Location: [place] [address] Assessment and Plan: Stroke Assessment/Plan MARU NOEL is a 74 F with PMH of Obesity, COPD, tobacco use, not on any AC/AP who presents for acute onset light headedness, dizziness, and nausea/vomiting, and slurred speech. Neurological examination shows NIHSS of 2 for mild R nasolabial splaying which improves with activation and mild dysarthria (patient reports she is not at her baseline speech and does feel it is moreslurred than usual). Neuroimaging showsacute to subacute L periverntricular infarct. CTA with mild L ICA atherosclerosis. LDL 128. A1C 5.3. TTE with EF 65%, but concern for Lambl Excrescences vs atherosclerotic plaque on aortic root. Recommendations: ? Recommend the following tests for stroke evaluation: MRI brain, vessel imaging, LDL, A1C, TTE complete ? Recommend discussion with cardiology regarding TTE findings and need for STEVENSON. Lambl Excrescences has been known to be risk factor in embolic stroke and thus should be evaluated. We can optimize thepatient medically, but confirmation andpotential discussion about monitory for surgical intervention should be discussed with cardiology ? Anti-platelet medication: Given she has a low NIHSS stroke and presents bizchc10 hours of symptoms, would recommend DAPT for 21 days followed by ASA monotherapy. Recommend continuation of Aspirin 81mg daily + load of Plavix 300 mg today, followed by ASA 81 mg + Plavix 75 mg daily x 21 days, followed by ASA monotherapy. ? Occupational/Physical therapy consult ? DVT prophylaxis with SCDs and heparin SQ. ? Permissive hypertension to goal SBP < 220 mm Hg x 24 hours, followed by gradual normotension. She is out of this 24 hour window and thus would recommendgradual normotension at this time. ? Stroke education ? Vascular risk factor modification: ? Hyperlipidemia: LDL Goal < 70 mg/dL - start high intensity statin equivalent to Atorvastatin 80 mg qhs ? Smoking Cessation: counseling provided Follow up in Neurology clinic in 4-6 weeks. HPI Consult Data Date of Consult: 09/08/24 HPI Narrative HPI Narrative: This is a 74 yo F with PMH of Obesity, COPD, tobacco use, not on any AC/AP who presents for acute onset light headedness, dizziness, and nausea/vomiting. The patient reports working on the yard Wednesday and feeling fine when she wentto bed at around 9:30-10:00 pm on Wednesday 09/06. She woke up on 09/07 at around 0300 to go the bathroom and noted instability, feeling like her depth perceptionwas off, light headedness, dizziness, nausea/vomiting, and slurring of her speech. CTH without acuity. 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 MRI with acute stroke in deep acute to subacute periverntricular infarct. LDL 128. A1C 5.3 The patient is a current every day smoker of one pack/per day. TTE with EF 65%, but concern for Lambl Excrescences vs atherosclerotic plaque on aortic root. Today she states she still feels symptomatic dizziness when she moves around tooch, but at this time feels okay. She noted slurring of her speech since yesterday as well but no one told her it was.She feel she feels her speech is not at baseline. She has mild nasolabial splaying of R face which improves with activation. NIHSS 2 (mild dysarthria and mild R facial). She denies headache, vision changes, numbness, tingling, or weakness. She reports increased work ofbreathing since coming into the hospital. [facility] Medical History COPD (chronic obstructive pulmonary disease) Home Medications ?Medication ?Instructions ?Recorded ?Last Taken ?Type albuterol sulfate inhalation Q6H PRN PRN short ness 09/07/24 Unknown History of breath or wheezing fluticasone fur. 100 mcg-umeclid 1 inh inhalation HILARY Y 09/07/24 Unknown History 62.5 mcg-vilant 25 mcg inhalat.powder (Trelegy Ellipta) Allergy/AdvReac Type Severity Reaction Status Date / Time No Known Allergies Allergy Verified 09/07/24 20:15 Social History Smoking Status: Current every day smoker tobacco type: cigarettes Vital Signs Vital Signs Vital Signs: 09/07/24 20:16 09/07/24 20:27 09/07/24 21:15 Temperature 97.6 F L Temperature Source Oral Pulse Rate 72 84 Pulse Rate [Lying] 75 Pulse Strength Respiratory Rate 19 H 21 H Respiratory Effort Respiratory Depth Respiratory Pattern Blood Pressure 163/103 H 179/89 H Blood Pressure [Lying] 181/91 H Blood Pressure [Sitting (for 1 minute prior to obtaining)] 173/85 H Blood Pressure Mean 123 119 Blood Pressure Mean [Lying] 121 Blood Pressure Mean [Sitting (for 1 minute prior to obtaining)] 114 Blood Pressure Source Blood Pressure Position Blood Pressure Location Pulse Ox 97 98 Oxygen Delivery Method Room Air Room Air 09/07/24 22:00 09/07/24 22:36 09/07/24 23:15 Temperature 97.8 F 97.5 F L Temperature Source Temporal Pulse Rate 75 80 80 Pulse Rate [Lying] Pulse Strength Respiratory Rate 17 17 18 Respiratory Effort Respiratory Depth Respiratory Pattern Blood Pressure 179/84 H 179/84 H 150/134 H Blood Pressure [Lying] Blood Pressure [Sitting (for 1 minute prior to obtaining)] Blood Pressure Mean 115 115 139 Blood Pressure Mean [Lying] Blood Pressure Mean [Sitting (for 1 minute prior to obtaining)] Blood Pressure Source Monitor Blood Pressure Position Semi-Fowlers Blood Pressure Location Left Arm Pulse Ox 96 97 97 Oxygen Delivery Method Room Air Room Air 09/07/24 23:45 09/08/24 01:28 09/08/24 05:18 Temperature 97.5 F L Temperature Source Temporal Pulse Rate 85 Pulse Rate [Lying] Pulse Strength Respiratory Rate 18 Respiratory Effort Normal Non-Labored Normal Non-Labored Respiratory Depth Normal Normal Respiratory Pattern Normal Normal Blood Pressure 175/83 H Blood Pressure [Lying] Blood Pressure [Sitting (for 1 minute prior to obtaining)] Blood Pressure Mean 113 Blood Pressure Mean [Lying] Blood Pressure Mean [Sitting (for 1 minute prior to obtaining)] Blood Pressure Source Monitor Blood Pressure Position Semi-Fowlers Blood Pressure Location Left Arm Pulse Ox 97 Oxygen Delivery Method Room Air Room Air 09/08/24 05:25 09/08/24 06:50 09/08/24 06:50 Temperature 98.2 F Temperature Source Temporal Pulse Rate 68 65 Pulse Rate [Lying] Pulse Strength Respiratory Rate 18 16 Respiratory Effort Respiratory Depth Respiratory Pattern Normal Blood Pressure 177/75 H Blood Pressure [Lying] Blood Pressure [Sitting (for 1 minute prior to obtaining)] Blood Pressure Mean 109 Blood Pressure Mean [Lying] Blood Pressure Mean [Sitting (for 1 minute prior to obtaining)] Blood Pressure Source Monitor Blood Pressure Position Semi-Fowlers Blood Pressure Location Left Arm Pulse Ox 95 95 Oxygen Delivery Method Room Air Room Air 09/08/24 07:50 09/08/24 08:41 09/08/24 09:25 Temperature 97.8 F Temperature Source Oral Pulse Rate 67 Pulse Rate [Lying] Pulse Strength Normal (2+) Respiratory Rate 20 H Respiratory Effort Normal Non-Labored Respiratory Depth Normal Respiratory Pattern Normal Blood Pressure 166/62 H Blood Pressure [Lying] Blood Pressure [Sitting (for 1 minute prior to obtaining)] Blood Pressure Mean 96 Blood Pressure Mean [Lying] Blood Pressure Mean [Sitting (for 1 minute prior to obtaining)] Blood Pressure Source Monitor Blood Pressure Position Semi-Fowlers Blood Pressure Location Right Arm Pulse Ox 97 Oxygen Delivery Method Room Air Room Air Weight Weight: 66.7 kg Body Mass Index (BMI) 29.7 EEG Results Procedure Details EEG Procedure Details: MARU NOEL is a 74 year old F with a past medical history of , who presents for evaluation of Electroencephalogram on DATE at TIME Lab / Micro Data 09/07/24 20:20 09/07/24 20:20 Labs: Laboratory Results - last 24 hr 09/07/24 20:20: WBC 9.5, RBC 6.18 H, Hgb 12.9, Hct 40.4, MCV 65.4 L, MCH 20.9 L,MCHC 31.9 L, RDW Std Deviation 38.6, RDW Coeff of Luis 18.4 H, Plt Count 354, MPV10.0, Immature Gran % (Auto) 0.300, Neut % (Auto) 60.5, Lymph % (Auto) 32.7, [place] % (Auto) 5.4, Eos % (Auto) 0.5, Baso % (Auto) 0.6, Absolute Neuts (auto) 5.7, Absolute Lymphs (auto) 3.10, Nucleated RBC % 0.3, Sodium 141, Potassium 3.9, Chloride 107, Carbon Dioxide 18.8 L, Anion Gap 15, BUN 10, Creatinine 0.70,Estim Creat Clear Calc 53.61, Est GFR (MDRD) Non-Af 91, BUN/Creatinine Ratio 14.6, Glucose 116 H, Hemoglobin A1c 5.3, Calcium 9.9, Iron 73, TIBC 292, Iron Saturation 25.0, Unsaturated IBC 219 L, Ferritin 373, Total Bilirubin 0.45, AST 18, ALT 12, Alkaline Phosphatase 89, Total Protein 8.0, Albumin 4.4, Globulin 3.7, Albumin/Globulin Ratio 1.2, Vitamin B12 271, TSH 1.260, Ethyl Alcohol < 10.1 09/07/24 22:29: Urine Color Yellow, Urine Clarity Sl. Cloudy, Urine pH 7.0, Ur Specific Isom 1.005, Urine Protein 15 H, Urine Glucose (UA) Normal, Urine Ketones Negative, Urine Occult Blood 10 H, Urine Nitrite Negative, Urine Bilirubin Negative, Urine Urobilinogen Normal, Ur Leukocyte Esterase 500 H, Urine RBC 0 SEEN, Urine WBC 10-25 SEEN, Ur Squamous Epith Cells 0-5 SEEN, Urine Bacteria 1+, Urine Mucus 0 SEEN, Urine Opiates Screen NEGATIVE, U Buprenorphine Qual NEGATIVE, Ur Oxycodone ScreenNEGATIVE, Urine Methadone Screen NEGATIVE, Urine Fentanyl Screen NEGATIVE, Ur Barbiturates Screen NEGATIVE, Ur Phencyclidine Scrn NEGATIVE, Ur Amphetamines Screen NEGATIVE, U Benzodiazepines Scrn NEGATIVE, Urine Cocaine Screen NEGATIVE, U Cannabinoids Screen PRESUMPTIVE POSITIVE 09/08/24 05:11: Triglycerides 142, Cholesterol 186, LDL Cholesterol, Calc 128, VLDL Cholesterol 28,HDL Cholesterol 30 L, Cholesterol/HDL Ratio 6.22 Imaging Radiology Impression Brain CT 09/07/24 20:24 IMPRESSION: 1. No acute intracranial abnormality. 2. Chronic ischemic changes as above. Reading Location: [facility] Chest X-Ray 09/07/24 20:39 IMPRESSION: 1. Minimal right basilar opacities which may relate to atelectasis or infiltrate. 2. Left humeral neck enchondroma. Reading Location: [facility] Head/Neck CTA 09/07/24 21:27 IMPRESSION: No large vessel occlusion. No right carotid stenosis. Mild (40%) left carotid stenosis. Patent vertebral arteries bilaterally. 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 Reading Location: [id number] Brain MRI 09/07/24 22:53 IMPRESSION: There is moderate generalized atrophy. There is focal restricted diffusion in the left mid periventricular region measuring 1.1 by 0.6 cm image 16/26, and in the left posterior insular deep white matter measuring 0.5 cm and 0.4 cm, image 14/26, with corresponding increased T2 and FLAIR signal, and subtle low T1 signal changes, consistent with recent infarct, early subacute. There is a 0.8 x 0.3 cm old lacunar infarct posterior to the head of the caudateon the right. Mucosal thickening is visible in the right maxillary sinus and a portion of the right and left ethmoid air cells. Reading Location: [facility] Echocardiogram 09/07/24 22:53 Interpretation Summary Mild concentric left ventricular hypertrophy. The LV systolic function is normal. EF is 65 %. Stage 1 diastolic dysfunction. 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 Considerfurther evaluation with STEVENSON if clinically indicated. Ordering Physician: Valentín Sutton Performed By: Chelsey Delarosa RDCS Active Medications Active Medications Active Medications: Current Medications Generic Name Dose Route Start Last Admin Trade Name Freq PRN Reason Stop Dose Admin Acetaminophen 650 mg 09/07/24 23:15 Acetaminophen 325 Mg Tablet PO Q6H PRN PRN Pain 1-10 Or Fever>99.6 Albuterol/Ipratropium 3 ml 09/08/24 00:00 09/08/24 06:50 Ipratropium/Albuterol Sulfate 3 Ml Ampul.Neb INHALATION 3 ml Q6HWA.RT RADHA Administration Aspirin 81 mg 09/08/24 08:00 09/08/24 09:49 Aspirin 81 Mg Tab.Chew PO 81 mg BREAKFAST RADHA Administration Atorvastatin Calcium 20 mg 09/07/24 22:54 09/07/24 23:38 Atorvastatin Calcium 20 Mg Tablet PO 20 mg QHS RADHA Administration Budesonide 0.5 mg 09/08/24 06:00 09/08/24 06:50 Budesonide Respules 0.5 Mg/2 Ml Ampul.Neb. INHALATION 0.5 mg Q12H.RT RADHA Administration Enoxaparin Sodium 40 mg 09/08/24 06:00 09/08/24 05:25 Enoxaparin 40 Mg/0.4 Ml Syringe SC 40 mg DAILY@0600 RADHA Administration Pantoprazole Sodium 40 mg/ 110 mls @ 330 mls/hr 09/07/24 22:54 09/07/24 23:54 Sodium Chloride IV Infused 2200 RADHA Infusion Sodium Chloride 1,000 mls @ 50 mls/hr 09/07/24 22:55 09/08/24 08:15 IV 09/08/24 18:54 50 mls/hr .Q20H RADHA Infusion Sodium Chloride 100 mls @ 15 mls/hr 09/07/24 23:49 IV .Q6H40M PRN Saline Flush Sodium Chloride 100 mls @ 15 mls/hr 09/07/24 23:49 IV .Q6H40M PRN Additional IVPB Infusion Meclizine HCl 12.5 mg 09/07/24 22:54 Meclizine 12.5 Mg Tablet PO TID PRN PRN DIZZINESS Nicotine 14 mg 09/07/24 22:54 09/08/24 09:49 Nicotine 14 Mg Patch TD Not Given DAILY RADHA Ondansetron HCl 4 mg 09/07/24 23:15 Ondansetron 4 Mg/2 Ml Vial IV Q6H PRN PRN NAUSEA/VOMITING Scopolamine HBr 1 patch 09/07/24 23:00 09/07/24 23:38 Scopolamine 1mg/72hr Patch TD 1 patch Q3D@2200 RADHA Administration Sodium Chloride 10 - 40 ml 09/07/24 23:49 0.9% Saline Lock 10 Ml Syringe IV UD PRN SALINE FLUSH NIHSS NIHSS Nursing Documentation NIHSS Nursing Documentation: NIHSS: Ischemic Stroke/TIA Start: 09/07/24 23:15 Text: For PCU Patients: NIH and Neuro Check every 4 Status: Active hours, PRN and with change in RN caregiver. Freq: [id number] Protocol: Activity Type Activity Date Activity User E-sign Co-sign Detail Recorded Client Recorded Date Recorded By Document 09/08/24 09:25 ARTHUR [id number] 09/08/24 09:48 ARTHUR 09/08/24 09:25 NIH Stroke Scale [NIHSS] A score of 0 is normal or asymptomatic . Total possible score is 42. Inpatient: RN or Physician to activate a stroke alert for onset of new stroke symptoms or with NIHSS increase >/= 3 points. Following change in neurological status, NIHSS will be performed per physician order or more frequently PRN. -1a. Level of Consciousness 0 - Alert; keenly responsive -1b. LOC Questions 0 - Answers BOTH questions correctly -1c. LOC Commands 0 - Performs BOTH tasks correctly -2. Best Gaze 0 - Normal -3. Visual 0 - No visual loss -4. Facial Palsy 0 - Normal symmetrical movements -5a. Left Arm 0 - No drift; arm holds 90 ( or 45) degrees for full 10 seconds -5b. Right Arm 0 - No drift; arm holds 90 ( or 45) degrees for full 10 seconds -6a. Left Leg 0 - No drift; leg holds 30- degree position for full 5 seconds -6b. Right Leg 0 - No drift; leg holds 30- degree position for full 5 seconds -7. Limb Ataxia 0 - Absent -8. Sensory 0 - Normal; no sensory loss -9. Best Language 0 - No aphasia; normal -10. Dysarthria 0 - Normal -11. Extinction and Inattention 0 - No abnormality -Total 0 Query Text:A score of 0 is normal or asymptomatic. Total possible score is 42 . ED: Notify Physician for NIHSS increase by > / = 3 points. Inpatient: RN or Physician to activate a stroke alert for NIHSS increase of > / = 3 points. Coma Scale [Assess] -Eye Opening Spontaneous -Motor Obeys Commands -Verbal Oriented [Total] -Coma Scale Total 15 NIHSS 1a. Level of Consciousness: 0 - Alert; keenly responsive 1b. LOC Questions: 0 - Answers BOTH questions correctly 1c. LOC Commands: 0 - Performs BOTH tasks correctly 2. Best Gaze: 0 - Normal 3. Visual: 0 - No visual loss 4. Facial Palsy: 1 - Minor paralysis (flattened nasolabial fold, asymmetry on smiling) 5a. Left Arm: 0 - No drift; arm holds 90 (or 45) degrees for full 10 seconds 5b. Right Arm: 0 - No drift; arm holds 90 (or 45) degrees for full 10 seconds 6a. Left Le - No drift; leg holds 30-degree position for full 5 seconds 6b. Right Le - No drift; leg holds 30-degree position for full 5 seconds 7. Limb Ataxia: 0 - Absent 8. Sensory: 0 - Normal; no sensory loss 9. Best Language: 0 - No aphasia; normal 10. Dysarthria: 1 = Wyot-nz-jxtqteta dysarthria; 11. Extinction and Inattention: 0 - No abnormality Total: 2 09/08/24 1301 Cosigner Signature (if applicable): CC: No Primary Care Physician~ Signed [facility]04-25-2025 History and physical note Author Valentín Phelan [facility] Note Date/Time September 08, 2024 6:1 6am [facility] Medical Records Department [address] [place] [address] H&P Exam - Hospitalist 09/07/241 MR#: [id number] Acct: [id number] Name: MARU NOEL Rep #:[id number] : 1950 74 From: Valentín Eugene DO PCP: Care Physician,No Primary Status :ADM RHETT Location: [place] [address] HPI - General General Date of Admission: 09/07/24 Date of Service: 09/07/24 Chief Complaint: Lightheadedness, Dizziness and Nausea with Vomiting. HPI Narrative MARU NOEL, is a 74 F with a past medical history of obesity; BMI of 30 sensation and chronic tobacco abuse; with subsequent COPD on Trelegy Ellipta daily and as needed albuterol who presents to [facility] ER complaining of lightheadedness, dizziness and nausea with vomiting. Ms. Noel reports her symptoms began abruptly earlier today at ~3 AM. She states her dizziness was initially mild but then she spent all day working in the yard which seem to make her symptoms worse. Now she feels severely lightheaded which is made worse by standing. She also admits to feeling like she is off-balance and that everything seems far away. She denies any vertiginous type symptoms with room spinning at rest, known history of BPPV or similar previous episodes. She then developed nausea with 1 episode of bilious emesis. She denies other exacerbating or alleviating factors. She denies associated fever, chills, abdominal pain, diarrhea, constipation, dysuria, hematuria, chest pain, headache or rash. 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 Her CXR revealed minimal Right basilar opacities which may relate to atelectasis or infiltrate with incidentally noted Left humeral neck enchondroma. Clinically she was noted to have an elevated blood pressure of 181/91 mmHg noted shortly after admission consistent with suspected HypertensiveUrgency complicated by incidentally noted laboratory evidence of microcytosis with MCV of 65.4 fL present on admission but with a stable hemoglobin of 12.9 g/dL present on admission with no other significant findings. She was then admitted to the PCU under observation status for ongoing care for stay that is expected to be less than 2 midnights. [facility] Medical History COPD (chronic obstructive pulmonary disease) Home Medications ?Medication ?Instructions ?Recorded ?Last Taken ?Type albuterol sulfate inhalation Q6H PRN PRN short ness 09/07/24 Unknown History of breath or wheezing fluticasone fur. 100 mcg-umeclid 1 inh inhalation HILARY Y 09/07/24 Unknown History 62.5 mcg-vilant 25 mcg inhalat.powder (Trelegy Ellipta) Allergy/AdvReac Type Severity Reaction Status Date / Time No Known Allergies Allergy Verified 09/07/24 20:15 Social History Smoking Status: Current every day smoker tobacco type: cigarettes ROS ROS Narrative Review of Systems: Constitutional: Patient admits to lightheadedness and dizziness made worse with standing. She denies fever or chills. Eyes: Patient states things seem far away but she denies other changes in vision or discharge from eyes. ENT: Patient denies runny nose, sore throat or ear pain. Resp: Patient denies shortness of breath or cough. CV: Patient denies chest pain, palpitations, heart racing or lower extremity edema. GI: Patient admits to nausea and vomiting with bilious emesis but she denies abdominal pain, diarrhea or constipation. : Patient denies dysuria, hematuria or urinary frequency. MSK: Patient denies arthralgias or myalgias. Skin: Patient denies rash, abscess, wounds or jaundice. Psych: Patient denies symptoms of uncontrolled depression or anxiety. Neuro: Patient admits to dizziness and lightheadedness but she denies vertiginous symptoms, headache, paresthesias or focal neurologic deficits. Allergy: Patient denies lip swelling, tongue swelling or urticaria. Hematology: Patient denies easy bleeding or easy bruisability. Endocrinology: Patient denies polyuria, polydipsia, polyphagia or heat/cold intolerance. 14 point ROS otherwise negative except for positives noted above in HPI. Vital Signs Vital Signs Vital Signs: 09/07/24 20:16 09/07/24 20:27 09/07/24 21:15 Temperature 97.6 F L Temperature Source Oral Pulse Rate 72 84 Pulse Rate [Lying] 75 Respiratory Rate 19 H 21 H Blood Pressure 163/103 H 179/89 H Blood Pressure [Lying] 181/91 H Blood Pressure [Sitting (for 1 minute prior to obtaining)] 173/85 H Blood Pressure Mean 123 119 Blood Pressure Mean [Lying] 121 Blood Pressure Mean [Sitting (for 1 minute prior to obtaining)] 114 Pulse Ox 97 98 Oxygen Delivery Method Room Air Room Air 09/07/24 22:00 Temperature Temperature Source Pulse Rate 75 Pulse Rate [Lying] Respiratory Rate 17 Blood Pressure 179/84 H Blood Pressure [Lying] Blood Pressure [Sitting (for 1 minute prior to obtaining)] Blood Pressure Mean 115 Blood Pressure Mean [Lying] Blood Pressure Mean [Sitting (for 1 minute prior to obtaining)] Pulse Ox 96 Oxygen Delivery Method Room Air Weight Weight: 148 lb 5.938 oz Body Mass Index (BMI) 29.9 Physical Exam Const alert and oriented x3 Constitutional Narrative: Mild distress noted. General Appearance: cooperative HEENT normocephalic, head/scalp atraumatic, hearing grossly normal bilaterally and moist oral mucous membranes Eyes PERRL, EOMs intact bilaterally and conjunctivae normal Neck no lymphadenopathy, supple and no JVD Resp normal respiratory effort, no retractions, no use of accessory muscles and clearto auscultation bilaterally Cardio regular rate and regular rhythm GI normal to inspection, nondistended, normoactive bowel sounds, soft to palpation,non-tender and non-distended GI Narrative: Obese. Extremity normal to inspection, full ROM and no clubbing, cyanosis or edema Skin Skin Narrative: Patient has no evidence of rash, abscess, wounds or jaundice. Neuro oriented x3, CN's II-XII intact bilaterally, moves all extremities and no focal motor deficits Sensorium / Orientation: awake, alert, oriented to person, oriented to place andoriented to time Coordination / Balance: ouiyjx-xm-idxn test normal and rjjl-ot-skmk test normal Speech: speech normal Motor Exam: strength 5/5 throughout Psych affect normal Results Medical Records Data Attestation: I reviewed the patient's medical records Lab / Micro Data Attestation: I reviewed the patient's lab results. 09/07/24 20:20 09/07/24 20:20 Labs: Laboratory Results - last 24 hr 09/07/24 20:20: WBC 9.5, RBC 6.18 H, Hgb 12.9, Hct 40.4, MCV 65.4 L, MCH 20.9 L,MCHC 31.9 L, RDW Std Deviation 38.6, RDW Coeff of Luis 18.4 H, Plt Count 354, MPV10.0, Immature Gran % (Auto) 0.300, Neut % (Auto) 60.5, Lymph % (Auto) 32.7, [place] % (Auto) 5.4, Eos % (Auto) 0.5, Baso % (Auto) 0.6, Absolute Neuts (auto) 5.7, Absolute Lymphs (auto) 3.10, Nucleated RBC % 0.3, Sodium 141, Potassium 3.9, Chloride 107, Carbon Dioxide 18.8 L, Anion Gap 15, BUN 10, Creatinine 0.70,Estim Creat Clear Calc 53.61, Est GFR (MDRD) Non-Af 91, BUN/Creatinine Ratio 14.6, Glucose 116 H, Calcium 9.9, Total Bilirubin 0.45, AST 18, ALT 12, AlkalinePhosphatase 89, Total Protein 8.0, Albumin 4.4, Globulin 3.7, Albumin/Globulin Ratio 1.2 Imaging Radiology Impression Brain CT 09/07/24 20:24 IMPRESSION: 1. No acute intracranial abnormality. 2. Chronic ischemic changes as above. [facility] Chest X-Ray 09/07/24 20:39 IMPRESSION: 1. Minimal right basilar opacities which may relate to atelectasis or infiltrate. 2. Left humeral neck enchondroma. Reading Location: [facility] Head/Neck CTA 09/07/24 21:27 IMPRESSION: No large vessel occlusion. No right carotid stenosis. Mild (40%) left carotid stenosis. Patent vertebral arteries bilaterally. 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 Reading Location: [id number] Assessment & Plan Assessment/Plan (1) Lightheadedness: (2) Dizziness: (3) Inability to walk: (4) Nausea and vomiting: QUALIFIERS: Vomiting type: unspecified Qualified Code(s): R11.2 -Nausea with vomiting, unspecified (5) Hypertensive urgency: (6) Continuous tobacco abuse: (7) COPD (chronic obstructive pulmonary disease): QUALIFIERS: COPD type: unspecified COPD Qualified Code(s): J44.9 - Chronic obstructive pulmonary disease, unspecified (8) Obesity (BMI 30.0-34.9): (9) RBC microcytosis: PLAN: Plan 1. 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 Check MRI of brain to evaluate for CVA. Check echocardiogram to evaluate LVEF. Give baby aspirin plus statin. Place scopolamine patch to extinguish dizziness and GI upset. Give meclizine as needed for dizziness. Give ondansetron IV as needed nausea and vomiting. Give promethazine IM as needed for breakthrough nausea and vomiting. Check TSH, B12,folate, hemoglobin A1c, lipid profile, ADITI and UDS to evaluate for other potential contributing factors to her presentation. Finally, we will consult [facility] teleneurology to see this patient for further recommendations with appreciated in advance. 2. Hypertensive Urgency; evidenced by elevated blood pressure of 181/91 mmHg noted shortly after admission complicating #1 - We we will allow for 'permissivehypertension' until CVA definitively ruled out on MRI. 3. Chronic tobacco abuse; with subsequent COPD compounding #1 & #2 - Tobacco Cessation will be strongly encouraged with nicotine patch offered to control cravings. Patient has no evidence of flare of COPD at this time. Give albuterol nebulizers as needed. 4. Obesity; BMI of 30 this admission adding to the burden of disease outlined from #1 - #3 - Weight loss will be recommended. Check TSH. This complicates her case and may hamper recovery. 5. Laboratory evidence of microcytosis with MCV of 65.4 fL present on admissionbut with a stable hemoglobin of 12.9 g/dL present on admission - Check iron studies and ferritin. Hemoccult stools. 6. DVT/GI prophylaxis - Enoxaparin 40 mg subcu daily. Pantoprazole 40 mg IV daily until patient can tolerate p.o. intake. Total time: Approximately (but not less than) 70 minutes. Charges/Coding Visit Charges OBSV E&M: 86588 Observ/hosp same date L2 09/08/24 0616 <Electronically signed by Valentín Sutton DO> Cosigner Signature (if applicable): CC: Dr. Valentín Sutton DO; No Primary Care Physician~ Signed [facility] Work Phone: [phone] 257-842704-25-2025 History and physical note [facility] Medical Records Department [address] [place] [address] H&P Exam - Hospitalist 09/07/241 MR#: [id number] Acct: [id number] Name: ORAMARU PLASENCIA Viraj Rep #:[id number] : 1950 74 From: Valentín Nassar o PCP: Care Physician,No Primary Status :ADM RHETT Location: [place] [address] HPI - General General Date of Admission: 09/07/24 Date of Service: 09/07/24 Chief Complaint: Lightheadedness, Dizziness and Nausea with Vomiting. HPI Narrative MARU NOEL, is a 74 F with a past medical history of obesity; BMI of 30 sensation and chronictobacco abuse; with subsequent COPD on Trelegy Ellipta daily and as needed albuterol who presents to [facility] ER complaining of lightheadedness, dizziness and nausea with vomiting. Ms. Noel reports her symptoms began abruptly earlier today at ~3 AM. She states her dizziness was initially mild but then she spent all day working in the yard which seem to make her symptoms worse. Now she feels severely lightheaded which is made worse by standing. She also admits to feeling like she is off-balance and that everything seems far away. She denies any vertiginous type symptoms with room spinning at rest, known history of BPPV or similar previous episodes. She then developed nausea with 1 episode of bilious emesis. She denies other exacerbating or alleviating factors. Shedenies associated fever, chills, abdominal pain, diarrhea, constipation, dysuria, hematuria, chest pain, headache or rash. 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 Her CXR revealed minimal Right basilar opacities which may relate to atelectasis or infiltrate with incidentally noted Left humeral neck enchondroma. Clinically she was noted to have an elevated blood pressure of 181/91 mmHg noted shortly after admission consistent with suspected HypertensiveUrgency complicated by incidentally noted laboratory evidence of microcytosis with MCV of 65.4 fL present on admissionbut with a stable hemoglobin of 12.9 g/dL present on admission with no other significant findings. She was then admitted to the PCU under observation status for ongoing care for stay that is expectedto be less than 2 midnights. [facility] Medical History COPD (chronic obstructive pulmonary disease) Home Medications ?Medication ?Instructions ?Recorded ?Last Taken ?Type albuterol sulfate inhalation Q6H PRN PRN short ness 09/07/24 Unknown History of breath or wheezing fluticasone fur. 100 mcg-umeclid 1 inh inhalation HILARY Y 09/07/24 Unknown History 62.5 mcg-vilant 25 mcg inhalat.powder (Trelegy Ellipta) Allergy/AdvReac Type Severity Reaction Status Date / Time No Known Allergies Allergy Verified 09/07/24 20:15 Social History Smoking Status: Current every day smoker tobacco type: cigarettes ROS ROS Narrative Review of Systems: Constitutional: Patient admits to lightheadedness and dizziness made worse with standing. She denies fever or chills. Eyes: Patient states things seem far away but she denies other changes in vision or discharge from eyes. ENT: Patient denies runny nose, sore throat or ear pain. Resp: Patient denies shortness of breath or cough. CV: Patient denies chest pain, palpitations, heart racing or lower extremity edema. GI: Patient admits to nausea and vomiting with bilious emesis but she denies abdominal pain, diarrhea or constipation. : Patient denies dysuria, hematuria or urinary frequency. MSK: Patient denies arthralgias or myalgias. Skin: Patient denies rash, abscess, wounds or jaundice. Psych: Patient denies symptoms of uncontrolled depression or anxiety. Neuro: Patient admits to dizziness and lightheadedness but she denies vertiginous symptoms, headache, paresthesias or focal neurologic deficits. Allergy: Patient denies lip swelling, tongue swelling or urticaria. Hematology: Patient denies easy bleeding or easy bruisability. Endocrinology: Patient denies polyuria, polydipsia, polyphagia or heat/cold intolerance. 14 point ROS otherwise negative except for positives noted above in HPI. Vital Signs Vital Signs Vital Signs: 09/07/24 20:16 09/07/24 20:27 09/07/24 21:15 Temperature 97.6 F L Temperature Source Oral Pulse Rate 72 84 Pulse Rate [Lying] 75 Respiratory Rate 19 H 21 H Blood Pressure 163/103 H 179/89 H Blood Pressure [Lying] 181/91 H Blood Pressure [Sitting (for 1 minute prior to obtaining)] 173/85 H Blood Pressure Mean 123 119 Blood Pressure Mean [Lying] 121 Blood Pressure Mean [Sitting (for 1 minute prior to obtaining)] 114 Pulse Ox 97 98 Oxygen Delivery Method Room Air Room Air 09/07/24 22:00 Temperature Temperature Source Pulse Rate 75 Pulse Rate [Lying] Respiratory Rate 17 Blood Pressure 179/84 H Blood Pressure [Lying] Blood Pressure [Sitting (for 1 minute prior to obtaining)] Blood Pressure Mean 115 Blood Pressure Mean [Lying] Blood Pressure Mean [Sitting (for 1 minute prior to obtaining)] Pulse Ox 96 Oxygen Delivery Method Room Air Weight Weight: 148 lb 5.938 oz Body Mass Index (BMI) 29.9 Physical Exam Const alert and oriented x3 Constitutional Narrative: Mild distress noted. General Appearance: cooperative HEENT normocephalic, head/scalp atraumatic, hearing grossly normal bilaterally and moist oral mucous membranes Eyes PERRL, EOMs intact bilaterally and conjunctivae normal Neck no lymphadenopathy, supple and no JVD Resp normal respiratory effort, no retractions, no use of accessory muscles and clearto auscultation bilaterally Cardio regular rate and regular rhythm GI normal to inspection, nondistended, normoactive bowel sounds, soft to palpation,non-tender and non-distended GI Narrative: Obese. Extremity normal to inspection, full ROM and no clubbing, cyanosis or edema Skin Skin Narrative: Patient has no evidence of rash, abscess, wounds or jaundice. Neuro oriented x3, CN's II-XII intact bilaterally, moves all extremities and no focal motor deficits Sensorium / Orientation: awake, alert, oriented to person, oriented to place andoriented to time Coordination / Balance: anaxhd-cm-flux test normal and cdwb-ql-jfnu test normal Speech: speech normal Motor Exam: strength 5/5 throughout Psych affect normal Results Medical Records Data Attestation: I reviewed the patient's medical records Lab / Micro Data Attestation: I reviewed the patient's lab results. 09/07/24 20:20 09/07/24 20:20 Labs: Laboratory Results - last 24 hr 09/07/24 20:20: WBC 9.5, RBC 6.18 H, Hgb 12.9, Hct 40.4, MCV 65.4 L, MCH 20.9 L,MCHC 31.9 L, RDW Std Deviation 38.6, RDW Coeff of Luis 18.4 H, Plt Count 354, MPV10.0, Immature Gran % (Auto) 0.300, Neut % (Auto) 60.5, Lymph % (Auto) 32.7, [place] % (Auto) 5.4, Eos % (Auto) 0.5, Baso % (Auto) 0.6, Absolute Neuts (auto) 5.7, Absolute Lymphs (auto) 3.10, Nucleated RBC % 0.3, Sodium 141, Potassium 3.9, Chloride 107, Carbon Dioxide 18.8 L, Anion Gap 15, BUN 10, Creatinine 0.70,Estim Creat Clear Calc 53.61, Est GFR (MDRD) Non-Af 91, BUN/Creatinine Ratio 14.6, Glucose 116 H, Calcium 9.9, Total Bilirubin 0.45, AST 18, ALT 12, AlkalinePhosphatase 89, Total Protein 8.0, Albumin 4.4, Globulin 3.7, Albumin/G lobulin Ratio 1.2 Imaging Radiology Impression Brain CT 09/07/24 20:24 IMPRESSION: 1. No acute intracranial abnormality. 2. Chronic ischemic changes as above. Reading Location: [facility] Chest X-Ray 09/07/24 20:39 IMPRESSION: 1. Minimal right basilar opacities which may relate to atelectasis or infiltrate. 2. Left humeral neck enchondroma. Reading [facility] Head/Neck CTA 09/07/24 21:27 IMPRESSION: No large vessel occlusion. No right carotid stenosis. Mild (40%) left carotid stenosis. Patent vertebral arteries bilaterally. 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 Reading Location: [id number] Assessment & Plan Assessment/Plan (1) Lightheadedness: (2) Dizziness: (3) Inability to walk: (4) Nausea and vomiting: QUALIFIERS: Vomiting type: unspecified Qualified Code(s): R11.2 -Nausea with vomiting, unspecified (5) Hypertensive urgency: (6) Continuous tobacco abuse: (7) COPD (chronic obstructive pulmonary disease): QUALIFIERS: COPD type: unspecified COPD Qualified Code(s): J44.9 - Chronic obstructive pulmonary disease, unspecified (8) Obesity (BMI 30.0-34.9): (9) RBC microcytosis: PLAN: Plan 1. 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 Check MRI of brain to evaluate for CVA. Check echocardiogram to evaluate LVEF. Give baby aspirin plus statin. Place scopolamine patch to extinguish dizziness and GI upset. Give meclizine as needed for dizziness. Give ondansetron IV as needed nausea and vomiting. Give promethazine IM as needed for breakthrough nausea and vomiting. Check TSH, B12,folate, hemoglobin A1c, lipid profile, ADITI and UDS to evaluate for other potential contributing factors to her presentation. Finally, we will consult [facility] tel[facility] to see this patient for further recommendations with appreciated in advance. 2. Hypertensive Urgency; evidenced by elevated blood pressure of 181/91 mmHg noted shortly after admission complicating #1 - We we will allow for 'permissivehypertension' until CVA definitively ruledout on MRI. 3. Chronic tobacco abuse; with subsequent COPD compounding #1 & #2 - Tobacco Cessation will be strongly encouraged with nicotine patch offered to control cravings. Patient has no evidence of flare of COPD at this time. Give albuterol nebulizers as needed. 4. Obesity; BMI of 30 this admission adding to the burden of disease outlined from #1 - #3 - Weightloss will be recommended. Check TSH. This complicates her case and may hamper recovery. 5. Laboratory evidence of microcytosis with MCV of 65.4 fL present on admissionbut with a stable hemoglobin of 12.9 g/dL present on admission - Check iron studies and ferritin. Hemoccult stools. 6. DVT/GI prophylaxis - Enoxaparin 40 mg subcu daily. Pantoprazole 40 mg IV daily until patient cantolerate p.o. intake. Total time: Approximately (but not less than) 70 minutes. Charges/Coding Visit Charges OBSV E&M: 66773 Observ/hosp same date L2 09/08/24 0616 Cosigner Signature (if applicable): CC: Dr. Valentín Sutton DO; No Primary Care Physician~ Signed [facility]04-25-2025 Evaluation note* Diagnosis Onset Date Resolution Status Admit Date Continuous tobacco abuse acute September 07, 2024 10:45pm Dizziness acute September 07 10:45pm Hypertensive urgency acute Apri l 2024 10:45pm Inability to walk acute August 162024 10:45pm Lightheadedness acute August 10:45pm Nausea and vomiting acute September 07, 2024 10:45pm Obesity (BMI 30.0-34.9) acute A pril 2024 10:45pm RBC microcytosis acute September 072024 10:45pm COPD (chronic obstructive pulmonary disease) chronic September 07, 025 10:45pm [facility] Work Phone: 1(139) 375-649204-25-2025 Evaluation note* Diagnosis Onset Date Resolution Status Admit Date Continuous tobacco abuse acute September 07, 2024 10:45pm Hypertensive urgency acute Apri l 2024 10:45pm Inability to walk acute August 162024 10:45pm Lightheadedness acute August 10:45pm Nausea and vomiting acute September 07, 2024 10:45pm Obesity (BMI 30.0-34.9) acute A 2024 10:45pm RBC microcytosis acute September 072024 10:45pm COPD (chronic obstructive pulmonary disease) chronic September 07, 025 10:45pm Dizziness resolved September 07 10:45pm Ischemic stroke acute October 16, 2024 8:37am [facility] Work Phone: 1(356) 640-652604-25-2025 Evaluation note* Diagnosis Onset Date Resolution Status Admit Date Continuous tobacco abuse acute September 07, 2024 10:45pm Hypertensive urgency acute Apri l 2024 10:45pm Inability to walk acute August 162024 10:45pm Lightheadedness acute August 10:45pm Nausea and vomiting acute September 07, 2024 10:45pm Obesity (BMI 30.0-34.9) acute A pril 2024 10:45pm RBC microcytosis acute September 072024 10:45pm COPD (chronic obstructive pulmonary disease) chronic September 07, 025 10:45pm Dizziness resolved September 07 10:45pm Ischemic stroke acute October 16, 2024 8:37am RBC microcytosis acute October 8:37am COPD (chronic obstructive pulmonary disease) chronic October 16 8:37am Hypertension chronic October 16 8:37am Dyslipidemia chronic October 17 12:54pm Dyspnea on exertion chronic October 17, 2024 12:54pm History of CVA (cerebrovascu lar accident) chronic October 17, 2024 1 2:54pm Hypertension chronic October 17 12:54pm 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 October 17, 2024 1 2:54pm History of nicotine dependence resol emanuel October 17, 2024 12:54pm [facility] Work Phone: 1(276) 298-291104-25-2025 Discharge summary Author Jayesh Breen [facility] Note Date/Time September 07, 2024 10: 28pm [facility] Medical Records Department [address] [place] [address] Emergency Department Summary 09/07/24 MR#: [id number] Acct: [id number] Name: MARU NOEL Rep #:[id number] : 1950 74 From: Jayesh Breen MD PCP: Care Physician,No Primary Status :REG ER Location: ED ADDENDUM by Dr. Jayesh Breen MD on 09/07/24 at 2228 EKG obtained interpreted by myself independently as normal sinus rhythm with sinus arrhythmia at 68 bpm without other ectopy or acute ST changes. No STEMI. 09/07/242227<Electronically signed by Jayesh Breen MD> Cosigner Signature (if applicable): cc: No Primary Care Physician ~* Signed HPI History of Present Illness Chief Complaint: Dizziness Narrative Narrative: 74-year-old female past medical history of COPD presents with lightheadedness and dizziness that she has had all day today. She states yesterday everything was fine. Her boyfriend states that her symptoms may have started this morning around 3 AM. They were not as severe, but she has been working in the yard all day. States she feels lightheaded, and it is worse with standing. She feels like she is off balance when she stands and that everything is far away. She denies any vertiginous type symptoms with the room spinning at rest. No recent diarrhea. Earlier she was nauseated and vomited once, but feels improved. No other exacerbating or alleviating factors. No dysuria or hematuria. No recent fevers or chills. No cough or shortness of breath even with her history of COPD. [facility] Medical History COPD (chronic obstructive pulmonary disease) Allergy/AdvReac Type Severity Reaction Status Date / Time No Known Allergies Allergy Verified 09/07/24 20:15 Social History Smoking Status: Current every day smoker tobacco type: cigarettes ROS ROS ED ROS Narrative Review of systems positive for lightheadedness and dizziness worse with standing. No fevers or chills. She was nauseated earlier and vomited once without any blood in her emesis. No recent diarrhea. No chest pain, no shortness of breath. EXAM Physical Exam Narrative Exam Narrative: Afebrile. Vital signs noted. Nontoxic-appearing. Cardiovascular examination reveals a regular rate and rhythm. Lungs are clear to auscultation bilaterally with diminished sounds at the bilateral bases. Moving a good amount of air. Abdomen is soft and nontender without guarding or rebound. No epigastric tenderness. Neurological examination is nonfocal, nonlateralizing. PERRL, EOMI. Normal [id number]. No pedal edema noted. Const Vital Signs: 09/07/24 20:16 09/07/24 20:27 09/07/24 21:15 Temperature 97.6 F L Temperature Source Oral Pulse Rate 72 84 Pulse Rate [Lying] 75 Respiratory Rate 19 H 21 H Blood Pressure 163/103 H 179/89 H Blood Pressure [Lying] 181/91 H Blood Pressure [Sitting (for 1 minute prior to obtaining)] 173/85 H Blood Pressure Mean 123 119 Blood Pressure Mean [Lying] 121 Blood Pressure Mean [Sitting (for 1 minute prior to obtaining)] 114 Pulse Ox 97 98 Oxygen Delivery Method Room Air Room Air 09/07/24 22:00 Temperature Temperature Source Pulse Rate 75 Pulse Rate [Lying] Respiratory Rate 17 Blood Pressure 179/84 H Blood Pressure [Lying] Blood Pressure [Sitting (for 1 minute prior to obtaining)] Blood Pressure Mean 115 Blood Pressure Mean [Lying] Blood Pressure Mean [Sitting (for 1 minute prior to obtaining)] Pulse Ox 96 Oxygen Delivery Method Room Air MDM MDM MDM Narrative Medical decision making narrative: The differential diagnosis includes but not limited to benign positional vertigoversus orthostatic near syncope versus posterior circulation problem/cerebellar stroke. Her exam is not consistent with cerebellar stroke. She may have intravascular volume depletion or other electrolyte imbalance/dehydration as shestates she has been doing yard work and in the heat all day today. As her symptoms began earlier this morning, at 3 AM, approximately 17 hours ago, I do not feel stroke team is indicated as she has no focal deficit. Additionally, she is not a TNK candidate because she is outside the window. I reviewed her laboratory work and she has normal white count of 9.5 with hemoglobin normal at 12.9, hematocrit 40.4, platelet count 354. Her electrolytepanel is grossly unremarkable except for CO2 low at 18.8 with normal BUN of 10 and creatinine 0.70. Sodium normal at 141 and potassium 3.9. LFTs are grossly unremarkable. Chest x- ray shows atelectasis in the right base on my independentinterpretation. I reviewed the radiology report which confirms my independent interpretation. CT of the brain radiology report reviewed and there are chronicchanges but no acute intracranial abnormality. Upon repeat examination, she states she feels the same. She was unable to standfor orthostatics. While she was given the meclizine orally, with concern for posterior circulation problem/cerebellar stroke, CTA will be obtained of the head and neck. I reviewed the radiology report of the CTA of the head and neck and there is no evidence of a large vessel occlusion. She does have 40% stenosis of the left carotid. As she is unable to stand she will be unable to perform her ADLs at home I feel that she will require observation. Patient willbe discussed with the hospitalist. Discussed with Dr. Flores. Patient assigned observation in the PCU. History & Record Review Discussion w/independent historian: Patient and Significant other Lab Data Attestation: I reviewed the patient's lab results. Labs: Laboratory Results - last 24 hr 09/07/24 20:20 WBC 9.5 RBC 6.18 H Hgb 12.9 Hct 40.4 MCV 65.4 L MCH 20.9 L MCHC 31.9 L RDW Std Deviation 38.6 RDW Coeff of Luis 18.4 H Plt Count 354 MPV 10.0 Immature Gran % (Auto) 0.300 Neut % (Auto) 60.5 Lymph % (Auto) 32.7 [place] % (Auto) 5.4 Eos % (Auto) 0.5 Baso % (Auto) 0.6 Absolute Neuts (auto) 5.7 Absolute Lymphs (auto) 3.10 Nucleated RBC % 0.3 Sodium 141 Potassium 3.9 Chloride 107 Carbon Dioxide 18.8 L Anion Gap 15 BUN 10 Creatinine 0.70 Estim Creat Clear Calc 53.61 Est GFR (MDRD) Non-Af 91 BUN/Creatinine Ratio 14.6 Glucose 116 H Calcium 9.9 Total Bilirubin 0.45 AST 18 ALT 12 Alkaline Phosphatase 89 Total Protein 8.0 Albumin 4.4 Globulin 3.7 Albumin/Globulin Ratio 1.2 Radiography Chest X-Ray - ED: 1 View, Read by ED Physician, Read by Radiologist and No AcuteDisease Diagnostic Testing: Clinical Impression(s) from Imaging Studies Brain CT 09/07/24 20:24 IMPRESSION: 1. No acute intracranial abnormality. 2. Chronic ischemic changes as above. Reading Location: [facility] Chest X-Ray 09/07/24 20:39 IMPRESSION: 1. Minimal right basilar opacities which may relate to atelectasis or infiltrate. 2. Left humeral neck enchondroma. Reading Location: [facility] Head/Neck CTA 09/07/24 21:27 IMPRESSION: No large vessel occlusion. No right carotid stenosis. Mild (40%) left carotid stenosis. Patent vertebral arteries bilaterally. 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 Reading Location: [id number] Management Discussion w/another healthcare provider: Hospitalist Discharge Plan Dx/Rx/DC Orders Clinical Impression: Dizziness, Lightheadedness, Inability to walk, COPD (chronic obstructive pulmonary disease) Disposition Disposition: Acute Care Hospital [facility] What to do if you have Problems For any increased pain, shortness of breath, bleeding, nausea or vomiting, chestpain, or any unexpected problems, contact your Primary Care Provider. Call [facility] ([phone]) or report to the closest Emergency Room. Call 911 if necessary. 09/07/242224 <Electronically signed by Jayesh Breen MD> Cosigner Signature (if applicable): CC: No Primary Care Physician ~ Signed [facility] Work Phone: 1(584) 449-663304-24-2025 Discharge summary [facility] Medical Records Department [address] [place] [address] Emergency Department Summary 09/07/24 MR#: [id number] Acct: [id number] Name: MARU NOEL Rep #:[id number] : 1950 74 From: Jayesh Breen MD PCP: Care Physician,No Primary Status :REG ER Location: ED ADDENDUM by Dr. Jayesh Breen MD on 09/07/24 at 2228 EKG obtained interpreted by myself independently as normal sinus rhythm with sinus arrhythmia at 68bpm without other ectopy or acute ST changes. No STEMI. 09/07/242227 Cosigner Signature (if applicable): cc: No Primary Care Physician ~* Signed HPI History of Present Illness Chief Complaint: Dizziness Narrative Narrative: 74-year-old female past medical history of COPD presents with lightheadedness and dizziness that she has had all day today. She states yesterday everything was fine. Her boyfriend states that her symptoms may have started this morning around 3 AM. They were not as severe, but she has been working in the yard all day. States she feels lightheaded, and it is worse with standing. She feels like she is off balance when she stands and that everything is far away. She denies any vertiginous type symptoms with the room spinning at rest. No recent diarrhea. Earlier she was nauseated and vomited once,but feels improved. No other exacerbating or alleviating factors. No dysuria or hematuria. No recent fevers or chills. No cough or shortness of breath even with her history of COPD. [facility] Medical History COPD (chronic obstructive pulmonary disease) Allergy/AdvReac Type Severity Reaction Status Date / Time No Known Allergies Allergy Verified 09/07/24 20:15 Social History Smoking Status: Current every day smoker tobacco type: cigarettes ROS ROS ED ROS Narrative Review of systems positive for lightheadedness and dizziness worse with standing. No fevers or chills. She was nauseated earlier and vomited once without any blood in her emesis. No recent diarrhea. No chest pain, no shortness of breath. EXAM Physical Exam Narrative Exam Narrative: Afebrile. Vital signs noted. Nontoxic-appearing. Cardiovascular examination reveals a regular rate and rhythm. Lungs are clear to auscultation bilaterally with diminished sounds at the bilateral bases. Moving a good amount of air. Abdomen is soft and nontender without guarding or rebound. No epigastric tenderness. Neurological examination is nonfocal, nonlateralizing. PERRL, EOMI. Normal [id number]. No pedal edema noted. Const Vital Signs: 09/07/24 20:16 09/07/24 20:27 09/07/24 21:15 Temperature 97.6 F L Temperature Source Oral Pulse Rate 72 84 Pulse Rate [Lying] 75 Respiratory Rate 19 H 21 H Blood Pressure 163/103 H 179/89 H Blood Pressure [Lying] 181/91 H Blood Pressure [Sitting (for 1 minute prior to obtaining)] 173/85 H Blood Pressure Mean 123 119 Blood Pressure Mean [Lying] 121 Blood Pressure Mean [Sitting (for 1 minute prior to obtaining)] 114 Pulse Ox 97 98 Oxygen Delivery Method Room Air Room Air 09/07/24 22:00 Temperature Temperature Source Pulse Rate 75 Pulse Rate [Lying] Respiratory Rate 17 Blood Pressure 179/84 H Blood Pressure [Lying] Blood Pressure [Sitting (for 1 minute prior to obtaining)] Blood Pressure Mean 115 Blood Pressure Mean [Lying] Blood Pressure Mean [Sitting (for 1 minute prior to obtaining)] Pulse Ox 96 Oxygen Delivery Method Room Air MDM MDM MDM Narrative Medical decision making narrative: The differential diagnosis includes but not limited to benign positional vertigoversus orthostatic near syncope versus posterior circulation problem/cerebellar stroke. Her exam is not consistent withcerebellar stroke. She may have intravascular volume depletion or other electrolyte imbalance/dehydr ation as shestates she has been doing yard work and in the heat all day today. As her symptoms began earlier this morning, at 3 AM, approximately 17 hours ago, I do not feel stroke team is indicated as she has no focal deficit. Additionally, she is not a TNK candidate because she is outside the window. I reviewed her laboratory work and she has normal white count of 9.5 with hemoglobin normal at 12.9, hematocrit 40.4, platelet count 354. Her electrolytepanel is grossly unremarkable except for CO2 low at 18.8 with normal BUN of 10 and creatinine 0.70. Sodium normal at 141 and potassium 3.9. LFTs are grossly unremarkable. Chest x-ray shows atelectasis in the right base on my independentinterpretation. I reviewed the radiology report which confirms my independent interpretation. CT of the brain radiology report reviewed and there are chronicchanges but no acute intracranial abnormality. Upon repeat examination, she states she feels the same. She was unable to standfor orthostatics. While she was given the meclizine orally, with concern for posterior circulation problem/cerebellar stroke, CTA will be obtained of the head and neck. I reviewed the radiology report of the CTA of the head and neck and there is no evidence of a large vessel occlusion. She does have 40% stenosis of theleft carotid. As she is unable to stand she will be unable to perform her ADLs at home I feel that she will require observation. Patient willbe discussed with the hospitalist. Discussed with Dr. Flores. Patient assigned observation in the PCU. History & Record Review Discussion w/independent historian: Patient and Significant other Lab Data Attestation: I reviewed the patient's lab results. Labs: Laboratory Results - last 24 hr 09/07/24 20:20 WBC 9.5 RBC 6.18 H Hgb 12.9 Hct 40.4 MCV 65.4 L MCH 20.9 L MCHC 31.9 L RDW Std Deviation 38.6 RDW Coeff of Luis 18.4 H Plt Count 354 MPV 10.0 Immature Gran % (Auto) 0.300 Neut % (Auto) 60.5 Lymph % (Auto) 32.7 [place] % (Auto) 5.4 Eos % (Auto) 0.5 Baso % (Auto) 0.6 Absolute Neuts (auto) 5.7 Absolute Lymphs (auto) 3.10 Nucleated RBC % 0.3 Sodium 141 Potassium 3.9 Chloride 107 Carbon Dioxide 18.8 L Anion Gap 15 BUN 10 Creatinine 0.70 Estim Creat Clear Calc 53.61 Est GFR (MDRD) Non-Af 91 BUN/Creatinine Ratio 14.6 Glucose 116 H Calcium 9.9 Total Bilirubin 0.45 AST 18 ALT 12 Alkaline Phosphatase 89 Total Protein 8.0 Albumin 4.4 Globulin 3.7 Albumin/Globulin Ratio 1.2 Radiography Chest X-Ray - ED: 1 View, Read by ED Physician, Read by Radiologist and No AcuteDisease Diagnostic Testing: Clinical Impression(s) from Imaging Studies Brain CT 09/07/24 20:24 IMPRESSION: 1. No acute intracranial abnormality. 2. Chronic ischemic changes as above. Reading Location: [facility] Chest X-Ray 09/07/24 20:39 IMPRESSION: 1. Minimal right basilar opacities which may relate to atelectasis or infiltrate. 2. Left humeral neck enchondroma. Reading Location: [facility] Head/Neck CTA 09/07/24 21:27 IMPRESSION: No large vessel occlusion. No right carotid stenosis. Mild (40%) left carotid stenosis. Patent vertebral arteries bilaterally. 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 Reading Location: [id number] Management Discussion w/another healthcare provider: Hospitalist Discharge Plan Dx/Rx/DC Orders Clinical Impression: Dizziness, Lightheadedness, Inability to walk, COPD (chronic obstructive pulmonary disease) Disposition Disposition: Acute Care Hospital [facility] What to do if you have Problems For any increased pain, shortness of breath, bleeding, nausea or vomiting, chestpain, or any unexpected problems, contact your Primary Care Provider. Call [facility] ([phone]) or report tothe closest Emergency Room. Call 911 if necessary. 09/07/242224 Cosigner Signature (if applicable): CC: No Primary Care Physician ~ Signed [facility]04-24-2025 Radiology Diagnostic study note [facility] Imaging Services [address] [place], [place] [id number] CTA Head AND Neck W/ Contrast MR#: [id number] Acct: [id number] Name: MARU NOEL Rep #: [id number] : 1950 F 74 From: Sam Cole MD PCP: Care Physician,No Primary Status: REG ER Study:CTA Head AND Neck W/ Contrast Date of E xam: 09/07/24 Exam# [id number] Ordering Dr: Jayesh Breen MD PROCEDURE: CTA HEAD AND NECK W/ CONTRAST 09/07/2024 REASON FOR EXAM: DIZZINESS TECHNIQUE: CTA imaging of the head and neck from the aortic arch to the skull vertex with out constrast and with intravenous contrast. Coronal and Sagittal reconstruction series were provided. 3D post processing with reformations, Maximum intensity projection (MIPs) Volume rendering and Shaded surface rendering was provided. One or more dose reduction techniques were used (e.g., Automated exposure control, adjustment of the mA and/or kV according to patient size, use of iterative reconstruction technique). FINDINGS: Aortic Arch: Normal size and branching pattern. No significant atherosclerotic plaque. Direct origin of the left vertebral artery from the aortic arch between the origin left common carotid artery and left subclavian artery. Brachiocephalic and Subclavians: Unremarkable RIGHT Carotid: Right CCA: Unremarkable. Right ICA: Mild calcified and soft plaque. Maximum stenosis (NASCET): 0 % Right ECA: Unremarkable. LEFT Carotid: Left CCA: Mild calcified and soft plaque. Left ICA: Mild calcified and soft plaque. Maximum stenosis (NASCET): 40 % Left ECA: Unremarkable. Vertebrals: RIGHT Vertebral: Unremarkable. LEFT Vertebral: Hypoplastic Anatomy: Bel[place] of Muse anatomy is normal. Aneurysm or avm: No intracranial aneurysms or large vascular malformations are identified. Anterior cerebral arteries: Unremarkable: Middle cerebral arteries: Unremarkable. Basilar artery: Unremarkable. Posterior cerebral arteries: Unremarkable. Persistent origin bilaterally. Other major branches of the posterior circulation: Unremarkable. Major venous structures: Unremarkable. Other findings: Neck: No lymphadenopathy. Lungs: Lung apices are clear. Bones: Bones are unremarkable. CT/CTA Head AND Neck W/ Contrast IMPRESSION: No large vessel occlusion. No right carotid stenosis. Mild (40%) left carotid stenosis. Patent vertebral arteries bilaterally. 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 Reading Location: [id number] CC: Dr. Jayesh Breen MD; No Primary Care Physician ~ Telecom Manager: Signed [facility]04-24-2025 Radiology Diagnostic study note [facility] Imaging Services [address] [place] [address] Chest 1 View (Portable) MR#: [id number] Acct: [id number] Name: MICHAELOSCARMARU PAULSON Rep #: [id number] : 1950 F 74 From: Yunier Rider DO PCP: Status: PRE ER Study:Chest 1 View (Portable) Date of Exam: 09/07/24 Exam# [id number] Ordering Dr: Jayesh Breen MD PROCEDURE: CHEST 1 VIEW (PORTABLE) 09/07/2024 REASON FOR EXAM: COPD TECHNIQUE: Frontal view of the chest. COMPARISON: None FINDINGS: Cardiomediastinal silhouette is within normal limits. Minimal right basilar airspace opacities. Left lung is clear. No sizable pleural effusion or pneumothorax. Enchondroma in the left femoral neck. RAD/Chest 1 View (Portable) IMPRESSION: 1. Minimal right basilar opacities which may relate to atelectasis or infiltrate. 2. Left humeral neck enchondroma. Reading Location: [facility] CC: Dr. Jayesh Breen MD ~ Telecom Manager: Signed [facility]-24-2025 Radiology Diagnostic study note [facility] Imaging Services [address] [place], [place] [address] Brain/Head without Contrast MR#: [id number] Acct: [id number] Name: GARCÍAMARU Rep #: [id number] : 1950 F 74 From: Yunier Rider DO PCP: Status: PRE ER Study:Brain/Head without Contrast Date of Exa m: 09/07/24 Exam# [id number] Ordering Dr: Jayesh Breen MD PROCEDURE: BRAIN/HEAD WITHOUT CONTRAST 09/07/2024 REASON FOR EXAM: DIZZINESS TECHNIQUE: Head CT without intravenous contrast. Coronal and Sagittal reconstruction serieswere provided. One or more dose reduction techniques were used (e.g., Automated exposure control, adjustment of the mA and/or kV according to patient size, use of iterative reconstruction technique. COMPARISON: None FINDINGS: Negative for acute intracranial hemorrhage, midline shift or mass effect. No definite CT evidence of acute territorial cortical infarction. No hydrocephalus. Chronic lacunar infarcts in the right basal ganglia. Mild chronic small-vessel ischemic changes. Calvarium is intact. Paranasal sinuses and mastoid air cells are clear. CT/Brain/Head without Contrast IMPRESSION: 1. No acute intracranial abnormality. 2. Chronic ischemic changes as above. Reading [facility] CC: Dr. Jayesh Breen MD ~ Telecom Manager: Signed [facility]05-30-2024 NoteOutreach Team ([phone]) Contact Details: Outbound call. Left message. Care Gaps Scheduling Medicare AWV / PCP Visit: AWV due Eye Exam: Not due [facility]ammogram: [facility] [id number] Telephone encounter Note* Telephone Encounter - Ankita Whitten - 10/14/2023 3:48 PM EDT Outreach Team ([phone]) Contact Details: Outbound call. Left message. Care Gaps Scheduling Medicare AWV / PCP Visit: AWV due Eye Exam: Not due Mammogram: Due within six months [id number] Miscellaneous Notes* Telephone Encounter - Ankita Whitten - 10/14/2023 3:48 PM EDT Outreach Team ([phone]) Contact Details: Outbound call. Left message. Care Gaps Scheduling Medicare AWV / PCP Visit: AWV due Eye Exam: Not due Mammogram: Due within six months documented in this [id number] Telephone encounter Note* Telephone Encounter - Fransisco Bass - 02/24/2023 2:12 PM EDT Outreach Team ([phone]) Contact Details: Inbound call Care Gaps Scheduling Medicare AWV / PCP Visit: Not due Eye Exam: Not due Foot Exam: Not due Annual Blood Work: Not due Mammogram: Scheduled [id number] Miscellaneous Notes* Telephone Encounter - Fransisco Bass - 02/24/2023 2:12 PM EDT Outreach Team ([phone]) Contact Details: Inbound call Care Gaps Scheduling Medicare AWV / PCP Visit: Not due Eye Exam: Not due Foot Exam: Not due Annual Blood Work: Not due Mammogram: Scheduled documented in this [id number] History of Present illness Narrative* Vincent Ryder MD - 01/11/2023 1:16 PM EDT [facility] [place] [address] Patient Name: Maru Noel Date of Service: January 11, 2023 : 1950 Physician: Vincent Ryder M.D. OFFICE VISIT HISTORY OF PRESENT ILLNESS: Ms. Noel is a 72 year-old woman with history of moderate COPD and suspected obstructive sleepapnea who came to the clinic for a followup visit. The patient reports increased shortness of breath with dry cough and wheezing. No sputum productionreported. Denies any hemoptysis or pleuritic chest pain. No fever or chills reported. Denies any palpitations, dizziness or syncope. No lower extremity edema reported. Denies any abdominal pain, nausea, vomiting or diarrhea. Appetite normal, no weight loss. REVIEW OF SYSTEMS: Ten point review of systems completed and otherwise negative PAST MEDICAL HISTORY: As mentioned above in History of Present Illness FAMILY HISTORY: Hypertension, coronary artery disease and diabetes mellitus. SOCIAL HISTORY: She used to smoke up to one pack of cigarettes per day. She is still smoking a few cigarettes per day currently. Social alcohol use. No drug use. ALLERGIES: Reviewed MEDICATIONS: Reviewed VITAL SIGNS: BP 138/72 Pulse 88 Wt 63 kg (139 lb) SpO2 97% BMI 28.07 kg/m PHYSICAL EXAMINATION: In general, the patient appears comfortable and not in distress. The patient is alert and oriented x3. Skin is dry and warm. No cyanosis or clubbing. No rash. HEENT: Pupils are equal, round, and reactive to light. Extraocular muscles are intact. Sclerae anicteric. No evidence of oral thrush or erythema in her throat. Neck is supple. No JVD. No cervical lymphadenopathy. Cardiovascular: S1,S2 with regular rate and rhythm. No rub or gallop. Lungs: Decreased breath sounds to the bases with prolonged expiratory phase and mild wheezing bilaterally. Abdomen is soft and nontender. Bowel sounds are present. Extremities: No edema bilaterally. Neurologic: No focal deficits on exam. 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 I encouraged the patient to stop smoking completely. Placed on a Medrol Dose Pack taper. Continue maintenance therapy with Trelegy Ellipta 200/25 one inhalation daily, with Albuterol HFA and nebulizer as needed for shortness of breath. Pneumovax up to date. Suspected obstructive sleep apnea. The patient declined to have a sleep study done. We'll continue to monitor. I encouraged the patient to maintain ideal body weight and avoid sleeping in the supine position. The patient will return to the pulmonary clinic in 3 months and as needed prior to that to assess her condition and discuss future management plan. Vincent Ryder M.D. documented in this encounterCenterville08-03-2023 History of Present illness Narrative* Terell Robles - 12/17/2022 7:23 AM EDT Form was completed. documented in this [id number] History of Present illness Narrative* Taina Munoz, RN - 12/02/2022 12:35 PM EDT Breast imaging reviewed by radiologist. Impression/Recommendation: Calcifications in the left breast are probably benign. Diagnostic mammogram (MGOTZD2) of the left breast including spot magnification views are recommended in 6 months. Orders placed per radiologist recommendations. Patient will be contacted to schedule appropriate appointments. Taina Munoz RN-, THIRD MILLER, PhD Breast Center Operater documented in this [id number] History of Present illness Narrative* Minal Singh - 11/24/2022 10:03 AM EDT Breast imaging reviewed by radiologist. Impression/Recommendation: Calcifications in the left breast require additional evaluation. Diagnostic mammogram (MGOTZD2) of the left breast including spot magnification views are recommended. There is no evidence of malignancy in the right breast. Orders placed per radiologist recommendations. Patient will be contacted to schedule appropriate appointments. Minal Ruggiero RN, documented in this [id number] Telephone encounter Note* Telephone Encounter - Ирина Casanova - 11/16/2022 11:24 AM EDT Patient returned clinic call. Informed of message per notes below. Patient verbalized understandingand voiced no further questions. [id number] Miscellaneous Notes* Telephone Encounter - Ирина Casanova - 11/16/2022 11:24 AM EDT Patient returned clinic call. Informed of message per notes below. Patient verbalized understandingand voiced no further questions. * Telephone Encounter - Cha Marcum - 11/16/2022 11:07 AM EDT Left message say the forms is complete and ready for burr picker If patient calls back Attempted to contact patient. Left voicemail message on listed contact # to call [employer] [phone]. Asked patient to reference #99 when calling back to our office. Ok to relay message below. * Telephone Encounter - Venus Casanova - 11/12/2022 4:04 PM EDT Situation: Patient called in Background: She says that she spoke to someone by the name of Marlene who said that they would pull her forms from [employer] and fill them out to have them faxed back over. Form is still not in media. Patient says that she has an oxygen machine and breathing machine that she uses daily and needs her power back on. Assessment: NA Recommendation: Please advise and give patient a call at Phone numbers Thank You documented in this [id number] Telephone encounter Note* Telephone Encounter - Cha Marcum - 11/16/2022 11:07 AM EDT Left message say the forms is complete and ready for burr picker If patient calls back Attempted to contact patient. Left voicemail message on listed contact # to call [employer] [phone]. Asked patient to reference #99 when calling back to our office. Ok to relay message below. [id number] History of Present illness Narrative* Vincent Ryder MD - 11/13/2022 11:46 AM EDT [facility] [address] [place] [address] Patient Name: Maru Noel Date of Service: November 13, 2022 : 1950 Physician: Vincent Ryder M.D. OFFICE VISIT HISTORY OF PRESENT ILLNESS: Ms. Noel is a 72 year-old woman with history of moderate COPD and suspected obstructive sleepapnea who came to the clinic for a followup visit. The patient reports increased shortness of breath with cough, yellow sputum production and wheezing. Denies any hemoptysis or pleuritic chest pain. No fever or chills reported. Denies any palpitations, dizziness or syncope. No lower extremity edema reported. Denies any abdominal pain, nausea, vomiting or diarrhea. Appetite normal, no weight loss. REVIEW OF SYSTEMS: Ten point review of systems completed and otherwise negative PAST MEDICAL HISTORY: As mentioned above in History of Present Illness FAMILY HISTORY: Hypertension, coronary artery disease and diabetes mellitus. SOCIAL HISTORY: She used to smoke up to one pack of cigarettes per day. She is still smoking a few cigarettes per day currently. Social alcohol use. No drug use. ALLERGIES: Reviewed MEDICATIONS: Reviewed VITAL SIGNS: BP 132/76 Pulse 81 Wt 70.4 kg (155 lb 3.2 oz) BP 128/76 Pulse 77 Wt 63.5 kg (140 lb) SpO2 93% BMI 28.76 kg/m PHYSICAL EXAMINATION: In general, the patient appears comfortable and not in distress. The patient is alert and oriented x3. Skin is dry and warm. No cyanosis or clubbing. No rash. HEENT: Pupils are equal, round, and reactive to light. Extraocular muscles are intact. Sclerae anicteric. No evidence of oral thrush or erythema in her throat. Neck is supple. No JVD. No cervical lymphadenopathy. Cardiovascular: S1, S2 with regular rate and rhythm. No rub or gallop. Lungs: Decreased breath sounds to the bases with prolonged expiratory phase. And wheezing bilaterally. Abdomen is soft and nontender. Bowel sounds are present. Extremities: No edema bilaterally. Neurologic: No focal deficits on exam. 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 I encouraged the patient to stop smoking completely. Check CXR. Placed on a Prednisone taper and Abx with PO Levaquin. Continue maintenance therapy with Trelegy Ellipta 200/25 one inhalation daily, with Albuterol HFA and nebulizer as needed for shortness of breath. Pneumovax up to date. Suspected obstructive sleep apnea. The patient declined to have a sleep study done. We'll continue to monitor. I encouraged the patient to maintain ideal body weight and avoid sleeping in the supine position. The patient will return to the pulmonary clinic in 2 months and as needed prior to that to assess her condition and discuss future management plan. Vincent Ryder M.D. documented in this encounterCenterville06-30-2023 Note* Form Completion Notes - Gabriel Valente - 11/13/2022 10:39 AM EDT Patient has signed a MAIKOL for Medical certificate [id number] Miscellaneous Notes* Form Completion Notes - Gabriel Valente - 11/13/2022 10:39 AM EDT Patient has signed a MAIKOL for Medical certificate documented in this [id number] Telephone encounter Note* Telephone Encounter - Venus Casanova - 11/12/2022 4:04 PM EDT Situation: Patient called in Background: She says that she spoke to someone by the name of Marlene who said that they would pull her forms from [employer] and fill them out to have them faxed back over. Form is still not in media. Patient says that she has an oxygen machine and breathing machine that she uses daily and needs her power back on. Assessment: NA Recommendation: Please advise and give patient a call at Phone numbers [place] [phone] Thank You [id number] Telephone encounter Note* Telephone Encounter - Charlotte Jurado RN - 11/11/2022 9:04 AM EDT Patient was identified by name and date of . Charlotte Jurado RN Pt was given message below from provider. Pt verbalized understanding. [id number] Miscellaneous Notes* Telephone Encounter - Charlotte Jurado RN - 11/11/2022 9:04 AM EDT Patient was identified by name and date of . Charlotte Jurado RN Pt was given message below from provider. Pt verbalized understanding. * Telephone Encounter - Sharon Watkins RN - 11/04/2022 2:22 PM EDT The reason to call: please have nurse pass on /SNEHA Bailey's message. The telephone call made but no one answered. Leave a VM @ [phone] to return call to the clinicfor reference 99 and sent vChatter message as well. Sharon Watikns RN, BSN * Telephone Encounter - Gwen Montero DO - 11/04/2022 8:40 AM EDT Please let patient know that her blood test for HIV was negative/normal. Thank you Gwen Montero DO documented in this [id number] Telephone encounter Note* Telephone Encounter - Sharon Watkins RN - 11/04/2022 2:22 PM EDT The reason to call: please have nurse pass on /SNEHA Bailey's message. The telephone call made but no one answered. Leave a VM @ [phone] to return call to the clinicfor reference 99 and sent Mychart message as well. Sharon Watkins RN, BSN [id number] Miscellaneous Notes* Telephone Encounter - Sharon Watkins RN - 11/04/2022 2:22 PM EDT The reason to call: please have nurse pass on /SNEHA Bailey's message. The telephone call made but no one answered. Leave a VM @ [phone] to return call to the clinicfor reference 99 and sent Mychart message as well. Sharon Watkins RN, BSN * Telephone Encounter - Gwen Montero DO - 11/04/2022 8:40 AM EDT Please let patient know that her blood test for HIV was negative/normal. Thank you Gwen Montero DO documented in this [id number] Telephone encounter Note* Telephone Encounter - Gwen Montero DO - 11/04/2022 8:40 AM EDT Please let patient know that her blood test for HIV was negative/normal. Thank you Gwen Montero DO [id number] History of Present illness Narrative* Gwen Montero DO - 11/03/2022 11:24 AM EDT Images from the original note were not included. FAMILY MEDICINE CLINIC NOTE SUBJECTIVE Chief Complaint Patient presents with Complete exam HPI: Maru Noel 72 year old female with PMH of There is no problem list on file for this patient. presenting for: #. New patient, establish care Per review: #. Hx of COPD Trelegy, spiriva and symbicort Last saw pulm in 2020- advised just Trelegy daily and Albuterol prn No pfts #.Abnorm mammogram Last mammogram in 09/2010 w/ US show heterogeneous mass-like sonographic density. Short-term f/u recommended vs biopsy but does not appear either has been done. #. Health Maintenance - Vaccines: COVID (advised to get at retail pharm), Flu (will get in the fall ) - Screening Labs: HIV (utd), HCV (utd) - CRC (Adults 45+): needs utd - Cervical CA: s/p hysterectomy - Breast CA (Women 40+): Last Mammo 2010, abnorm, no follow up- already ordered and discussed risks/benefits and encouraged patient to attend. - Tobacco Use: 6-10 cigarettes a day, previously down from 3pk/day - EtOH Use: none Current Outpatient Medications Medication Sig Dispense Refill zoster vac recomb adjuvanted (Shingrix) 50 MCG/0.5ML SUSR injection Inject 0.5 mL into the muscle every 60 days for 2 doses. 1 Each 1 No current facility-administered medications for this visit. ROS All other systems reviewed and negative except for HPI. OBJECTIVE BP 136/67 Pulse 66 Temp 97.8 F (36.6 C) (Temporal) Resp 20 Ht 4' 11 (1.499 m) Wt 141 lb 12.8 oz (64.3 kg) SpO2 97% BMI 28.64 kg/m Vital signs reviewed Physical Exam Vitals and nursing note reviewed. Constitutional: General: She is not in acute distress. Appearance: She is not diaphoretic. Skin: General: Skin is warm and dry. Capillary Refill: Capillary refill takes less than 2 seconds. Findings: No rash. Neurological: Mental Status: She is alert. Mental status is at baseline. Psychiatric: Mood and Affect: Mood and affect normal. ASSESSMENT AND PLAN Maru Noel 72 year old female presenting for 1. Chronic obstructive pulmonary disease, unspecified COPD type (HCC) Chronic,stable at this time needed refill on albuterol Discussed just using Trelegy as defined in last Pulm note, advised to dc Spiriva and Symbicort -Advised to make appointment with Pulm after PFTs complete - PFT scheduled next week - albuterol (PROVENTIL HFA) INHALATION HFA inhaler (VENTOLIN,PROAIR,PROVENTIL) 90mcg; Inhale 2 Puffs by mouth every 4 hours as needed for Wheezing or Shortness of Breath. Dispense: 1 Each; Refill: 2 2. Need for vaccination 3. Colon cancer screening 4. Screening for HIV - Appt already made for mammogram and DEXA next week, patient reluctant about mammogram but discussed risks - FECAL IMMUNOCHEMICAL TEST (FIT) - HIV1 HIV2 AGAB SCRN - ZOSTER (SHINGLES) VACCINE (RZV), RECOMBINANT, SUB-UNIT, ADJUVANTED, FOR INTRAMUSCULAR USE - TETANUS, DIPHTHERIA TOXOIDS AND ACELLULAR PERTUSIS VACCINE (TDAP), >7 YEARS, IM USE - PNEUMOCOCCAL 20 VALENT VAC Follow Up: - In 3 mo [ ] mammogram/dexa [ ] Pulm/inhalers/pft [ ] ?CT chest Gwen Montero DO Family Medicine, PGY-1 documented in this [id number] Telephone encounter Note* Telephone Encounter - Demetria Ramos - 10/30/2022 1:50 PM EDT Medicare wellness visit completed October 2022 [id number] Miscellaneous Notes* Telephone Encounter - Demetria Ramos - 10/30/2022 1:50 PM EDT Medicare wellness visit completed October 2022 documented in this [id number] History of Present illness Narrative* Katharina Navarro APRN-RETAIL SERVICES PROFESSIONAL - 10/19/2022 2:07 PM EDT Images from the original note were not included. ANNUAL WELLNESS VISIT Ms. Noel is a 72 year old who is being seen for her Annual Wellness Visit. I have reviewed and updated the following information (Care Team, Medical History, Surgical History, Social history, Family history and current medications including mfyg-pdg-dbcgaga medications and supplements): No care java development team lead to display History reviewed. No pertinent past medical history. History reviewed. No pertinent surgical history. No family history on file. Social History Socioeconomic History Marital status: Tobacco Use Smoking status: Every Day Packs/day: 1.50 Years: 40.00 Pack years: 60.00 Types: Cigarettes Smokeless tobacco: Never No current outpatient medications on file prior to visit. No current facility-administered medications on file prior to visit. I have reviewed the following additional information for Ms. Noel. Falls Risk Screen Falls Risk Screen Fall History (past 12 months): No Fallen with Injury?: No Problems with Walking or Balance?: No PHQ Depression Screen PHQ-9 Depression Screen Decreased Interest / Pleasure?: Not at all Down / Depressed / Hopeless?: Not at all PHQ-2 Total: 0 PHQ2 Interpretation: Screening is Negative Problem Sleeping?: Not at all Tired / Little Energy?: Several days Poor / Excessive Appetite?: Not at all Self [place]?: Not at all Trouble Concentrating?: Not at all Lethargic / Restless?: Not at all Suicidal Ideations?: Not at all Impact on Life?: Not difficult at all PHQ-9 Total Score: 1 Hearing Screen Hearing Screen Have you noticed any changes with your hearing? : No Vision Screen Vision Screen Have you noticed any changes with your vision? : No Advance Directives Advance Directives Advance Directives?: No Advance Directive Information: Given to patient Mini COG Mini-Cog Chavo Biswas (used by permission of the author) Remember FIRST word?: Yes Remember SECOND word?: Yes Remember THIRD word?: Yes Clock Diagram correct?: Yes Mini COG Total Score: 5 Health Risk Assessment No questionnaire available. Health Risk Assessment Flowsheet Row Patient response During the past four weeks, how much have you been bothered by emotional problems such as feeling anxious, depressed, irritable, sad, or downhearted and blue? Not at all at 10/17/2022 1226 During the past four weeks, has your physical and emotional health limited your social activities with family, friends, neighbors, or groups? Not at all at 10/17/2022 1226 During the past four weeks, how much bodily pain have you generally had? No pain at 10/17/2022 1226 During the past four weeks, was someone available to help you if you needed and wanted help? Yes, as much as I want at 10/17/2022 1226 During the past four weeks, what was the hardest physical activity you could do for at least two minutes? Moderate at 10/17/2022 1226 Can you get to places out of walking distance without help? Y at 10/17/2022 1226 Can you go shopping for groceries or clothes without someone s help? Y at 10/17/2022 1226 Can you prepare your own meals? Y at 10/17/2022 1226 Can you do your housework without help? Y at 10/17/2022 1226 Because of any health problems, do you need the help of another person with your personal care needs? N at 10/17/2022 1226 Can you handle your own money without help? Y at 10/17/2022 1226 During the past four weeks, how would you rate your health in general? Fair at 10/17/2022 1226 How have things been going for you during the past four weeks? Good and bad parts about equal at 10/17/2022 1226 Are you having difficulties driving your car? No at 10/17/2022 1226 Do you fasten your seatbelt when you are in a car? Always at 10/17/2022 1226 Falling or feeling dizzy when standing up? (past 4 weeks) Never at 10/17/2022 1226 Sexual problems? (past 4 weeks) Never at 10/17/2022 1226 Trouble eating well? (past 4 weeks) Never at 10/17/2022 1226 Tooth or denture problems? (past 4 weeks) Never at 10/17/2022 1226 Problems using the telephone? (past 4 weeks) Never at 10/17/2022 1226 Tiredness or fatigue? (past 4 weeks) Seldom at 10/17/2022 122 Do you exercise for about 20 minutes three or more days a week? Yes, most of the time at Have you been given any information to help you with hazards in your house that might hurt you? N at 10/17/20221225 Have you been given any information to help you with keeping track of your medications? N at 10/17/2022 1226 How often do you have trouble taking medicines the way you have been told to take them? Sometimes Itake them as prescribed at 10/17/20226 How confident are you that you can control and manage most of your health problems? Very confident at 10/17/2022 1226 Review of Systems Constitutional: Negative. All other systems reviewed and are negative. Physical examination Vital signs: BP 136/65 Pulse 64 Temp 97.3 F (36.3 C) (Temporal) Resp 18 Ht 4' 11 (1.499 m) Wt 148 lb (67.1 kg) BMI 29.89 kg/m Physical Exam Constitutional: Appearance: Normal appearance. She is normal weight. HENT: Head: Normocephalic and atraumatic. Eyes: Extraocular Movements: Extraocular movements intact. Conjunctiva/sclera: Conjunctivae normal. Pupils: Pupils are equal, round, and reactive to light. Cardiovascular: Rate and Rhythm: Normal rate and regular rhythm. Pulses: Normal pulses. Heart sounds: Normal heart sounds. Pulmonary/Chest/Breast: Effort normal and breath sounds normal. Abdominal: General: Bowel sounds are normal. Palpations: Abdomen is soft. Musculoskeletal: General: Normal range of motion. Cervical back: Normal range of motion. Neurological: General: No focal deficit present. Mental Status: She is alert and oriented to person, place, and time. Skin: General: Skin is warm and dry. Capillary Refill: Capillary refill takes less than 2 seconds. Psychiatric: Mood and Affect: Mood normal. Behavior: Behavior normal. Vitals reviewed. End of life preferences: Patient does not have an advanced care plan but is thinking about it Education provided to the patient. Advanced directive pamphlet given to patient. I have provided counseling and referral for the following areas: Counseling: Medical Issues, Weight, Physical Activity, Safety, Hearing, Vision, Mood, Alcohol, and Tobacco Referrals: Please see orders Assessment/Plan: (Z00.00) Medicare annual wellness visit, initial (primary encounter diagnosis) Plan: Return in 1 year (J44.9) Chronic obstructive pulmonary disease, unspecified COPD type (HCC) Plan: PFT PER PROTOCOL SERVICE REQUEST (Z11.59) Need for hepatitis C screening test Plan: HEPATITIS C ANTIBODY (Z12.31) Breast cancer screening by mammogram Plan: MG MAMMO SCREEN BILAT ASHLEY W/CAD (Z12.11) Colon cancer screening Plan: FECAL IMMUNOCHEMICAL TEST (FIT) (Z00.00) Preventative health care Plan: BASIC METABOLIC PANEL, FULL LIPID PROFILE, HEMOGLOBIN A1C (Z13.820, Z78.0) Encounter for osteoporosis screening in asymptomatic postmenopausal patient Plan: BD BONE DENSITY SURVEY (Z23) Immunization due Plan: qzpphdv-arblsyfyvb-rswkvfhrs pertussis (BOOSTRIX) 5-2.5-18.5 LF-MCG/0.5 injection, zoster vac recomb adjuvanted (Shingrix) 50 MCG/0.5ML SUSR injection, PNEUMOCOCCAL 20 VALENT VAC, PFIZER BIVALENT COVID-19 (12+ YRS) IMMUNIZATION, 30MCG/0.3ML, RITIKA-SUCROSE (Z00.00) Routine medical exam Plan: Medicare Wellness Visit Orders Placed This Encounter Procedures MG MAMMO SCREEN BILAT ASHLEY W/CAD XR Bone Density Dual Energy Survey Pneumococcal Conjugate, 20-Valent (PCV20) Vaccine (0.5mL,IM,Once) Pfizer Bivalent Booster (12+ YRS) SARS-COV-2 (COVID-19) vaccine, mRNA, spike protein, LNP, PF, 30 mcg/0.3 mL IM Basic Metabolic Panel Full Lipid Profile Hemoglobin A1C Hepatitis C Antibody Fecal Immunochemical Test (FIT) - kit to be given to patient in clinic 1. Medicare annual wellness visit, initial 2. Chronic obstructive pulmonary disease, unspecified COPD type (HCC) 3. Need for hepatitis C screening test 4. Breast cancer screening by mammogram 5. Colon cancer screening 6. Preventative health care 7. Encounter for osteoporosis screening in asymptomatic postmenopausal patient 8. Immunization due 9. Routine medical exam Additional concerns: documented in this [id number] Instructions* Patient Instructions* Katharina Navarro APRN-CNP - 10/19/2022 2:07 PM EDT Personalized Preventive for Maru Noel - 10/17/2022 Other Preventive Recommendations: Screening recommendations: you have been provided with an order for a screening mammogram, bone density scan, and colonoscopy - please call to schedule, Vaccination recommendations: vaccination to help prevent pneumonia, tetanus, shingles, and hepatitis B was provided today - check with pharmacy for vaccine intervals, and Living will recommendations: consider making a Living Will and Durable Power of Clothes Designer for Healthcare and please provide this office with a copy of your Living Will and Durable Power of Clothes Designer for Healthcare A preventive eye exam performed by an compliance specialist is recommended every 1-2 years to screen for glaucoma, cataracts, macular degeneration, and other eye disorders A preventive dental visit is recommended every 6 months Try to get at least 150 minutes of exercise per week or 10,000 steps per day on a pedometer Order FREE Exercise and Physical Activity book from [employer] on Agin5-902-493-2835 orhttp://order.beto.nih.gov/health/publication/order/BK004 You need 2907-9078 mg of calcium and 7969-2174 IU of vitamin D per day - it is possible to meet your calcium requirement with diet alone, but a vitamin D supplement is usually necessary to meet this goal When exposed to sun, use a sunscreen that protects against bot UVA and UVB radiation with an SPF of30 or greater - reapply every 2 to 3 hours or after sweating, drying off with a towel, ot swimming Always wear a seat belt when traveling in a car, and a helmet when riding a bicycle or motorcycle documented in this [id number] History of Present illness Narrative* Cyn Presley MD - 06/30/2022 12:56 PM EST [facility] NOTE Telephone Visit Maru Noel 72 year old female Phone numbers PCP: No primary care provider on file. Documentation: Mode: Telephone Patient Patient Work Phone: Patient Cell Preferred phone: [phone] Consent: I confirmed patient understanding of the risks and benefits of telehealth visits and obtained consent to proceed with the telehealth visit. Location of Patient: Home of patient Start: 1300 Stop: 1316 Chief Complaint Patient presents with New patient, to establish relationship HPI: Identification verified by Cyn Presley MD Maru Noel has chosen a telephone appointment today to address No complaint. COPD - needs albuterol maybe once of week - also using Symbicort - denies SOB Review of Systems Constitutional: Negative for chills and fever. Respiratory: Negative for cough and shortness of breath. Cardiovascular: Negative for chest pain. Gastrointestinal: Negative for abdominal pain. Neurological: Negative for dizziness, light-headedness and headaches. No current outpatient medications on file. Allergies: Not on File PAST HISTORY No past medical history on file. There is no previous surgical history on file. Social History Socioeconomic History Marital status: Tobacco Use Smoking status: Every Day Packs/day: 1.50 Years: 40.00 Pack years: 60.00 Types: Cigarettes Smokeless tobacco: Never No family history on file. PHYSICAL EXAM: Pt speaking in full sentences without wheezing, coughing, SOB. Pt sounds alert, awake, in no acute distress. Assessment/Plan: Maru Noel is a 72 year old female with Encounter Diagnoses Name Primary? Preventative health care Yes Chronic obstructive pulmonary disease, unspecified COPD type (HCC) 1. Preventative health care Never had PCP. Have not done screening test regularly. Last mammogram in 09/2010 w/ US show heterogeneous mass-like sonographic density. Short-term f/u recommended vs biopsy but does not appear either has been done. Discussed mammogram and colonoscopy but pt is reluctant. Pt will be getting immunization at local pharmacy. Advised consider screening test. Will re-visit at in-office appt. 2. Chronic obstructive pulmonary disease, unspecified COPD type (HCC) Controlled. No PFT on record. Advised to bring inhaler to in-office visit for review. Follow up in about 4 weeks (around 07/28/2022) for in-person visit. Cyn Presley MD Family Medicine documented in this [id number] Telephone encounter Note* Telephone Encounter - Louisa Vaughan Jaimie - 06/29/2022 11:06 AM EST Care gaps scheduling Health maintenance: Medicare AWV/PCP Visit scheduled Eye Exam:not due Foot Exam:not due Annual Bloodwork:not due SWAPNIL:no order New pt appointment scheduled. [id number] Miscellaneous Notes* Telephone Encounter - ClementLouisa Jaimie - 06/29/2022 11:06 AM EST Care gaps scheduling Health maintenance: Medicare AWV/PCP Visit scheduled Eye Exam:not due Foot Exam:not due Annual Bloodwork:not due SWAPNIL:no order New pt appointment scheduled. [facility] Diagnosis Preventative health care- Primary Routine general medical examination at a health care facility Chronic obstructive pulmonary disease, unspecified COPD type (HCC) [facility]* Diagnosis Medicare annual wellness visit, initial- Primary Chronic obstructive pulmonary disease, unspecified COPD type (HCC) Need for hepatitis C screening test Special screening examination for other specified viral diseases Breast cancer screening by mammogram Colon cancer screening Special screening for malignant neoplasms, colon Preventative health care Routine general medical examination at a health care facility Encounter for osteoporosis screening in asymptomatic postmenopausal patient Immunization due Need for prophylactic vaccination and inoculation against unspecified single disease Routine medical exam Routine general medical examination at a health care facility Body mass index (BMI) 29.0-29.9, adult [facility]* Diagnosis Chronic obstructive pulmonary disease, unspecified COPD type (HCC)- Primary Need for vaccination Need for prophylactic vaccination and inoculation against unspecified single disease Colon cancer screening Special screening for malignant neoplasms, colon Screening for HIV (human immunodeficiency virus) Special screening examination for other specified viral diseases [facility]* Diagnosis Chronic obstructive pulmonary disease, unspecified COPD type (HCC)- Primary [facility]* Diagnosis SOB (shortness of breath)- Primary Shortness of breath COPD with exacerbation (HCC) Obstructive chronic bronchitis with exacerbation Acute bronchitis, unspecified organism [facility]* Diagnosis SOB (shortness of breath) Shortness of breath [facility]* Diagnosis Abnormal finding on breast imaging- Primary Other (abnormal) findings on radiological examination of breast [facility]* Diagnosis Breast cancer screening by mammogram- Primary [facility]* Diagnosis Category 3 mammography result with short follow-up interval suggested for probably benign finding- Primary [facility] Diagnosis Abnormal finding on breast imaging Other (abnormal) findings on radiological examination of breast [facility]* Diagnosis Chronic obstructive pulmonary disease, unspecified COPD type (HCC)- Primary [facility]* Diagnosis Chronic obstructive pulmonary disease, unspecified COPD type (HCC)- Primary [facility]* Diagnosis Screening for colon cancer Special screening for malignant neoplasms, colon documented in this encounter [facility] note* Diagnosis Chronic left shoulder pain- Primary Pain in joint, shoulder region Chronic obstructive pulmonary disease, unspecified COPD type (HCC) Primary hypertension Unspecified essential hypertension Cerebrovascular accident (CVA), unspecified mechanism (HCC) 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, in remission Personal history of tobacco use, presenting hazards to health Screening for depression Encounter for screening examination for other mental health and behavioral disorders Screening for colon cancer Special screening for malignant neoplasms, colon Encounter for screening mammogram for breast cancer Asymptomatic menopause documented in this encounter [facility] note* Diagnosis Chronic left shoulder pain Pain in joint, shoulder region documented in this encounter [facility] Author Alireza Valero [facility] Note Date/Time October 17, 2024 1:45p m [facility] [address] [place] [address] OFFICE VISIT Date of Service: 10/17/24 MR#: [id number] Acct: [id number] Name: MARU NOEL Rep #: [id number] : 1950 Provider: Dr. Vicente Valero MD Age/Sex: 74/F [place] [facility] [place] Status: Signed HPI HPI History of Present Illness Details: This lady was admitted to the hospital in August with acute onset of dizziness/vertigo. During workup, she was diagnosed with subacute CVA. An echocardiogram was done. 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 Patient was started on antiplatelet agents. She is here for follow-up visit. Per patient, her lightheadedness and dizziness has vastly improved. She still occasionally gets lightheaded for a few seconds particularly at night when goingto bed. Denies any syncope or presyncope. Patient denies any chest pains either at rest or with exertion. She has COPD and does get short of breath with moderate exertion. No orthopnea or PND. No ankle edema. Denies any palpitations. Intake Vital Signs 09/08/24 12:17 10/16/24 08:46 10/17/24 07:37 Height 4 ft 11 in 4 ft 11 in 4 ft 11 in Weight: 149 lb BMI 30.1 BP 139/66 H Blood Pressure Location Lt brachial Position Sitting Respiration 18 Pulse 67 Pulse Source NIBP Intake Visit Reasons: S/P ([facility] 09/09) [employer] Off Bearer Required: No Accompanied by: boyfriend Is patient in pain?: No Allergies No Known Allergies Allergy (Verified 10/17/24 13:14) Medications ?Medication ?Instructions ?Recorded ?Confirmed ?Type albuterol sulfate inhalation Q6H PRN PRN short ness 09/07/24 10/17/24 History of breath or wheezing fluticasone fur. 100 mcg-umeclid 1 inh inhalation HILARY Y 09/07/24 10/17/24 Histo ry 62.5 mcg-vilant 25 mcg inhalat.powder (Trelegy Ellipta) aspirin 81 mg chewable tablet 81 mg PO BREAKFAST 30 da ys #30 tabs 09/09/24 10/17/24 Rx lisinopril 10 mg tablet 10 mg PO DAILY 1 month #30 t abs 09/09/24 10/17/24 Rx atorvastatin 40 mg tablet 40 mg PO QHS 30 days #30 tab s 10/16/24 10/17/24 Rx meclizine 12.5 mg tablet 12.5 mg PO TID PRN PRN Dizzi ness 1 10/16/24 10/17/24 Rx month #30 tabs clopidogrel 75 mg tablet 75 mg PO QDAY 10/17/2410/17 History Ejection fraction %: 65 Have you fallen in the past year?: No PFSH Medical History COPD (chronic obstructive pulmonary disease) Dizziness and giddiness Family History Mother , 77 COPD (chronic obstructive pulmonary disease) Father , 77 CAD (coronary artery disease) Social History household members: significant other and friend(s) current occupational status: retired pets and animals: Yes pets and animals: cat(s) and dog(s) Smoking Status: Former smoker alcohol intake: never caffeine: Yes Type: coffee do you feel safe at home: Yes ROS Const Const: Negative for fatigue, weakness, headache(s) or weight gain ENT ENT: Positive for dizziness; Negative for headache(s), Nosebleed/epistaxis or balance problems Cardio Chest Pain: No Palpitations: No Edema: None Muscle aches with walking: None Resp Respiratory: Positive for SOB with activity (COPD, unchanged); Negative for SOB at rest or SOB orthopneaundefinedSOB lying down GI GI: Negative nausea, vomiting or heartburn Musc Musc: Negative for muscle aches/ myalgia, muscle weakness, joint pain or balanceproblems Neuro Neuro: Positive for dizziness and near syncope; Negative for lightheadedness, syncope, headache(s) or weakness Endo Endo: Negative for fatigue Cardiology Exam Const Appearance: comfortable and no acute distress Nutritional Appearance: well nourished Neck Neck: no JVD Carotids: Negative bruit Chest Auscultation: Bilateral: Clear to Auscultation Cardio Rate: regular rate Rhythm: regular rhythm Heart sounds: S1 normal and S2 normal Neuro General: patient alert, patient awake and patient oriented x3 Extremities Lower Extremity Edema: None: Bilateral Supplemental Info Supplemental Information Echocardiogram 09/08/2024: Interpretation Summary Mild concentric left ventricular hypertrophy. The LV systolic function is normal. EF is 65 %. Stage 1 diastolic dysfunction. 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 Consider further evaluation with STEVENSON if clinically indicated. CTA Head AND Neck w/Contrast 09/07/2024: FINDINGS: Aortic Arch: Normal size and branching pattern. No significant atherosclerotic plaque. Direct origin of the left vertebral artery from the aortic arch between the origin left common carotid artery and left subclavian artery. Brachiocephalic and Subclavians: Unremarkable RIGHT Carotid: Right CCA: Unremarkable. Right ICA: Mild calcified and soft plaque. Maximum stenosis (NASCET): 0 % Right ECA: Unremarkable. LEFT Carotid: Left CCA: Mild calcified and soft plaque. Left ICA: Mild calcified and soft plaque. Maximum stenosis (NASCET): 40 % Left ECA: Unremarkable. Vertebrals: RIGHT Vertebral: Unremarkable. LEFT Vertebral: Hypoplastic Anatomy: Belden of Muse anatomy is normal. Aneurysm or avm: No intracranial aneurysms or large vascular malformations are identified. Anterior cerebral arteries: Unremarkable: Middle cerebral arteries: Unremarkable. Basilar artery: Unremarkable. Posterior cerebral arteries: Unremarkable. Persistent origin bilaterally. Other major branches of the posterior circulation: Unremarkable. Major venous structures: Unremarkable. Other findings: Neck: No lymphadenopathy. Lungs: Lung apices are clear. Bones: Bones are unremarkable. IMPRESSION: No large vessel occlusion. No right carotid stenosis. Mild (40%) left carotid stenosis. Patent vertebral arteries bilaterally. 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 Carotid Duplex US 09/08/2024: Interpretation Summary No significant atherosclerotic plaque or stenosis noted in the right internal carotid artery. Mild (<50%) stenosis left extracranial internal carotid. Flow within the vertebral arteries is antegrade bilaterally. 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 Recommend transesophageal echocardiogram. Risks benefits explained to the patient. She understands and wishes to proceed with the procedure. She denies any history of swallowing problems or peptic ulcer disease/esophagitis. Continue aspirin and clopidogrel. (2) Dyspnea on exertion: Status: Chronic Plan: Patient has history of COPD however given her risk factors, will check Lexiscan stress Myoview to rule out ischemia. (3) History of CVA (cerebrovascular accident): Status: Chronic Plan: See #1 above. Continue aspirin and clopidogrel. Also check 14-day event monitor to rule out atrial fibrillation. (4) Hypertension: Status: Chronic Qualifiers: Hypertension type: unspecified Qualified Code(s): I10 - Essential (primary) hypertension Plan: Increase lisinopril to 20 mg daily. (5) Dyslipidemia: Status: Chronic Plan: Atorvastatin. (6) History of nicotine dependence: Status: Resolved Plan: Quit smoking after her CVA. Encouraged to continue to stay abstinent. 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 I35.8 Dyspnea on exertion R06.09 History of CVA (cerebrovascular accident) Z86.73 Hypertension, unspecified type I10 Hypertension type: unspecified Dyslipidemia E78.5 History of nicotine dependence Z87.891 Clinical Quality Measures Falls Risk Screening/Assistive Devices Have you fallen in the past year?: No Cardiac Ejection fraction %: 65 10/17/24 1345 <Electronically signed by Alireza Valero MD> Date _ Alireza Valero MD Cosigner Signature: Date (if applicable) CC: No Primary Care Physician ~ [facility] Work Phone: Reason for referral (narrative)* Outpatient Procedure (Routine) - Pending Review Specialty Diagnoses / Procedures Referred By Debbi montez Referred To Contact [facility] Diagnoses Chronic obstructive pulmonary disease, unspecified COPD type (HCC) Procedures LUNG VOLUMES Vincent Ryder MD [address] [place] [address] [facility] [address] [place] [address] Referral ID Status Reason Start Date Expiration Date Visits Requested Visits Authorized [id number] Pending Review Auto-Generat ed Referral 01/11/2023 02/10/2024 1 1 * Outpatient Procedure (Routine) - Pending Review Specialty Diagnoses / Procedures Referred By Contac t Referred To Contact [facility] Diagnoses Chronic obstructive pulmonary disease, unspecified COPD type (HCC) Procedures LUNG DIFFUSION CAPACITY (DLCO) DIFFUSING CAPACITY Vincent Ryder MD [address] [place] [address] [facility] [address] [place] [address] Referral ID Status Reason Start Date Expiration Date Visits Requested Visits Authorized [id number] Pending Review Auto-Generat ed Referral 01/11/2023 02/10/2024 1 1 [facility] for visit Narrative* Tests/Procedures (Routine) - Pending Review Specialty Diagnoses / Procedures Referred By Contac t Referred To Contact Pulmonary Testing Diagnoses Chronic obstructive pulmonary disease, unspecified COPD type (HCC) Procedures PFT PER PROTOCOL SERVICE REQUEST Katharina Navarro, CLIENT BUSINESS MANAGER-RETAIL SERVICES PROFESSIONAL [address] [place] [address] [facility] [address] [place] [address] Referral ID Status Reason Start Date Expiration Date V isits Requested Visits Authorized [id number] Pending Review 10/19/2022 10/18/2023 1 1 [facility] for visit Narrative* Diagnostic Procedure Only (Routine) - Closed Specialty Diagnoses / Procedures Referred By Contac t Referred To Contact XR IMAGING Diagnoses Chronic left shoulder pain Procedures XR SHOULDER GENERAL 3V OR MORE AP/TRUE AP/OTHER LEFT RADEX SHOULDER COMPLETE MINIMUM 2 VIEWS Radha Rosenbaum, CLIENT BUSINESS MANAGER.RETAIL SERVICES PROFESSIONAL [address] [place] [address] Phone: tel: fax: [place] [phone] Referral ID Status Reason Start Date Expiration Date V isits Requested Visits Authorized [id number] Closed Auto-Generate d Referral 01/03/2025 02/02/2026 1 1 [place] Summary Purpose Family History No Family History Records Found Relationship Condition Age at Onset Recorded Date/T micky mother Chronic obstructive pulmonary disease Unk nown father Coronary artery disease Unknown Advance Directives No Advanced Directives Records Found Advance Directive Response Recorded Date/ Time Do you have a Healthcare Power of Clothes Designer? No September 07, 2024 11:15pm Procedure Findings Note Pre-procedure Verification a nd Time Out: Pre-Procedure Verification and Time Out: Procedure Locationprocedure area HUDDLE - Pre-procedure Verificationcompleted TIME OUT - Final Verificationcompleted DEBRIEFcompleted General Information: Post-Procedure Diagnosis: right neck superifical mass fna Procedure Name: right neck superifical mass fna Findings: superifical mass right neck Procedure performed by: Silk Screen Etcher(s): none Estimated Blood Loss (mL): none Specimen: yes Informed Consent: written consent obtained Procedure Details: Procedure Details: right neck superifical mass fna and 18 G core. sent in formalin, cytolyte, and fresh samples Tolerance: good Lines/Drains: Ultrasound Guided Insertion: yes Barrier Used: hand hygiene, head cover, mask, large drape, sterile gown, sterile gloves Dressing Type: gauze, transparent Prep: Patient Position: supine Site Prep: with chlorhexidine, draped, usual sterile procedure followed Anesthesia: Anesthesia: local 1% Lidocaine (mL): 5 mL Signature/ (more content not included)... Reason for Referral Specialty Diagnoses / Procedures Referred By Debbi montez Referred To Contact Radiology Diagnoses Encounter for osteoporosis screening in asymptomatic postmenopausal patient Procedures BD BONE DENSITY SURVEY Katharina Navarro, TRINI [address] [place] [address] [facility] [address] [place] [address] Referral ID Status Reason Start Date Expiration Date V isits Requested Visits Authorized [id number] Authorized 10/19/2022 10/17/2023 1 1 Specialty Diagnoses / Procedures Referred By Debbi montez Referred To Contact Radiology Diagnoses Breast cancer screening by mammogram Procedures MG MAMMO SCREEN BILAT ASHLEY W/CAD Pounds-Quique, Katharina, CLIENT BUSINESS MANAGER-RETAIL SERVICES PROFESSIONAL [address] [place] [address] [facility] [place] [address] Referral ID Status Reason Start Date Expiration Date V isits Requested Visits Authorized [id number] Authorized 10/19/2022 10/17/2023 1 1 Specialty Diagnoses / Procedures Referred By Contac t Referred To Contact Pulmonary Testing Diagnoses Chronic obstructive pulmonary disease, unspecified COPD type (HCC) Procedures PFT PER PROTOCOL SERVICE REQUEST Katharina Navarro APRN-CNP [address] [place] [address] [facility] [address] [place] [address] Referral ID Status Reason Start Date Expiration Date V isits Requested Visits Authorized [id number] Pending Review 10/19/2022 10/18/2023 1 1 Specialty Diagnoses / Procedures Referred By Contac t Referred To Contact Radiology Diagnoses Abnormal finding on breast imaging Procedures MG MAMMO DIAG LEFT Katharina Valles APRN-CNP [address] [place] [address] [place] [address] Referral ID Status Reason Start Date Expiration Date V isits Requested Visits Authorized [id number] Authorized 11/24/2022 11/24/2023 1 1 Referral ID Status Reason Start Date Expiration Date V isits Requested Visits Authorized [id number] Authorized 12/01/2022 12/01/2023 1 1 Specialty Diagnoses / Procedures Referred By Contac t Referred To Contact Radiology Diagnoses Category 3 mammography result with short follow-up interval suggested for probably benign finding Procedures MG MAMMO DIAG LEFT ASHLEY Katharina Navarro APRN-CNP [address] [place], [place] [id number] [facility] [address] [address] Referral ID Status Reason Start Date Expiration Date V isits Requested Visits Authorized [id number] Authorized 12/02/2022 12/02/2023 1 1 Chief Complaint and Reason for Visit Chief Complaint Admit Date LIGHTHEADEDNESS AND DIZZINESS INABILITY TO WALK September 07, 2024 10:45pm LIGHTHEADEDNESS AND DIZZINESS INABILITY TO WALK September 08, 2024 8:54am LIGHTHEADEDNESS AND DIZZINESS INABILITY TO WALK September 09, 2024 11:03am Reason for Visit Admit Date Continuous tobacco abuse September 07 10:45pm Dizziness September 07, 2024 10: 45pm Hypertensive urgency September 07, 2024 10 :45pm Inability to walk September 07, 2024 10: 45pm Lightheadedness September 07, 2024 10: 45pm Nausea and vomiting September 07, 2024 10: 45pm Obesity (BMI 30.0-34.9) September 07, 2024 10:45pm RBC microcytosis September 07, 2024 10: 45pm COPD (chronic obstructive pulmonary dise ase) September 07, 2024 10:45pm Chief Complaint Admit Date LIGHTHEADEDNESS AND DIZZINESS INABILITY TO WALK September 07, 2024 10:45pm LIGHTHEADEDNESS AND DIZZINESS INABILITY TO WALK September 08, 2024 8:54am DIZZINESS September 08, 2024 10: 45am LIGHTHEADEDNESS AND DIZZINESS INABILITY TO WALK September 09, 2024 11:03am Hospital FU-STROKE October 16, 2024 8:37a m Reason for Visit Admit Date Continuous tobacco abuse September 07 10:45pm Hypertensive urgency September 07, 2024 10 :45pm Inability to walk September 07, 2024 10: 45pm Lightheadedness September 07, 2024 10: 45pm Nausea and vomiting September 07, 2024 10: 45pm Obesity (BMI 30.0-34.9) September 07, 2024 10:45pm RBC microcytosis September 07, 2024 10: 45pm COPD (chronic obstructive pulmonary dise ase) September 07, 2024 10:45pm Dizziness September 07, 2024 10: 45pm Ischemic stroke October 16, 2024 8:37a m Chief Complaint Admit Date LIGHTHEADEDNESS AND DIZZINESS INABILITY TO WALK September 07, 2024 10:45pm LIGHTHEADEDNESS AND DIZZINESS INABILITY TO WALK September 08, 2024 8:54am DIZZINESS September 08, 2024 10: 45am LIGHTHEADEDNESS AND DIZZINESS INABILITY TO WALK September 09, 2024 11:03am Hospital FU-STROKE October 16, 2024 8:37a m S/P ([facility] 09/09) October 17, 2024 12:54 pm Reason for Visit Admit Date Continuous tobacco abuse September 07 10:45pm Hypertensive urgency September 07, 2024 10 :45pm Inability to walk September 07, 2024 10: 45pm Lightheadedness September 07, 2024 10: 45pm Nausea and vomiting September 07, 2024 10: 45pm Obesity (BMI 30.0-34.9) September 07, 2024 10:45pm RBC microcytosis September 07, 2024 10: 45pm COPD (chronic obstructive pulmonary dise ase) September 07, 2024 10:45pm Dizziness September 07, 2024 10: 45pm Ischemic stroke October 16, 2024 8:37a m RBC microcytosis October 16, 2024 8:37a m COPD (chronic obstructive pulmonary dise ase) October 16, 2024 8:37am Hypertension October 16, 2024 8:37a m Dyslipidemia October 17, 2024 12:54 pm Dyspnea on exertion October 17, 2024 12:54 pm History of CVA (cerebrovascular accident ) October 17, 2024 12:54pm Hypertension October 17, 2024 12:54 pm 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 October 17, 2024 12:54pm History of nicotine dependence October 17, 2024 12:54pm Additional Source Comments INFORMATION SOURCE (unrecogn ized section and content) DATE CREATED AUTHOR 07/12/2019 [facility] DATE CREATED AUTHOR AUTHOR'S ORGANIZ ATION 07/17/2019 [facility] DATE CREATED AUTHOR AUTHOR'S ORGANIZ ATION 10/26/2019 [facility] DATE CREATED AUTHOR AUTHOR'S ORGANIZ ATION 11/14/2022 [facility] DATE CREATED AUTHOR AUTHOR'S ORGANIZ ATION 08/04/2024 [facility] DATE CREATED AUTHOR AUTHOR'S ORGANIZ ATION 01/17/2025 [facility] DATE CREATED AUTHOR AUTHOR'S ORGANIZ ATION 03/24/2025 [facility] Reason for Visit (unrecogniz ed section and content) Reason Onset Date Comments APPOINTMENT SCHEDULING 06/29/2022 Reason Comments New patient, to establish relationship Reason Comments Medicare Wellness Reason Onset Date Comments Medical Record Review 10/30/2022 Reason Comments Complete exam Reason Comments Follow Up Reason Onset Date Comments Forms Completion 11/12/2022 [employer] 11/12/2022 Specialty Diagnoses / Procedures Referred By Debbi t Referred To Contact Radiology Diagnoses Abnormal finding on breast imaging Procedures MG DIGITAL MAMMO DIAGNOS LEFT MG MAMMO DIAG LEFT ASHLEY Katharina Navarro, CLIENT BUSINESS MANAGER-RETAIL SERVICES PROFESSIONAL [address] [place] [address] [facility] [place] [address] Referral ID Status Reason Start Date Expiration Date Visits Re quested Visits Authorized [id number] Closed 11/24/2022 11/24/2023 1 1 Reason Onset Date Comments Medical Record Review 02/24/2023 Reason Onset Date Comments Left Message To Call Back 10/14/2023 Reason Comments Establish Care Care Teams (unrecognized sec tion and content) Juice Weigher Relationship Specialty Start Date End Date Gwen Montero DO [address] [place] [address] [place] [address] PCP - General Family Medicine 11/03/22 Juice Weigher Relationship Specialty Start Date End Date Gwen Montero DO [address] [place] [address] [place] [address] PCP - General Family Medicine 11/03/22 Juice Weigher Relationship Specialty Start Date End Date Gwen Montero DO [address] [place] [address] [place] [address] PCP - General Family Medicine 11/03/22 Juice Weigher Relationship Specialty Start Date End Date Pilar Acuna MD [address] [place] [address] PCP - General Family Medicine 04/05/20 Juice Weigher Relationship Specialty Start Date End Date Pilar Acuna MD [address] [place] [address] PCP - General Family Medicine 04/05/20 Juice Weigher Relationship Specialty Start Date End Date Gwen Montero DO [address] [place] [address] PCP - General Family Medicine 11/03/22 Juice Weigher Relationship Specialty Start Date End Date Gwen Montero DO [address] [place] [address] PCP - General Family Medicine 11/03/22 Juice Weigher Relationship Specialty Start Date End Date Gwen Montero DO [address] [place] [address] PCP - General Family Medicine 11/03/22 Juice Weigher Relationship Specialty Start Date End Date Gwen Montero DO [address] [place] [address] PCP - General Family Medicine 11/03/22 Juice Weigher Relationship Specialty Start Date End Date Gwen Montero DO [address] [place] [address] PCP - General Family Medicine 11/03/22 Juice Weigher Relationship Specialty Start Date End Date Gwen Montero DO [address] [place] [address] PCP - General Family Medicine 11/03/22 Juice Weigher Relationship Specialty Start Date End Date Pilar Acuna MD [address] [place] [id number] PCP - General Family Medicine 04/05/20 Juice Weigher Relationship Specialty Start Date End Date Pilar Acuna MD [address] [place] [id number] PCP - General Family Medicine 04/05/20 Juice Weigher Relationship Specialty Start Date End Date Gwen Montero DO [address] [place] [address] [place] [address] PCP - General Family Medicine 11/03/22 Juice Weigher Relationship Specialty Start Date End Date Pilar Acuna MD [address] [place] [phone] PCP - General Family Medicine 04/05/20 Team Status: Active Member Role Status Dates No Primary Care Physician Primary Care Provider Active Team Status: Inactive Member Role Status Dates Jayesh Breen MD Emergency Provider Active Star t: September 07, 2024 End: September 09, 2024 No Primary Care Physician Primary Care Provider Active Start: September 07, 2024 End: September 09, 2024 Dr. Valentín Sutton DO Admit Provider Active Start: September 07, 2024 End: September 09, 2024 Dr. Valentín Sutton DO Other Provider Active Start: September 07, 2024 End: September 09, 2024 Aaron Wang MD Other Provider Active Start: 2024 End: September 09, 2024 Dr. Keenan Szymanski MD Other Provider Active Start: September 07, 2024 End: September 09, 2024 Concha Jenkins MD Other Provider Active Start : September 07, 2024 End: September 09, 2024 Dr. Isatu Justice DO Other Provider Active St art: September 07, 2024 End: September 09, 2024 Dr. Yue Dover MD Other Provider Active Start: September 07, 2024 End: September 09, 2024 Dr. Desean De La Cruz MD Other Provider Active Sta rt: September 07, 2024 End: September 09, 2024 Dr. Parisa Patterson MD Other Provider Active Start : September 07, 2024 End: September 09, 2024 Dr. Roby Boggs MD Other Provider Active Start: September 07, 2024 End: September 09, 2024 Dr. Anatoly Mix MD Other Provider Active Start : September 07, 2024 End: September 09, 2024 Dr. Reed Guerra MD Other Provider Active Sta rt: September 07, 2024 End: September 09, 2024 Modesta Ramos MD Other Provider Active Start : September 07, 2024 End: September 09, 2024 Dr. Chava Chase MD Other Provider Active St art: September 07, 2024 End: September 09, 2024 Dr. Olivia Hair MD Other Provider Active Start : September 07, 2024 End: September 09, 2024 Dr. Vaibhav Martinez MD Other Provider Active Sta rt: September 07, 2024 End: September 09, 2024 Dr. Angela Castillo MD Other Provider Active Start: September 07, 2024 End: September 09, 2024 Dr. Topher Munoz MD Other Provider Active St art: September 07, 2024 End: September 09, 2024 Dr. Penny Chavarria MD Other Provider Active Star t: September 07, 2024 End: September 09, 2024 Dr. Fadi Rose MD Other Provider Active St art: September 07, 2024 End: September 09, 2024 Dr. Anju Michel MD Other Provider Active Start: September 07, 2024 End: September 09, 2024 Tristen Bello MD Other Provider Active Start: September 07, 2024 End: September 09, 2024 Dr. Jeremy Spivey MD Attending Provider Active Start: September 07, 2024 End: September 09, 2024 Team Status: Active Member Role Status Dates Jayesh Breen MD Emergency Provider Active Star t: September 08, 2024 No Primary Care Physician Primary Care Provider Active Start: September 08, 2024 Dr. Valentín Sutton DO Admit Provider Active Start: September 08, 2024 Dr. Valentín Sutton DO Other Provider Active Start: September 08, 2024 Aaron Wang MD Other Provider Active Start: 2024 Dr. Keenan Szymanski MD Other Provider Active Start: September 08, 2024 Concha Jenkins MD Other Provider Active Start : September 08, 2024 Dr. Isatu Justice DO Other Provider Active St art: September 08, 2024 Dr. Yue Dover MD Other Provider Active Start: September 08, 2024 Dr. Desean De La Cruz MD Other Provider Active Sta rt: September 08, 2024 Dr. Parisa Patterson MD Other Provider Active Start : September 08, 2024 Dr. Roby Boggs MD Other Provider Active Start: September 08, 2024 Dr. Anatoly Mix MD Other Provider Active Start : September 08, 2024 Dr. Reed Guerra MD Other Provider Active Sta rt: September 08, 2024 Modesta Ramos MD Other Provider Active Start : September 08, 2024 Dr. Chava Chase MD Other Provider Active St art: September 08, 2024 Dr. Olivia Hair MD Other Provider Active Start : September 08, 2024 Dr. Vaibhav Martinez MD Other Provider Active Sta rt: September 08, 2024 Dr. Angela Castillo MD Other Provider Active Start: September 08, 2024 Dr. Topher Munoz MD Other Provider Active St art: September 08, 2024 Dr. Penny Chavarria MD Other Provider Active Star t: September 08, 2024 Dr. Fadi Rose MD Other Provider Active St art: September 08, 2024 Dr. Anju Michel MD Other Provider Active Start: September 08, 2024 Tristen Bello MD Other Provider Active Start: September 08, 2024 Dr. Jeremy Spivey MD Attending Provider Active Start: September 08, 2024 Dr. Jeremy Spivey MD Other Provider Active Sta rt: September 08, 2024 Team Status: Active Member Role Status Dates No Primary Care Physician Primary Care Provider Active Start: September 08, 2024 Dr. Alireza Valero MD Attending Provider Active Start: September 08, 2024 Team Status: Active Member Role Status Lata Breen MD Emergency Provider Active Star t: September 09, 2024 No Primary Care Physician Primary Care Provider Active Start: September 09, 2024 Dr. Valentín Sutton DO Admit Provider Active Start: September 09, 2024 Dr. Valentín Sutton DO Other Provider Active Start: September 09, 2024 Aaron Wang MD Other Provider Active Start: 2024 Dr. Keenan Szymanski MD Other Provider Active Start: September 09, 2024 Concha Jenkins MD Other Provider Active Start : September 09, 2024 Dr. Isatu Justice DO Other Provider Active St art: September 09, 2024 Dr. Yue Dover MD Other Provider Active Start: September 09, 2024 Dr. Desean De La Cruz MD Other Provider Active Sta rt: September 09, 2024 Dr. Parisa Patterson MD Other Provider Active Start : September 09, 2024 Dr. Roby Boggs MD Other Provider Active Start: September 09, 2024 Dr. Anatoly Mix MD Other Provider Active Start : September 09, 2024 Dr. Reed Guerra MD Other Provider Active Sta rt: September 09, 2024 Modesta Ramos MD Other Provider Active Start : September 09, 2024 Dr. Chava Chase MD Other Provider Active St art: September 09, 2024 Dr. Olivia Hair MD Other Provider Active Start : September 09, 2024 Dr. Vaibhav Martinez MD Other Provider Active Sta rt: September 09, 2024 Dr. Angela Castillo MD Other Provider Active Start: September 09, 2024 Dr. Topher Munoz MD Other Provider Active St art: September 09, 2024 Dr. Penny Chavarria MD Other Provider Active Star t: September 09, 2024 Dr. Fadi Rose MD Other Provider Active St art: September 09, 2024 Dr. Anju Michel MD Other Provider Active Start: September 09, 2024 Tristen Bello MD Other Provider Active Start: September 09, 2024 Dr. Jeremy Spivey MD Attending Provider Active Start: September 09, 2024 Dr. Jeremy Spivey MD Other Provider Active Sta rt: September 09, 2024 Team Status: Active Member Role Status Dates Dr. Jesse Denton MD Attending Provider Active Start: September 08, 2024 Dr. Valentín Sutton DO Referring Provider Active Start: September 08, 2024 Team Status: Inactive Member Role Status Dates No Primary Care Physician Primary Care Provider Active Start: October 16, 2024 End: October 16, 2024 No Primary Care Physician Referring Provider Active Start: October 16, 2024 End: October 16, 2024 MARCELL Brannon Attending Provider Active S tart: October 16, 2024 End: October 16, 2024 Team Status: Inactive Member Role Status Dates No Primary Care Physician Primary Care Provider Active Start: October 17, 2024 End: October 17, 2024 No Primary Care Physician Referring Provider Active Start: October 17, 2024 End: October 17, 2024 Dr. Alireza Valero MD Attending Provider Active Start: October 17, 2024 End: October 17, 2024 Juice Weigher Relationship Specialty Start Date End Date Rk Woods MD [address] [facility], [place] [id number] PCP - General Internal Medicine 01/03/25 Radha Rosenbaum, CLIENT BUSINESS MANAGER.RETAIL SERVICES PROFESSIONAL [address] [facility], [place] [id number] Internal Medicine 01/03/25 Juice Weigher Relationship Specialty Start Date End Date Rk Woods MD [address] [facility], [place] [address] PCP - General Internal Medicine 01/03/25 Radha Rosenbaum, CLIENT BUSINESS MANAGER.RETAIL SERVICES PROFESSIONAL [address] [facility], [place] [id number] Internal Medicine 01/03/25 Source Comments (unrecognize d section and content) In the event this informatio n is protected by the Federal Confidentiality of Alcohol and Drug Abuse Patient Records regulations: The Federal rules restrict any use of the information to criminally investigate or prosecute any alcohol or drug abuse patient.[place] the event this information is protected by the Federal Confidentiality of Alcohol and Drug Abuse Patient Records regulations: The Federal rules restrict any use of the information to criminally investigate or prosecute any alcohol or drug abuse patient.[place] the event this information is protected by the Federal Confidentiality of Alcohol and Drug Abuse Patient Records regulations: The Federal rules restrict any use of the information to criminally investigate or prosecute any alcohol or drug abuse patient.[place] the event this information is protected by the Federal Confidentiality of Alcohol and Drug Abuse Patient Records regulations: The Federal rules restrict any use of the information to criminally investigate or prosecute any alcohol or drug abuse patient.[place] the event this information is protected by the Federal Confidentiality of Alcohol and Drug Abuse Patient Records regulations: The Federal rules restrict any use of the information to criminally investigate or prosecute any alcohol or drug abuse patient.[place] the event this information is protected by the Federal Confidentiality of Alcohol and Drug Abuse Patient Records regulations: The Federal rules restrict any use of the information to criminally investigate or prosecute any alcohol or drug abuse patient.[place] the event this information is protected by the Federal Confidentiality of Alcohol and Drug Abuse Patient Records regulations: The Federal rules restrict any use of the information to criminally investigate or prosecute any alcohol or drug abuse patient.[place] FOR RECORDS PERTAINING TO PATIENTS WHO ARE OR HAVE BEEN ENROLLED IN A CHEMICAL DEPENDENCY/SUBSTANCEABUSE PROGRAM, SOME INFORMATION MAY BE OMITTED. This clinical summary was aggregated from multiple sources. Caution should be exercised in using it in the provision of clinical care. This summary normalizes information from multiple sources, and as a consequence, information in this document may materially change the coding, format and clinical context of patient data. In addition, data may be omitted in some cases. CLINICAL DECISIONS SHOULD BE BASED ON THE PRIMARY CLINICAL RECORDS. [facility]. provides no warranty or guarantee of the accuracy or completeness of information in this document.
[2025-05-09 11:01] LABS: AST(SGOT) 21 U/L (<=31); Alanine Aminotransfer ALT/SGPT 21 U/L (<=34); Albumin, Serum 4.5 g/dL (3.4-4.8); Alkaline Phosphatase 91 U/L (35-104); Anion Gap 11 (7-18); BUN 11 mg/dL (4-19); BUN/Creat Ratio 14.1 RATIO (10-20); Calcium,Total 9.9 mg/dL (7.6-11.0); Carbon Dioxide 24.6 mmol/L (20.0-29.0); Chloride 106 mmol/L (96-106); Cholesterol 122 mg/dL (<=200); Globulin 3.1 g/dL (2.2-4.2); Glucose 100 mg/dL (70-99); Low Density Lipoprotein Calc. 56 mg/dL; Potassium 5.1 mmol/L (3.5-5.1); Triglycerides 182 mg/dL; Very Low Density Lipoprotein 36 mg/dL (5-40); cholesterol:hdl ratio screen 3.46
== END | disposition home or self-care (01) ==
LOC: LAB 10:06
PROVIDERS: PCP Internal Medicine; Referring Provider Internal Medicine Cardiovascular Disease; Visit Provider Internal Medicine Cardiovascular Disease
DX: I10 Essential (primary) hypertension (principal); E78.5 Hyperlipidemia, unspecified
CPT/HCPCS: 36415; 80053; 80061